=== PATIENT | female | born 1945 | race Caucasian/White ===

== ENCOUNTER → 2020-01-03 11:49 | Outpatient (NON) | payer MEDICARE, SELFPAY ==
[2020-01-03 12:48] LABS: Add Urine Microscopic? YES; Appearance Urine Clear (Clear); Bacteria Urine 2+ /hpf; Bilirubin Urine Negative (Negative); Blood Urine 1+ (Negative); Color Urine Yellow (Yellow); Glucose Urine UA Negative (Negative); Ketones Urine Negative (Negative); Leukocyte Esterase Ur 3+ LEU/UL (Negative); Nitrate Urine Negative (Negative); Protein Urine Negative (Negative); Specific Grav Ur 1.008 (1.001-1.035); Squamous Epithelial Cell Urine Occasional /hpf (Few); Urobilinogen Urine Negative mg/dL (<2.0); WBC Clumps Urine Present /HPF; WBC Urine 31-50 /hpf
== END ==
PROVIDERS: PCP Internal Medicine
DX: N17.9 Acute kidney failure, unspecified (principal); I48.91 Unspecified atrial fibrillation; R82.90 Unspecified abnormal findings in urine
CPT/HCPCS: 81001; 87086; 87186

== ENCOUNTER 2020-01-04 08:39 | Outpatient (CLI) | payer MEDICARE, SELFPAY ==
--- NOTE | 2020-01-04 09:01 | ECHO_ITS ---
Patient Info Name: Rachele Murray Age: 74 years : 1945 Gender: Female Ht: 61 in Wt: 136 lbs BSA: 1.64 m2 HR: 71 bpm BP: 158 / 70 mmHg Heart Rhythm: Sinus Rhythm Exam Date: 01/04/2020 9:15 AM Exam Location: [facility] Patient Status: Outpatient Admit Date: 01/04/2020 Staff Ordering Physician: Prosper Martinez DO Director Of Assessing: Gwen Phillips RDCS Attending Provider: Prosper Martinez DO Referring Physician: Juan SWIFT; Exam Type: CA echo doppler color flow Study Info Indications R60.9 - Edema, unspecified Complete two-dimensional, color flow and Doppler transthoracic echocardiogram is performed. Summary 1. Left ventricular chamber dimension is normal. 2. Ventricular septum is sigmoid shaped. 3. Left ventricular systolic function is normal, estimated at 55-60%. 4. There is mildly increased left ventricular wall thickness. 5. The left ventricular diastolic function is indeterminate. 6. Tissue doppler is not performed. 7. Left atrial chamber dimension is mildly enlarged. 8. The aortic valve is not well visualized. 9. There is severe aortic valve sclerosis. 10. There is moderate to severe aortic valve stenosis based on a peak velocity of 220 cm/s, mean gradient of 9 mmHg, and aortic valve area of 1.0 cm2. 11. There is mild aortic valve regurgitation. 12. The mitral valve has mildly calcified annulus. 13. There is mild mitral valve regurgitation. 14. There is trace tricuspid valve regurgitation. 15. Severe pulmonary hypertension, estimated pulmonary arterial systolic pressure is 82 mmHg. 16. Dilated inferior vena cava with <50% collapse upon inspiration consistent with significantly elevated right atrial pressure, 15 mmHg. Left Ventricle Tissue doppler is not performed. Ventricular septum is sigmoid shaped. Left ventricular chamber dimension is normal. Left ventricular systolic function is normal, estimated at 55-60%. There is mildly increased left ventricular wall thickness. The left ventricular diastolic function is indeterminate. Right Ventricle Right ventricular chamber dimension is normal. Right ventricular systolic function is normal. Left Atria Left atrial chamber dimension is mildly enlarged. Right Atria Right atrial chamber dimension is normal. Aortic Valve There is moderate to severe aortic valve stenosis based on a peak velocity of 220 cm/s, mean gradient of 9 mmHg, and aortic valve area of 1.0 cm2. The aortic valve is not well visualized. There is severe aortic valve sclerosis. There is mild aortic valve regurgitation. Pulmonic Valve There is no pulmonic regurgitation. Mitral Valve The mitral valve has mildly calcified annulus. There is no mitral valve stenosis. There is mild mitral valve regurgitation. Tricuspid Valve There is trace tricuspid valve regurgitation. Severe pulmonary hypertension, estimated pulmonary arterial systolic pressure is 82 mmHg. Pericardium/Pleural There is no pericardial effusion. Inferior Vena Cava Dilated inferior vena cava with <50% collapse upon inspiration consistent with significantly elevated right atrial pressure, 15 mmHg. Aorta The aortic root size at the sinus of Valsalva is normal. Left Ventricular Outflow Tract Name Value Normal LVOT 2D
== END 2020-01-04 08:40 | disposition home or self-care (01) ==
LOC: ANHCARD 08:41
PROVIDERS: PCP Internal Medicine; Visit Provider Internal Medicine Cardiovascular Disease
DX: R60.9 Edema, unspecified (principal); I08.3 Combined rheumatic disorders of mitral, aortic and tricuspid valves
CPT/HCPCS: 93306

== ENCOUNTER 2020-02-05 13:34 | Outpatient (CLI) | payer MEDICARE, SELFPAY ==
--- NOTE | ~2020-02-05 | MR_ITS ---
EXAMINATION: MR cervical spine wo con DATE: 02/05/2020 14:51 INDICATION: Neck pain. TECHNIQUE: Magnetic resonance imaging (MRI) of the cervical spine was performed without intravenous c ontrast. Sequences included sagittal T2-weighted FSE, sagittal STIR FSE, sagittal T1-weighted FSE, ax ial MERGE, and axial T2-weighted FSE. COMPARISON: Chest CT 10/18/2019 FINDINGS: There is a large multinodular goiter. There is 2 mm retrolisthesis of C5 on C6. There is se verely decreased disc height at C5-C6 and C6-C7 with endplate remodeling. The spinal cord signal inte nsity is normal, but sensitivity is decreased by motion artifact. There is a left pleural effusion. T he following disc levels are specifically discussed: C2-C3: The disc does not extend beyond the endplate margin. There is no uncovertebral joint osteoarth ritis. There is severe bilateral facet joint osteoarthritis. There is mild left neural foraminal sten osis. There is no central canal stenosis. C3-C4: The disc is bulging. There is moderate right and mild left uncovertebral joint osteoarthritis. There is severe right and moderate left facet joint osteoarthritis. There is mild bilateral neural f oraminal stenosis. There is severe central canal stenosis with ventral and dorsal indentation of spin al cord. C4-C5: The disc is bulging. There is severe bilateral uncovertebral joint osteoarthritis. There is mo derate bilateral facet joint osteoarthritis. There is moderate bilateral neural foraminal stenosis. T here is severe central canal stenosis with ventral and dorsal indentation of the spinal cord. C5-C6: The disc is bulging. There is severe bilateral uncovertebral joint osteoarthritis. There is mo derate right and severe left facet joint osteoarthritis. There is moderate to severe bilateral neural foraminal stenosis. There is mild central canal stenosis. C6-C7: The disc is bulging. There is severe bilateral uncovertebral joint osteoarthritis. There is mi ld bilateral facet joint osteoarthritis. There is mild bilateral neural foraminal stenosis. There is mild central canal stenosis. C7-T1: The disc does not extend beyond the endplate margin. There is no uncovertebral joint osteoarth ritis. There is severe bilateral facet joint osteoarthritis. There is mild bilateral neural foraminal stenosis. There is no central canal stenosis. IMPRESSION: 1. Severe cervical spondylosis. Sensitivity and specificity are decreased by motion artifact. 2. Left pleural effusion. Reviewed, dictated and finalized at location A. IMPRESSION: 1. Severe cervical spondylosis. Sensitivity and specificity are decreased by mo tion artifact. 2. Left pleural effusion.
== END 2020-02-05 13:35 | disposition home or self-care (01) ==
PROVIDERS: PCP Internal Medicine; Visit Provider Clinical Nurse Specialist
DX: M47.812 Spondylosis without myelopathy or radiculopathy, cervical region (principal); J90 Pleural effusion, not elsewhere classified
CPT/HCPCS: 72141

== ENCOUNTER 2020-02-09 14:40 | Outpatient (CLI) | payer MEDICARE, SELFPAY ==
--- NOTE | 2020-02-23 15:50 | WPDPFTINT ---
PFT Interpretation PFT Interpretation: DOS: 02/09/2020 REQUESTING: Dr Torres REASON FOR TESTING: COPD PULMONARY FUNCTION TESTS Results are not reproducible as the patient could not exhale 3 times for at least 6 seconds. His effort was excellent and he preformed to the best of his ability with coaching. Spirometry: Severe decrease in FEV1, 36% predicted, 0.71 L. FVC is severely reduced 49%, and decrease in FEV1%, 54%. There is a 14% increase in FEV1 which is less than 200 ml after bronchodilator. Lung volumes: TLC reduced at 66% predicted consistent with moderate restriction. RV is 94%, and RV/TLC ratio is increased at 58 consistent with air trapping. Airway resistance is increased 590%. Diffusion: DLCO extremely reduced, 22%. Flow volume loop: Scooping of the expiratory limb and overall reduction in size consistent with obstructive and restrictive processes. IMPRESSION: Moderate restriction and severe obstruction with air trapping and severe diffusion impairment. The suboptimal response to bronchodilator should not preclude use if clinically indicated. COPD is an obstructive process. The restriction is due to a secondary condition. Venecia Bland MD
== END 2020-02-09 14:41 | disposition home or self-care (01) ==
PROVIDERS: PCP Internal Medicine; Visit Provider Internal Medicine
DX: J44.9 Chronic obstructive pulmonary disease, unspecified (principal); R94.2 Abnormal results of pulmonary function studies
CPT/HCPCS: 94060; 94726; 94729

== ENCOUNTER 2020-02-29 16:31 | Inpatient (IN) | payer MEDICARE, SELFPAY ==
[2020-02-29] VITALS (25 sets, daily range): BP systolic 110–167; BP diastolic 48–71; PULSE 69–82; RESP 16–29; TEMP 36.2–36.7; O2SAT 85–100; BMI 25.2
--- NOTE | ~2020-02-29 | US_ITS ---
EXAMINATION: US thoracentesis DATE: 03/01/2020 11:52 INDICATION: pleural effusion TECHNIQUE: The procedure and its risks, benefits, and alternatives were discussed with the patient. P otential risks discussed included bleeding, infection, and pneumothorax. The patient understood the r isks and agreed to proceed. The skin was prepped and draped in sterile fashion. 1% lidocaine was used for local anesthesia. Under ultrasound guidance, a 5 Fr catheter with trochar was advanced into the left pleural effusion. Fluid was aspirated. The catheter was removed, and a dressing was applied. The re were no immediate complications. FINDINGS: Ultrasound images demonstrate a left pleural effusion and the catheter within the fluid. IMPRESSION: 1. Successful ultrasound-guided thoracentesis yielding 1000 mL of clear, yellow fluid. Reviewed, dictated and finalized at location A. IMPRESSION: 1. Successful ultrasound-guided thoracentesis yielding 1000 mL of clear, yello w fluid.
--- NOTE | ~2020-02-29 | XR_ITS ---
EXAMINATION: XR chest 1V portable DATE: 02/29/2020 17:15 INDICATION: Shortness of breath TECHNIQUE: frontal view of the chest was obtained. COMPARISON: Chest CT dated 10/18/2019 FINDINGS: Emphysema with increased lucency and architectural distortion at the bilateral upper lung zones. Mild biapical pleural-parenchymal scarring. Skin folds project over the lateral right mid to lower lung z one. Opacification of the mid to lower left hemithorax consistent with moderate size pleural effusion and associated atelectasis and/or pneumonia. Pulmonary vascular congestion and mild increased inters titial pattern consistent with mild pulmonary edema. No pneumothorax or right-sided pleural effusion. The left heart border is obscured by the pleural effusion and associated airspace disease. Mediastin al silhouette is normal conifer slight rightward rotation of the patient. IMPRESSION: 1. Mild pulmonary edema. 2. Moderate-sized left pleural effusion with atelectasis and/or pneumonia in the left mid to lower aaron ngs. 3. Emphysema. Reviewed, dictated and finalized at location A. IMPRESSION: 1. Mild pulmonary edema. 2. Moderate-sized left pleural effusion with atelectasis and/or pneumonia in th e left mid to lower lungs. 3. Emphysema.
--- NOTE | ~2020-02-29 | XR_ITS ---
XR chest 2V DATE: 03/03/2020 09:22 INDICATION: Left pleural effusion TECHNIQUE: Upright AP and lateral views COMPARISON: 03/02/2020 AP and lateral chest FINDINGS: There is moderately large left pleural effusion which appears relatively stable since 020. There is associated compressive atelectasis in the left lower lung. The right lung appears essen tially clear. Cardiomegaly. Aortic calcification. Diffuse osteopenia. Numerous calcified splenic granulomas. IMPRESSION: Persistent moderately large left pleural effusion with compressive atelectasis in the lef t lower lung Reviewed, dictated and finalized at location A. IMPRESSION: Persistent moderately large left pleural effusion with compressive atelectasis in the left lower lung
--- NOTE | ~2020-02-29 | XR_ITS ---
XR chest 2V DATE: 03/02/2020 10:08 INDICATION: Thoracentesis on 03/01/2024 pleural effusion TECHNIQUE: AP and lateral chest on 03/02/2020 at 1007 hours COMPARISON: 03/01/2020 AP chest at 1141 hours FINDINGS: Moderately large left pleural effusion is noted with associated compressive atelectasis in the left lower lung. There is mild infiltrate or atelectasis in the right lower lung and slight right pleural effusion. Aortic calcification. Diffuse osteopenia. IMPRESSION: Persistent moderately large left pleural effusion with compressive atelectasis in the lef t lower lung; no evidence of pneumothorax Minimal infiltrate or atelectasis at the right lung base and slight right pleural effusion Reviewed, dictated and finalized at location A. IMPRESSION: Persistent moderately large left pleural effusion with compressive atelectasis in the left lower lung; no evidence of pneumothorax Minimal infiltrate or atelectasis at the right lung base and slight right pleur al effusion
--- NOTE | ~2020-02-29 | XR_ITS ---
EXAMINATION: XR chest 1V DATE: 03/01/2020 11:43 INDICATION: Left pleural effusion status post thoracentesis. TECHNIQUE: A single frontal view of the chest was obtained. COMPARISON: Chest single view 02/29/2020, chest CT 10/18/2019 FINDINGS: There is a moderate-sized left pleural effusion. There are airspace opacities at left lung base, likely atelectasis. No pneumothorax. Again seen is a right paratracheal mass, consistent with i ntrathoracic goiter as shown by prior CT. The heart size is normal. IMPRESSION: 1. Moderate-sized left pleural effusion with interval improvement. 2. Airspace opacities at left lung base, likely atelectasis. 3. Goiter. Reviewed, dictated and finalized at location A.
--- NOTE | 2020-02-29 16:58 | ED.WEAKNESS ---
HPI - Weakness General Chief complaint: Weakness Stated complaint: possible dehydration Time Seen by Provider: 02/29/20 16:43 History of Present Illness HPI Narrative: Brought in from home for confusion and weakness. She has reportedly been more confused for the past few days. Barely eating or drinking. She has a mckeon catheter in place and daughter has noticed that her urine has been significantly darker. The pateit also says that she is more short of breath. No fever. Related Data Home Medications Medication Instructions Recorded Confirmed aspirin 81 mg tablet,delayed 81 mg PO DAILY 08/08/19 03/01/20 release gabapentin 100 mg capsule 100 mg PO TID 08/08/19 03/01/20 melatonin 5 mg tablet 10 mg PO HS tablet 08/08/19 03/01/20 tamsulosin 0.4 mg capsule 0.4 mg PO DAILY 08/08/19 03/01/20 multivitamin with minerals 1 cap PO DAILY 12/01/19 03/01/20 furosemide 40 mg tablet 40 mg PO .prn tablet 01/05/20 03/01/20 meclizine 12.5 mg tablet 12.5 mg PO BID PRN tablet 01/05/20 03/01/20 potassium chloride 10 mEq 10 meq PO DAILY PRN 01/05/20 03/01/20 tablet,extended release L. gasseri-B. bifidum-B longum 1.5 1 cap PO DAILY 01/25/20 03/01/20 billion cell capsule Allergies Allergy/AdvReac Type Severity Reaction Status Date / Time Penicillins Allergy Severe Anaphylactic Verified 02/29/20 16:38 Shock Review of Systems Review of Systems: All systems reviewed & are unremarkable except as noted in HPI and below Constitutional: Constitutional: Denies chills, Denies fever(s) and Reports weakness Cardiovascular: Cardiovascular: Denies chest pain Respiratory: Respiratory: Reports dyspnea Gastrointestinal: Gastrointestinal: Denies abdominal pain, Denies nausea and Denies vomiting Genitourinary: Genitourinary: Denies hematuria Neurologic: Reports weakness Endocrine: Endocrine: Denies polyuria PMFSH Past Medical History Medical History Anemia Anxiety Aortic valve stenosis Atrial fibrillation Breast tumor Chronic indwelling Mckeon catheter CKD (chronic kidney disease) Depression Dermatitis Dizziness Edema Goiter Hyperkalemia Hypertension Hyperthyroidism Kidney stones Murmur Osteoporosis Skin cancer Surgical History Surgical History History of nasal surgery Social History Social History Smoking packs per day: 2 Smoking cigarettes per day: 40.0 Years smoked: 60 Smoking pack-years: 120.00 Smoking status: Current every day smoker Tobacco type: pipe Alcohol intake: never Substance use: never Gender identity (if verbalized by the patient): Female Spiritual care concerns: No Exam Const: General: no acute distress and alert Other: elderly, chronically ill appearing HENMT: Mouth: Yes dry mucous membranes Eyes: Pupils: Equal, round and reactive pupils present Resp: Effort & Inspection: normal respiratory effort Auscultation: wheezes Cardio: Rate: regular rate Rhythm: regular rhythm GI: GI Palp: Yes Soft to palpation and No Tenderness to palpation present (GI) Urinary Catheter: Urinary Catheter: patent and draining and urine dark Skin: General skin exam: normal color Neuro: General: patient oriented x3, moves all extremities and CN's II-XI intact bilaterally Extrem: General: edema bilateral (1-2+) Course Vital Signs Vital signs: Vital Signs Temperature 36.2 C L 02/29/20 16:38 Pulse Rate 73 02/29/20 16:38 Respiratory Rate 29 H 02/29/20 16:38 Blood Pressure 164/71 H 02/29/20 16:38 Pulse Oximetry 100 02/29/20 16:38 Temperature 36.8 C 03/01/20 05:11 Pulse Rate 76 03/01/20 05:11 Respiratory Rate 18 03/01/20 05:11 Blood Pressure 121/44 L 03/01/20 05:11 Pulse Oximetry 94 03/01/20 05:11 MDM - Weakness MDM Narrative Medical decision making narrative: She has pulmonary edema an
[2020-02-29 17:08] LABS: Basophils Percent Auto 0.4 % (0.2-1.2); Eosinophils Absolute Auto 0.3 K/mm3 (0-0.3); Eosinophils Percent Auto 2.7 % (0-4.4); Hematocrit 31.4 % (37.0-47.0); Immature Granulocyte Absolute 0.04 K/mm3 (0.00-0.031); Immature Granulocyte Percent A 0.4 % (0-0.5); Lymphocytes Percent Auto 10.4 % (18.3-44.2); Mean Corpuscular HGB Conc 28.7 g/dl (32-36); Mean Corpuscular Hemoglobin 26.6 pg (26-34); Mean Corpuscular Volume 92.9 fl (80-100); Mean Platelet Volume 8.8 fl (7.4-10.4); Monocytes Absolute Auto 0.7 K/mm3 (0.1-0.6); Monocytes Percent Auto 6.8 % (2.6-8.5); Neutrophils Absolute Auto 8.4 K/mm3 (1.3-6.7); Neutrophils Percent Auto 79.3 % (45.5-73.1); Platelet Count Result 355 k/mm3 (150-375); Red Blood Count 3.38 M/mm3 (4.2-5.4); Red Cell Distribution Width 13.2 % (11.5-14.5); White Blood Count 10.5 K/mm3 (4.5-10.0)
[2020-02-29 17:17] LABS: Hypochromasia 1+ (NORMAL); Platelet Estimate Adequate (Adequate)
[2020-02-29 17:21] LABS: Lactic Acid Reflex 0.7 mmol/L (0.7-2.1)
[2020-02-29 17:26] LABS: Alanine Aminotransferase 17 U/L (4-35); Albumin Level 3.7 g/dL (3.5-5.1); Alkaline Phosphatase 91 U/L (38-126); Aspartate Amino Transferase 32 U/L (14-36); Bilirubin,Total 0.2 mg/dL (0.2-1.3); Blood Urea Nitrogen 28 mg/dL (7-17); Calcium 9.3 mg/dL (8.4-10.2); Carbon Dioxide 32 mmol/L (22-30); Chloride 99 mmol/L (98-107); Estimated CRCL calculation 23 ml/min; Estimated Glomerular Filt Rate 30; Glucose 98 mg/dL (65-105); Potassium 4.8 mmol/L (3.4-5.0); Sodium 135 mmol/L (137-145)
[2020-02-29 17:43] LABS: Add Urine Microscopic? YES; Amorphous Sediment Urine Few; Appearance Urine Cloudy (Clear); Bacteria Urine 1+ /hpf; Bilirubin Urine Negative (Negative); Blood Urine 2+ (Negative); Color Urine Yellow (Yellow); Glucose Urine UA Negative (Negative); Ketones Urine Negative (Negative); Leukocyte Esterase Ur 3+ LEU/UL (Negative); Nitrate Urine Negative (Negative); Protein Urine 2+ mg/dL (Negative); Specific Grav Ur 1.005 (1.001-1.035); Squamous Epithelial Cell Urine Occasional /hpf (Few); Urobilinogen Urine Negative mg/dL (<2.0); WBC Clumps Urine Present /HPF; WBC Urine >75 /hpf
[2020-02-29] MEDS: FUROSEMIDE INJ 40 MG/4 ML VIAL IV PUSH (18:56)
--- NOTE | 2020-02-29 21:38 | ADMGEN ---
This patient, Rachele Murray, was admitted to Medical Room 348-01. Patient/family oriented to hospital policies and general routines including ID bracelet, bed and alarms, visiting hours, pain management, procedures, bathroom and other care routines, personal items, smoking policy, room service/diet, and visiting hours. Valuables list has been completed. Information on how to activate the Rapid Response Team has been discussed. Patient/Family are encouraged to report perceived risks to care and to ask questions if they do not understand what they are told or what they should do.
[2020-02-29] MEDS: ALBUTEROL SULFATE NEB 2.5 MG/0.5 ML INH 5 MG INHALATION (22:23)
[2020-02-29] MEDS: IPRATROPIUM BR 0.02% INH SOLN 0.5 MG/2.5 ML VIAL INHALATION (22:24)
--- NOTE | 2020-02-29 22:35 | PM.IMHP ---
H&P: HPI History of Present Illness Chief complaint: Worsening shortness of breath Narrative: This is a 74 year old female with known history of previous colon cancer s/p colectomy in 2012 and recently diagnosed bladder tumor approximately 6 months ago who has had ongoing shortness of breath. She remarks that she has been experiencing worsening exertional shortness of breath over the past few weeks and her daughter urged her to come to the hospital for evaluation as she didn't look good to her. The patient is known to self catheterize herself over the past year and reports that her urine has been dark in color. She denies any chest pain, fevers, worsening cough, sore throat, headache, abdominal pain, dysuria, hematuria, nausea, vomiting or diarrhea. CXR was obtained in the ER tonight which demonstrated mild pulmonary edema and a moderate-sized left pleural effusion. The patient recently had a PET scan performed a few weeks ago which demonstrated a possible new occurrence of colon cancer. The patient is known to see Dr. March. The patient is currently on her home oxygen of 2.5 L/min via [place]. Urinalysis was grossly abnormal. She has been admitted to the hospital for a thoracentesis. Review of Systems Review of Systems: All systems reviewed & are unremarkable except as noted in HPI and below PMFSH Past Medical History Medical History Anemia Anxiety Aortic valve stenosis Atrial fibrillation Breast tumor Chronic indwelling Monahan catheter CKD (chronic kidney disease) Depression Dermatitis Dizziness Edema Goiter Hyperkalemia Hypertension Hyperthyroidism Kidney stones Murmur Osteoporosis Skin cancer Surgical History Surgical History History of nasal surgery Social History Social History Smoking packs per day: 2 Smoking cigarettes per day: 40.0 Years smoked: 60 Smoking pack-years: 120.00 Smoking status: Current every day smoker Tobacco type: pipe Alcohol intake: never Substance use: never Gender identity (if verbalized by the patient): Female Spiritual care concerns: No Comments Family medical history is reviewed and noncontributory. Meds Home Medications and Allergies Home Medications Medication Instructions Recorded Confirmed Type aspirin 81 mg tablet,delayed 81 mg PO DAILY 08/08/19 03/01/20 History release atorvastatin 10 mg tablet 10 mg PO DAILY #90 tablet 08/08/19 03/01/20 Rx gabapentin 100 mg capsule 100 mg PO TID 08/08/19 03/01/20 History melatonin 5 mg tablet 10 mg PO HS tablet 08/08/19 03/01/20 History methimazole 5 mg tablet 5 mg PO DAILY #90 tablet 08/08/19 03/01/20 Rx tamsulosin 0.4 mg capsule 0.4 mg PO DAILY 08/08/19 03/01/20 History multivitamin with minerals 1 cap PO DAILY 12/01/19 03/01/20 History amiodarone 200 mg tablet 200 mg PO DAILY #30 tablet 12/18/19 03/01/20 Rx furosemide 40 mg tablet 40 mg PO .prn tablet 01/05/20 03/01/20 History meclizine 12.5 mg tablet 12.5 mg PO BID PRN tablet 01/05/20 03/01/20 History potassium chloride 10 mEq 10 meq PO DAILY PRN 01/05/20 03/01/20 History tablet,extended release L. gasseri-B. bifidum-B longum 1.5 1 cap PO DAILY 01/25/20 03/01/20 History billion cell capsule albuterol sulfate 90 mcg/actuation 1 inhalation INHALATION Q4H PRN 02/13/20 03/01/20 Rx aerosol inhaler #18 gm sertraline 50 mg tablet 50 mg PO DAILY #30 tablet 02/20/20 03/01/20 Rx ipratropium bromide 17 2 puff INHALATION QID #12.9 gm 02/27/20 03/01/20 Rx mcg/actuation HFA aerosol inhaler Allergies Allergy/AdvReac Type Severity Reaction Status Date / Time Penicillins Allergy Severe Anaphylactic Verified 02/29/20 16:38 Shock Vital Signs Vital Signs - 24 hr 02/29/20 16:38 02/29/20 16:41 02/29/20 16:42 Temperature 36.2 C L Pulse Rate 73 73 73 Respiratory Rate 29 H 21 H 16
[2020-03-01] VITALS (19 sets, daily range): BP systolic 121–155; BP diastolic 44–64; PULSE 68–96; RESP 18–22; TEMP 36.8–37.4; O2SAT 90–96
[2020-03-01] MEDS: ALBUTEROL SULFATE NEB 2.5 MG/0.5 ML INH 5 MG INHALATION ×4 (02:34→19:10)
[2020-03-01] MEDS: IPRATROPIUM BR 0.02% INH SOLN 0.5 MG/2.5 ML VIAL INHALATION ×4 (02:34→19:11)
[2020-03-01 05:36] LABS: Basophils Percent Auto 0.4 % (0.2-1.2); Eosinophils Absolute Auto 0.3 K/mm3 (0-0.3); Eosinophils Percent Auto 2.7 % (0-4.4); Hemoglobin 8.2 g/dL (12.0-15.0); Immature Granulocyte Absolute 0.03 K/mm3 (0.00-0.031); Immature Granulocyte Percent A 0.3 % (0-0.5); Lymphocytes Absolute Auto 0.76 K/mm3 (0.9-3.2); Lymphocytes Percent Auto 7.9 % (18.3-44.2); Mean Corpuscular HGB Conc 29.3 g/dl (32-36); Mean Corpuscular Volume 92.1 fl (80-100); Mean Platelet Volume 8.7 fl (7.4-10.4); Monocytes Absolute Auto 0.6 K/mm3 (0.1-0.6); Monocytes Percent Auto 6.4 % (2.6-8.5); Neutrophils Absolute Auto 7.9 K/mm3 (1.3-6.7); Neutrophils Percent Auto 82.3 % (45.5-73.1); Platelet Count Result 290 k/mm3 (150-375); Red Blood Count 3.04 M/mm3 (4.2-5.4); Red Cell Distribution Width 13.2 % (11.5-14.5); White Blood Count 9.6 K/mm3 (4.5-10.0)
[2020-03-01 05:55] LABS: Triglycerides 83 mg/dL (<150)
[2020-03-01 05:57] LABS: Albumin Level 3.1 g/dL (3.5-5.1); Cholesterol 141 mg/dL (0-200); Glucose 125 mg/dL (65-105); Lactate Dehydrogenase 292 U/L (313-618)
[2020-03-01 05:58] LABS: Blood Urea Nitrogen 27 mg/dL (7-17); Carbon Dioxide 35 mmol/L (22-30); Chloride 101 mmol/L (98-107); Estimated CRCL calculation 17 ml/min; Estimated Glomerular Filt Rate 24; Glucose 127 mg/dL (65-105); Sodium 138 mmol/L (137-145)
[2020-03-01 08:03] LABS: Mean Platelet Volume 8.9 fl (7.4-10.4); Platelet Count Result 299 k/mm3 (150-375)
[2020-03-01 08:11] LABS: INR 1.1; Prothrombin Time 14.1 Seconds (11.1-14.7)
[2020-03-01 08:13] LABS: Partial Thromboplastin Time 28.5 SECONDS (22.3-36.8)
[2020-03-01 12:00] LABS: pH Pleural Fluid 7.463 (7.210-7.500)
[2020-03-01] MEDS: FUROSEMIDE INJ 40 MG/4 ML VIAL IV PUSH ×2 (12:13→21:49)
--- NOTE | 2020-03-01 12:22 | PM.IMPN ---
Progress Note: A&P Assessment and Plan (1) TRACY (dyspnea on exertion): Code(s): R06.09 - Other forms of dyspnea Status: Acute Assessment and Plan: [place] to be secondary to pleural effusion and COPD. She remains on IV lasix today. Continue her home oxygen supplementation and bronchodilator therapy. Improved after thoracentesis. (2) Pleural effusion: Code(s): J90 - Pleural effusion, not elsewhere classified Status: Acute Assessment and Plan: Thoracentesis today yielded 1000mL of clear yellow fluid. pH is within normal limits, cell count 32; RBC 146. Gram stain shows many WBC with no organisms seen. Continue diuresis with IV lasix and monitor fluid status. Recheck CXR in AM. No further respiratory distress. (3) Abnormal urinalysis: Code(s): R82.90 - Unspecified abnormal findings in urine Status: Acute Assessment and Plan: Rule out UTI with urine culture pending; Continue IV rocephin in the interim. (4) COPD (chronic obstructive pulmonary disease): Qualifiers: COPD type: unspecified COPD Qualified Code(s): J44.9 - Chronic obstructive pulmonary disease, unspecified Code(s): J44.9 - Chronic obstructive pulmonary disease, unspecified Status: Chronic Assessment and Plan: No respiratory distress today; continue bronchodilators. (5) Atrial fibrillation: Qualifiers: Atrial fibrillation type: unspecified Qualified Code(s): I48.91 - Unspecified atrial fibrillation Code(s): I48.91 - Unspecified atrial fibrillation Status: Chronic Assessment and Plan: Currently rate controlled. Continue Amiodarone PO. (6) Aortic valve stenosis: Qualifiers: Cardiac valve disease etiology: etiology unspecified Qualified Code(s): I35.0 - Nonrheumatic aortic (valve) stenosis Code(s): I35.0 - Nonrheumatic aortic (valve) stenosis Status: Chronic Assessment and Plan: Stable. Echocardiogram 01/04/20 showed moderate to severe aortic stenosis. She follows with Dr Martinez. (7) Hyperthyroidism: Code(s): E05.90 - Thyrotoxicosis, unspecified without thyrotoxic crisis or storm Status: Chronic Assessment and Plan: Continue methimazole PO. (8) CKD (chronic kidney disease): Qualifiers: Chronic kidney disease stage: stage 3 (moderate) Qualified Code(s): N18.3 - Chronic kidney disease, stage 3 (moderate) Code(s): N18.9 - Chronic kidney disease, unspecified Status: Chronic Assessment and Plan: Cr is near baseline. Continue to monitor renal function. (9) Depression: Qualifiers: Depression Type: unspecified Qualified Code(s): F32.9 - Major depressive disorder, single episode, unspecified Code(s): F32.9 - Major depressive disorder, single episode, unspecified Status: Chronic Assessment and Plan: Continue home sertraline. Subjective Date/time seen: 03/01/20 1200 Interval history: Ms. Murray is a 74yo F admitted for dyspnea and pleural effusion. She is a bit anxious today seen just following her thoracentesis. She reports she is breathing easier following her procedure. She notes some anterior chest wall pain with deep breath. She is hungry but denies nausea, vomiting, or abdominal pain. Review of Systems Review of Systems: Narrative: Twelve systems were reviewed with pertinent positives and negatives as per HPI. Exam Narrative: Exam Narrative: General: Thin female resting sitting up in bed in no acute distress. HEENT: Normocephalic, EOMI, oral mucosa moist. Cardiovascular: Rate and rhythm are regular. Systolic murmur. Respiratory: Decreased breath sounds VASU. Respir
[2020-03-01 13:10] LABS: Appearance Pleural Fluid Hazy (Clear); Color Pleural Fluid Yellow (Colorless); Nucleated Cell Pleural Fluid 258 /uL (0-1000); Pleural fluid source Pleural fluid; RBC Pleural Fluid 146 /uL (0-0)
[2020-03-01 13:12] LABS: Lymphocytes Pleural Fluid 24 %; Macrophages Pleural Fluid 7 %; Mesothelial Cells Pleural Flui 33 %; Monocytes Pleural Fluid 4 %; Neutrophils Pleural Fluid 32 % (0-25)
[2020-03-01] MEDS: GABAPENTIN 100 MG CAPSULE PO ×2 (16:19→21:48)
[2020-03-01] MEDS: MELATONIN 5 MG TABLET 10 MG PO (21:48)
[2020-03-01] MEDS: SERTRALINE HCL 50 MG TABLET PO (21:49)
[2020-03-02] VITALS (21 sets, daily range): BP systolic 105–144; BP diastolic 48–64; PULSE 69–91; RESP 16–22; TEMP 36.6–37.4; O2SAT 92–97
--- NOTE | 2020-03-02 00:41 | ECG_ITS ---
Measurements Intervals [place] Rate: 82 P: 51 MD: 153 QRS: 55 QRSD: 95 T: 68 QT: 387 QTc: 455 Interpretive Statements SINUS RHYTHM BASELINE ARTIFACT- II, III, AVL NORMAL ECG Electronically Signed On 03-02-2020 7:12:45 CDT by Prosper Martinez D.O.
[2020-03-02] MEDS: LORAZEPAM INJ 2 MG/ML VIAL 0.5 MG IV PUSH ×2 (01:26→18:04)
[2020-03-02 01:31] LABS: Troponin I 0.058 ng/mL (0.000-0.034)
[2020-03-02] MEDS: IPRATROPIUM BR 0.02% INH SOLN 0.5 MG/2.5 ML VIAL INHALATION ×4 (01:40→20:17)
[2020-03-02] MEDS: ALBUTEROL SULFATE NEB 2.5 MG/0.5 ML INH 5 MG INHALATION ×4 (01:40→20:17)
[2020-03-02 06:04] LABS: Basophils Absolute Auto 0.1 K/mm3 (0.0-0.1); Basophils Percent Auto 0.4 % (0.2-1.2); Eosinophils Absolute Auto 0.2 K/mm3 (0-0.3); Eosinophils Percent Auto 1.5 % (0-4.4); Hematocrit 27.7 % (37.0-47.0); Hemoglobin 8.1 g/dL (12.0-15.0); Immature Granulocyte Absolute 0.07 K/mm3 (0.00-0.031); Immature Granulocyte Percent A 0.6 % (0-0.5); Lymphocytes Absolute Auto 0.84 K/mm3 (0.9-3.2); Lymphocytes Percent Auto 7.1 % (18.3-44.2); Mean Corpuscular HGB Conc 29.2 g/dl (32-36); Mean Corpuscular Hemoglobin 26.6 pg (26-34); Mean Corpuscular Volume 90.8 fl (80-100); Mean Platelet Volume 8.7 fl (7.4-10.4); Monocytes Percent Auto 8.3 % (2.6-8.5); Neutrophils Absolute Auto 9.7 K/mm3 (1.3-6.7); Neutrophils Percent Auto 82.1 % (45.5-73.1); Platelet Count Result 301 k/mm3 (150-375); Red Blood Count 3.05 M/mm3 (4.2-5.4); Red Cell Distribution Width 13.5 % (11.5-14.5); White Blood Count 11.8 K/mm3 (4.5-10.0)
[2020-03-02 06:20] LABS: Blood Urea Nitrogen 29 mg/dL (7-17); Calcium 8.8 mg/dL (8.4-10.2); Carbon Dioxide 35 mmol/L (22-30); Chloride 97 mmol/L (98-107); Estimated CRCL calculation 22 ml/min; Estimated Glomerular Filt Rate 32; Glucose 136 mg/dL (65-105); Magnesium 1.8 mg/dL (1.6-2.3); Phosphorus 4.3 mg/dL (2.5-4.5); Potassium 3.5 mmol/L (3.4-5.0); Sodium 135 mmol/L (137-145)
[2020-03-02] MEDS: GABAPENTIN 100 MG CAPSULE PO ×3 (06:29→21:00)
[2020-03-02 07:35] LABS: Troponin I 0.061 ng/mL (0.000-0.034)
[2020-03-02] MEDS: AMIODARONE HCL 200 MG TABLET PO (09:21)
[2020-03-02] MEDS: methiMAzole 5 MG TAB PO (09:22)
[2020-03-02] MEDS: ATORVASTATIN 10 MG TABLET PO (09:22)
[2020-03-02] MEDS: TAMSULOSIN HCL 0.4 MG CAPSULE PO (09:22)
[2020-03-02] MEDS: FUROSEMIDE INJ 40 MG/4 ML VIAL IV PUSH ×2 (09:22→20:55)
--- NOTE | 2020-03-02 13:10 | PM.IMPN ---
Progress Note: A&P Assessment and Plan (1) TRACY (dyspnea on exertion): Code(s): R06.09 - Other forms of dyspnea Status: Acute Assessment and Plan: [place] to be secondary to pleural effusion and COPD, aortic stenosis. She remains on IV lasix today. Continue her home oxygen supplementation and bronchodilator therapy. Improved after thoracentesis. (2) Pleural effusion: Code(s): J90 - Pleural effusion, not elsewhere classified Status: Acute Assessment and Plan: Thoracentesis 03/01 yielded 1000mL of clear yellow fluid. pH is within normal limits, cell count 32; RBC 146. Gram stain shows many WBC with no organisms seen. Continue diuresis with IV lasix and monitor fluid status. Repeat XR this AM shows persistent moderate effusion, plan to monitor overnight and recheck CXR in AM - if worse or persistent may consider another thoracentesis. No further respiratory distress today. (3) Abnormal urinalysis: Code(s): R82.90 - Unspecified abnormal findings in urine Status: Acute Assessment and Plan: Urine culture growing multiple organisms likely colonizers related to chronic indwelling catheter. Stop IV rocephin. Nursing has changed her Monahan catheter. (4) COPD (chronic obstructive pulmonary disease): Qualifiers: COPD type: unspecified COPD Qualified Code(s): J44.9 - Chronic obstructive pulmonary disease, unspecified Code(s): J44.9 - Chronic obstructive pulmonary disease, unspecified Status: Chronic Assessment and Plan: No respiratory distress today; continue bronchodilators. (5) Atrial fibrillation: Qualifiers: Atrial fibrillation type: unspecified Qualified Code(s): I48.91 - Unspecified atrial fibrillation Code(s): I48.91 - Unspecified atrial fibrillation Status: Chronic Assessment and Plan: Currently rate controlled. Continue Amiodarone PO. (6) Aortic valve stenosis: Qualifiers: Cardiac valve disease etiology: etiology unspecified Qualified Code(s): I35.0 - Nonrheumatic aortic (valve) stenosis Code(s): I35.0 - Nonrheumatic aortic (valve) stenosis Status: Chronic Assessment and Plan: Stable. Echocardiogram 01/04/20 showed moderate to severe aortic stenosis. She follows with Dr Martinez. (7) Hyperthyroidism: Code(s): E05.90 - Thyrotoxicosis, unspecified without thyrotoxic crisis or storm Status: Chronic Assessment and Plan: Continue methimazole PO. (8) CKD (chronic kidney disease): Qualifiers: Chronic kidney disease stage: stage 3 (moderate) Qualified Code(s): N18.3 - Chronic kidney disease, stage 3 (moderate) Code(s): N18.9 - Chronic kidney disease, unspecified Status: Chronic Assessment and Plan: Cr is near baseline. Continue to monitor renal function. (9) Depression: Qualifiers: Depression Type: unspecified Qualified Code(s): F32.9 - Major depressive disorder, single episode, unspecified Code(s): F32.9 - Major depressive disorder, single episode, unspecified Status: Chronic Assessment and Plan: Continue home sertraline. Subjective Date/time seen: 03/02/20 1145 Interval history: Ms. Murray is a 74yo F admitted for dyspnea and pleural effusion. She reports feeling better today and thinks her shortness of breath has improved. She describes some anterior chest wall discomfort that is sharp with deep breaths. She thinks this pain is improved from yesterday. She is eating lunch during my encounter and denies abdominal pain, nausea, or vomiting. Spoke on the phone with the patient's daughter, Jailene, on speakerphone in the room with Rachele flores
[2020-03-02] MEDS: MECLIZINE HCL 12.5 MG TABLET PO (16:00)
[2020-03-02] MEDS: MELATONIN 5 MG TABLET 10 MG PO (20:56)
[2020-03-02] MEDS: SERTRALINE HCL 50 MG TABLET PO (20:56)
[2020-03-03] VITALS (13 sets, daily range): BP systolic 111–114; BP diastolic 50–58; PULSE 77–87; RESP 18–20; TEMP 36.2–36.6; O2SAT 92–96
[2020-03-03 01:21] LABS: Amylase, Pleural Fluid 11 U/L
[2020-03-03] MEDS: ALBUTEROL SULFATE NEB 2.5 MG/0.5 ML INH 5 MG INHALATION ×3 (01:35→13:10)
[2020-03-03] MEDS: IPRATROPIUM BR 0.02% INH SOLN 0.5 MG/2.5 ML VIAL INHALATION ×3 (01:36→13:10)
[2020-03-03] MEDS: GABAPENTIN 100 MG CAPSULE PO ×2 (05:02→14:09)
[2020-03-03 05:22] LABS: Hemoglobin 7.3 g/dL (12.0-15.0); Mean Corpuscular HGB Conc 29.2 g/dl (32-36); Mean Corpuscular Hemoglobin 26.4 pg (26-34); Mean Corpuscular Volume 90.6 fl (80-100); Mean Platelet Volume 8.7 fl (7.4-10.4); Platelet Count Result 279 k/mm3 (150-375); Red Blood Count 2.76 M/mm3 (4.2-5.4); Red Cell Distribution Width 13.5 % (11.5-14.5); White Blood Count 11.6 K/mm3 (4.5-10.0)
[2020-03-03 05:37] LABS: Blood Urea Nitrogen 29 mg/dL (7-17); Carbon Dioxide 39 mmol/L (22-30); Chloride 93 mmol/L (98-107); Estimated CRCL calculation 18 ml/min; Estimated Glomerular Filt Rate 26; Glucose 163 mg/dL (65-105); Magnesium 1.8 mg/dL (1.6-2.3); Potassium 3.1 mmol/L (3.4-5.0); Sodium 135 mmol/L (137-145)
[2020-03-03] MEDS: TAMSULOSIN HCL 0.4 MG CAPSULE PO (09:30)
[2020-03-03] MEDS: MAGNESIUM OXIDE 200 MG TABLET PO (09:30)
[2020-03-03] MEDS: POTASSIUM CHLORIDE 20 MEQ TABLET 40 MEQ PO (09:30)
[2020-03-03] MEDS: AMIODARONE HCL 200 MG TABLET PO (09:30)
[2020-03-03] MEDS: methiMAzole 5 MG TAB PO (09:30)
[2020-03-03] MEDS: FUROSEMIDE INJ 40 MG/4 ML VIAL IV PUSH (09:31)
[2020-03-03] MEDS: ATORVASTATIN 10 MG TABLET PO (09:31)
[2020-03-03] MEDS: MECLIZINE HCL 12.5 MG TABLET PO (09:38)
--- NOTE | 2020-03-03 11:52 | PM.DS ---
DS: Admitting Diagnosis Admitting Diagnosis Admitting Diagnosis: Other forms of dyspnea DS: Discharge Diagnosis Discharge Diagnosis (1) TRACY (dyspnea on exertion): Code(s): R06.09 - Other forms of dyspnea Status: Acute Assessment and Plan: Date of Service 03/03/20: Ms. Murray is a 74yo F with history of colon cancer followed by Dr March, COPD, atrial fibrillation, aortic stenosis, hyperthyroidism, and anxiety who presented to the ED for evaluation of shortness of breath. Chest XR on arrival demonstrated a moderate left pleural effusion. She underwent a therapeutic and diagnostic thoracentesis 03/01/20 and was diuresed with IV Lasix. She was feeling much better after thoracentesis. The procedure yielded 1000mL of clear yellow fluid and evaluation of the pleural fluid demonstrated a normal pH a normal pH. She reported she recently had a PET scan which showed a new spot on her bladder and that she needed to follow up with her urologist for a possible biopsy. She does have a chronic urinary Monahan catheter since earlier this year and is followed by Dr Salamanca, urology. This PET scan did demonstrate this pleural effusion at that time as well. She was feeling improved with the therapy outlined above and she was maintained on her home requirement of supplemental oxygen. She was hemodynamically stable for discharge 03/03/20 with instructions to follow up with Dr March, PCP Dr Hall, her urologist Dr Salamanca, and her body corporate manager Dr Martinez. Abnormal urinalysis was noted on arrival and she was started on empiric rocephin in the ED. Urine culture grew multiple organisms that likely represent colonization due to chronic indwelling Monahan, therefore antibiotics were discontinued. [place] to be secondary to pleural effusion and COPD, aortic stenosis. Treated with IV lasix and thoracentesis 03/01. Continue her home oxygen supplementation and bronchodilator therapy. Improved after thoracentesis. (2) Pleural effusion: Code(s): J90 - Pleural effusion, not elsewhere classified Status: Acute Assessment and Plan: Thoracentesis 03/01 yielded 1000mL of clear yellow fluid. pH is within normal limits, cell count 32; RBC 146. Gram stain shows many WBC with no organisms seen. No further respiratory distress today. (3) Abnormal urinalysis: Code(s): R82.90 - Unspecified abnormal findings in urine Status: Acute Assessment and Plan: Urine culture growing multiple organisms likely colonizers related to chronic indwelling catheter. Stop IV rocephin. Nursing has changed her Monahan catheter. (4) COPD (chronic obstructive pulmonary disease): Qualifiers: COPD type: unspecified COPD Qualified Code(s): J44.9 - Chronic obstructive pulmonary disease, unspecified Code(s): J44.9 - Chronic obstructive pulmonary disease, unspecified Status: Chronic Assessment and Plan: No respiratory distress today; continue bronchodilators. (5) Atrial fibrillation: Qualifiers: Atrial fibrillation type: unspecified Qualified Code(s): I48.91 - Unspecified atrial fibrillation Code(s): I48.91 - Unspecified atrial fibrillation Status: Chronic Assessment and Plan: Currently rate controlled. Continue Amiodarone PO. (6) Aortic valve stenosis: Qualifiers: Cardiac valve disease etiology: etiology unspecified Qualified Code(s): I35.0 - Nonrheumatic aortic (valve) stenosis Code(s): I35.0 - Nonrheumatic aortic (valve) stenosis Status: Chronic Assessment and Plan: Stable. Echocardiogram 01/04/20 showed moderate to severe aortic stenosis. She follows with Dr Martinez. (7) Hyperthyroidism: Code(s): E05.90 - Thyrotoxicosis, unspecified without thyrotoxic crisis
[2020-03-05 17:00] LABS: Glucose Pleural Fluid 123 mg/dL; LDH Pleural Fluid 98 U/L; Total Protein Pleural Fluid 4.5 g/dL
[2020-03-07 14:33] LABS: Albumin Pleural Fluid 1.9 g/dL
--- NOTE | 2020-03-18 07:06 | PC.NURSE ---
Pleural fluid cx is negative.
== END 2020-03-03 14:45 | disposition home health service (06) | DRG 188 ==
LOC: ANHED 19:21 → ANH3MED 20:50
PROVIDERS: Family Medicine; Physician Assistant; Admitting Provider Family Medicine; Emergency Provider Emergency Medicine; PCP Internal Medicine; Visit Provider Hospitalist
DX: J90 Pleural effusion, not elsewhere classified (principal); I48.91 Unspecified atrial fibrillation; J44.9 Chronic obstructive pulmonary disease, unspecified; N18.3 Chronic kidney disease, stage 3 (moderate); E05.90 Thyrotoxicosis, unspecified without thyrotoxic crisis or storm; I35.0 Nonrheumatic aortic (valve) stenosis; F32.9 Major depressive disorder, single episode, unspecified
CPT/HCPCS: 32555; 36415; 71045; 71046; 80048; 80053; 81001; 82040; 82042; 82150; 82465; 82945; 82947; 83605; 83615; 83735; 83986; 84100; 84157; 84311; 84478; 84484; 85025; 85027; 85049; 85610; 85730; 87015; 87070; 87075; 87086; 87088; 87102; 87116; 87205; 87206; 88104; 88108; 88184; 88305; 89051; 93005; 94640; 96365; 96375; 97161; 97165; 99285; A9270; J0696; J1940; J2060

== ENCOUNTER 2020-03-06 09:38 | Outpatient (CLI) | payer MEDICARE, SELFPAY ==
--- NOTE | ~2020-03-06 | NM_ITS ---
EXAMINATION: NM jason stress w perfusion DATE: 03/06/2020 12:25 INDICATION: Aortic valve stenosis. Pulmonary hypertension. TECHNIQUE: Rest images were obtained following intravenous administration of 9 mCi Tc99m tetrofosmin (Myoview). The patient was infused intravenously with Lexiscan (Regadenoson). Then, 36 mCi Tc99m tetr ofosmin (Myoview) was administered intravenously, and stress images were obtained. Data was reconstru cted into short axis and horizontal and vertical long axis SPECT images. Gated SPECT images were also obtained. COMPARISON: None. FINDINGS: Small reversible mild perfusion defect at the mid anterolateral segment consistent with isc hemia in the circumflex coronary artery vascular distribution. There is a second region of apparent r eversible mild decreased perfusion on the source images at the anterior basilar segment which is not identified by computer scoring. No nonreversible infarcts. There is normal left ventricular chamber s ize, wall motion and ejection fraction. Left ventricular ejection fraction measures 61%. IMPRESSION: 1. Small region of mild ischemia at the mid anterolateral segment. Possible second small region of is chemia at the anterior basilar segment. 2. Left ventricular ejection fraction measuring 61%. Reviewed, dictated and finalized at location A. IMPRESSION: 1. Small region of mild ischemia at the mid anterolateral segment. Possible sec ond small region of ischemia at the anterior basilar segment. 2. Left ventricular ejection fraction measuring 61%.
--- NOTE | 2020-03-06 11:00 | EST_ITS ---
Patient Info Name: Rachele Murray Age: 74 years : 1945 Gender: Female Ht: 61 in Wt: 125 lbs BSA: 1.57 m2 Exam Date: 03/06/2020 11:26 AM Exam Location: [facility] Stress Patient Status: Outpatient Admit Date: 03/06/2020 Staff Ordering Physician: Prosper Martinez DO Attending Provider: Prosper Martinez DO Exercise Technologist: Tyler Perez RDCS, RT Exercise Physician: Prosper Martinez DO Exam Type: CA stress jason w NM Study Info A regadenoson stress test was performed. Summary 1. 1. Negative lexiscan stress test for ischemic ST changes by ECG criteria. 2. 2. Baseline hypertension. 3. 3. Nuclear scan to follow and will be reported separately. Please correlate with it. 4. 4. Patient informed of the above results. Protocol: Lexiscan Stress ECG Details Stage: REST Duration (min): 9 min : 10 sec HR (bpm): 72 SBP (mmHg): 147 DBP (mmHg): 64 Stage: REST Duration (min): 9 min : 55 sec HR (bpm): 72 SBP (mmHg): 147 DBP (mmHg): 64 Stage: STAGE 1 Duration (min): 1 min : 0 sec HR (bpm): 77 SBP (mmHg): 146 DBP (mmHg): 60 Stage: RECOVERY Duration (min): 1 min : 0 sec HR (bpm): 82 SBP (mmHg): 146 DBP (mmHg): 60 Stage: RECOVERY Duration (min): 2 min : 0 sec HR (bpm): 79 SBP (mmHg): 146 DBP (mmHg): 60 Stage: RECOVERY Duration (min): 3 min : 0 sec HR (bpm): 78 SBP (mmHg): 129 DBP (mmHg): 56 Stage: RECOVERY Duration (min): 4 min : 0 sec HR (bpm): 78 SBP (mmHg): 129 DBP (mmHg): 56 Stage: RECOVERY Duration (min): 5 min : 0 sec HR (bpm): 77 SBP (mmHg): 130 DBP (mmHg): 54 Stage: RECOVERY Duration (min): 6 min : 0 sec HR (bpm): 77 SBP (mmHg): 130 DBP (mmHg): 54 Stage: RECOVERY Duration (min): 6 min : 48 sec HR (bpm): 76 SBP (mmHg): 123 DBP (mmHg): 53 Rest HR: 72 bpm Peak HR: 82 bpm Rest Sys BP: 147 mmHg Peak Sys BP: 146 mmHg Max Pred HR: 148 bpm % Max Pred HR: 55 % Target HR: 126 bpm Max RPP: 11,972 bpm*mmHg Termination Reason: Completed protocol Cardiac Symptoms: Shortness of breath Total Time: 1 min : 0 sec Rest [place] BP: 64 mmHg Peak [place] BP: 60 mmHg Total Dose: 0.4 mg Resting ECG Sinus rhythm. Stress ECG No ST changes. Arrhythmias None. Report Signatures
== END 2020-03-06 09:39 | disposition home or self-care (01) ==
PROVIDERS: PCP Internal Medicine; Visit Provider Internal Medicine Cardiovascular Disease
DX: I27.20 Pulmonary hypertension, unspecified (principal); I35.0 Nonrheumatic aortic (valve) stenosis; R07.9 Chest pain, unspecified
CPT/HCPCS: 78452; 93017; A9502; J2785

== ENCOUNTER → 2020-03-11 13:15 | Outpatient (NON) | payer MEDICARE, SELFPAY ==
[2020-03-11 13:22] LABS: Hematocrit 28.5 % (37.0-47.0); Hemoglobin 8.2 g/dL (12.0-15.0); Mean Corpuscular HGB Conc 28.8 g/dl (32-36); Mean Corpuscular Hemoglobin 26.8 pg (26-34); Mean Corpuscular Volume 93.1 fl (80-100); Mean Platelet Volume 8.8 fl (7.4-10.4); Platelet Count Result 392 k/mm3 (150-375); Red Blood Count 3.06 M/mm3 (4.2-5.4); Red Cell Distribution Width 14.1 % (11.5-14.5); White Blood Count 12.9 K/mm3 (4.5-10.0)
[2020-03-11 13:39] LABS: Blood Urea Nitrogen 31 mg/dL (7-17); Calcium 9.2 mg/dL (8.4-10.2); Carbon Dioxide 32 mmol/L (22-30); Chloride 100 mmol/L (98-107); Estimated Glomerular Filt Rate 28; Glucose 154 mg/dL (65-105); Potassium 4.6 mmol/L (3.4-5.0); Sodium 138 mmol/L (137-145)
== END ==
PROVIDERS: PCP Internal Medicine; Visit Provider Physician Assistant
DX: D64.9 Anemia, unspecified (principal); N18.9 Chronic kidney disease, unspecified
CPT/HCPCS: 80048; 85027

== ENCOUNTER 2020-03-12 16:10 | Outpatient (CLI) | payer MEDICARE, SELFPAY ==
--- NOTE | ~2020-03-12 | XR_ITS ---
EXAMINATION: XR chest 2V DATE: 03/12/2020 16:51 INDICATION: Pleural effusion TECHNIQUE: frontal and lateral views of the chest were obtained. COMPARISON: Chest radiograph dated 03/03/2020 FINDINGS: Increase in size of a now large left pleural effusion which opacifies the left mid to lower lung zone . [place] projects over the right lower lung zone. No pulmonary edema, pneumothorax or right-sided p leural effusion. The cardiac silhouette is partially obscured but appears within normal limits for AP technique. Numerous splenic calcifications is consistent with old granulomatous disease. Moderate th oracic spondylosis. IMPRESSION: 1. Increasing large left pleural effusion with associated compressive atelectasis. Underlying pneumon ia or malignancy not excludable in the opacified right mid to lower lung. Reviewed, dictated and finalized at location A. IMPRESSION: 1. Increasing large left pleural effusion with associated compressive atelectas is. Underlying pneumonia or malignancy not excludable in the opacified right mi d to lower lung.
[2020-03-12 17:16] LABS: Basophils Absolute Auto 0.1 K/mm3 (0.0-0.1); Basophils Percent Auto 0.6 % (0.2-1.2); Eosinophils Absolute Auto 0.5 K/mm3 (0-0.3); Eosinophils Percent Auto 3.5 % (0-4.4); Hematocrit 28.2 % (37.0-47.0); Hemoglobin 8.2 g/dL (12.0-15.0); Immature Granulocyte Absolute 0.06 K/mm3 (0.00-0.031); Immature Granulocyte Percent A 0.5 % (0-0.5); Lymphocytes Absolute Auto 1.07 K/mm3 (0.9-3.2); Lymphocytes Percent Auto 8.2 % (18.3-44.2); Mean Corpuscular HGB Conc 29.1 g/dl (32-36); Mean Corpuscular Hemoglobin 26.6 pg (26-34); Mean Corpuscular Volume 91.6 fl (80-100); Mean Platelet Volume 8.5 fl (7.4-10.4); Monocytes Absolute Auto 0.7 K/mm3 (0.1-0.6); Monocytes Percent Auto 5.2 % (2.6-8.5); Neutrophils Absolute Auto 10.7 K/mm3 (1.3-6.7); Platelet Count Result 389 k/mm3 (150-375); Red Blood Count 3.08 M/mm3 (4.2-5.4); Red Cell Distribution Width 14.1 % (11.5-14.5)
[2020-03-12 17:28] LABS: Alanine Aminotransferase 23 U/L (4-35); Albumin Level 3.4 g/dL (3.5-5.1); Alkaline Phosphatase 109 U/L (38-126); Aspartate Amino Transferase 31 U/L (14-36); Bilirubin,Total 0.3 mg/dL (0.2-1.3); Blood Urea Nitrogen 26 mg/dL (7-17); Calcium 9.4 mg/dL (8.4-10.2); Carbon Dioxide 35 mmol/L (22-30); Chloride 100 mmol/L (98-107); Estimated Glomerular Filt Rate 30; Glucose 107 mg/dL (65-105); Potassium 4.2 mmol/L (3.4-5.0); Sodium 138 mmol/L (137-145)
[2020-03-12 17:37] LABS: NT Pro B Type Natriuretic Pept 4480 PG/ML (5-100)
[2020-03-12 17:52] LABS: Platelet Estimate Increased (Adequate)
[2020-03-12 17:53] LABS: Anisocytosis 1+ (NORMAL); Hypochromasia 1+ (NORMAL)
== END 2020-03-12 16:11 | disposition home or self-care (01) ==
PROVIDERS: PCP Internal Medicine; Visit Provider Nurse Practitioner
DX: J90 Pleural effusion, not elsewhere classified (principal); D64.9 Anemia, unspecified
CPT/HCPCS: 36415; 71046; 80053; 83880; 85025

== ENCOUNTER 2020-03-13 09:22 | Inpatient (IN) | payer MEDICARE, SELFPAY ==
[2020-03-13] VITALS (9 sets, daily range): BP systolic 137–157; BP diastolic 42–82; PULSE 69–74; RESP 18–26; TEMP 36.6–36.9; O2SAT 90–99; BMI 24.5
--- NOTE | ~2020-03-13 | XR_ITS ---
EXAMINATION: XR chest 1V portable DATE: 03/26/2020 05:59 INDICATION: COPD exacerbation TECHNIQUE: frontal view of the chest was obtained. COMPARISON: Chest radiograph dated 03/25/2020 FINDINGS: Right internal jugular central venous catheter with distal tip at the caudal superior vena cava. Card iomegaly and mild pulmonary edema with bilateral mild increased interstitial pattern and a few periph eral Vaishali B-lines. Small to moderate left and small right pleural effusions. Solid lesion in the le ft lower lung zone which could represent associated atelectasis and/or pneumonia. No pneumothorax. Ca lcified nodule at the right apex and numerous calcifications in the spleen consistent with old granul omatous disease. IMPRESSION: 1. Congestive heart failure with cardiomegaly and mild pulmonary edema. 2. Small right and ifuuv-[id number] left pleural effusions. 3. Atelectasis and/or pneumonia in the left lower lung zone. Reviewed, dictated and finalized at location A. IMPRESSION: 1. Congestive heart failure with cardiomegaly and mild pulmonary edema. 2. Small right and [id number] left pleural effusions. 3. Atelectasis and/or pneumonia in the left lower lung zone.
--- NOTE | ~2020-03-13 | XR_ITS ---
EXAMINATION: XR chest 1V portable EXAM DATE: 03/23/2020 06:00 INDICATION: COPD exacerbation, shortness of breath. Pleural effusion. TECHNIQUE: Portable AP frontal chest x-ray was obtained. Comparison is made to prior examination from 03/21/2020. FINDINGS: Moderate left pleural effusion with adjacent airspace disease, unchanged. There is a right IJ venous line. No pneumothorax. Moderate hyperinflation. Cardiac silhouette is stable in size compar ed to prior exam. Some ill-defined bilateral reticulation probably edema and/or pneumonia. There are mild bony degenerative changes. There is no significant interval change. IMPRESSION: 1. Moderate left pleural effusion, adjacent atelectasis. 2. Bilateral ill-defined reticulation, likely edema and/or pneumonia. Reviewed, dictated and finalized at location A.
--- NOTE | ~2020-03-13 | XR_ITS ---
EXAMINATION: XR chest 2V DATE: 03/15/2020 12:59 INDICATION: Recurrent pleural effusion. TECHNIQUE: Frontal and lateral views of the chest were obtained. COMPARISON: Chest single view 03/13/2020 FINDINGS: There are small right and moderate-sized left pleural effusions. There are airspace opaciti es at left lung base. There is mild scarring at the lung apices. No pneumothorax. The heart size is o bscured. Again seen is an intrathoracic goiter. IMPRESSION: 1. Stable small right and moderate-sized left pleural effusions. 2. Stable airspace opacities at left lung base, consistent with atelectasis versus pneumonia. Reviewed, dictated and finalized at location A. IMPRESSION: 1. Stable small right and moderate-sized left pleural effusions. 2. Stable airspace opacities at left lung base, consistent with atelectasis steven phoebe pneumonia.
--- NOTE | ~2020-03-13 | XR_ITS ---
EXAMINATION: XR chest 1V EXAM DATE: 03/24/2020 11:27 INDICATION: Postthoracentesis. TECHNIQUE: Portable AP frontal chest x-ray was obtained. Comparison is made to prior examination from earlier same day. FINDINGS: There is a right-sided IJ venous line in position. Cardiomegaly, some pulmonary vascular co ngestion. There is moderate appearing left pleural effusion with adjacent atelectasis, but with inter stefania decrease in size following removal of 1 L of fluid. There is no radiographic evidence of postproc edure pneumothorax. The bones are osteopenic. There are bony degenerative changes. IMPRESSION: 1. Interval decrease in size of moderate left pleural effusion. 2. Adjacent compressive atelectasis. Reviewed, dictated and finalized at location A.
--- NOTE | ~2020-03-13 | XR_ITS ---
EXAMINATION: XR chest 1V DATE: 03/13/2020 12:25 INDICATION: Left pleural effusion status post thoracentesis. TECHNIQUE: A single frontal view of the chest was obtained. COMPARISON: Chest single view at 10:41 AM FINDINGS: There is a moderate-sized left pleural effusion. There are airspace opacities at left lung base. There is an interstitial pattern in the lungs. A calcified right lung nodule is consistent with old granulomatous disease. There is intrathoracic goiter. No pneumothorax. The heart size is normal. IMPRESSION: 1. Moderate-sized left pleural effusion with interval improvement. 2. Airspace opacities at left lung base, consistent with atelectasis versus pneumonia. 3. Mild pulmonary edema. 4. Goiter. Reviewed, dictated and finalized at location A. IMPRESSION: 1. Moderate-sized left pleural effusion with interval improvement. 2. Airspace opacities at left lung base, consistent with atelectasis versus pne umonia. 3. Mild pulmonary edema. 4. Goiter.
--- NOTE | ~2020-03-13 | XR_ITS ---
XR chest 1V portable 04/03/2020 16:24 Indication: Left pleural effusion Procedure: AP portable chest Comparison: Comparison to multiple prior studies sequentially, with oldest reviewed study dated 03/24. Findings: NG tube in the stomach. Right IJ central line tip in the SVC. Cardiomegaly with interstitia l edema. Large left pleural effusion. No pneumothorax. Impression: 1: Cardiomegaly with interstitial edema. 2: Large left pleural effusion. Reviewed, dictated and finalized at location A. Impression: 1: Cardiomegaly with interstitial edema. 2: Large left pleural effusion.
--- NOTE | ~2020-03-13 | XR_ITS ---
EXAMINATION: XR chest 1V DATE: 04/04/2020 09:01 INDICATION: Left pleural effusion post left thoracentesis TECHNIQUE: frontal view of the chest was obtained. COMPARISON: Chest radiograph dated 04/03/2020 FINDINGS: Decrease in size of a small left pleural effusion portion which tracks along the major fissure. Mild opacities at the bilateral lower lung zones which could represent mild pulmonary edema, atelectasis o r pneumonia. No pneumothorax. Cardiomegaly. Right internal jugular central venous catheter with dista l tip at the midsuperior vena cava. Nasogastric tube extends below the left hemidiaphragm with dista l tip collimated off the study. Numerous splenic calcific a cyst consistent with old granulomatous di sease. IMPRESSION: 1. Decrease in size of a small left pleural effusion postthoracentesis. No pneumothorax. 2. Mild bibasilar opacities which could represent mild pulmonary edema, atelectasis or pneumonia. Reviewed, dictated and finalized at location A. IMPRESSION: 1. Decrease in size of a small left pleural effusion postthoracentesis. No pneu mothorax. 2. Mild bibasilar opacities which could represent mild pulmonary edema, atelect asis or pneumonia.
--- NOTE | ~2020-03-13 | US_ITS ---
EXAMINATION: US thoracentesis EXAM DATE: 03/24/2020 14:38 INDICATION: Shortness of breath. Rib fractures. TECHNIQUE: Timeout procedure was performed. I discussed the procedure, its risks and benefits with th e patient. Potential risks discussed included bleeding, infection, and pneumothorax which could poten tially require chest tube. Alternatives were also discussed. The patient understood the risks, was gi maldonado chance to ask questions, and agreed to proceed. The skin was prepped and draped in sterile fashion. 4 mL of 1% lidocaine was used for local anesthesi a. Under ultrasound guidance, a 5 Fr catheter with trochar was advanced into the left pleural effusio n. Fluid was aspirated. The catheter was removed, and a dressing was applied. There were no immediate complications. FINDINGS: Ultrasound images demonstrate a left pleural effusion. IMPRESSION: 1. Successful ultrasound-guided thoracentesis yielding 1000 mL of clear thalia-colored fluid. Reviewed, dictated and finalized at location B. IMPRESSION: 1. Successful ultrasound-guided thoracentesis yielding 1000 mL of clear thalia- colored fluid.
--- NOTE | ~2020-03-13 | XR_ITS ---
EXAMINATION: XR chest 1V portable DATE: 03/13/2020 10:49 INDICATION: Dyspnea. TECHNIQUE: A single frontal view of the chest was obtained. COMPARISON: Chest 2 views 03/12/2020, chest CT 10/18/2019 FINDINGS: There is a large left pleural effusion. The lungs are hyperexpanded with interstitial opaci ties, consistent with pulmonary edema superimposed on emphysema. There are airspace opacities at left lung base. No pneumothorax. There is an intrathoracic goiter. The heart size is obscured. IMPRESSION: 1. Large left pleural effusion. 2. Mild pulmonary edema. 3. Stable airspace opacities at left lung base, consistent with atelectasis versus pneumonia. 4. Emphysema. 5. Goiter. Reviewed, dictated and finalized at location A. IMPRESSION: 1. Large left pleural effusion. 2. Mild pulmonary edema. 3. Stable airspace opacities at left lung base, consistent with atelectasis steven phoebe pneumonia. 4. Emphysema. 5. Goiter.
--- NOTE | ~2020-03-13 | CT_ITS ---
EXAMINATION: CT chest high resolution [facility] EXAM DATE: 03/24/2020 11:35 INDICATION: Amiodarone toxicity. TECHNIQUE: Spiral CT of the chest without contrast. Axial, coronal and sagittal images were reviewe d. Coronal maximum intensity pixel images of chest reviewed. The dose-length product (DLP) for this examination was 119.33 mGy-cm. The exposure was tailored according to patient size (auto mA exposur e control), and iterative reconstruction (ASIR) was used as additional dose reduction technique. Comp arison is made to prior examination from 10/18/2019. FINDINGS: There is moderate left pleural effusion. There is moderate hyperinflation and emphysema. T here is left lower lobe multisegmental atelectasis. Trace right pleural effusion. Development of mild interlobular septal thickening which is nonspecific but could be pulmonary edema given that this was not present on prior study. Early interstitial lung disease not excludable. There is moderate pericardial effusion. The interventricular septum is perceptible, suggesting patien t is anemic. There are no pleural or pericardial effusions. Tracheobronchial tree is patent. T here is no mediastinal, hilar or axillary lymphadenopathy. There is no pneumothorax. Heart normal in size. There is moderate coronary arterial calcification, arterial sclerosis. The liver measure s 72 Hounsfield units, measured 57 HU in September. Could be amiodarone related. Splenic granulomas. Mu ltiple acute rib fractures of the ribs anteriorly, mild displacement on the right. There is thoracic spondylosis without osteoblastic or osteolytic lesions identified. IMPRESSION: 1. Regions of mild interlobular septal thickening, pulmonary edema versus developing mild interstiti al lung disease. 2. Increase in liver density, could be amiodarone related. 3. Moderate pericardial effusion. 4. Moderate left pleural effusion with adjacent subsegmental atelectasis. 5. Moderate emphysema. Reviewed, dictated and finalized at location A. IMPRESSION: 1. Regions of mild interlobular septal thickening, pulmonary edema versus deve loping mild interstitial lung disease. 2. Increase in liver density, could be amiodarone related. 3. Moderate pericardial effusion. 4. Moderate left pleural effusion with adjacent subsegmental atelectasis. 5. Moderate emphysema.
--- NOTE | ~2020-03-13 | XR_ITS ---
EXAMINATION: XR chest 1V portable DATE: 03/25/2020 06:20 INDICATION: COPD exacerbation TECHNIQUE: frontal view of the chest was obtained. COMPARISON: Chest radiograph dated 03/24/2020 FINDINGS: Skinfold projects over the lateral right lung. Opacities in the left lower lung zone consistent with small left pleural effusion with associated atelectasis and/or pneumonia. Tiny right pleural effusion with blunting at the right costophrenic angle. Diffuse increased interstitial pattern consistent wit h mild pulmonary edema superimposed over emphysema. No pneumothorax. Cardiomegaly. Right internal jug ular central venous catheter with distal tip near the superior cavoatrial junction. IMPRESSION: 1. Likely congestive heart failure with cardiomegaly and mild pulmonary edema. 2. Small left and tiny right pleural effusions. 3. Consolidation in left lower lung zone which could represent atelectasis and/or pneumonia. 4. Emphysema. Reviewed, dictated and finalized at location A. IMPRESSION: 1. Likely congestive heart failure with cardiomegaly and mild pulmonary edema. 2. Small left and tiny right pleural effusions. 3. Consolidation in left lower lung zone which could represent atelectasis and/ or pneumonia. 4. Emphysema.
--- NOTE | ~2020-03-13 | XR_ITS ---
EXAMINATION: XR fl guid NG/feed tube insert DATE: 03/26/2020 11:20 INDICATION: NG tube placement with unsuccessful prior attempted Dobbhoff placement TECHNIQUE: Fluoroscopy was utilized during nasogastric tube placement performed by the radiologist. A single fluoroscopic spot image was recorded. The amount of fluoroscopy time used during this procedu re was 2.1 minutes. COMPARISON: 03/20/2020 FINDINGS/IMPRESSION: Successful nasogastric tube placement with the tip in proximal side port of the nasogastric tube posi tioned in the body of the stomach. Reviewed, dictated and finalized at location A.
--- NOTE | ~2020-03-13 | XR_ITS ---
EXAMINATION: XR chest ET placement INDICATION: Endotracheal tube placement TECHNIQUE: Portable AP chest at 0148 hours COMPARISON: 0107 hours FINDINGS: The tip of the endotracheal tube has further advanced into the right mainstem bronchus sinc e the comparison examination. Moderate-sized left and small right pleural effusions are unchanged. Di ffuse lung disease is stable. The cardiac silhouette is obscured. No pneumothorax is identified. The nasogastric tube is followed as far as the stomach. Its tip is beyond the inferior margin of the radi ograph. IMPRESSION: 1. Tip of the endotracheal tube advanced further into the right mainstem bronchus. The tube has been repositioned at the time of interpretation. Otherwise, no change. Reviewed, dictated and finalized at location A. IMPRESSION: 1. Tip of the endotracheal tube advanced further into the right mainstem bronch us. The tube has been repositioned at the time of interpretation. Otherwise, no change.
--- NOTE | ~2020-03-13 | XR_ITS ---
EXAMINATION: XR abdomen obstructive series DATE: 04/07/2020 10:06 INDICATION: Abdominal pain. TECHNIQUE: Upright and supine views of the abdomen were obtained. COMPARISON: Chest CT 03/24/2020 FINDINGS: There are no dilated loops of bowel. No free intraperitoneal gas. There is a gastrostomy tu be in expected position. There is a moderate-sized loculated left pleural effusion. There are airspac e opacities at left lung base. There is a central line tip in right atrium. There is enlargement of t he cardiac silhouette. IMPRESSION: 1. Nonobstructive bowel gas pattern. 2. Moderate-sized loculated left pleural effusion. 3. Airspace opacities at left lung base, consistent with atelectasis versus pneumonia. 4. Enlargement of the cardiac silhouette, likely a combination of cardiomegaly and pericardial effusi on as seen on the prior CT. Reviewed, dictated and finalized at location A. IMPRESSION: 1. Nonobstructive bowel gas pattern. 2. Moderate-sized loculated left pleural effusion. 3. Airspace opacities at left lung base, consistent with atelectasis versus pne umonia. 4. Enlargement of the cardiac silhouette, likely a combination of cardiomegaly and pericardial effusion as seen on the prior CT.
--- NOTE | ~2020-03-13 | US_ITS ---
EXAMINATION: US venous doppler [facility] DATE: 03/14/2020 09:54 INDICATION: Lower limb edema. TECHNIQUE: Grayscale ultrasound images without and with compression and Doppler ultrasound images of the bilateral lower extremity veins were obtained. COMPARISON: None. FINDINGS: The visualized portions of right common femoral vein, profunda (deep) femoral vein, femoral vein, pop liteal vein, peroneal veins, posterior tibial veins, and greater saphenous vein outflow are patent. R ight superficial femoral artery is totally occluded. The visualized portions of left common femoral vein, profunda femoral vein, femoral vein, popliteal v ein, peroneal veins, posterior tibial veins, and greater saphenous vein outflow are patent. Left supe rficial femoral artery is totally occluded. IMPRESSION: 1. No deep venous thrombosis. 2. Totally occluded bilateral superficial femoral arteries. Reviewed, dictated and finalized at location A.
--- NOTE | ~2020-03-13 | XR_ITS ---
EXAMINATION: XR chest port-a-cath/central INDICATION: Central line insertion TECHNIQUE: Portable AP chest at 0442 hours COMPARISON: 0251 hours FINDINGS: The endotracheal tube ends approximately 1.8 cm above the doug. The nasogastric tube is f ollowed as far as the stomach. Its tip is beyond the inferior margin of the radiograph. A right inter nal jugular central venous catheter has been inserted which ends with its tip in the midsuperior vena cava. There is no pneumothorax. Moderate-sized left and small right pleural effusions are unchanged. The cardiac silhouette is obscured. Diffuse lung disease persists with slight improvement. IMPRESSION: 1. Right internal jugular central venous catheter inserted. No pneumothorax. 2. Stable pleural effusions. 3. Diffuse lung disease with slight improvement, consistent with atelectasis and/or pneumonia and/or pulmonary edema. Reviewed, dictated and finalized at location A. IMPRESSION: 1. Right internal jugular central venous catheter inserted. No pneumothorax. 2. Stable pleural effusions. 3. Diffuse lung disease with slight improvement, consistent with atelectasis an d/or pneumonia and/or pulmonary edema.
--- NOTE | ~2020-03-13 | XR_ITS ---
EXAMINATION: XR chest ET placement INDICATION: Endotracheal tube repositioning TECHNIQUE: Portable AP chest at 0251 hours COMPARISON: 0148 hours FINDINGS: The repositioned endotracheal tube ends 1.6 cm above the doug. The nasogastric tube is fo llowed as far as the stomach. Its tip is beyond the inferior margin of the radiograph. There are mode rate-sized left and small right pleural effusions which are unchanged. The cardiac silhouette is obsc ured. Diffuse lung disease is stable. No pneumothorax is identified. IMPRESSION: 1. Repositioned endotracheal tube ending 1.6 cm above the doug. 2. Stable pleural effusions. 3. Stable, diffuse lung disease, consistent with atelectasis and/or pneumonia and/or pulmonary edema. Reviewed, dictated and finalized at location A. IMPRESSION: 1. Repositioned endotracheal tube ending 1.6 cm above the doug. 2. Stable pleural effusions. 3. Stable, diffuse lung disease, consistent with atelectasis and/or pneumonia a nd/or pulmonary edema.
--- NOTE | ~2020-03-13 | XR_ITS ---
EXAMINATION: XR chest 1V portable INDICATION: Shortness of breath TECHNIQUE: Portable AP chest at 1714 hours COMPARISON: 03/20/2020 FINDINGS: The endotracheal and nasogastric tubes have been removed. A right internal jugular central venous catheter ends with its tip in the distal superior vena cava. Moderate-sized left and small rig ht pleural effusions persist with minimal change. The cardiac silhouette remains obscured. Diffuse aaron ng disease persists without significant change. There is no pneumothorax. There appears to be a left fourth rib fracture. IMPRESSION: 1. Endotracheal and nasogastric tube removal. 2. Moderate-sized left and small right pleural effusions without significant change. 3. Diffuse lung disease without significant change, consistent with atelectasis and/or pneumonia and/ or pulmonary edema. 4. Left fourth rib fracture, possibly related to recent cardiopulmonary resuscitation. Reviewed, dictated and finalized at location A. IMPRESSION: 1. Endotracheal and nasogastric tube removal. 2. Moderate-sized left and small right pleural effusions without significant ch mandy. 3. Diffuse lung disease without significant change, consistent with atelectasis and/or pneumonia and/or pulmonary edema. 4. Left fourth rib fracture, possibly related to recent cardiopulmonary resusci tation.
--- NOTE | ~2020-03-13 | XR_ITS ---
MODIFIED ESOPHAGRAM HISTORY: Dysphagia. TECHNIQUE: Modified barium esophagram was performed on 03/31/2020. I administered fluoroscopy and perfo rmed the exam with speech pathologist. Patient was seated for lateral fluoroscopic imaging for inges tion of thin liquids, pudding, solids and quantified amounts, followed by thin liquids in uncontrolle d amounts. This was recorded on tape. A single fluoroscopic spot image was also recorded. The DAP for this procedure was 2.63 Gycm2. The amount of fluoroscopy time used during this procedure was 3.4 min utes. FINDINGS: Nasogastric tube extends from the nasal cavity into the esophagus. Central venous catheter also proje cts over the lower neck. Mild cervical spondylosis with grade 1 anterolisthesis C3 on C4 and C4 on C5 . Oral stage: Reduced movement. Pharyngeal stage: Laryngeal penetration and aspiration. Reduced laryngeal elevation and abduction.. Cervical/esophageal stage: Adequate function. IMPRESSION: Laryngeal penetration and aspiration. Please correlate with speech pathologist findings and specific feeding recommendations. Reviewed, dictated and finalized at location A.
--- NOTE | ~2020-03-13 | XR_ITS ---
EXAMINATION: XR chest ET placement INDICATION: Endotracheal tube placement TECHNIQUE: Portable AP chest at 0107 hours COMPARISON: 03/19/2020 FINDINGS: An endotracheal tube has been inserted which ends at the origin of the right mainstem bronc hus. A moderate-sized left and small right pleural effusions are unchanged. The cardiac silhouette is obscured. There are diffuse interstitial and airspace opacities with interval worsening. More focal airspace opacities are present in the lung bases. There is no pneumothorax. IMPRESSION: 1. Endotracheal tube ending at the origin of the right mainstem bronchus. Tube has been repositioned at the time of interpretation. 2. Stable pleural effusions. 3. Diffuse lung disease with interval worsening, consistent with atelectasis and/or pneumonia and/or pulmonary edema. Reviewed, dictated and finalized at location A. IMPRESSION: 1. Endotracheal tube ending at the origin of the right mainstem bronchus. Tube has been repositioned at the time of interpretation. 2. Stable pleural effusions. 3. Diffuse lung disease with interval worsening, consistent with atelectasis an d/or pneumonia and/or pulmonary edema.
--- NOTE | ~2020-03-13 | XR_ITS ---
EXAMINATION: XR fluoroscopy no charge EXAM DATE: 03/23/2020 14:05 INDICATION: Attempted Dobhoff tube placement. TECHNIQUE: Fluoroscopy used during attempted Dobhoff tube placement performed by myself, with ICU nu rse and technologist present. The DAP for this procedure was 0.07 mGym2. FINDINGS: Nasal cannula was switched to only the left naris. Attempt was made at placing a Dobhoff fe eding tube through the right naris. Patient began coughing and oxygen saturation decreased to 70s. We then allowed patient to rest for about 5 minutes for saturation to return close to baseline. A 2nd a ttempt was made with similar results. Plan is for a thoracentesis tomorrow. Perhaps patient's respiratory status will improved following th at procedure, making this procedure possible. IMPRESSION: Unsuccessful feeding tube placement attempt. Reviewed, dictated and finalized at location A.
--- NOTE | ~2020-03-13 | XR_ITS ---
EXAMINATION: XR chest 1V portable DATE: 03/27/2020 06:32 INDICATION: COPD exacerbation. TECHNIQUE: frontal view of the chest was obtained. COMPARISON: Chest radiograph dated 03/26/2020 FINDINGS: Right internal jugular central venous catheter with distal tip at the caudal superior vena cava. Naso gastric tube extends below the left hemidiaphragm with distal tip collimated off the study. Diffuse increased interstitial pattern in the mid to lower lung zones consistent with mild pulmonary edema. Unchanged small to moderate left and small right pleural effusions. No pneumothorax. Cardiomeg kelvin. Numerous splenic calcifications consistent with old granulomatous disease. IMPRESSION: 1. Congestive heart failure with cardiomegaly and mild pulmonary edema. 2. Unchanged small right and yfsfe-[id number] left pleural effusions with associated basilar atelect asis and/or pneumonia. Reviewed, dictated and finalized at location A. IMPRESSION: 1. Congestive heart failure with cardiomegaly and mild pulmonary edema. 2. Unchanged small right and uagpq-[id number] left pleural effusions with asso ciated basilar atelectasis and/or pneumonia.
--- NOTE | ~2020-03-13 | XR_ITS ---
EXAMINATION: XR barium swallow modified EXAM DATE: 03/23/2020 10:36 INDICATION: Dysphagia. TECHNIQUE: Modified barium esophagram was performed by myself to administered fluoroscopy, in conjun ction with speech pathologist who administered barium in varying consistencies as per speech patholog ist documentation. This was recorded on tape. The DAP for this procedure was 0.8 Gycm2. FINDINGS: Oral stage: Adequate function. Pharyngeal phase: Sinus residual, reduced elevation. Laryngeal penetration: Large. Aspiration: Large, thin liquids. Laryngeal sensitivity: Inconsistent. Zenker's diverticulum noted. IMPRESSION: Aspiration, Zenker's diverticulum. Nonoral feedings recommended. Reviewed, dictated and finalized at location A.
--- NOTE | ~2020-03-13 | XR_ITS ---
EXAMINATION: XR chest 1V portable EXAM DATE: 03/24/2020 06:15 INDICATION: COPD exacerbation. TECHNIQUE: Portable AP frontal chest x-ray was obtained. Comparison is made to prior examination from 03/23/2020. FINDINGS: There is a moderate-sized left pleural effusion. Adjacent compressive atelectasis. The lung s are otherwise clear. Right IJ venous line. Patient is on oxygen nasal cannula. Cardiac silhouette i s stable in size compared to prior exam. The bones are osteopenic. There are bony degenerative andre es. IMPRESSION: 1. Moderate left pleural effusion, adjacent atelectasis. 2. Patient is scheduled for thoracentesis later this morning. Reviewed, dictated and finalized at location A.
--- NOTE | ~2020-03-13 | US_ITS ---
EXAMINATION: US thoracentesis DATE: 04/04/2020 11:11 INDICATION: Large left pleural effusion. TECHNIQUE: The procedure and its risks and benefits were discussed with the patient. Potential risks discussed included bleeding, infection, and pneumothorax. The patient understood the risks and agreed to proceed. The skin was prepped and draped in sterile fashion. 1% lidocaine was used for local anes thesia. Under ultrasound guidance, a 5 Fr catheter with trochar was advanced into the left pleural ef fusion. Fluid was aspirated. The catheter was removed, and a dressing was applied. There were no imme diate complications. FINDINGS: Ultrasound images demonstrate a large left pleural effusion and the catheter within the fluid. IMPRESSION: 1. Successful ultrasound-guided thoracentesis yielding 1000 mL of clear yellow fluid. Reviewed, dictated and finalized at location A.
--- NOTE | ~2020-03-13 | XR_ITS ---
EXAMINATION: XR abdomen NG/feed tube insert INDICATION: Nasogastric tube insertion TECHNIQUE: Portable AP KUB-NG at 0149 hours COMPARISON: 06/15/2017 FINDINGS: The nasogastric tube is in the stomach. The abdomen is relatively gasless. Moderate-sized l eft and small right pleural effusions are present. Punctate calcifications of the left upper quadrant are consistent with healed granulomatous disease of the spleen. IMPRESSION: 1. Nasogastric tube in the stomach. Reviewed, dictated and finalized at location A.
--- NOTE | ~2020-03-13 | US_ITS ---
EXAMINATION: US thoracentesis DATE: 03/13/2020 12:29 INDICATION: pleural effusion TECHNIQUE: The procedure and its risks, benefits, and alternatives were discussed with the patient. P otential risks discussed included bleeding, infection, and pneumothorax. The patient understood the r isks and agreed to proceed. The skin was prepped and draped in sterile fashion. 1% lidocaine was used for local anesthesia. Under ultrasound guidance, a 5 Fr catheter with trochar was advanced into the left pleural effusion. Fluid was aspirated. The catheter was removed, and a dressing was applied. The re were no immediate complications. FINDINGS: Ultrasound images demonstrate a left pleural effusion and the catheter within the fluid. IMPRESSION: 1. Successful ultrasound-guided thoracentesis yielding 1000 mL of clear, yellow fluid. Reviewed, dictated and finalized at location A. IMPRESSION: 1. Successful ultrasound-guided thoracentesis yielding 1000 mL of clear, yello w fluid.
--- NOTE | ~2020-03-13 | XR_ITS ---
EXAMINATION: XR chest 2V DATE: 03/19/2020 09:42 INDICATION: Pleural effusion TECHNIQUE: frontal and lateral views of the chest were obtained. COMPARISON: Chest radiograph dated 03/15/2020 FINDINGS: Slight increase in moderate-sized left and small right pleural effusions. Diffuse increased interstit ial pattern consistent with mild pulmonary edema. Skinfold projects over the right lower lung zone. C onsolidation in the left mid to lower lung zone which could represent compressive atelectasis or pneu monia. No pneumothorax. Cardiomediastinal silhouette is unchanged with obscured left heart border. IMPRESSION: 1. Slight interval increase in still small right and moderate-sized left pleural effusions. 2. Mild pulmonary edema. 3. Consolidation in the left mid to lower lung with differential including atelectasis and/or pneumon ia. Reviewed, dictated and finalized at location A. IMPRESSION: 1. Slight interval increase in still small right and moderate-sized left pleura l effusions. 2. Mild pulmonary edema. 3. Consolidation in the left mid to lower lung with differential including atel ectasis and/or pneumonia.
--- NOTE | 2020-03-13 09:49 | ECG_ITS ---
Measurements Intervals [place] Rate: 71 P: 31 VA: 133 QRS: 58 QRSD: 94 T: 73 QT: 395 QTc: 432 Interpretive Statements SINUS RHYTHM NORMAL ECG Electronically Signed On 03-13-2020 10:23:44 CDT by Prosper Martinez D.O.
--- NOTE | 2020-03-13 09:50 | ED.GENADULT ---
HPI - General Adult General Chief complaint: Recheck/Abnormal Lab/Rx Stated complaint: ABNORMAL LABS/XRAY Time Seen by Provider: 03/13/20 09:32 Source: RN notes reviewed History of Present Illness HPI narrative: Patient presents to emergency department from home for pleural effusion. Patient states she has a history of recurrent pleural effusions secondary to aortic stenosis. States she is chronically on 3 L nasal cannula. States that last thoracentesis was a week and a half ago. The patient went to her PCP Dr. Torres yesterday and had a repeat chest x-ray blood work showing increased fluid accumulation was recommended come to the ER for further evaluation. Patient does note she has had increasing shortness of breath. She denies any fevers or chills chest pain abdominal pain nausea vomiting or any other symptoms Related Data Home Medications Medication Instructions Recorded Confirmed aspirin 81 mg tablet,delayed 81 mg PO DAILY 08/08/19 03/12/20 release gabapentin 100 mg capsule 100 mg PO TID 08/08/19 03/12/20 melatonin 5 mg tablet 10 mg PO HS tablet 08/08/19 03/12/20 tamsulosin 0.4 mg capsule 0.4 mg PO DAILY 08/08/19 03/12/20 multivitamin with minerals 1 cap PO DAILY 12/01/19 03/12/20 furosemide 40 mg tablet 40 mg PO .prn tablet 01/05/20 03/12/20 meclizine 12.5 mg tablet 12.5 mg PO BID PRN tablet 01/05/20 03/12/20 potassium chloride 10 mEq 10 meq PO DAILY PRN 01/05/20 03/12/20 tablet,extended release L. gasseri-B. bifidum-B longum 1.5 1 cap PO DAILY 01/25/20 03/12/20 billion cell capsule acetaminophen 500 mg tablet 500 mg PO Q6H PRN 03/08/20 03/12/20 diphenhydramine HCl 50 mg/30 mL 50 mg PO Q8H PRN 03/08/20 03/12/20 oral liquid lidocaine HCl 4 % topical cream 1 applic TOPICAL TID 03/08/20 03/12/20 oxygen-air delivery systems #1 03/08/20 03/12/20 magnesium hydroxide 400 mg/5 mL 15 ml PO DAILY PRN ml 06/16/20 06/16/20 oral suspension lorazepam See Rx Instructions .ROUTE .COMPLEX 03/13/20 03/13/20 Allergies Allergy/AdvReac Type Severity Reaction Status Date / Time Penicillins Allergy Severe Anaphylactic Verified 03/13/20 10:08 Shock Review of Systems Review of Systems: Narrative: Gen.: Denies fevers or chills Eyes: Denies eye pain or visual change ENT: Denies congestion Respiratory: See HPI CV: Denies chest pain or palpitations GI: Denies abdominal pain nausea, emesis or diarrhea Musculoskeletal: Denies back pain or muscle pain Neuro: Denies numbness, tingling, weakness or focal weakness Skin: Denies rash Except as documented, all other systems reviewed and negative [facility] Past Medical History Medical History Anemia Anxiety Aortic valve stenosis Atrial fibrillation Breast tumor Chronic indwelling Monahan catheter CKD (chronic kidney disease) Depression Dermatitis Dizziness Edema Goiter Hyperkalemia Hypertension Hyperthyroidism Kidney stones Murmur Osteoporosis Skin cancer Social History Social History Smoking packs per day: 2 Smoking cigarettes per day: 40.0 Years smoked: 60 Smoking pack-years: 120.00 Smoking status: Current every day smoker Tobacco type: pipe Alcohol intake: never Substance use: never Gender identity (if verbalized by the patient): Female Spiritual care concerns: No Exam Narrative: Exam Narrative: APPEARANCE: No acute distress, nontoxic, resting in bed EYES: EOMI HEENT: Normocephalic, atraumatic, OMM RESPIRATORY: No respiratory distress decreased breath sounds bilateral lung bases CARDIOVASCULAR: Regular rate and rhythm with grade 3 out of 6 systolic ejection murmur ABDOMINAL: Soft, nontender, nondistended, no rebound or guarding MUSCULOSKELETAl: Moves all extremities. No clubbing, cyanosis or edema. NEURO: Awake and alert. Following commands, speech normal, no focal deficits SKIN:: Warm, dry. No rashes lesions or abrasions PS
[2020-03-13 10:08] LABS: Basophils Absolute Auto 0.1 K/mm3 (0.0-0.1); Basophils Percent Auto 0.4 % (0.2-1.2); Eosinophils Absolute Auto 0.3 K/mm3 (0-0.3); Eosinophils Percent Auto 2.6 % (0-4.4); Hematocrit 27.1 % (37.0-47.0); Hemoglobin 7.8 g/dL (12.0-15.0); Immature Granulocyte Absolute 0.06 K/mm3 (0.00-0.031); Immature Granulocyte Percent A 0.5 % (0-0.5); Lymphocytes Absolute Auto 0.85 K/mm3 (0.9-3.2); Lymphocytes Percent Auto 6.8 % (18.3-44.2); Mean Corpuscular HGB Conc 28.8 g/dl (32-36); Mean Corpuscular Hemoglobin 26.7 pg (26-34); Mean Corpuscular Volume 92.8 fl (80-100); Mean Platelet Volume 8.6 fl (7.4-10.4); Monocytes Absolute Auto 0.7 K/mm3 (0.1-0.6); Monocytes Percent Auto 5.5 % (2.6-8.5); Neutrophils Absolute Auto 10.5 K/mm3 (1.3-6.7); Neutrophils Percent Auto 84.2 % (45.5-73.1); Platelet Count Result 358 k/mm3 (150-375); Red Blood Count 2.92 M/mm3 (4.2-5.4); Red Cell Distribution Width 14.3 % (11.5-14.5); White Blood Count 12.5 K/mm3 (4.5-10.0)
[2020-03-13 10:13] LABS: INR 1.1; Partial Thromboplastin Time 31.3 SECONDS (22.3-36.8); Prothrombin Time 14.1 Seconds (11.1-14.7)
[2020-03-13 10:18] LABS: Blood Urea Nitrogen 30 mg/dL (7-17); Calcium 9.3 mg/dL (8.4-10.2); Carbon Dioxide 34 mmol/L (22-30); Chloride 101 mmol/L (98-107); Estimated CRCL calculation 19 ml/min; Estimated Glomerular Filt Rate 28; Glucose 122 mg/dL (65-105); Potassium 4.2 mmol/L (3.4-5.0); Sodium 137 mmol/L (137-145)
[2020-03-13 10:29] LABS: Hypochromasia 1+ (NORMAL); Platelet Estimate Adequate (Adequate)
[2020-03-13 10:30] LABS: NT Pro B Type Natriuretic Pept 4150 PG/ML (5-100); Troponin I 0.026 ng/mL (0.000-0.034)
--- NOTE | 2020-03-13 11:58 | PC.NURSE ---
taken to ultrasound for thoracentisis via stretcher. pt using o2 at 3 lpm n/c. sbar faxed to floor at 1155.
--- NOTE | 2020-03-13 12:13 | PC.NURSE ---
Received report from ED, pt transported via ED to ultrasound for procedure prior to coming to the floor.
--- NOTE | 2020-03-13 13:25 | ADMGEN ---
This patient, Rachele Murray, was admitted to Medical Room 252-. Patient/family oriented to hospital policies and general routines including ID bracelet, bed and alarms, visiting hours, pain management, procedures, bathroom and other care routines, personal items, smoking policy, room service/diet, and visiting hours. Valuables list has been completed. Information on how to activate the Rapid Response Team has been discussed. Patient/Family are encouraged to report perceived risks to care and to ask questions if they do not understand what they are told or what they should do.
[2020-03-13 13:56] LABS: Troponin I 0.022 ng/mL (0.000-0.034)
--- NOTE | 2020-03-13 15:32 | PM.CNCAR ---
Assessment and Plan Assessment and plan (1) Pleural effusion on left: Code(s): J90 - Pleural effusion, not elsewhere classified Status: Acute Assessment and Plan: Due to pulmonary hypertension and probably diastolic dysfunction. S/P left thoracentesis removing 1 liter on 03/13/20. Will need higher doses of diuretics to keep fluid from returning. Will increase Furosemide 40 mg PO BID and start Metolazone 2.5 mg M//. (2) Hypertension: Qualifiers: Hypertension type: unspecified Qualified Code(s): I10 - Essential (primary) hypertension Code(s): I10 - Essential (primary) hypertension Status: Chronic Assessment and Plan: Stable. (3) COPD (chronic obstructive pulmonary disease): Qualifiers: COPD type: unspecified COPD Qualified Code(s): J44.9 - Chronic obstructive pulmonary disease, unspecified Code(s): J44.9 - Chronic obstructive pulmonary disease, unspecified Status: Chronic (4) Pulmonary hypertension: Code(s): I27.20 - Pulmonary hypertension, unspecified Status: Acute Assessment and Plan: Due to COPD. Given severity of it, referred to [facility] pul hypertension clinic but she has not seen them yet. (5) Aortic valve stenosis: Qualifiers: Cardiac valve disease etiology: etiology unspecified Qualified Code(s): I35.0 - Nonrheumatic aortic (valve) stenosis Code(s): I35.0 - Nonrheumatic aortic (valve) stenosis Status: Chronic Assessment and Plan: Mod-severe . (6) CKD (chronic kidney disease): Qualifiers: Chronic kidney disease stage: stage 3 (moderate) Qualified Code(s): N18.3 - Chronic kidney disease, stage 3 (moderate) Code(s): N18.9 - Chronic kidney disease, unspecified Status: Chronic (7) PAF (paroxysmal atrial fibrillation): Code(s): I48.0 - Paroxysmal atrial fibrillation Status: Acute Assessment and Plan: On Amiodarone and in sinus rhythm. [id number] 3. On aspirin given bleeding on anticoagulation from tract. History of Present Illness History of Present Illness Consult date/time: 03/13/20 15:32 Reason for consult: Pleural effusion. 74 yr old woman who is my regular cardiology patient presents to ER for sob and found to have recurrent large left pleural effusion. She has a history of left thoracentesis for the same on 03/01/20, mod-severe Aortic stenosis, severe pulm hypertension, COPD, PAF, CKD. Her PCP is Dr. Torres. Previously, she went to [facility] and had urosepsis at end of Sep 2019 and had acute renal failure and elevated troponins. She had PAF and placed on Amiodarone and has been in sinus rhythm. She saw urology for hydroureteronephrosis and had mckeon placed. She has a bladder mass requiring resection. She was placed on oxygen 2 l/m for ambulation which helps her ambulate her baseline distance with a walker. . She has compression stockings but has not been wearing them. She denies chest pain, orthopnea, PND, palpitations. She just got left thoracentesis today removing 1 liter from left lung. Her breathing is back to her baseline. No chest pain or sob. She had lexiscan stress test on 03/06/20 that was mildly abnormal with small, mild anterolateral ischemia, but may proceed to bladder mass resection. Echo on 01/04/20 EF 55-60%, mild LVH, indeterminate diastolic function as tissue doppler not performed, mild LAE, mod-severe , mild MR, severe pulm hypertension (RVSP 82 mmHg). She was referred to [facility]'s pulm hypertension clinic for evaluation but has not done that yet. Reason For Visit: chf,pleural effusion Review of Systems Review of Systems: All systems reviewed & are unremarkable except as noted in HPI and below Constitutional: Constitutional: Reports as per HPI Cardiovascular: Cardiovascular: Reports as per HPI, Denies chest pain, Denies leg edema and Denies lightheadedness Respiratory: Respirato
--- NOTE | 2020-03-13 16:30 | PM.IMHP ---
H&P: HPI History of Present Illness Chief complaint: Recurrent pleural effusion. Narrative: Rachele Murray is 74-year-old female with multiple medical problems including moderate to severe aortic stenosis, paroxysmal atrial fibrillation, pulmonary hypertension, diastolic dysfunction, chronic kidney disease stage 4, chronic anemia, hypertension, hyperthyroidism, diet-controlled type 2 diabetes mellitus, history of colon cancer, and a more recently discovered bladder tumor who presented to the emergency department for further treatment of a recurrent pleural effusion. She was admitted to the hospital on February 29, 2020 after presenting to the emergency department with shortness of breath, found to have a moderate size left pleural effusion. The following day she had a diagnostic and therapeutic thoracentesis with negative cultures and no findings of malignancy on cytology. She has been on diuretics to help with the accumulation of fluid, however she once again presents with a several day history of increasing dyspnea on lesser and lesser exertion. Once again she was found to have a fairly large left-sided pleural effusion and she is now stauts post therapeutic thoracentesis. She reports feeling much better at this time, but does have some mild pleuritic pain on the left side since having that procedure performed. Other than feeling tired, she has no other complaints. She specifically denies fever, chills, sweats, cough, cold and flu symptoms, exertional chest pain, nausea, and vomiting. Review of Systems Review of Systems: Narrative: Twelve systems were reviewed with pertinent positives and negatives as per HPI. No fever, chills, or sweats. She denies cold and flu symptoms. She has a chronic, dry cough. At baseline she is short of breath even when walking about the home. She also has chronic lower extremity edema, but it has been worse recently. No diarrhea. No dysuria. No history of venous thromboembolism. Except as documented, all other systems were reviewed and are negative. [facility] Past Medical History Medical History (Updated 03/13/20 @ 19:16 by Maricarmen Cat PA-C) Anemia Anxiety Aortic valve stenosis Moderate to severe aortic stenosis on echocardiogram in December 2019. She was told that she is not a candidate for surgery. She is followed by Dr. Martinez. Atrial fibrillation Not on long-term anticoagulation due to history of hematuria. Bladder tumor Noted on PET scan in spring. She is followed Dr. Salamanca and has not yet had the opportunity for cystoscopy and resection of the tumor due to her respiratory status. Chronic kidney disease, stage 4, severely decreased GFR Baseline creatinine runs between 1.7 and 2.0. Chronic obstructive pulmonary disease Chronic respiratory failure with hypoxia, on home oxygen therapy On 3 liters nasal cannula. Colon cancer (~2011) Status post partial colectomy. Patient was also treated with chemotherapy and radiation. She is a patient of Dr. March. Depression Diastolic dysfunction Former heavy tobacco smoker Hypertension Hyperthyroidism Kidney stones Osteoporosis Pulmonary hypertension She has been referred to the [facility] pulmonary hypertension clinic. Skin cancer Thyroid nodule Benign follicular nodule on FNA in January 2015. Type 2 diabetes mellitus No longer on medication after significant weight loss. Surgical History Surgical History (Updated 03/13/20 @ 19:04 by Maricarmen Cat PA-C) History of lithotripsy History of nasal surgery History of partial colectomy (~2011) For colon cancer. Status post surgical removal of malignant neoplasm of skin (~10/2015) Basal cell carcinoma excised from the left cheek in nasal ala. Family History Family History (Updated 03/13/20 @ 19:07 by Maricarmen Cat PA-C) Other Adopted Unknown family medical history Social History Social History (Updated 03/13/20 @ 19:08 by Maricarmen Cat PA-C) Social History: [place]
[2020-03-13 16:39] LABS: Troponin I 0.027 ng/mL (0.000-0.034)
[2020-03-13] MEDS: FUROSEMIDE 40 MG TABLET PO (16:47)
[2020-03-13 19:44] LABS: Add Urine Microscopic? YES; Amorphous Sediment Urine Few; Appearance Urine Cloudy (Clear); Bacteria Urine Trace /hpf; Bilirubin Urine Negative (Negative); Blood Urine 2+ (Negative); Color Urine Yellow (Yellow); Glucose Urine UA Negative (Negative); Ketones Urine Negative (Negative); Leukocyte Esterase Ur 3+ LEU/UL (Negative); Nitrate Urine Positive (Negative); Protein Urine 2+ mg/dL (Negative); RBC Urine >75 /hpf (0-2); Specific Grav Ur 1.009 (1.001-1.035); Squamous Epithelial Cell Urine Few /hpf (Few); Urobilinogen Urine Negative mg/dL (<2.0); WBC Clumps Urine Present /HPF; WBC Urine >75 /hpf
[2020-03-13] MEDS: MELATONIN 5 MG TABLET 10 MG PO (21:31)
[2020-03-13] MEDS: GABAPENTIN 100 MG CAPSULE PO (21:31)
[2020-03-14] VITALS (13 sets, daily range): BP systolic 108–154; BP diastolic 39–74; PULSE 65–77; RESP 18–34; TEMP 36.8–36.9; O2SAT 92–100
[2020-03-14 05:57] LABS: Basophils Absolute Auto 0.1 K/mm3 (0.0-0.1); Basophils Percent Auto 0.5 % (0.2-1.2); Eosinophils Absolute Auto 0.4 K/mm3 (0-0.3); Eosinophils Percent Auto 3.7 % (0-4.4); Hematocrit 26.5 % (37.0-47.0); Hemoglobin 7.6 g/dL (12.0-15.0); Immature Granulocyte Absolute 0.05 K/mm3 (0.00-0.031); Immature Granulocyte Percent A 0.5 % (0-0.5); Lymphocytes Absolute Auto 0.89 K/mm3 (0.9-3.2); Lymphocytes Percent Auto 8.1 % (18.3-44.2); Mean Corpuscular HGB Conc 28.7 g/dl (32-36); Mean Corpuscular Hemoglobin 26.7 pg (26-34); Mean Platelet Volume 8.4 fl (7.4-10.4); Monocytes Absolute Auto 0.7 K/mm3 (0.1-0.6); Monocytes Percent Auto 6.7 % (2.6-8.5); Neutrophils Absolute Auto 8.9 K/mm3 (1.3-6.7); Neutrophils Percent Auto 80.5 % (45.5-73.1); Platelet Count Result 318 k/mm3 (150-375); Red Blood Count 2.85 M/mm3 (4.2-5.4); Red Cell Distribution Width 14.2 % (11.5-14.5)
[2020-03-14 06:10] LABS: Magnesium 1.9 mg/dL (1.6-2.3)
[2020-03-14 06:11] LABS: Blood Urea Nitrogen 27 mg/dL (7-17); Calcium 8.9 mg/dL (8.4-10.2); Carbon Dioxide 34 mmol/L (22-30); Chloride 100 mmol/L (98-107); Estimated CRCL calculation 19 ml/min; Estimated Glomerular Filt Rate 28; Glucose 104 mg/dL (65-105); Potassium 3.9 mmol/L (3.4-5.0); Sodium 137 mmol/L (137-145)
[2020-03-14] MEDS: GABAPENTIN 100 MG CAPSULE PO ×3 (06:27→21:40)
[2020-03-14 06:46] LABS: Thyroid Stimulating Hormone 0.212 uIU/mL (0.465-4.680)
[2020-03-14 07:01] LABS: Free T4 Free Thyroxine 1.47 ng/mL (0.78-2.19)
--- NOTE | 2020-03-14 07:56 | PM.PNCARD ---
Progress Note: A&P Assessment and Plan (1) Chronic obstructive pulmonary disease: Code(s): J44.9 - Chronic obstructive pulmonary disease, unspecified Status: Acute (2) Recurrent pleural effusion on left: Code(s): J90 - Pleural effusion, not elsewhere classified Status: Acute Assessment and Plan: Due to pulmonary hypertension and probably diastolic dysfunction. S/P left thoracentesis removing 1 liter on 03/13/20. Will need higher doses of diuretics to keep fluid from returning. Will increase Furosemide 40 mg PO BID and start Metolazone 2.5 mg //. Take KCl 10 meq BID and additional 10 meq on Metolazone days. May d/c home from cardiology standpoing. Obtain BMP and Mag in 3-5 days. (3) Hypertension: Qualifiers: Hypertension type: unspecified Qualified Code(s): I10 - Essential (primary) hypertension Code(s): I10 - Essential (primary) hypertension Status: Chronic (4) Pulmonary hypertension: Code(s): I27.20 - Pulmonary hypertension, unspecified Status: Acute Assessment and Plan: Due to COPD. Given severity of it, referred to [facility] pul hypertension clinic but she has not seen them yet. (5) Aortic valve stenosis: Qualifiers: Cardiac valve disease etiology: etiology unspecified Qualified Code(s): I35.0 - Nonrheumatic aortic (valve) stenosis Code(s): I35.0 - Nonrheumatic aortic (valve) stenosis Status: Chronic Assessment and Plan: Mod-severe . (6) CKD (chronic kidney disease): Qualifiers: Chronic kidney disease stage: stage 3 (moderate) Qualified Code(s): N18.3 - Chronic kidney disease, stage 3 (moderate) Code(s): N18.9 - Chronic kidney disease, unspecified Status: Chronic (7) PAF (paroxysmal atrial fibrillation): Code(s): I48.0 - Paroxysmal atrial fibrillation Status: Acute Assessment and Plan: On Amiodarone and in sinus rhythm. [id number] 3. On aspirin given bleeding on anticoagulation from tract. Subjective Date/time seen: 03/14/20 07:56 Denies chest pain or sob. Exam Const: General: comfortable and no acute distress Neck: Neck: no JVD Carotids: no bruits Resp: Auscultation: no crackles, no rales, no rhonchi, no wheezes and diminished lung sounds Cardio: Rate: regular rate Rhythm: regular rhythm Heart sounds: no murmurs GI: Inspection: non-distended Neuro: Speech: normal speech Extrem: Right lower extremity: edema Left lower extremity: edema Other: Mild ankle edema bilaterally Objective Data Vital Signs Vital Signs: Vital Signs - 24 hr 03/13/20 09:34 03/13/20 09:41 03/13/20 11:54 Temperature 98.1 F Pulse Rate 74 71 Respiratory Rate 26 H 26 H Blood Pressure 152/82 H 157/55 H Pulse Oximetry 92 98 99 03/13/20 12:27 03/13/20 12:28 03/13/20 14:00 Temperature 98.4 F Pulse Rate 73 71 71 Respiratory Rate 24 H 24 H 18 Blood Pressure 137/52 L 147/51 H 153/59 H Pulse Oximetry 90 92 96 03/13/20 16:00 03/13/20 20:00 03/13/20 22:00 Temperature 97.8 F Pulse Rate 69 74 72 Respiratory Rate 18 Blood Pressure 138/42 L Pulse Oximetry 96 03/14/20 00:00 03/14/20 02:37 03/14/20 04:00 Temperature 98.2 F Pulse Rate 69 72 66 Respiratory Rate 18 Blood Pressure 133/41 L Pulse Oximetry 96 03/14/20 06:00 Temperature 98.2 F Pulse Rate 68 Respiratory Rate 18 Blood Pressure 127/39 L Pulse Oximetry 98 Intake/Output Intake/Output: Intake & Output 03/11/20 03/12/20 03/13/20 03/14/20 23:59 23:59 23:59 23:59 Intake Total 260 300 Output Total 1450 1450 Balance -1190 -1150 Meds/Results Medications: Active Medications Generic Name Dose Route Start Last Admin Trade Name Freq PRN Reason Stop Dose Admin Acetaminophen 1 - 2 mg 03/13/20 19:19 Tylenol Tablet PO Q6H PRN Mild-Moderate Pain Albuterol 1 puff 03/13/20 19:19 Proventil Hfa INHALATION Q4H PRN s
[2020-03-14] MEDS: SERTRALINE HCL 50 MG TABLET PO (09:51)
[2020-03-14] MEDS: methiMAzole 5 MG TAB PO (09:51)
[2020-03-14] MEDS: AMIODARONE HCL 200 MG TABLET PO (09:51)
[2020-03-14] MEDS: ASPIRIN 81 MG ENTERIC TABLET PO (09:51)
[2020-03-14] MEDS: FUROSEMIDE 40 MG TABLET PO ×2 (09:51→16:34)
[2020-03-14] MEDS: ATORVASTATIN 10 MG TABLET PO (09:51)
[2020-03-14] MEDS: TAMSULOSIN HCL 0.4 MG CAPSULE PO (09:51)
[2020-03-14] MEDS: THERAPEUTIC MULTIVITAMINS/MINERALS TAB (*BKC) 1 TABLET PO (09:52)
--- NOTE | 2020-03-14 12:21 | PM.IMPN ---
Progress Note: A&P Assessment and Plan (1) Recurrent pleural effusion on left: Code(s): J90 - Pleural effusion, not elsewhere classified Status: Acute Assessment and Plan: Recently admitted 02/28 - 03/03 for same; thoracentesis 03/01 and another yesterday 03/13 each yielding 1000mL clear yellow fluid. Analysis of pleural fluid last admission with negative cultures and no findings of malignancy on cytology. Thus far has been attributed to her pulmonary hypertension. Dr. Martinez recommends increasing furosemide to 40mg BID and starting metolazone on Wednesday/Wednesday/Wednesday - appreciate his recommendations. (2) Chronic respiratory failure with hypoxia, on home oxygen therapy: Code(s): J96.11 - Chronic respiratory failure with hypoxia; Z99.81 - Dependence on supplemental oxygen Status: Acute Assessment and Plan: Oxygenating well on her home O2 requirement of 3L nasal cannula. (3) Chronic obstructive pulmonary disease: Qualifiers: COPD type: unspecified COPD Qualified Code(s): J44.9 - Chronic obstructive pulmonary disease, unspecified Code(s): J44.9 - Chronic obstructive pulmonary disease, unspecified Status: Acute Assessment and Plan: Continue home albuterol as needed; not able to order her home Atrovent so we will use Spiriva. (4) Aortic valve stenosis: Qualifiers: Cardiac valve disease etiology: etiology unspecified Qualified Code(s): I35.0 - Nonrheumatic aortic (valve) stenosis Code(s): I35.0 - Nonrheumatic aortic (valve) stenosis Status: Chronic Assessment and Plan: Moderate to severe aortic stenosis on echocardiogram in December 2019. She has been told that she is not a candidate for surgery. Dr Martinez is following. (5) Chronic kidney disease, stage 4, severely decreased GFR: Code(s): N18.4 - Chronic kidney disease, stage 4 (severe) Status: Acute Assessment and Plan: Creatinine is at baseline on review of previous labs. Will monitor her volume status closely with increasing diuretics. (6) Atrial fibrillation: Qualifiers: Atrial fibrillation type: unspecified Qualified Code(s): I48.91 - Unspecified atrial fibrillation Code(s): I48.91 - Unspecified atrial fibrillation Status: Chronic Assessment and Plan: She is not on long-term anticoagulation due to history of hematuria. She is rate controlled on her home amiodarone. (7) Hypertension: Qualifiers: Hypertension type: unspecified Qualified Code(s): I10 - Essential (primary) hypertension Code(s): I10 - Essential (primary) hypertension Status: Chronic Assessment and Plan: Blood pressures reviewed 03/14; maintained on amiodarone and will monitor due to increased Lasix. (8) Hyperthyroidism: Code(s): E05.90 - Thyrotoxicosis, unspecified without thyrotoxic crisis or storm Status: Chronic Assessment and Plan: Maintained on her home methimazole. (9) Colon cancer: Onset Date: ~2011 Qualifiers: Colon location: unspecified part of colon Qualified Code(s): C18.9 - Malignant neoplasm of colon, unspecified Code(s): C18.9 - Malignant neoplasm of colon, unspecified Status: Chronic Assessment and Plan: She is a patient of Dr March. History of colon cancer s/p colectomy. Recent PET scan demonstrated a new bladder lesion. Appreciate Dr March's input per daughter's request regarding further plans from his standpoint regarding recent PET scan, bladder evaluation, etc. after discharge. (10) Bladder tumor: Code(s): D49.4 - Neoplasm of unspecified behavior of bladder Status: Acute
--- NOTE | 2020-03-14 16:33 | PCDIET ---
Nutrition consult received for diet edu per pt. Pt was interested in keeping Na intake low. She does eat or cook with salt but eats a frozen meal nightly, oatmeal packs for breakfast, and does bologna sandwich for lunch. She understands where to find Na content on labels. I encouraged her to limit to the following: B 600mg, L: 700mg, and D: 800mg. I explained where salt is found and what foods are naturally low. I explained that if her B or L amounts are smaller, she can add those mg to dinner meal. Contact info provided.
[2020-03-14] MEDS: LORAZEPAM 0.5 MG TABLET PO (16:34)
[2020-03-14] MEDS: MELATONIN 5 MG TABLET 10 MG PO (21:40)
[2020-03-15] VITALS (10 sets, daily range): BP systolic 127–166; BP diastolic 48–52; PULSE 68–84; RESP 18–20; TEMP 36.7–37.2; O2SAT 92–97
[2020-03-15 05:44] LABS: Hemoglobin 7.1 g/dL (12.0-15.0); Mean Corpuscular HGB Conc 28.4 g/dl (32-36); Mean Corpuscular Hemoglobin 26.4 pg (26-34); Mean Corpuscular Volume 92.9 fl (80-100); Platelet Count Result 285 k/mm3 (150-375); Red Blood Count 2.69 M/mm3 (4.2-5.4); Red Cell Distribution Width 14.2 % (11.5-14.5); White Blood Count 11.3 K/mm3 (4.5-10.0)
[2020-03-15 05:59] LABS: Blood Urea Nitrogen 30 mg/dL (7-17); Calcium 8.6 mg/dL (8.4-10.2); Carbon Dioxide 38 mmol/L (22-30); Chloride 98 mmol/L (98-107); Estimated CRCL calculation 19 ml/min; Estimated Glomerular Filt Rate 28; Glucose 128 mg/dL (65-105); Magnesium 1.8 mg/dL (1.6-2.3); Phosphorus 4.7 mg/dL (2.5-4.5); Potassium 3.7 mmol/L (3.4-5.0); Sodium 137 mmol/L (137-145)
[2020-03-15] MEDS: GABAPENTIN 100 MG CAPSULE PO ×3 (06:10→22:25)
--- NOTE | 2020-03-15 07:48 | PM.PNCARD ---
Progress Note: A&P Assessment and Plan (1) Chronic obstructive pulmonary disease: Qualifiers: COPD type: unspecified COPD Qualified Code(s): J44.9 - Chronic obstructive pulmonary disease, unspecified Code(s): J44.9 - Chronic obstructive pulmonary disease, unspecified Status: Acute (2) Recurrent pleural effusion on left: Code(s): J90 - Pleural effusion, not elsewhere classified Status: Acute Assessment and Plan: Due to pulmonary hypertension and probably diastolic dysfunction. S/P left thoracentesis removing 1 liter on 03/13/20. Will need higher doses of diuretics to keep fluid from returning. Will increase Furosemide 40 mg PO BID and start Metolazone 2.5 mg //. Take KCl 10 meq BID and additional 10 meq on Metolazone days. May d/c home from cardiology standpoing. Obtain BMP and Mag in 3-5 days. (3) Hypertension: Qualifiers: Hypertension type: unspecified Qualified Code(s): I10 - Essential (primary) hypertension Code(s): I10 - Essential (primary) hypertension Status: Chronic (4) Pulmonary hypertension: Code(s): I27.20 - Pulmonary hypertension, unspecified Status: Acute Assessment and Plan: Due to COPD. Given severity of it, however, referred to [facility] pul hypertension clinic but she has not seen them yet. (5) Aortic valve stenosis: Qualifiers: Cardiac valve disease etiology: etiology unspecified Qualified Code(s): I35.0 - Nonrheumatic aortic (valve) stenosis Code(s): I35.0 - Nonrheumatic aortic (valve) stenosis Status: Chronic Assessment and Plan: Mod-severe . (6) CKD (chronic kidney disease): Qualifiers: Chronic kidney disease stage: stage 3 (moderate) Qualified Code(s): N18.3 - Chronic kidney disease, stage 3 (moderate) Code(s): N18.9 - Chronic kidney disease, unspecified Status: Chronic (7) PAF (paroxysmal atrial fibrillation): Code(s): I48.0 - Paroxysmal atrial fibrillation Status: Acute Assessment and Plan: On Amiodarone and in sinus rhythm. [id number] 3. On aspirin given bleeding on anticoagulation from tract. Subjective Date/time seen: 03/15/20 07:49 Reports no chest pain or sob. Mild ankle edema. Exam Const: General: comfortable and no acute distress Neck: Neck: no JVD Carotids: no bruits Resp: Auscultation: no crackles, no rales, no rhonchi, no wheezes and diminished lung sounds Cardio: Rate: regular rate Rhythm: regular rhythm Heart sounds: no murmurs GI: Inspection: non-distended Neuro: Speech: normal speech Extrem: Right lower extremity: edema Left lower extremity: edema Other: Mild ankle edema bilaterally Objective Data Vital Signs Vital Signs: Vital Signs - 24 hr 03/14/20 08:00 03/14/20 09:51 03/14/20 09:52 Temperature Pulse Rate 65 68 Respiratory Rate Blood Pressure Pulse Oximetry 96 03/14/20 12:00 03/14/20 14:00 03/14/20 16:00 Temperature 98.2 F Pulse Rate 71 77 76 Respiratory Rate 20 Blood Pressure 108/67 Pulse Oximetry 100 03/14/20 16:20 03/14/20 20:00 03/14/20 22:00 Temperature 98.4 F Pulse Rate 74 68 69 Respiratory Rate 34 H 18 Blood Pressure 154/74 H 121/45 L Pulse Oximetry 96 92 03/15/20 00:00 03/15/20 04:00 03/15/20 06:00 Temperature 98.1 F Pulse Rate 79 69 72 Respiratory Rate 18 Blood Pressure 144/49 H Pulse Oximetry 92 Intake/Output Intake/Output: Intake & Output 03/12/20 03/13/20 03/14/20 03/15/20 23:59 23:59 23:59 23:59 Intake Total 260 3300 150 Output Total 1450 3350 800 Balance -1190 -50 -650 Meds/Results Medications: Active Medications Generic Name Dose Route Start Last Admin Trade Name Freq PRN Reason Stop Dose Admin Acetaminophen 1 - 2 mg 03/13/20 19:19 Tylenol Tablet PO Q6H PRN Mild-Moderate Pain Albuterol 1 puff 03/13/20 19:19 Proventil Hfa INHALATION Q4H PRN
--- NOTE | 2020-03-15 09:36 | PM.IMPN ---
Progress Note: A&P Assessment and Plan (1) Recurrent pleural effusion on left: Code(s): J90 - Pleural effusion, not elsewhere classified Status: Acute Assessment and Plan: Recently admitted 02/28 - 03/03 for same; thoracentesis 03/01 and another 03/13 each yielding 1000mL clear yellow fluid. Analysis of pleural fluid last admission with negative cultures and no findings of malignancy on cytology. Thus far has been attributed to her pulmonary hypertension. Dr. Martinez recommends increasing furosemide to 40mg BID and starting metolazone on Wednesday/Wednesday/Wednesday - in addition to potassium supplementation - appreciate his recommendations. Repeat CXR this morning is stable. If she remains stable, anticipate possible discharge tomorrow with new diuretic regimen. (2) Chronic respiratory failure with hypoxia, on home oxygen therapy: Code(s): J96.11 - Chronic respiratory failure with hypoxia; Z99.81 - Dependence on supplemental oxygen Status: Acute Assessment and Plan: Oxygenating well on her home O2 requirement of 3L nasal cannula. (3) Chronic obstructive pulmonary disease: Qualifiers: COPD type: unspecified COPD Qualified Code(s): J44.9 - Chronic obstructive pulmonary disease, unspecified Code(s): J44.9 - Chronic obstructive pulmonary disease, unspecified Status: Acute Assessment and Plan: Continue home albuterol as needed; not able to order her home Atrovent so we will use Spiriva. (4) Aortic valve stenosis: Qualifiers: Cardiac valve disease etiology: etiology unspecified Qualified Code(s): I35.0 - Nonrheumatic aortic (valve) stenosis Code(s): I35.0 - Nonrheumatic aortic (valve) stenosis Status: Chronic Assessment and Plan: Moderate to severe aortic stenosis on echocardiogram in December 2019. She has been told that she is not a candidate for surgery. Dr Martinez is following. (5) Chronic kidney disease, stage 4, severely decreased GFR: Code(s): N18.4 - Chronic kidney disease, stage 4 (severe) Status: Acute Assessment and Plan: Creatinine is at baseline on review of previous labs. Will monitor her volume status closely with increasing diuretics. (6) Atrial fibrillation: Qualifiers: Atrial fibrillation type: unspecified Qualified Code(s): I48.91 - Unspecified atrial fibrillation Code(s): I48.91 - Unspecified atrial fibrillation Status: Chronic Assessment and Plan: She is not on long-term anticoagulation due to history of hematuria. She is rate controlled on her home amiodarone. (7) Hypertension: Qualifiers: Hypertension type: unspecified Qualified Code(s): I10 - Essential (primary) hypertension Code(s): I10 - Essential (primary) hypertension Status: Chronic Assessment and Plan: Last BP 144/49; maintained on amiodarone and will monitor due to increased Lasix and new metolazone. (8) Hyperthyroidism: Code(s): E05.90 - Thyrotoxicosis, unspecified without thyrotoxic crisis or storm Status: Chronic Assessment and Plan: Maintained on her home methimazole. (9) Colon cancer: Onset Date: ~2011 Qualifiers: Colon location: unspecified part of colon Qualified Code(s): C18.9 - Malignant neoplasm of colon, unspecified Code(s): C18.9 - Malignant neoplasm of colon, unspecified Status: Chronic Assessment and Plan: She is a patient of Dr March. History of colon cancer s/p colectomy. Recent PET scan demonstrated a new bladder lesion. Appreciate Dr March's input per daughter's request regarding further plans from his standpoint regarding recent PET scan, bladder evaluation, etc.
[2020-03-15] MEDS: ATORVASTATIN 10 MG TABLET PO (09:47)
[2020-03-15] MEDS: metOLazone 2.5 MG TABLET PO (09:47)
[2020-03-15] MEDS: THERAPEUTIC MULTIVITAMINS/MINERALS TAB (*BKC) 1 TABLET PO (09:47)
[2020-03-15] MEDS: ASPIRIN 81 MG ENTERIC TABLET PO (09:47)
[2020-03-15] MEDS: methiMAzole 5 MG TAB PO (09:47)
[2020-03-15] MEDS: AMIODARONE HCL 200 MG TABLET PO (09:47)
[2020-03-15] MEDS: FUROSEMIDE 40 MG TABLET PO ×2 (09:47→16:41)
[2020-03-15] MEDS: SERTRALINE HCL 50 MG TABLET PO (09:47)
[2020-03-15] MEDS: TAMSULOSIN HCL 0.4 MG CAPSULE PO (09:48)
[2020-03-15] MEDS: ACETAMINOPHEN 500 MG TABLET PO (14:42)
--- NOTE | 2020-03-15 16:02 | WPDONCCN ---
Assessment and Plan Assessment and plan (1) Bladder tumor: Code(s): D49.4 - Neoplasm of unspecified behavior of bladder Status: Acute Assessment and Plan: 1. send urine for cytology 2. will discuss her cardiac status with Dr. Martinez 3 Lexiscan + (2) Recurrent pleural effusion on left: Code(s): J90 - Pleural effusion, not elsewhere classified Status: Acute Assessment and Plan: I don't believe this is malignant continue with current therapy per Dr. Martinez (3) Colon cancer: Onset Date: ~2011 Qualifiers: Colon location: unspecified part of colon Qualified Code(s): C18.9 - Malignant neoplasm of colon, unspecified Code(s): C18.9 - Malignant neoplasm of colon, unspecified Status: Chronic Assessment and Plan: no evidence of recurrent cancer HPI Data of Consult Date/Time: 03/15/20 16:02 Requesting Physician: ERNESTINE Gaona Primary Care Provider: Eddie Torres DO Consult Narrative Narrative: Rachele Murray is a 74 year old female with recent dx of bladder mass, presenting with worsening dyspnea In ED, patient was found to have large left sided pleural effusion along with hypoxia. She has known h/o pulmonary HTN and COPD. She was admitted and placed on respiratory Rx and O2. She did undergo a thoracentesis removing about [address] Martinez placed her on 2 diuretics with increase in UO. She fisher have intermittent CP across both sides. Outpatient, she did undergo a lexiscan stress test revealing reversible ischemia. Her cysto with biopsy has been delayed due to her cardiopulmonary w/u and disease. PET / CT scan does not reveal any regional or distant mets but she is not a candidate for radical cystectomy. She is a candidate for immunotherapy or targeted drug therapy. I am not sure she could handle chemoradiation. Review of Systems Review of Systems: All systems reviewed & are unremarkable except as noted in HPI and below Constitutional: Constitutional: Denies anorexia, Reports fatigue, Denies fever(s), Reports malaise, Denies night sweats, Reports snoring, Reports weakness and Denies weight loss Eyes: Eyes: Denies blurry vision ENT: Denies dysphagia, Denies epistaxis, Denies mouth lesions, Denies mouth pain, Denies odynophagia, Denies disequilibrium and Denies sore throat Cardiovascular: Cardiovascular: Reports chest pain, Reports leg edema and Reports dyspnea Respiratory: Respiratory: Denies cough, Reports dyspnea and Reports snoring Gastrointestinal: Gastrointestinal: Denies abdominal pain, Denies constipation, Denies dysphagia, Denies diarrhea, Denies nausea, Denies odynophagia and Denies vomiting Genitourinary: Genitourinary: Denies hematuria and Denies dysuria Musculoskeletal: Musculoskeletal: Denies myalgias, Reports arthralgias and Reports muscle weakness Integumentary/Breasts: Skin/Breast: Denies rash and Denies unusual bruising Neurologic: Denies confusion, Denies disequilibrium and Denies weakness Psychiatric: Psychiatric: Denies anxiety, Denies confusion and Denies depression Endocrine: Endocrine: Reports fatigue Hematologic/Lymphatic: Hematologic/Lymphatic: Denies easy bleeding, Denies easy bruising and Denies lymphadenopathy [facility] Past Medical History Medical History (Updated 03/14/20 @ 15:45 by Leta Razo PA-C) Anemia Anxiety Aortic valve stenosis Moderate to severe aortic stenosis on echocardiogram in December 2019. She was told that she is not a candidate for surgery. She is followed by Dr. Martinez. Atrial fibrillation Not on long-term anticoagulation due to history of hematuria. Bladder tumor Noted on PET scan in spring. She is followed Dr. Salamanca and has not yet had the opportunity for cystoscopy and resection of the tumor due to her respiratory status. Chronic kidney disease, stage 4, severely decreased GFR Baseline creatinine runs between 1.7 and 2.0. Chronic obstructive pulmo
[2020-03-15 20:36] LABS: IFOB Positive Control Positive; Immunochemical Fecal Occult Bl Negative (N)
[2020-03-15] MEDS: MELATONIN 5 MG TABLET 10 MG PO (22:25)
[2020-03-16] VITALS (11 sets, daily range): BP systolic 101–126; BP diastolic 42–56; PULSE 61–69; RESP 18–24; TEMP 36.5–37.1; O2SAT 94–96
[2020-03-16] MEDS: GABAPENTIN 100 MG CAPSULE PO ×3 (04:58→20:54)
[2020-03-16 06:02] LABS: Hematocrit 26.7 % (37.0-47.0); Hemoglobin 7.6 g/dL (12.0-15.0); Mean Corpuscular HGB Conc 28.5 g/dl (32-36); Mean Corpuscular Hemoglobin 26.5 pg (26-34); Mean Platelet Volume 8.7 fl (7.4-10.4); Platelet Count Result 302 k/mm3 (150-375); Red Blood Count 2.87 M/mm3 (4.2-5.4); Reticulocyte Hemoglobin Conten 22.6 pg (28.2-35.7); Reticulocyte Percent 1.87 % (0.7-4.3); Reticulocytes Absolute 0.05 B/L (32.2-175.7); White Blood Count 19.5 K/mm3 (4.5-10.0)
[2020-03-16 06:20] LABS: Blood Urea Nitrogen 39 mg/dL (7-17); Carbon Dioxide 35 mmol/L (22-30); Chloride 94 mmol/L (98-107); Estimated CRCL calculation 19 ml/min; Estimated Glomerular Filt Rate 28; Glucose 148 mg/dL (65-105); Magnesium 1.9 mg/dL (1.6-2.3); Potassium 3.4 mmol/L (3.4-5.0); Sodium 132 mmol/L (137-145)
[2020-03-16 06:25] LABS: Iron 18 ug/dL (37-170)
[2020-03-16 06:35] LABS: Percent Iron Saturation 6 % (20-50)
[2020-03-16] MEDS: MECLIZINE HCL 12.5 MG TABLET PO (07:43)
[2020-03-16] MEDS: FUROSEMIDE 40 MG TABLET PO ×2 (07:43→16:37)
[2020-03-16] MEDS: THERAPEUTIC MULTIVITAMINS/MINERALS TAB (*BKC) 1 TABLET PO (07:44)
[2020-03-16] MEDS: ASPIRIN 81 MG ENTERIC TABLET PO (07:44)
[2020-03-16] MEDS: POTASSIUM CHLORIDE 10 MEQ TABLET.ER PO ×3 (07:44→16:37)
[2020-03-16] MEDS: methiMAzole 5 MG TAB PO (07:44)
[2020-03-16] MEDS: AMIODARONE HCL 200 MG TABLET PO (07:44)
[2020-03-16] MEDS: SERTRALINE HCL 50 MG TABLET PO (07:45)
[2020-03-16] MEDS: ATORVASTATIN 10 MG TABLET PO (07:45)
[2020-03-16] MEDS: TAMSULOSIN HCL 0.4 MG CAPSULE PO (07:46)
--- NOTE | 2020-03-16 08:38 | PM.PNCARD ---
Progress Note: A&P Assessment and Plan (1) Chronic obstructive pulmonary disease: Qualifiers: COPD type: unspecified COPD Qualified Code(s): J44.9 - Chronic obstructive pulmonary disease, unspecified Code(s): J44.9 - Chronic obstructive pulmonary disease, unspecified Status: Acute (2) Recurrent pleural effusion on left: Code(s): J90 - Pleural effusion, not elsewhere classified Status: Acute Assessment and Plan: Due to pulmonary hypertension and probably diastolic dysfunction. S/P left thoracentesis removing 1 liter on 03/13/20. Will need higher doses of diuretics to keep fluid from returning. Will increase Furosemide 40 mg PO BID and start Metolazone 2.5 mg //. Take KCl 10 meq BID and additional 10 meq on Metolazone days. May d/c home from cardiology standpoing. Obtain BMP and Mag in 3-5 days. (3) Hypertension: Qualifiers: Hypertension type: unspecified Qualified Code(s): I10 - Essential (primary) hypertension Code(s): I10 - Essential (primary) hypertension Status: Chronic (4) Pulmonary hypertension: Code(s): I27.20 - Pulmonary hypertension, unspecified Status: Acute Assessment and Plan: Due to COPD. Given severity of it, however, referred to [facility] pul hypertension clinic but she has not seen them yet. (5) Aortic valve stenosis: Qualifiers: Cardiac valve disease etiology: etiology unspecified Qualified Code(s): I35.0 - Nonrheumatic aortic (valve) stenosis Code(s): I35.0 - Nonrheumatic aortic (valve) stenosis Status: Chronic Assessment and Plan: Mod-severe . No need for intervention until it becomes frankly severe, then would consider TAVR procedure. (6) CKD (chronic kidney disease): Qualifiers: Chronic kidney disease stage: stage 3 (moderate) Qualified Code(s): N18.3 - Chronic kidney disease, stage 3 (moderate) Code(s): N18.9 - Chronic kidney disease, unspecified Status: Chronic (7) PAF (paroxysmal atrial fibrillation): Code(s): I48.0 - Paroxysmal atrial fibrillation Status: Acute Assessment and Plan: On Amiodarone and in sinus rhythm. [id number] 3. On aspirin given bleeding on anticoagulation from tract. (8) Preop cardiovascular exam: Code(s): Z01.810 - Encounter for preprocedural cardiovascular examination Status: Acute Assessment and Plan: She is at a high cardiac risk of 7.9% for MT and cardiac arrest perioperatively for bladder surgery/resection based on Garza risk calculator. Her risks include frailty, CKD, pulm hypertension, anemia, abnormal nuclear stress test, PAD, aortic stenosis, PAF, COPD. (9) Abnormal nuclear stress test: Code(s): R94.39 - Abnormal result of other cardiovascular function study Status: Acute Assessment and Plan: 03/06/20 Lexiscan myoview shows small ischemia of anterolateral wall. No plan for cardiac cath as she has significant anemia, recent bleed that is a high potential for recurrence, and would not be able to receive stent which requires uninterrupted dual antiplatelet agents. Start Toprol 12.5 mg daily for possible CAD. Subjective Date/time seen: 03/16/20 08:38 Reports chest discomfort after using her incentive spirometer. No chest pain now. Chronic sob. Exam Const: General: comfortable and no acute distress Neck: Neck: no JVD Carotids: no bruits Resp: Auscultation: no crackles, no rales, no rhonchi, no wheezes and diminished lung sounds Cardio: Rate: regular rate Rhythm: regular rhythm Heart sounds: no murmurs GI: Inspection: non-distended Neuro: Speech: normal speech Extrem: Right lower extremity: edema Left lower extremity: edema Other: Mild ankle edema bilaterally Objective Data Vital Signs Vital Signs: Vital Signs - 24 hr 03/15/20 09:47 03/15/20 12:00 03/15/20 14:00 Temperature 98.7 F Pulse Rate 68 79 80 Respiratory Rate 1
--- NOTE | 2020-03-16 09:03 | PM.IMPN ---
Progress Note: A&P Assessment and Plan (1) Recurrent pleural effusion on left: Code(s): J90 - Pleural effusion, not elsewhere classified Status: Acute Assessment and Plan: Recently admitted 02/28 - 03/03 for same; thoracentesis 03/01 and another 03/13 each yielding 1000mL clear yellow fluid. Analysis of pleural fluid last admission with negative cultures and no findings of malignancy on cytology. Thus far has been attributed to her pulmonary hypertension. Dr. Martinez recommends increasing furosemide to 40mg BID and starting metolazone on Wednesday/Wednesday/Wednesday - in addition to potassium supplementation - appreciate his recommendations. Repeat CXR yesterday is stable and looks improved compared to 03/13. (2) Leukocytosis: Qualifiers: Leukocytosis type: unspecified Qualified Code(s): D72.829 - Elevated white blood cell count, unspecified Code(s): D72.829 - Elevated white blood cell count, unspecified Status: Acute Assessment and Plan: May be in part related to stress reaction, however cannot exclude a pneumonia based on the imaging and may be worth a trial of a short course of antibiotics for respiratory coverage. She is afebrile. Urine culture is polymicrobial and felt to represent colonization related to her chronic indwelling Monahan catheter. Monitor CBC. (3) Chronic respiratory failure with hypoxia, on home oxygen therapy: Code(s): J96.11 - Chronic respiratory failure with hypoxia; Z99.81 - Dependence on supplemental oxygen Status: Acute Assessment and Plan: Oxygenating well on her home O2 requirement of 3L nasal cannula. (4) Chronic obstructive pulmonary disease: Qualifiers: COPD type: unspecified COPD Qualified Code(s): J44.9 - Chronic obstructive pulmonary disease, unspecified Code(s): J44.9 - Chronic obstructive pulmonary disease, unspecified Status: Acute Assessment and Plan: Continue home albuterol as needed; not able to order her home Atrovent so we will use Spiriva. (5) Aortic valve stenosis: Qualifiers: Cardiac valve disease etiology: etiology unspecified Qualified Code(s): I35.0 - Nonrheumatic aortic (valve) stenosis Code(s): I35.0 - Nonrheumatic aortic (valve) stenosis Status: Chronic Assessment and Plan: Moderate to severe aortic stenosis on echocardiogram in December 2019. Dr Martinez is following and appreciate his input. (6) Chronic kidney disease, stage 4, severely decreased GFR: Code(s): N18.4 - Chronic kidney disease, stage 4 (severe) Status: Acute Assessment and Plan: Creatinine is at baseline on review of previous labs. Will monitor her volume status closely with increasing diuretics. (7) Atrial fibrillation: Qualifiers: Atrial fibrillation type: unspecified Qualified Code(s): I48.91 - Unspecified atrial fibrillation Code(s): I48.91 - Unspecified atrial fibrillation Status: Chronic Assessment and Plan: She is not on long-term anticoagulation due to history of hematuria. She is rate controlled on her home amiodarone. Dr Martinez added beta blockade for possible CAD, will monitor with cardiac telemetry. (8) Hypertension: Qualifiers: Hypertension type: unspecified Qualified Code(s): I10 - Essential (primary) hypertension Code(s): I10 - Essential (primary) hypertension Status: Chronic Assessment and Plan: Last BP 101/46; maintained on amiodarone and will monitor due to increased Lasix and new metolazone, new metoprolol. (9) Hyperthyroidism: Code(s): E05.90 - Thyrotoxicosis, unspecified without thyrotoxic crisis or storm Status: Chronic Assessment and
--- NOTE | 2020-03-16 10:01 | WPDONCPN ---
Progress Note: A&P Assessment and Plan (1) Bladder tumor: Code(s): D49.4 - Neoplasm of unspecified behavior of bladder Status: Acute Assessment and Plan: 1. send urine for cytology 2. Unfortunately for now, she is at high risk for TURBT or cysto with bx 3 Lexiscan + 4. I am hopeful i can get an answer with urine for cytology (2) Recurrent pleural effusion on left: Code(s): J90 - Pleural effusion, not elsewhere classified Status: Acute Assessment and Plan: I don't believe this is malignant continue with current therapy per Dr. Martinez (3) Colon cancer: Onset Date: ~2011 Qualifiers: Colon location: unspecified part of colon Qualified Code(s): C18.9 - Malignant neoplasm of colon, unspecified Code(s): C18.9 - Malignant neoplasm of colon, unspecified Status: Chronic Assessment and Plan: no evidence of recurrent cancer (4) Anemia: Qualifiers: Anemia type: unspecified type Qualified Code(s): D64.9 - Anemia, unspecified Code(s): D64.9 - Anemia, unspecified Status: Chronic Assessment and Plan: serum Fe panel is low will give IV Fe today Hb has increased FOBT is negative suspect hematuria Review of Systems Review of Systems All systems reviewed & are unremarkable except as noted in HPI and below Constitutional Constitutional: Denies anorexia, Reports fatigue, Denies fever(s), Reports malaise, Denies night sweats, Reports snoring, Denies weakness and Denies weight loss Eyes Eyes: Denies blurry vision ENT Denies dysphagia, Denies epistaxis, Denies mouth lesions, Denies mouth pain, Denies odynophagia, Denies disequilibrium and Denies sore throat Cardiovascular Cardiovascular: Reports chest pain, Reports leg edema and Reports dyspnea Respiratory Respiratory: Denies cough, Reports dyspnea and Reports snoring Gastrointestinal Gastrointestinal: Denies abdominal pain, Denies constipation, Denies dysphagia, Denies diarrhea, Denies nausea, Denies odynophagia and Denies vomiting Genitourinary Genitourinary: Denies hematuria and Denies dysuria Musculoskeletal Musculoskeletal: Denies myalgias, Reports arthralgias and Reports muscle weakness Integumentary/Breasts Skin/Breast: Denies rash and Denies unusual bruising Neurologic Denies confusion, Denies disequilibrium and Denies weakness Psychiatric Psychiatric: Denies anxiety, Denies confusion and Denies depression Endocrine Endocrine: Reports fatigue Hematologic/Lymphatic Hematologic/Lymphatic: Denies easy bleeding, Denies easy bruising and Denies lymphadenopathy Exam Const: General: cooperative, well developed, Physically active, in distress and ill appearing; No confusion Orientation/consciousness: patient oriented x3 and No confusion HENMT: Head: normal to inspection and atraumatic Ears: hearing grossly normal bilaterally General nose exam: Normal external nose present and Normal nares present Face and sinus: normal facial exam and sinuses nontender Mouth: Yes Normal oral and palatal mucosa present and Yes moist mucous membranes Teeth and gingiva: dentition normal Eyes: General: appearance normal, both eyes and all related structures Conjunctivae: conjunctivae normal Sclera: sclerae normal Pupils: Equal, round and reactive pupils present EOM: EOMs intact bilaterally Neck: Neck: full ROM, no lymphadenopathy and supple Chest: Chest palpation & inspection: normal inspection of the chest and no masses Resp: Effort & Inspection: normal respiratory effort Auscultation: clear to auscultation bilaterally, crackles on the left, breath sounds absent on th left and bronchial breath sounds bilateral Percussion: percussion normal Cardio: Rate: regular rate and tachycardic Rhythm: regular rhythm Heart sounds: S1 normal heart sound present and S2 normal heart sound present Peripheral pulses: Peripheral pulses 2+ throughout GI: Inspection: normal to inspection Auscultation: normal bowel
[2020-03-16] MEDS: METOPROLOL SUCCINATE EXT REL 12.5 MG TABCR PO (11:10)
[2020-03-16] MEDS: DOXYCYCLINE HYCLATE 100 MG TABLET PO ×2 (11:11→20:54)
[2020-03-16] MEDS: FERROUS SULFATE 324 MG TABLET PO (11:11)
[2020-03-16] MEDS: IRON SUCROSE COMPLEX 100 MG in SODIUM CHLORIDE 0.9% IV 50 ML 220 MG IVPB (12:34)
[2020-03-16 16:41] LABS: Glucose Point of Care 134 (65-105)
[2020-03-16] MEDS: MELATONIN 5 MG TABLET 10 MG PO (20:54)
[2020-03-17] VITALS (11 sets, daily range): BP systolic 101–107; BP diastolic 40–55; PULSE 62–103; RESP 16–20; TEMP 36.5–36.7; O2SAT 90–97
[2020-03-17] MEDS: GABAPENTIN 100 MG CAPSULE PO ×3 (05:41→21:08)
[2020-03-17 06:01] LABS: Basophils Percent Auto 0.1 % (0.2-1.2); Eosinophils Absolute Auto 0.1 K/mm3 (0-0.3); Eosinophils Percent Auto 0.4 % (0-4.4); Hematocrit 26.9 % (37.0-47.0); Hemoglobin 7.7 g/dL (12.0-15.0); Immature Granulocyte Absolute 0.08 K/mm3 (0.00-0.031); Immature Granulocyte Percent A 0.5 % (0-0.5); Lymphocytes Absolute Auto 0.75 K/mm3 (0.9-3.2); Lymphocytes Percent Auto 5.1 % (18.3-44.2); Mean Corpuscular HGB Conc 28.6 g/dl (32-36); Mean Corpuscular Hemoglobin 26.5 pg (26-34); Mean Corpuscular Volume 92.4 fl (80-100); Mean Platelet Volume 9.1 fl (7.4-10.4); Monocytes Absolute Auto 1.2 K/mm3 (0.1-0.6); Monocytes Percent Auto 8.2 % (2.6-8.5); Neutrophils Absolute Auto 12.7 K/mm3 (1.3-6.7); Neutrophils Percent Auto 85.7 % (45.5-73.1); Platelet Count Result 343 k/mm3 (150-375); Red Blood Count 2.91 M/mm3 (4.2-5.4); Red Cell Distribution Width 14.1 % (11.5-14.5); White Blood Count 14.8 K/mm3 (4.5-10.0)
[2020-03-17 07:09] LABS: Blood Urea Nitrogen 44 mg/dL (7-17); Calcium 9.2 mg/dL (8.4-10.2); Carbon Dioxide 37 mmol/L (22-30); Chloride 93 mmol/L (98-107); Estimated CRCL calculation 17 ml/min; Estimated Glomerular Filt Rate 23; Glucose 128 mg/dL (65-105); Magnesium 1.9 mg/dL (1.6-2.3); Phosphorus 4.7 mg/dL (2.5-4.5); Potassium 2.9 mmol/L (3.4-5.0); Sodium 134 mmol/L (137-145)
--- NOTE | 2020-03-17 08:16 | ECG_ITS ---
Measurements Intervals [place] Rate: 93 P: NM: 0 QRS: 46 QRSD: 111 T: 77 QT: 396 QTc: 495 Interpretive Statements ATRIAL FLUTTER/TACHYCARDIA INTRAVENTRICULAR CONDUCTION DELAY BASELINE ARTIFACT- II, III, AVF, V3-V6 ABNORMAL ECG Electronically Signed On 03-17-2020 9:24:48 CDT by Prosper Martinez D.O.
--- NOTE | 2020-03-17 09:23 | PM.IMPN ---
Progress Note: A&P Assessment and Plan (1) Recurrent pleural effusion on left: Code(s): J90 - Pleural effusion, not elsewhere classified Status: Acute Assessment and Plan: Recently admitted 02/28 - 03/03 for same; thoracentesis 03/01 and another 03/13 each yielding 1000mL clear yellow fluid. Analysis of pleural fluid last admission with negative cultures and no findings of malignancy on cytology. Thus far has been attributed to her pulmonary hypertension. Dr. Martinez recommends increasing furosemide to 40mg BID and starting metolazone on Wednesday/Wednesday/Wednesday - in addition to potassium supplementation - appreciate his recommendations. Repeat CXR 03/15 was stable. Her SOB is multifactorial in the setting of her effusions, COPD, pulm HTN, etc. (2) Atrial fibrillation: Qualifiers: Atrial fibrillation type: unspecified Qualified Code(s): I48.91 - Unspecified atrial fibrillation Code(s): I48.91 - Unspecified atrial fibrillation Status: Chronic Assessment and Plan: She is not on long-term anticoagulation due to history of hematuria. Flipped to atrial fibrillation early this morning, may have been precipitated by hypokalemia. Some pauses overnight, metoprolol held this morning. Discussed with Dr Martinez and appreciate his input. (3) Hypokalemia: Code(s): E87.6 - Hypokalemia Status: Acute Assessment and Plan: [place] to be secondary to increased diuresis. Mag is 1.9. She will get 70meq this morning and Dr Martinez recommends increasing maintenance dose to 20meq BID. Monitor BMP and mag. (4) Leukocytosis: Qualifiers: Leukocytosis type: unspecified Qualified Code(s): D72.829 - Elevated white blood cell count, unspecified Code(s): D72.829 - Elevated white blood cell count, unspecified Status: Acute Assessment and Plan: Improved today; May be in part related to stress reaction, however cannot exclude a pneumonia based on the imaging and may be worth a trial of a short course of antibiotics for respiratory coverage. She is afebrile. Urine culture is polymicrobial and felt to represent colonization related to her chronic indwelling Monahan catheter. Monitor CBC. (5) Chronic respiratory failure with hypoxia, on home oxygen therapy: Code(s): J96.11 - Chronic respiratory failure with hypoxia; Z99.81 - Dependence on supplemental oxygen Status: Acute Assessment and Plan: Oxygenating well on her home O2 requirement of 3L nasal cannula. (6) Chronic obstructive pulmonary disease: Qualifiers: COPD type: unspecified COPD Qualified Code(s): J44.9 - Chronic obstructive pulmonary disease, unspecified Code(s): J44.9 - Chronic obstructive pulmonary disease, unspecified Status: Acute Assessment and Plan: Continue home albuterol as needed; not able to order her home Atrovent so we will use Spiriva. (7) Aortic valve stenosis: Qualifiers: Cardiac valve disease etiology: etiology unspecified Qualified Code(s): I35.0 - Nonrheumatic aortic (valve) stenosis Code(s): I35.0 - Nonrheumatic aortic (valve) stenosis Status: Chronic Assessment and Plan: Moderate to severe aortic stenosis on echocardiogram in December 2019. (8) Chronic kidney disease, stage 4, severely decreased GFR: Code(s): N18.4 - Chronic kidney disease, stage 4 (severe) Status: Acute Assessment and Plan: Creatinine is near baseline on review of previous labs, varying due to diuresis. Will monitor. (9) Hypertension: Qualifiers: Hypertension type: unspecified Qualified Code(s): I10 - Essential (primary) hypertension Code(s): I10 - Essential (primary) hypertension
[2020-03-17] MEDS: DOXYCYCLINE HYCLATE 100 MG TABLET PO ×2 (09:26→21:08)
[2020-03-17] MEDS: POTASSIUM CHLORIDE 10 MEQ TABLET.ER PO (09:26)
[2020-03-17] MEDS: SERTRALINE HCL 50 MG TABLET PO (09:27)
[2020-03-17] MEDS: THERAPEUTIC MULTIVITAMINS/MINERALS TAB (*BKC) 1 TABLET PO (09:27)
[2020-03-17] MEDS: IRON SUCROSE COMPLEX 100 MG in SODIUM CHLORIDE 0.9% IV 50 ML 220 MG IVPB (09:27)
[2020-03-17] MEDS: TAMSULOSIN HCL 0.4 MG CAPSULE PO (09:27)
[2020-03-17] MEDS: ATORVASTATIN 10 MG TABLET PO (09:27)
[2020-03-17] MEDS: methiMAzole 5 MG TAB PO (09:27)
[2020-03-17] MEDS: ASPIRIN 81 MG ENTERIC TABLET PO (09:27)
[2020-03-17] MEDS: FUROSEMIDE 40 MG TABLET PO ×2 (09:27→17:04)
--- NOTE | 2020-03-17 09:27 | PM.PNCARD ---
Progress Note: A&P Assessment and Plan (1) Chronic obstructive pulmonary disease: Qualifiers: COPD type: unspecified COPD Qualified Code(s): J44.9 - Chronic obstructive pulmonary disease, unspecified Code(s): J44.9 - Chronic obstructive pulmonary disease, unspecified Status: Acute (2) Recurrent pleural effusion on left: Code(s): J90 - Pleural effusion, not elsewhere classified Status: Acute Assessment and Plan: Due to pulmonary hypertension and probably diastolic dysfunction. S/P left thoracentesis removing 1 liter on 03/13/20. Will need higher doses of diuretics to keep fluid from returning. Will increase Furosemide 40 mg PO BID and start Metolazone 2.5 mg //. Increase KCl 20 meq BID and additional 10 meq on Metolazone days. (3) Hypertension: Qualifiers: Hypertension type: unspecified Qualified Code(s): I10 - Essential (primary) hypertension Code(s): I10 - Essential (primary) hypertension Status: Chronic (4) Pulmonary hypertension: Code(s): I27.20 - Pulmonary hypertension, unspecified Status: Acute Assessment and Plan: Due to COPD. Given severity of it, however, referred to [facility] pul hypertension clinic but she has not seen them yet. (5) Aortic valve stenosis: Qualifiers: Cardiac valve disease etiology: etiology unspecified Qualified Code(s): I35.0 - Nonrheumatic aortic (valve) stenosis Code(s): I35.0 - Nonrheumatic aortic (valve) stenosis Status: Chronic Assessment and Plan: Mod-severe . No need for intervention until it becomes frankly severe, then would consider TAVR procedure. (6) CKD (chronic kidney disease): Qualifiers: Chronic kidney disease stage: stage 3 (moderate) Qualified Code(s): N18.3 - Chronic kidney disease, stage 3 (moderate) Code(s): N18.9 - Chronic kidney disease, unspecified Status: Chronic Assessment and Plan: Continue to monitor as it kidney function worsens with diuretics. (7) PAF (paroxysmal atrial fibrillation): Code(s): I48.0 - Paroxysmal atrial fibrillation Status: Acute Assessment and Plan: On Amiodarone and in sinus rhythm. [id number] 3. On aspirin given bleeding on anticoagulation from tract. Has intermittent atrial flutter/tachycardia and post-conversion pauses up to 3 seconds related to hypokalemia of 2.9 today. Replete potassium 4-4.5 level. Mag is 1.9. Keep Mag >2.0. Start Mag Ox 400 mg daily. (8) Preop cardiovascular exam: Code(s): Z01.810 - Encounter for preprocedural cardiovascular examination Status: Acute Assessment and Plan: She is at a high cardiac risk of 7.9% for MA and cardiac arrest perioperatively for bladder surgery/resection based on Garza risk calculator. Her risks include frailty, CKD, pulm hypertension, anemia, abnormal nuclear stress test, PAD, aortic stenosis, PAF, COPD. (9) Abnormal nuclear stress test: Code(s): R94.39 - Abnormal result of other cardiovascular function study Status: Acute Assessment and Plan: 03/06/20 Lexiscan myoview shows small ischemia of anterolateral wall. No plan for cardiac cath as she has significant anemia, recent bleed that is a high potential for recurrence, and would not be able to receive stent which requires uninterrupted dual antiplatelet agents. Started Toprol 12.5 mg daily 03/16/20 for possible CAD. Due to pauses, will hold Toprol today. Subjective Date/time seen: 03/17/20 09:27 Denies chest pain. Chronic sob. Reports feeling weak. Exam Const: General: comfortable and no acute distress Neck: Neck: no JVD Carotids: no bruits Resp: Auscultation: no crackles, no rales, no rhonchi, wheezes (Mild scattered wheezes bilaterally) and diminished lung sounds Cardio: Rate: regular rate Rhythm: abnormal rhythm GI: Inspection: non-distended Neuro: Speech: normal speech Extrem: Right lower extremity:
[2020-03-17] MEDS: AMIODARONE HCL 200 MG TABLET PO (09:28)
[2020-03-17] MEDS: POTASSIUM CHLORIDE 20 MEQ TABLET 60 MEQ PO (09:28)
--- NOTE | 2020-03-17 10:01 | WPDONCPN ---
Progress Note: A&P Assessment and Plan (1) Bladder tumor: Code(s): D49.4 - Neoplasm of unspecified behavior of bladder Status: Acute Assessment and Plan: 1. send urine for cytology 2. Unfortunately for now, she is at high risk for TURBT or cysto with bx 3 Lexiscan + 4. I am hopeful i can get an answer with urine for cytology (2) Recurrent pleural effusion on left: Code(s): J90 - Pleural effusion, not elsewhere classified Status: Acute Assessment and Plan: I don't believe this is malignant continue with current therapy per Dr. Martinez (3) Colon cancer: Onset Date: ~2011 Qualifiers: Colon location: unspecified part of colon Qualified Code(s): C18.9 - Malignant neoplasm of colon, unspecified Code(s): C18.9 - Malignant neoplasm of colon, unspecified Status: Chronic Assessment and Plan: no evidence of recurrent cancer (4) Anemia: Qualifiers: Anemia type: unspecified type Qualified Code(s): D64.9 - Anemia, unspecified Code(s): D64.9 - Anemia, unspecified Status: Chronic Assessment and Plan: serum Fe panel is low will give IV Fe today Hb has increased FOBT is negative suspect hematuria Time Spent With Patient Time with patient: less than 15 minutes Review of Systems Review of Systems All systems reviewed & are unremarkable except as noted in HPI and below Constitutional Constitutional: Denies anorexia, Reports fatigue, Denies fever(s), Reports malaise, Denies night sweats, Reports snoring, Denies weakness and Denies weight loss Eyes Eyes: Denies blurry vision ENT Denies dysphagia, Denies epistaxis, Denies mouth lesions, Denies mouth pain, Denies odynophagia, Denies disequilibrium and Denies sore throat Cardiovascular Cardiovascular: Reports leg edema and Reports dyspnea Respiratory Respiratory: Denies cough, Reports dyspnea and Reports snoring Gastrointestinal Gastrointestinal: Denies abdominal pain, Denies constipation, Denies dysphagia, Denies diarrhea, Denies nausea, Denies odynophagia and Denies vomiting Genitourinary Genitourinary: Denies hematuria and Denies dysuria Musculoskeletal Musculoskeletal: Denies myalgias, Reports arthralgias and Reports muscle weakness Integumentary/Breasts Skin/Breast: Denies rash and Denies unusual bruising Neurologic Denies confusion, Denies disequilibrium and Denies weakness Psychiatric Psychiatric: Denies anxiety, Denies confusion and Denies depression Endocrine Endocrine: Reports fatigue Hematologic/Lymphatic Hematologic/Lymphatic: Denies easy bleeding, Denies easy bruising and Denies lymphadenopathy Exam Const: General: cooperative, comfortable, no acute distress, well developed, Physically active and ill appearing; No confusion Orientation/consciousness: patient oriented x3 and No confusion HENMT: Head: normal to inspection and atraumatic Ears: hearing grossly normal bilaterally General nose exam: Normal external nose present and Normal nares present Face and sinus: normal facial exam and sinuses nontender Mouth: Yes Normal oral and palatal mucosa present and Yes moist mucous membranes Teeth and gingiva: dentition normal Eyes: General: appearance normal, both eyes and all related structures Conjunctivae: conjunctivae normal Sclera: sclerae normal Pupils: Equal, round and reactive pupils present EOM: EOMs intact bilaterally Neck: Neck: full ROM, no lymphadenopathy and supple Chest: Chest palpation & inspection: normal inspection of the chest and no masses Resp: Effort & Inspection: normal respiratory effort Auscultation: clear to auscultation bilaterally, crackles on the left, breath sounds absent on th left and bronchial breath sounds bilateral Percussion: percussion normal Cardio: Rate: regular rate and tachycardic Rhythm: regular rhythm Heart sounds: S1 normal heart sound present and S2 normal heart sound present Peripheral pulses: Peripheral pulses 2+ throughout GI
[2020-03-17] MEDS: FERROUS SULFATE 324 MG TABLET PO (12:07)
--- NOTE | 2020-03-17 12:07 | PC.NURSE ---
Call to pharmacy requesting magnesium be sent to floor for administration.
--- NOTE | 2020-03-17 14:38 | PC.NURSE ---
Second call to pharmacy and requested patient's PO magnesium be sent to floor for administration.
[2020-03-17] MEDS: MAGNESIUM OXIDE 400 MG TABLET PO (14:42)
[2020-03-17] MEDS: POTASSIUM CHLORIDE 10 MEQ TABLET.ER 20 MEQ PO (17:05)
[2020-03-17] MEDS: MELATONIN 5 MG TABLET 10 MG PO (21:08)
[2020-03-18] VITALS (15 sets, daily range): BP systolic 91–102; BP diastolic 38–52; PULSE 74–103; RESP 16–20; TEMP 36.4–36.8; O2SAT 91–95
[2020-03-18 05:19] LABS: Basophils Percent Auto 0.3 % (0.2-1.2); Eosinophils Absolute Auto 0.1 K/mm3 (0-0.3); Eosinophils Percent Auto 0.8 % (0-4.4); Hematocrit 25.6 % (37.0-47.0); Hemoglobin 7.3 g/dL (12.0-15.0); Immature Granulocyte Absolute 0.08 K/mm3 (0.00-0.031); Immature Granulocyte Percent A 0.6 % (0-0.5); Lymphocytes Absolute Auto 0.73 K/mm3 (0.9-3.2); Lymphocytes Percent Auto 5.7 % (18.3-44.2); Mean Corpuscular HGB Conc 28.5 g/dl (32-36); Mean Corpuscular Hemoglobin 26.4 pg (26-34); Mean Corpuscular Volume 92.4 fl (80-100); Mean Platelet Volume 9.1 fl (7.4-10.4); Monocytes Absolute Auto 0.8 K/mm3 (0.1-0.6); Monocytes Percent Auto 6.5 % (2.6-8.5); Neutrophils Percent Auto 86.1 % (45.5-73.1); Platelet Count Result 355 k/mm3 (150-375); Red Blood Count 2.77 M/mm3 (4.2-5.4); Red Cell Distribution Width 14.2 % (11.5-14.5); White Blood Count 12.7 K/mm3 (4.5-10.0)
[2020-03-18 05:31] LABS: Blood Urea Nitrogen 49 mg/dL (7-17); Calcium 9.2 mg/dL (8.4-10.2); Carbon Dioxide 37 mmol/L (22-30); Chloride 94 mmol/L (98-107); Estimated CRCL calculation 16 ml/min; Estimated Glomerular Filt Rate 22; Glucose 146 mg/dL (65-105); Potassium 3.3 mmol/L (3.4-5.0); Sodium 135 mmol/L (137-145)
[2020-03-18] MEDS: GABAPENTIN 100 MG CAPSULE PO ×3 (05:37→22:01)
--- NOTE | 2020-03-18 07:16 | PM.PNCARD ---
Progress Note: A&P Assessment and Plan (1) Chronic obstructive pulmonary disease: Qualifiers: COPD type: unspecified COPD Qualified Code(s): J44.9 - Chronic obstructive pulmonary disease, unspecified Code(s): J44.9 - Chronic obstructive pulmonary disease, unspecified Status: Acute (2) Recurrent pleural effusion on left: Code(s): J90 - Pleural effusion, not elsewhere classified Status: Acute Assessment and Plan: Due to pulmonary hypertension and probably diastolic dysfunction. S/P left thoracentesis removing 1 liter on 03/13/20. Will need higher doses of diuretics to keep fluid from returning. On Furosemide 40 mg PO BID and will hold today Metolazone 2.5 mg M/W/ due to worsening renal function, hypokalemia and increase BUN/Cr ratio suggesting volume depletion. On KCl 20 meq BID and given additional KCl to achieve potassium 4.0. (3) Hypertension: Qualifiers: Hypertension type: unspecified Qualified Code(s): I10 - Essential (primary) hypertension Code(s): I10 - Essential (primary) hypertension Status: Chronic (4) Pulmonary hypertension: Code(s): I27.20 - Pulmonary hypertension, unspecified Status: Acute Assessment and Plan: Due to COPD. Given severity of it, however, referred to [facility] pul hypertension clinic but she has not seen them yet. (5) Aortic valve stenosis: Qualifiers: Cardiac valve disease etiology: etiology unspecified Qualified Code(s): I35.0 - Nonrheumatic aortic (valve) stenosis Code(s): I35.0 - Nonrheumatic aortic (valve) stenosis Status: Chronic Assessment and Plan: Mod-severe . No need for intervention until it becomes frankly severe, then would consider TAVR procedure. (6) CKD (chronic kidney disease): Qualifiers: Chronic kidney disease stage: stage 3 (moderate) Qualified Code(s): N18.3 - Chronic kidney disease, stage 3 (moderate) Code(s): N18.9 - Chronic kidney disease, unspecified Status: Chronic Assessment and Plan: Continue to monitor as it kidney function worsens with diuretics. (7) PAF (paroxysmal atrial fibrillation): Code(s): I48.0 - Paroxysmal atrial fibrillation Status: Acute Assessment and Plan: On Amiodarone and she went intro atrial flutter/tachycardia on 03/17/20. [id number] 3. On aspirin given bleeding on anticoagulation from tract. Has intermittent atrial flutter/tachycardia and post-conversion pauses up to 3 seconds related to hypokalemia. Replete potassium 4-4.5 level. Mag is 1.9. Keep Mag >2.0. Start Mag Ox 400 mg daily. Resume Toprol XL 12.5 mg daily (8) Preop cardiovascular exam: Code(s): Z01.810 - Encounter for preprocedural cardiovascular examination Status: Acute Assessment and Plan: She is at a high cardiac risk of 7.9% for MD and cardiac arrest perioperatively for bladder surgery/resection based on Garza risk calculator. Her risks include frailty, CKD, pulm hypertension, anemia, abnormal nuclear stress test, PAD, aortic stenosis, PAF, COPD. (9) Abnormal nuclear stress test: Code(s): R94.39 - Abnormal result of other cardiovascular function study Status: Acute Assessment and Plan: 03/06/20 Lexiscan myoview shows small ischemia of anterolateral wall. No plan for cardiac cath as she has significant anemia, recent bleed that is a high potential for recurrence, and would not be able to receive stent which requires uninterrupted dual antiplatelet agents. Started Toprol 12.5 mg daily 03/16/20 for possible CAD. Subjective Date/time seen: 03/18/20 07:17 Reports feeling nauseated this morning. No chest pain. Chronic sob. Exam Const: General: comfortable and no acute distress Neck: Neck: no JVD Carotids: no bruits Cardio: Rate: tachycardic Rhythm: regular rhythm Heart sounds: no murmurs GI: Inspection: non-distended Neuro: Speech: normal speech Extre
[2020-03-18] MEDS: POTASSIUM CHLORIDE 10 MEQ TABLET.ER 20 MEQ PO ×2 (08:55→17:59)
[2020-03-18] MEDS: AMIODARONE HCL 200 MG TABLET PO (09:00)
[2020-03-18] MEDS: LORAZEPAM 0.5 MG TABLET PO (09:06)
--- NOTE | 2020-03-18 09:09 | PC.NURSE ---
Patient having dry heaves and retching. C/O nausea and intermittent chest pain that she states she has been having for a long time . Notified Leta PARKER of patient's complaints. Orders received for IV Zofran. Also gave po Ativan.
--- NOTE | 2020-03-18 09:21 | PCPTNOTE ---
PT attempted to see patient, however patient nauseated at this time and not able to participate in therapy.
[2020-03-18] MEDS: ONDANSETRON INJ 4 MG/2 ML VIAL IV PUSH (09:24)
[2020-03-18] MEDS: IRON SUCROSE COMPLEX 100 MG in SODIUM CHLORIDE 0.9% IV 50 ML 200 MG IVPB (09:24)
--- NOTE | 2020-03-18 09:52 | PM.IMPN ---
Progress Note: A&P Assessment and Plan (1) Recurrent pleural effusion on left: Code(s): J90 - Pleural effusion, not elsewhere classified Status: Acute Assessment and Plan: Recently admitted 02/28 - 03/03 for same; thoracentesis 03/01 and another 03/13 each yielding 1000mL clear yellow fluid. Analysis of pleural fluid last admission with negative cultures and no findings of malignancy on cytology. Thus far has been attributed to her pulmonary hypertension. Dr. Martinez recommends increasing furosemide to 40mg BID and starting metolazone on Wednesday/Wednesday/Wednesday - in addition to potassium supplementation - appreciate his recommendations. Metolazone is held today due to worsening renal function. Repeat CXR 03/15 was stable. Her SOB is multifactorial in the setting of her effusions, COPD, pulm HTN, etc. (2) Atrial fibrillation: Qualifiers: Atrial fibrillation type: unspecified Qualified Code(s): I48.91 - Unspecified atrial fibrillation Code(s): I48.91 - Unspecified atrial fibrillation Status: Chronic Assessment and Plan: History of paroxysmal a fib; was in sinus rhythm then went into atrial fibrillation yesterday, may have been precipitated by hypokalemia. She is maintained on her home amiodarone, Dr Martinez added low-dose beta blockade, appreicate his input. Toprol was held 03/17 due to pauses on tele (2-3 sec). Monitor BP, on lower end. She is not on long-term anticoagulation due to history of hematuria. (3) Hypokalemia: Code(s): E87.6 - Hypokalemia Status: Acute Assessment and Plan: [place] to be secondary to increased diuresis. Mag is 2.0. Dr Martinez increased KCl to 20meq BID. Started mag ox. Monitor BMP and mag, replace as needed. (4) Leukocytosis: Qualifiers: Leukocytosis type: unspecified Qualified Code(s): D72.829 - Elevated white blood cell count, unspecified Code(s): D72.829 - Elevated white blood cell count, unspecified Status: Acute Assessment and Plan: Improving; May be in part related to stress reaction, however cannot exclude a pneumonia based on the imaging and may be worth a trial of a short course of antibiotics for respiratory coverage. Oral doxy day 3 of 5. She is afebrile. Urine culture is polymicrobial and may represent colonization related to her chronic indwelling Monahan catheter. Monitor CBC. (5) Chronic respiratory failure with hypoxia, on home oxygen therapy: Code(s): J96.11 - Chronic respiratory failure with hypoxia; Z99.81 - Dependence on supplemental oxygen Status: Acute Assessment and Plan: Oxygenating well on her home O2 requirement of 3L nasal cannula. (6) Chronic obstructive pulmonary disease: Qualifiers: COPD type: unspecified COPD Qualified Code(s): J44.9 - Chronic obstructive pulmonary disease, unspecified Code(s): J44.9 - Chronic obstructive pulmonary disease, unspecified Status: Acute Assessment and Plan: Continue home albuterol as needed; not able to order her home Atrovent so we will use Spiriva. (7) Aortic valve stenosis: Qualifiers: Cardiac valve disease etiology: etiology unspecified Qualified Code(s): I35.0 - Nonrheumatic aortic (valve) stenosis Code(s): I35.0 - Nonrheumatic aortic (valve) stenosis Status: Chronic Assessment and Plan: Moderate to severe aortic stenosis on echocardiogram in December 2019. Dr Martinez following. (8) Chronic kidney disease, stage 4, severely decreased GFR: Code(s): N18.4 - Chronic kidney disease, stage 4 (severe) Status: Acute Assessment and Plan: Creatinine is increasing likely secondary to diuresis, metolazone is held for today. Will monitor. (9)
[2020-03-18] MEDS: ATORVASTATIN 10 MG TABLET PO (10:29)
[2020-03-18] MEDS: ASPIRIN 81 MG ENTERIC TABLET PO (10:29)
[2020-03-18] MEDS: MAGNESIUM OXIDE 400 MG TABLET PO (10:30)
[2020-03-18] MEDS: methiMAzole 5 MG TAB PO (10:30)
[2020-03-18] MEDS: SERTRALINE HCL 50 MG TABLET PO (10:30)
[2020-03-18] MEDS: FUROSEMIDE 40 MG TABLET PO (10:30)
[2020-03-18] MEDS: DOXYCYCLINE HYCLATE 100 MG TABLET PO ×2 (10:30→22:00)
[2020-03-18] MEDS: TAMSULOSIN HCL 0.4 MG CAPSULE PO (10:31)
[2020-03-18] MEDS: METOPROLOL SUCCINATE EXT REL 12.5 MG TABCR PO (10:31)
[2020-03-18] MEDS: FERROUS SULFATE 324 MG TABLET PO (13:01)
--- NOTE | 2020-03-18 13:46 | PC.NURSE ---
Manual B/P 92/50. Patient remains weak and fatigued. Dry heaving has resolved. Called Leta PARKER and notified her of low B/P. No new orders received.
--- NOTE | 2020-03-18 13:52 | PC.NURSE ---
Notified Dr. Martinez of patient's decreased blood pressure reading. Orders received.
--- NOTE | 2020-03-18 14:11 | PCPTNOTE ---
Patient refused treatment this session due to not feeling well. Pt states Honey I am having a bad day. I don't know what is wrong with me Honey.
[2020-03-18] MEDS: MELATONIN 5 MG TABLET 10 MG PO (22:00)
[2020-03-19] VITALS (14 sets, daily range): BP systolic 97–118; BP diastolic 33–58; PULSE 66–108; RESP 18–26; TEMP 36.7–37; O2SAT 85–99
[2020-03-19 05:49] LABS: Basophils Percent Auto 0.3 % (0.2-1.2); Eosinophils Absolute Auto 0.1 K/mm3 (0-0.3); Eosinophils Percent Auto 0.6 % (0-4.4); Hematocrit 25.3 % (37.0-47.0); Hemoglobin 7.2 g/dL (12.0-15.0); Immature Granulocyte Absolute 0.07 K/mm3 (0.00-0.031); Immature Granulocyte Percent A 0.7 % (0-0.5); Lymphocytes Percent Auto 5.7 % (18.3-44.2); Mean Corpuscular HGB Conc 28.5 g/dl (32-36); Mean Corpuscular Hemoglobin 26.5 pg (26-34); Mean Platelet Volume 8.8 fl (7.4-10.4); Monocytes Absolute Auto 0.8 K/mm3 (0.1-0.6); Monocytes Percent Auto 7.3 % (2.6-8.5); Neutrophils Percent Auto 85.4 % (45.5-73.1); Platelet Count Result 299 k/mm3 (150-375); Red Blood Count 2.72 M/mm3 (4.2-5.4); Red Cell Distribution Width 14.3 % (11.5-14.5); White Blood Count 10.6 K/mm3 (4.5-10.0)
[2020-03-19] MEDS: GABAPENTIN 100 MG CAPSULE PO ×3 (05:49→20:58)
[2020-03-19 06:05] LABS: Alanine Aminotransferase 64 U/L (4-35); Albumin Level 3.1 g/dL (3.5-5.1); Alkaline Phosphatase 101 U/L (38-126); Aspartate Amino Transferase 64 U/L (14-36); Bilirubin,Total 0.4 mg/dL (0.2-1.3); Blood Urea Nitrogen 50 mg/dL (7-17); Calcium 9.5 mg/dL (8.4-10.2); Carbon Dioxide 37 mmol/L (22-30); Chloride 93 mmol/L (98-107); Estimated CRCL calculation 16 ml/min; Estimated Glomerular Filt Rate 22; Glucose 152 mg/dL (65-105); Phosphorus 4.8 mg/dL (2.5-4.5); Potassium 3.9 mmol/L (3.4-5.0); Sodium 135 mmol/L (137-145)
[2020-03-19 06:18] LABS: Platelet Estimate Adequate (Adequate)
[2020-03-19 06:19] LABS: Hypochromasia 3+ (NORMAL); Stomatocytes 2+ (NORMAL)
--- NOTE | 2020-03-19 08:00 | PM.PNCARD ---
Progress Note: A&P Assessment and Plan (1) Chronic obstructive pulmonary disease: Qualifiers: COPD type: unspecified COPD Qualified Code(s): J44.9 - Chronic obstructive pulmonary disease, unspecified Code(s): J44.9 - Chronic obstructive pulmonary disease, unspecified Status: Acute (2) Recurrent pleural effusion on left: Code(s): J90 - Pleural effusion, not elsewhere classified Status: Acute Assessment and Plan: Due to pulmonary hypertension and probably diastolic dysfunction. S/P left thoracentesis removing 1 liter on 03/13/20. Will need higher doses of diuretics to keep fluid from returning. She appears to be intravascularly dry, will decrease Furosemide 40 mg PO daily and decrease KCl 20 meq daily. (3) Hypertension: Qualifiers: Hypertension type: unspecified Qualified Code(s): I10 - Essential (primary) hypertension Code(s): I10 - Essential (primary) hypertension Status: Chronic (4) Pulmonary hypertension: Code(s): I27.20 - Pulmonary hypertension, unspecified Status: Acute Assessment and Plan: Due to COPD. Given severity of it, however, referred to [facility] pul hypertension clinic but she has not seen them yet. (5) Aortic valve stenosis: Qualifiers: Cardiac valve disease etiology: etiology unspecified Qualified Code(s): I35.0 - Nonrheumatic aortic (valve) stenosis Code(s): I35.0 - Nonrheumatic aortic (valve) stenosis Status: Chronic Assessment and Plan: Mod-severe . No need for intervention until it becomes frankly severe, then would consider TAVR procedure. (6) CKD (chronic kidney disease): Qualifiers: Chronic kidney disease stage: stage 3 (moderate) Qualified Code(s): N18.3 - Chronic kidney disease, stage 3 (moderate) Code(s): N18.9 - Chronic kidney disease, unspecified Status: Chronic Assessment and Plan: Continue to monitor as it kidney function worsens with diuretics. (7) PAF (paroxysmal atrial fibrillation): Code(s): I48.0 - Paroxysmal atrial fibrillation Status: Acute Assessment and Plan: On Amiodarone and she went intro atrial flutter/tachycardia on 03/17/20. [id number] 3. On aspirin given bleeding on anticoagulation from tract. She is in atrial flutter/tachycardia with rate control. (8) Preop cardiovascular exam: Code(s): Z01.810 - Encounter for preprocedural cardiovascular examination Status: Acute Assessment and Plan: She is at a high cardiac risk of 7.9% for IA and cardiac arrest perioperatively for bladder surgery/resection based on Garza risk calculator. Her risks include frailty, CKD, pulm hypertension, anemia, abnormal nuclear stress test, PAD, aortic stenosis, PAF, COPD. (9) Abnormal nuclear stress test: Code(s): R94.39 - Abnormal result of other cardiovascular function study Status: Acute Assessment and Plan: 03/06/20 Lexiscan myoview shows small ischemia of anterolateral wall. No plan for cardiac cath as she has significant anemia, recent bleed that is a high potential for recurrence, and would not be able to receive stent which requires uninterrupted dual antiplatelet agents. Started Toprol 12.5 mg daily 03/16/20 for possible CAD. Subjective Date/time seen: 03/19/20 08:00 Denies chest pain. Has chronic sob. Exam Const: General: comfortable and no acute distress Neck: Neck: no JVD Carotids: no bruits Cardio: Rate: regular rate Rhythm: regular rhythm Heart sounds: no murmurs GI: Inspection: non-distended Neuro: Speech: normal speech Extrem: Right lower extremity: no edema Left lower extremity: no edema Objective Data Vital Signs Vital Signs: Vital Signs - 24 hr 03/18/20 08:45 03/18/20 09:00 03/18/20 09:09 Temperature Pulse Rate 98 98 Respiratory Rate Blood Pressure Pulse Oximetry 95 03/18/20 09:15 03/18/20 10:31 03/18/20 12
[2020-03-19] MEDS: SERTRALINE HCL 50 MG TABLET PO (08:01)
[2020-03-19] MEDS: ASPIRIN 81 MG ENTERIC TABLET PO (08:01)
[2020-03-19] MEDS: FUROSEMIDE 40 MG TABLET PO (08:01)
[2020-03-19] MEDS: MAGNESIUM OXIDE 400 MG TABLET PO (08:01)
[2020-03-19] MEDS: methiMAzole 5 MG TAB PO (08:01)
[2020-03-19] MEDS: METOPROLOL SUCCINATE EXT REL 12.5 MG TABCR PO (08:02)
[2020-03-19] MEDS: THERAPEUTIC MULTIVITAMINS/MINERALS TAB (*BKC) 1 TABLET PO (08:02)
[2020-03-19] MEDS: AMIODARONE HCL 200 MG TABLET PO (08:02)
[2020-03-19] MEDS: DOXYCYCLINE HYCLATE 100 MG TABLET PO ×2 (08:03→20:58)
[2020-03-19] MEDS: ATORVASTATIN 10 MG TABLET PO (08:03)
[2020-03-19] MEDS: TAMSULOSIN HCL 0.4 MG CAPSULE PO (08:03)
[2020-03-19] MEDS: IRON SUCROSE COMPLEX 100 MG in SODIUM CHLORIDE 0.9% IV 50 ML 220 MG IVPB (08:07)
[2020-03-19] MEDS: POTASSIUM CHLORIDE 20 MEQ TABLET PO (08:09)
[2020-03-19] MEDS: FERROUS SULFATE 324 MG TABLET PO (11:39)
--- NOTE | 2020-03-19 15:23 | PM.IMPN ---
Progress Note: A&P Assessment and Plan (1) Recurrent pleural effusion on left: Code(s): J90 - Pleural effusion, not elsewhere classified Status: Acute Assessment and Plan: Recently admitted 02/28 - 03/03 for same; thoracentesis 03/01 and another 03/13 each yielding 1000mL clear yellow fluid. Analysis of pleural fluid last admission with negative cultures and no findings of malignancy on cytology. Thus far has been attributed to her pulmonary hypertension. Dr. Martinez increased furosemide to 40mg BID and starting metolazone on Wednesday/Wednesday/Wednesday - in addition to potassium supplementation - appreciate his recommendations. Metolazone is held now due to worsening renal function. Repeat CXR 03/19 shownig slight interval increase in still small right and moderate-sized left pleural effusions with mild pulmonary edema. Consolidation in the left mid to lower lung with differential including atelectasis and/or pneumonia. Currently on abx with decreasing WBC and no fevers. Will monitor. Continue to diurese as toelrated. (2) Atrial fibrillation: Qualifiers: Atrial fibrillation type: unspecified Qualified Code(s): I48.91 - Unspecified atrial fibrillation Code(s): I48.91 - Unspecified atrial fibrillation Status: Chronic Assessment and Plan: History of paroxysmal a fib; was in sinus rhythm then went into atrial fibrillation, may have been precipitated by hypokalemia. She is maintained on her home amiodarone, Dr Martinez added low-dose beta blockade, appreciate his input. Toprol was held 03/17 due to pauses on tele (2-3 sec). Monitor BP closely. She is not on long-term anticoagulation due to history of hematuria. (3) Hypokalemia: Code(s): E87.6 - Hypokalemia Status: Acute Assessment and Plan: [place] to be secondary to increased diuresis. Mag is stable at 2.0. Currently on potassium and mag ox replacement. Monitor BMP and mag, replace as needed. (4) Leukocytosis: Qualifiers: Leukocytosis type: unspecified Qualified Code(s): D72.829 - Elevated white blood cell count, unspecified Code(s): D72.829 - Elevated white blood cell count, unspecified Status: Acute Assessment and Plan: Improving; may be in part related to stress reaction, however cannot exclude a pneumonia based on the imaging and may be worth a trial of a short course of antibiotics for respiratory coverage. Oral doxy day 3 of 5. She is afebrile. Urine culture is polymicrobial and may represent colonization related to her chronic indwelling Monahan catheter. WBC trending down. Monitor CBC. (5) Chronic respiratory failure with hypoxia, on home oxygen therapy: Code(s): J96.11 - Chronic respiratory failure with hypoxia; Z99.81 - Dependence on supplemental oxygen Status: Acute Assessment and Plan: Oxygenating well on her home O2 requirement of 3L nasal cannula. (6) Chronic obstructive pulmonary disease: Qualifiers: COPD type: unspecified COPD Qualified Code(s): J44.9 - Chronic obstructive pulmonary disease, unspecified Code(s): J44.9 - Chronic obstructive pulmonary disease, unspecified Status: Acute Assessment and Plan: Continue home albuterol as needed; not able to order her home Atrovent so we will use Spiriva. (7) Aortic valve stenosis: Qualifiers: Cardiac valve disease etiology: etiology unspecified Qualified Code(s): I35.0 - Nonrheumatic aortic (valve) stenosis Code(s): I35.0 - Nonrheumatic aortic (valve) stenosis Status: Chronic Assessment and Plan: Moderate to severe aortic stenosis on echocardiogram in December 2019. Dr Martinez following. (8) Chronic kidney disease, stage 4, severely decreased GFR: Code(s
--- NOTE | 2020-03-19 17:55 | ECG_ITS ---
Measurements Intervals [place] Rate: 69 P: 59 MS: 150 QRS: 71 QRSD: 109 T: 62 QT: 313 QTc: 336 Interpretive Statements SINUS RHYTHM INCOMPLETE RIGHT BUNDLE BRANCH BLOCK ST ELEVATION IN ANT/INF LEADS- CONSIDER INJURY, PERICARDITIS OR EARLY REPOLARIZATION BASELINE WANDER- V1, V3-V6 ABNORMAL ECG Electronically Signed On 03-19-2020 20:00:05 CDT by Prosper Martinez D.O.
[2020-03-19] MEDS: LORAZEPAM 0.5 MG TABLET PO (18:00)
[2020-03-19 20:40] LABS: Troponin I 0.029 ng/mL (0.000-0.034)
[2020-03-19] MEDS: MELATONIN 5 MG TABLET 10 MG PO (20:58)
[2020-03-20] VITALS (27 sets, daily range): BP systolic 106–142; BP diastolic 42–101; PULSE 51–113; RESP 17–24; TEMP 36.4–37; O2SAT 93–100; BMI 25.4
--- NOTE | 2020-03-20 01:09 | ECG_ITS ---
Measurements Intervals [place] Rate: 56 P: CO: 0 QRS: -13 QRSD: 118 T: 102 QT: 465 QTc: 450 Interpretive Statements JUNCTIONAL RHYTHM INTRAVENTRICULAR CONDUCTION DELAY T WAVE ABNORMALITY IN HIGH LATERAL LEADS- CONSIDER ISCHEMIA ABNORMAL ECG Electronically Signed On 03-20-2020 7:38:52 CDT by Prosper Martinez D.O.
--- NOTE | 2020-03-20 01:11 | PDCODEBLUE ---
Code Blue Note Code Blue Note Time Arrived at Code Blue: 0047 hrs. Initial Rhythm on Arrival: Pulseless Airway Management: Pt being bagged on arrival Chest Compressions: In process on arrival to bedside Result of Code Blue: Pt transferred to ICU Cardiac Rhythm Post Code: Sinus Rhythm. Code Blue Summary: Arrived to bedside at 00:47 hrs and the patient was being coded by Nursing staff and Respiratory therapist. CPR was being administered. The patient was placed on the monitor and at 00:50 hrs, 1 amp of Epinephrine IVP was administered to the patient. CPR was continued and at 00:56 the patient was found to be in PEA on a pulse check. CPR was restarted and at 00:57 hrs the patient was given 1 amp of Sodium Bicarbonate IVP. At 00:58 hrs the patient was administered another 1 amp of Epinephrine IVP. AT 00:59 hrs another pulse check was done and the patient was found to be in a sinus rhythm. Blood pressure was obtained at 171/49 mm Hg. The patient was not breathing on her own and I intubated the patient at 01:02 hrs. The patient was transferred to the ICU for post code care.
--- NOTE | 2020-03-20 01:20 | PC.NURSE ---
PLANT OPERATOR HELPER SHOWS HR 36, WENT INTO ROOM PT WITHOUT RESPIRATIONS, NO PULSE PALPABLE, CODE BLUE CALLED. SEE CODE BLUE SHEET
[2020-03-20 01:29] LABS: Alveolar/Arterial O2 Gradient 303.6 mmHg; Base Excess ABG 1.4 mEq/l (+/-2.0); Carboxyhemoglobin 0.5 % THb (0-2.0); Fractional Inspired Oxygen 60 %; HCO3 ABG 28.3 mEq/l (22.0-26.0); Methemoglobin ABG 0.2 %THb (0-1.5); Oxygen Saturation ABG 87.2 % (95.0-100.0); Oxyhemoglobin 85.7 % THb (90.0-100.0); PCO2 ABG 59.2 mmHg (35.0-45.0); PO2 ABG 59.1 mmHg (80.0-100.0); PO2 FiO2 Ratio Arterial Blood 0.98 %; Reduced Hemoglobin 13.6 %THb (0-5.0); Total Hemoglobin 8.2 g/dL (12.0-18.0); pH ABG 7.298 (7.350-7.450)
[2020-03-20 01:31] LABS: Arterial Blood Gas Vent Mode CMV; Arterial Blood Gas Ventilator rate 15 /MIN; Device VENTILATOR; Modified Allen's Test Unable to perform; Site Drawn LEFT RADIAL
[2020-03-20 01:32] LABS: Arterial Blood Gas PEEP 5 cmH2O; Arterial Blood Gas Tidal Volume 400 ml
[2020-03-20 01:36] LABS: Basophils Absolute Auto 0.1 K/mm3 (0.0-0.1); Basophils Percent Auto 0.5 % (0.2-1.2); Eosinophils Absolute Auto 0.1 K/mm3 (0-0.3); Eosinophils Percent Auto 0.5 % (0-4.4); Hematocrit 27.8 % (37.0-47.0); Hemoglobin 7.6 g/dL (12.0-15.0); Immature Granulocyte Absolute 1.32 K/mm3 (0.00-0.031); Immature Granulocyte Percent A 6.9 % (0-0.5); Lymphocytes Absolute Auto 3.25 K/mm3 (0.9-3.2); Lymphocytes Percent Auto 16.9 % (18.3-44.2); Mean Corpuscular HGB Conc 27.3 g/dl (32-36); Mean Corpuscular Volume 98.9 fl (80-100); Mean Platelet Volume 9.4 fl (7.4-10.4); Monocytes Percent Auto 5.3 % (2.6-8.5); Neutrophils Absolute Auto 13.5 K/mm3 (1.3-6.7); Neutrophils Percent Auto 69.9 % (45.5-73.1); Nucleated Red Blood Cells Absolute Auto 0.1 K/mm3 (0.0-0.012); Nucleated Red Blood Cells Perc 0.5 % (0.0-0.2); Platelet Count Result 358 k/mm3 (150-375); Red Blood Count 2.81 M/mm3 (4.2-5.4); Red Cell Distribution Width 14.2 % (11.5-14.5); White Blood Count 19.2 K/mm3 (4.5-10.0)
[2020-03-20 01:46] LABS: Hypochromasia 2+ (NORMAL); Platelet Estimate Adequate (Adequate)
[2020-03-20 01:47] LABS: Alanine Aminotransferase 99 U/L (4-35); Albumin Level 3.2 g/dL (3.5-5.1); Alkaline Phosphatase 111 U/L (38-126); Aspartate Amino Transferase 235 U/L (14-36); Bilirubin,Total 0.5 mg/dL (0.2-1.3); Blood Urea Nitrogen 54 mg/dL (7-17); Calcium 9.6 mg/dL (8.4-10.2); Carbon Dioxide 29 mmol/L (22-30); Chloride 92 mmol/L (98-107); Estimated CRCL calculation 15 ml/min; Estimated Glomerular Filt Rate 21; Glucose 195 mg/dL (65-105); Magnesium 2.5 mg/dL (1.6-2.3); Phosphorus 6.8 mg/dL (2.5-4.5); Potassium 4.2 mmol/L (3.4-5.0); Sodium 134 mmol/L (137-145)
[2020-03-20] MEDS: SODIUM CHLORIDE 0.9% IV 500 ML IV CONT ×2 (01:53→04:42)
[2020-03-20 02:02] LABS: Lactic Acid Reflex 7.3 mmol/L (0.7-2.1)
[2020-03-20 02:04] LABS: Troponin I 0.087 ng/mL (0.000-0.034)
[2020-03-20] MEDS: CLINDAMYCIN 600 MG/NS 50 ML 600 MG/50 ML PIGGYBACK 100 MG IVPB ×4 (03:35→23:34)
[2020-03-20 04:32] LABS: Reflex Lactic Acid Yes or No Add Lactic
[2020-03-20 04:40] LABS: Alveolar/Arterial O2 Gradient 299.4 mmHg; Base Excess ABG 0.7 mEq/l (+/-2.0); Fractional Inspired Oxygen 60 %; HCO3 ABG 25.2 mEq/l (22.0-26.0); Oxygen Content ABG 9.5 %vol (16.0-22.0); Oxygen Saturation ABG 96.6 % (95.0-100.0); Oxyhemoglobin 94.8 % THb (90.0-100.0); PCO2 ABG 39.7 mmHg (35.0-45.0); PO2 ABG 84.7 mmHg (80.0-100.0); PO2 FiO2 Ratio Arterial Blood 1.41 %; pH ABG 7.421 (7.350-7.450)
[2020-03-20] MEDS: NOREPINEPHRINE 8 MG/D5W 250 ML 8 MG/250 ML BAG 9.4 MG IV CONT (04:44)
[2020-03-20 04:46] LABS: Arterial Blood Gas PEEP 5 cmH2O; Arterial Blood Gas Tidal Volume 400 ml; Arterial Blood Gas Vent Mode CMV; Arterial Blood Gas Ventilator rate 19 /MIN; Device VENTILATOR; Modified Allen's Test Unable to perform; Site Drawn RIGHT RADIAL
[2020-03-20] MEDS: GABAPENTIN 100 MG CAPSULE PO (04:47)
--- NOTE | 2020-03-20 04:54 | WPDPROCEDUR ---
Procedures Intubation Intubation Date: 03/20/20 Intubation Time: 01:15 A pre-procedural Time-Out was completed immediately before starting the procedure and confirmed: Patient Identification, Site, Procedure, Patient Position and the Availability of Requisite Equipment: Yes Laryngoscope: Darron ET tube size: cuffed Tube secured depth (cm): 25 Tube secured location: teeth Tube placement confirmation: visualized tube passing through cords, equal breath sounds bilaterally, no breath sounds over epigastrium and confirmation by capnometry Patient tolerated procedure: well Intubation complications: none Additional comments: Date of service was 03/20/2020 at 01:15 hrs.
--- NOTE | 2020-03-20 04:56 | WPDPROCEDUR ---
Procedures Central Line Placement Right IJ: Central Line Date: 03/20/20 Central Line Time: 04:56 Discussed w/ the patient/family/POA,the placement of a central venous catheter, including its clinical necessity/indication & associated potential risks, benifits and alternatives.: Yes Time Out Performed: Yes Patient Position: supine Patient placed on monitor/pulse ox: Yes Provider Prep: mask, sterile gown, sterile gloves, Max. sterile barrier precautions, cap and hand hygiene Central line prep: Povidone-Iodine 1% Local anesthesia used: lidocaine 1% Amount of anesthesia used (ml): 3 Sterile Ultrasound Technique used for placement: Yes Central line lumen inserted: triple Maldivian: 7 Length (cm): 17 Depth of Insertion (cm): 16 Post procedure: sutured in place, good blood return, all ports aspirated, flushed, capped, tegaderm, hemostatic disc and aseptic technique maintained throughout procedure Post procedure x-ray: tip of catheter in good position and no pneumothorax seen Patient tolerated procedure: well Additional comments: Date of service was 03/20/2020 at 04:50
[2020-03-20 05:25] LABS: Hematocrit 24.3 % (37.0-47.0); Mean Corpuscular HGB Conc 28.4 g/dl (32-36); Mean Corpuscular Hemoglobin 26.8 pg (26-34); Mean Corpuscular Volume 94.6 fl (80-100); Mean Platelet Volume 8.9 fl (7.4-10.4); Platelet Count Result 347 k/mm3 (150-375); Red Blood Count 2.57 M/mm3 (4.2-5.4); Red Cell Distribution Width 14.1 % (11.5-14.5); White Blood Count 28.2 K/mm3 (4.5-10.0)
[2020-03-20 05:43] LABS: Blood Urea Nitrogen 55 mg/dL (7-17); Carbon Dioxide 34 mmol/L (22-30); Chloride 92 mmol/L (98-107); Estimated CRCL calculation 14 ml/min; Estimated Glomerular Filt Rate 18; Glucose 225 mg/dL (65-105); Lactic Acid 2.8 mmol/L (0.7-2.1); Sodium 134 mmol/L (137-145)
[2020-03-20 05:58] LABS: Troponin I 0.197 ng/mL (0.000-0.034)
[2020-03-20 06:07] LABS: Hemoglobin 6.9 g/dL (12.0-15.0)
--- NOTE | 2020-03-20 08:46 | PM.PNCARD ---
Progress Note: A&P Assessment and Plan (1) Chronic obstructive pulmonary disease: Qualifiers: COPD type: unspecified COPD Qualified Code(s): J44.9 - Chronic obstructive pulmonary disease, unspecified Code(s): J44.9 - Chronic obstructive pulmonary disease, unspecified Status: Acute (2) Recurrent pleural effusion on left: Code(s): J90 - Pleural effusion, not elsewhere classified Status: Acute Assessment and Plan: Due to pulmonary hypertension and probably diastolic dysfunction. S/P left thoracentesis removing 1 liter on 03/13/20. Will need higher doses of diuretics to keep fluid from returning. On Furosemide 40 mg PO daily and KCl 20 meq daily. (3) Hypertension: Qualifiers: Hypertension type: unspecified Qualified Code(s): I10 - Essential (primary) hypertension Code(s): I10 - Essential (primary) hypertension Status: Chronic (4) Pulmonary hypertension: Code(s): I27.20 - Pulmonary hypertension, unspecified Status: Acute Assessment and Plan: Due to COPD. Given severity of it, however, referred to [facility] hypertension clinic but she has not seen them yet. (5) Aortic valve stenosis: Qualifiers: Cardiac valve disease etiology: etiology unspecified Qualified Code(s): I35.0 - Nonrheumatic aortic (valve) stenosis Code(s): I35.0 - Nonrheumatic aortic (valve) stenosis Status: Chronic Assessment and Plan: Mod-severe . No need for intervention until it becomes frankly severe, then would consider TAVR procedure. (6) CKD (chronic kidney disease): Qualifiers: Chronic kidney disease stage: stage 3 (moderate) Qualified Code(s): N18.3 - Chronic kidney disease, stage 3 (moderate) Code(s): N18.9 - Chronic kidney disease, unspecified Status: Chronic Assessment and Plan: Continue to monitor as it kidney function worsens with diuretics. (7) PAF (paroxysmal atrial fibrillation): Code(s): I48.0 - Paroxysmal atrial fibrillation Status: Acute Assessment and Plan: On Amiodarone and she went intro atrial flutter/tachycardia on 03/17/20. [id number] 3. On aspirin given bleeding on anticoagulation from tract. Carioverted on 03/19/20 to sinus rhythm. Then had bradycardia and cardiopulm arrest, now on mechanical ventilation. Discontinue Toprol given bradycardia in sinus rhythm. (8) Preop cardiovascular exam: Code(s): Z01.810 - Encounter for preprocedural cardiovascular examination Status: Acute Assessment and Plan: She is at a high cardiac risk of 7.9% for MT and cardiac arrest perioperatively for bladder surgery/resection based on Garza risk calculator. Her risks include frailty, CKD, pulm hypertension, anemia, abnormal nuclear stress test, PAD, aortic stenosis, PAF, COPD. (9) Abnormal nuclear stress test: Code(s): R94.39 - Abnormal result of other cardiovascular function study Status: Acute Assessment and Plan: 03/06/20 Lexiscan myoview shows small ischemia of anterolateral wall. No plan for cardiac cath as she has significant anemia, recent bleed that is a high potential for recurrence, and would not be able to receive stent which requires uninterrupted dual antiplatelet agents. Was started Toprol 12.5 mg daily 03/16/20 for possible CAD but given bradycardia and on Levophed drip, will stop Toprol. (10) Cardiopulmonary arrest: Code(s): I46.9 - Cardiac arrest, cause unspecified Status: Acute Assessment and Plan: Sedated on mechanical ventilation. On Levophed drip and receiving blood transfusion. Managed per livestock haulier. Subjective Date/time seen: 03/20/20 08:46 On Telemetry, she cardioverted to sinus rhythm from atrial flutter/tachycardia at around 5 pm last night. In sinus rhythm her HR slowed to 37-40 bpm range late last night. I was contacted by Dr. Carter that she had a cardiopulm arrest after that episode.
[2020-03-20] MEDS: SODIUM CHLORIDE 0.9% IV 250 ML 30 ML IV CONT (09:21)
[2020-03-20] MEDS: THERAPEUTIC MULTIVITAMINS/MINERALS TAB (*BKC) 1 TABLET PO (09:21)
[2020-03-20] MEDS: MAGNESIUM OXIDE 400 MG TABLET PO (09:22)
[2020-03-20] MEDS: DOXYCYCLINE HYCLATE 100 MG TABLET PO (09:23)
[2020-03-20] MEDS: POTASSIUM CHLORIDE 20 MEQ TABLET PO (09:32)
--- NOTE | 2020-03-20 11:11 | WPDCNINT ---
Assessment and Plan Assessment and plan (1) Acute respiratory failure: Code(s): J96.00 - Acute respiratory failure, unspecified whether with hypoxia or hypercapnia Status: Acute Assessment and Plan: Secondary to cardiopulmonary arrest, severe COPD and pulmonary hypertension, left effusion, possible aspiration Continue full mechanical ventilation support to prevent hypoxemia/hypercarbia and end organ damage. ABG and PCXR reviewed and will repeat in am. Low tidal volume ventilation strategy to prevent volutrauma Patient on clindamycin and doxycycline. Will switch doxycycline to Levaquin for broader coverage Bronchodilators (2) Chronic obstructive pulmonary disease: Qualifiers: COPD type: unspecified COPD Qualified Code(s): J44.9 - Chronic obstructive pulmonary disease, unspecified Code(s): J44.9 - Chronic obstructive pulmonary disease, unspecified Status: Acute Assessment and Plan: See above (3) Pulmonary hypertension: Code(s): I27.20 - Pulmonary hypertension, unspecified Status: Acute Assessment and Plan: Due to COPD. Given severity of it, however, in the past patient was referred to [facility] pul hypertension clinic but she has not seen them yet. (4) Recurrent pleural effusion on left: Code(s): J90 - Pleural effusion, not elsewhere classified Status: Acute Assessment and Plan: Due to pulmonary hypertension and probably diastolic dysfunction. S/P left thoracentesis removing 1 liter on 03/13/20. Diuretics held at this time (5) Cardiopulmonary arrest: Code(s): I46.9 - Cardiac arrest, cause unspecified Status: Acute Assessment and Plan: Unclear etiology as patient had multiple issues including anemia, known coronary artery disease, aortic stenosis, respiratory acidosis from COPD ABG done at that time showed hypercarbia Therapeutic hypothermia not done because patient was purposeful post intubation and also this was non shockable rhythm Echocardiogram done recently reviewed Summary 1. Left ventricular chamber dimension is normal. 2. Ventricular septum is sigmoid shaped. 3. Left ventricular systolic function is normal, estimated at 55-60%. 4. There is mildly increased left ventricular wall thickness. 5. The left ventricular diastolic function is indeterminate. 6. Tissue doppler is not performed. 7. Left atrial chamber dimension is mildly enlarged. 8. The aortic valve is not well visualized. 9. There is severe aortic valve sclerosis. 10. There is moderate to severe aortic stefania ve stenosis based on a peakvelocity of 220 cm/s, mean gradient of 9 mmHg, and aortic valve area of 1.0 cm2. 11. There is mild aortic valve regurgitation. 12. The mitral valve has mildly calcified annulus. 13. There is mild mitral valve regurgitation. 14. There is trace tricuspid valve regurgitation. 15. Severe pulmonary hypertension, estimated pulmonary arterial systolic pressure is 82 mmHg. 16. Dilated inferior vena cava with <50% collapse upon inspiration consistent with significantly elevated right atrial pressure, 15 mmHg. (6) Aortic valve stenosis: Qualifiers: Cardiac valve disease etiology: etiology unspecified Qualified Code(s): I35.0 - Nonrheumatic aortic (valve) stenosis Code(s): I35.0 - Nonrheumatic aortic (valve) stenosis Status: Chronic Assessment and Plan: Mod-severe which is likely contributing to hypotension (7) PAF (paroxysmal atrial fibrillation): Code(s): I48.0 - Paroxysmal atrial fibrillation Status: Acute Assessment and Plan: Currently in normal sinus rhythm Patient is On Amiodarone [id number] 3. On aspirin given bleeding on anticoagulation from tract. Cardioverted on 03/19/20 to sinus rhythm. Beta-lisa. Due to shock (8) Abnormal nuclear stress test: Code(s): R94.39 - Abnormal result of other cardiovascular function study
[2020-03-20] MEDS: methiMAzole 5 MG TAB PO (11:26)
[2020-03-20] MEDS: ATORVASTATIN 10 MG TABLET PO (11:26)
[2020-03-20] MEDS: AMIODARONE HCL 200 MG TABLET PO (11:26)
[2020-03-20] MEDS: IRON SUCROSE COMPLEX 100 MG in SODIUM CHLORIDE 0.9% IV 50 ML 220 MG IVPB (11:43)
[2020-03-20 11:59] LABS: Troponin I 0.793 ng/mL (0.000-0.034)
[2020-03-20] MEDS: levoFLOXacin 500 MG/D5W 100 ML 500 MG/100 ML BAG 100 MG IVPB (13:24)
[2020-03-20 14:02] LABS: Hematocrit 26.6 % (37.0-47.0); Hemoglobin 8.1 g/dL (12.0-15.0); Mean Corpuscular HGB Conc 30.5 g/dl (32-36); Mean Corpuscular Hemoglobin 26.9 pg (26-34); Mean Corpuscular Volume 88.4 fl (80-100); Mean Platelet Volume 8.8 fl (7.4-10.4); Platelet Count Result 311 k/mm3 (150-375); Red Blood Count 3.01 M/mm3 (4.2-5.4); Red Cell Distribution Width 14.6 % (11.5-14.5); White Blood Count 21.8 K/mm3 (4.5-10.0)
--- NOTE | 2020-03-20 15:46 | PM.IMPN ---
Progress Note: A&P Assessment and Plan (1) Cardiopulmonary arrest: Code(s): I46.9 - Cardiac arrest, cause unspecified Status: Acute Assessment and Plan: Patient became bradycardic and then developed cardiac arrest. Had a recent abnormal stress test. Beta-lisa started recently and has had 3 doses. EKG at the time showing junctional rhythm with T wave inversion in high lateral leads. Trop climbing to 0.8 now. Cardiology following. Continue aspirin, Lipitor. No beta-lisa due bradycardia. (2) Acute respiratory failure: Qualifiers: Respiratory failure complication: hypoxia and hypercapnia Qualified Code(s): J96.01 - Acute respiratory failure with hypoxia; J96.02 - Acute respiratory failure with hypercapnia Code(s): J96.00 - Acute respiratory failure, unspecified whether with hypoxia or hypercapnia Status: Acute Assessment and Plan: ABG showing hypoxia and respiratory acidosis with a pCO2 of 59. Patient intubated. Repeat blood gas normal this morning. She is anemic and was transfused. Appears to be responding to commands. She is on minimal sedation but appears be comfortable. Appreciate press supervisor input. (3) Anemia: Qualifiers: Anemia type: unspecified type Qualified Code(s): D64.9 - Anemia, unspecified Code(s): D64.9 - Anemia, unspecified Status: Chronic Assessment and Plan: Chronic anemia. Iron studies consistent with iron deficiency anemia. No evidence of acute bleeding. Stool occult blood is negative. Dr March giving IV venofer. Hemoglobin this morning was 6.9. May have been diluted related to the IV fluids. After transfusion, hemoglobin 8.1 today. No evidence of acute blood loss. Continue to monitor closely. (4) Recurrent pleural effusion on left: Code(s): J90 - Pleural effusion, not elsewhere classified Status: Acute Assessment and Plan: Recently admitted 02/28 - 03/03 for same; thoracentesis 03/01 and another 03/13 each yielding 1000mL clear yellow fluid. Analysis of pleural fluid last admission with negative cultures and no findings of malignancy on cytology. Thus far has been attributed to her pulmonary hypertension. Echo showing severe pulmonary hypertension with a PASP of 82 Dr. Martinez increased furosemide to 40mg BID and starting metolazone on Wednesday/Wednesday/Wednesday - in addition to potassium supplementation - appreciate his recommendations. Metolazone is held now due to worsening renal function and Lasix has been stopped. Repeat CXR 03/20 showing stable pleural effusions and diffuse lung disease with slight improvement. WBC jumped to 28K related to above. No fevers. Clinda added for possible aspiration. (5) Atrial fibrillation: Qualifiers: Atrial fibrillation type: unspecified Qualified Code(s): I48.91 - Unspecified atrial fibrillation Code(s): I48.91 - Unspecified atrial fibrillation Status: Chronic Assessment and Plan: History of paroxysmal a fib. She is maintained on her home amiodarone. Toprol was added but now held. She is not on long-term anticoagulation due to history of hematuria. (6) Hypokalemia: Code(s): E87.6 - Hypokalemia Status: Acute Assessment and Plan: [place] to be secondary to increased diuresis. Mag is stable at 2.0. Was on potassium and mag ox replacement. Monitor BMP and mag, replace as needed. (7) Leukocytosis: Qualifiers: Leukocytosis type: unspecified Qualified Code(s): D72.829 - Elevated white blood cell count, unspecified Code(s): D72.829 - Elevated white blood cell count, unspecified Status: Acute Assessment and Plan: Improving; may be in part related to stress reaction, however cannot exclude a pneumonia based on the imaging and may be worth a trial of a short cour
[2020-03-20] MEDS: PANTOPRAZOLE SODIUM IV 40 MG VIAL IV PUSH (21:04)
[2020-03-20 21:16] LABS: Hematocrit 26.6 % (37.0-47.0); Hemoglobin 8.3 g/dL (12.0-15.0); Mean Corpuscular HGB Conc 31.2 g/dl (32-36); Mean Corpuscular Hemoglobin 27.2 pg (26-34); Mean Corpuscular Volume 87.2 fl (80-100); Mean Platelet Volume 8.6 fl (7.4-10.4); Platelet Count Result 314 k/mm3 (150-375); Red Blood Count 3.05 M/mm3 (4.2-5.4); Red Cell Distribution Width 14.9 % (11.5-14.5); White Blood Count 19.5 K/mm3 (4.5-10.0)
[2020-03-21] VITALS (25 sets, daily range): BP systolic 102–143; BP diastolic 43–83; PULSE 60–120; RESP 15–21; TEMP 36.3–37.2; O2SAT 91–97
--- NOTE | 2020-03-21 | ECHO_ITS ---
Patient Info Name: Rachele Murray Age: 74 years : 1945 Gender: Female Ht: 61 in Wt: 134 lbs BSA: 1.63 m2 HR: 67 bpm BP: 117 / 64 mmHg Technical Quality: Good Exam Date: 03/21/2020 9:08 AM Exam Location: [facility] Patient Status: Inpatient Admit Date: 03/13/2020 Staff Ordering Physician: Prosper Martinez DO Associate Scientist: Tyler Perez RDCS, RT Attending Provider: Margarito Quintero MD Referring Physician: Juan SWIFT; Exam Type: CA echo doppler color flow Study Info Indications I50.9 - Heart failure, unspecified Complete two-dimensional, color flow and Doppler transthoracic echocardiogram is performed. Summary 1. Left ventricular chamber dimension is normal. 2. Left ventricular systolic function is normal, estimated at 60-65%. 3. There is mildly increased left ventricular wall thickness. 4. The left ventricular diastolic function is abnormal. 5. E/e' 15 is elevated. 6. Global longitudinal strain is abnormal at -13.0%. 7. There is severe aortic valve sclerosis. 8. There is mild aortic valve stenosis based on a peak velocity of 200 cm/s, mean gradient of 8 mmHg, and aortic valve area of 2.1 cm2. 9. There is mild to moderate aortic valve regurgitation. 10. RVSP is not calculated due to no TR jet. 11. Small atheroma in anterior and posterior aortic root. 12. Dilated inferior vena cava with <50% collapse upon inspiration consistent with significantly elevated right atrial pressure, 15 mmHg. 13. There is small pericardial effusion. 14. Large left pleural effusion with large echogenic mass which may suggests chronicity of fluid. Left Ventricle E/e' 15 is elevated. Global longitudinal strain is abnormal at -13.0%. Left ventricular chamber dimension is normal. Left ventricular systolic function is normal, estimated at 60-65%. There is mildly increased left ventricular wall thickness. The left ventricular diastolic function is abnormal. Right Ventricle Right ventricular chamber dimension is not well visualized. Left Atria Left atrial chamber dimension is normal. Right Atria Right atrial chamber dimension is normal. Aortic Valve There is mild aortic valve stenosis based on a peak velocity of 200 cm/s, mean gradient of 8 mmHg, and aortic valve area of 2.1 cm2. The aortic valve is trileaflet. There is severe aortic valve sclerosis. There is mild to moderate aortic valve regurgitation. Pulmonic Valve There is no pulmonic regurgitation. Mitral Valve There is no mitral valve stenosis. There is no mitral valve regurgitation. Tricuspid Valve RVSP is not calculated due to no TR jet. The tricuspid valve leaflets are not well visualized. There is no tricuspid valve regurgitation. Pericardium/Pleural Large left pleural effusion with large echogenic mass which may suggests chronicity of fluid. There is small pericardial effusion. Inferior Vena Cava Dilated inferior vena cava with <50% collapse upon inspiration consistent with significantly elevated right atrial pressure, 15 mmHg. Aorta Small atheroma in anterior and posterior aortic root. The aortic root size at the sinus of Valsalva is normal. Left Ventricular Outflow Tract Name Value Normal LVOT 2D LVOT Diameter
[2020-03-21 04:06] LABS: Alveolar/Arterial O2 Gradient 205.2 mmHg; Base Excess ABG 8.6 mEq/l (+/-2.0); Carboxyhemoglobin 0.1 % THb (0-2.0); Fractional Inspired Oxygen 45 %; HCO3 ABG 31.8 mEq/l (22.0-26.0); Methemoglobin ABG 0.1 %THb (0-1.5); Oxygen Content ABG 12.1 %vol (16.0-22.0); Oxygen Saturation ABG 96.1 % (95.0-100.0); Oxyhemoglobin 93.9 % THb (90.0-100.0); PCO2 ABG 38.3 mmHg (35.0-45.0); PO2 ABG 72.1 mmHg (80.0-100.0); Reduced Hemoglobin 5.9 %THb (0-5.0); Total Hemoglobin 9.1 g/dL (12.0-18.0)
[2020-03-21 04:07] LABS: Site Drawn LEFT RADIAL; pH ABG 7.537 (7.350-7.450)
[2020-03-21 04:08] LABS: Arterial Blood Gas PEEP 5 cmH2O; Arterial Blood Gas Tidal Volume 400 ml; Arterial Blood Gas Vent Mode CMV; Arterial Blood Gas Ventilator rate 19 /MIN; Device VENTILATOR; Modified Allen's Test Pass
[2020-03-21 04:09] LABS: Hematocrit 26.1 % (37.0-47.0); Hemoglobin 8.1 g/dL (12.0-15.0); Mean Corpuscular Hemoglobin 27.3 pg (26-34); Mean Corpuscular Volume 87.9 fl (80-100); Mean Platelet Volume 8.8 fl (7.4-10.4); Platelet Count Result 300 k/mm3 (150-375); Red Blood Count 2.97 M/mm3 (4.2-5.4); Red Cell Distribution Width 15.1 % (11.5-14.5); White Blood Count 18.2 K/mm3 (4.5-10.0)
[2020-03-21 04:46] LABS: IFOB Positive Control Positive; Immunochemical Fecal Occult Bl Positive (N)
[2020-03-21 04:47] LABS: Alanine Aminotransferase 492 U/L (4-35); Albumin Level 2.7 g/dL (3.5-5.1); Alkaline Phosphatase 99 U/L (38-126); Bilirubin,Total 1.9 mg/dL (0.2-1.3); Blood Urea Nitrogen 65 mg/dL (7-17); Calcium 8.9 mg/dL (8.4-10.2); Carbon Dioxide 37 mmol/L (22-30); Chloride 94 mmol/L (98-107); Estimated CRCL calculation 14 ml/min; Estimated Glomerular Filt Rate 19; Glucose 129 mg/dL (65-105); Phosphorus 3.1 mg/dL (2.5-4.5); Potassium 3.3 mmol/L (3.4-5.0); Sodium 135 mmol/L (137-145)
[2020-03-21 04:48] LABS: Aspartate Amino Transferase 805 U/L (14-36)
--- NOTE | 2020-03-21 07:08 | ECG_ITS ---
Measurements Intervals [place] Rate: 68 P: 57 OR: 144 QRS: 54 QRSD: 106 T: 79 QT: 414 QTc: 440 Interpretive Statements SINUS RHYTHM BORDERLINE T WAVE ABNORMALITY- ANTEROLAT/INF LEADS BASELINE ARTIFACT- I, II, AVR, AVL, V3 BORDERLINE ECG Electronically Signed On 03-21-2020 11:06:17 CDT by Prosper Martinez D.O.
--- NOTE | 2020-03-21 07:20 | WPDINTPN ---
Progress Note: A&P Assessment and Plan (1) Acute respiratory failure: Qualifiers: Respiratory failure complication: hypoxia and hypercapnia Qualified Code(s): J96.01 - Acute respiratory failure with hypoxia; J96.02 - Acute respiratory failure with hypercapnia Code(s): J96.00 - Acute respiratory failure, unspecified whether with hypoxia or hypercapnia Status: Acute Assessment and Plan: Secondary to cardiopulmonary arrest, severe COPD and pulmonary hypertension, left effusion, possible aspiration Continue full mechanical ventilation support to prevent hypoxemia/hypercarbia and end organ damage. ABG and PCXR reviewed and will repeat in am. Low tidal volume ventilation strategy to prevent volutrauma Patient was on clindamycin and doxycycline. I switched doxycycline to Levaquin for broader coverage 03/20 Bronchodilators Patient failed SBT due to very low tidal volumes which improve with high pressure support but later patient no respiratory rate and was going into apnea ventilation. Patient switched back to CMV. Fentanyl does decreased Since patient has wheezing on exam and has severe COPD I will start a short course of Solu-Medrol (2) Chronic obstructive pulmonary disease: Qualifiers: COPD type: unspecified COPD Qualified Code(s): J44.9 - Chronic obstructive pulmonary disease, unspecified Code(s): J44.9 - Chronic obstructive pulmonary disease, unspecified Status: Acute Assessment and Plan: See above (3) Pulmonary hypertension: Code(s): I27.20 - Pulmonary hypertension, unspecified Status: Acute Assessment and Plan: Due to COPD. Given severity of it, however, in the past patient was referred to [facility] pul hypertension clinic but she has not seen them yet. (4) Recurrent pleural effusion on left: Code(s): J90 - Pleural effusion, not elsewhere classified Status: Acute Assessment and Plan: Due to pulmonary hypertension and probably diastolic dysfunction. S/P left thoracentesis removing 1 liter on 03/13/20. Resume Lasix (5) Cardiopulmonary arrest: Code(s): I46.9 - Cardiac arrest, cause unspecified Status: Acute Assessment and Plan: Unclear etiology as patient had multiple issues including anemia, known coronary artery disease, aortic stenosis, respiratory acidosis from COPD ABG done at that time showed hypercarbia Therapeutic hypothermia not done because patient was purposeful post intubation and also this was non shockable rhythm Echocardiogram done recently reviewed Patient seen by Cardiology Repeat echo ordered Summary 1. Left ventricular chamber dimension is normal. 2. Ventricular septum is sigmoid shaped. 3. Left ventricular systolic function is normal, estimated at 55-60%. 4. There is mildly increased left ventricular wall thickness. 5. The left ventricular diastolic function is indeterminate. 6. Tissue doppler is not performed. 7. Left atrial chamber dimension is mildly enlarged. 8. The aortic valve is not well visualized. 9. There is severe aortic valve sclerosis. 10. There is moderate to severe aortic stefania ve stenosis based on a peakvelocity of 220 cm/s, mean gradient of 9 mmHg, and aortic valve area of 1.0 cm2. 11. There is mild aortic valve regurgitation. 12. The mitral valve has mildly calcified annulus. 13. There is mild mitral valve regurgitation. 14. There is trace tricuspid valve regurgitation. 15. Severe pulmonary hypertension, estimated pulmonary arterial systolic pressure is 82 mmHg. 16. Dilated inferior vena cava with <50% collapse upon inspiration consistent with significantly elevated right atrial pressure, 15 mmHg. (6) Aortic valve stenosis: Qualifiers: Cardiac valve disease etiology: etiology unspecified Qualified Code(s): I35.0 - Nonrheumatic aortic (valve) stenosis Code(s): I35.0 - Nonrheumatic aortic (valve) stenosis Status: Chr
[2020-03-21] MEDS: POTASSIUM CHLORIDE 20 MEQ PACKET (FOR LIQUID) 40 MEQ PO (08:00)
[2020-03-21] MEDS: CLINDAMYCIN 600 MG/NS 50 ML 600 MG/50 ML PIGGYBACK 100 MG IVPB ×2 (08:00→17:00)
[2020-03-21] MEDS: FUROSEMIDE INJ 40 MG/4 ML VIAL IV PUSH (08:00)
--- NOTE | 2020-03-21 08:01 | PCRCNOTE ---
Spiriva not given/pt on mechanical ventilation
[2020-03-21] MEDS: methiMAzole 5 MG TAB PO (08:02)
[2020-03-21] MEDS: PANTOPRAZOLE SODIUM IV 40 MG VIAL IV PUSH ×2 (08:02→19:52)
[2020-03-21] MEDS: THERAPEUTIC MULTIVITAMINS/MINERALS TAB (*BKC) 1 TABLET PO (08:02)
[2020-03-21] MEDS: ATORVASTATIN 10 MG TABLET PO (08:03)
[2020-03-21] MEDS: AMIODARONE HCL 200 MG TABLET PO (08:03)
--- NOTE | 2020-03-21 08:16 | PM.PNCARD ---
Progress Note: A&P Assessment and Plan (1) Chronic obstructive pulmonary disease: Qualifiers: COPD type: unspecified COPD Qualified Code(s): J44.9 - Chronic obstructive pulmonary disease, unspecified Code(s): J44.9 - Chronic obstructive pulmonary disease, unspecified Status: Acute (2) Recurrent pleural effusion on left: Code(s): J90 - Pleural effusion, not elsewhere classified Status: Acute Assessment and Plan: Due to pulmonary hypertension and probably diastolic dysfunction. S/P left thoracentesis removing 1 liter on 03/13/20. Will need higher doses of diuretics to keep fluid from returning. On Furosemide 40 mg PO daily and KCl 20 meq daily. (3) Hypertension: Qualifiers: Hypertension type: unspecified Qualified Code(s): I10 - Essential (primary) hypertension Code(s): I10 - Essential (primary) hypertension Status: Chronic (4) Pulmonary hypertension: Code(s): I27.20 - Pulmonary hypertension, unspecified Status: Acute Assessment and Plan: Due to COPD. Given severity of it, however, referred to [facility] hypertension clinic but she has not seen them yet. (5) Aortic valve stenosis: Qualifiers: Cardiac valve disease etiology: etiology unspecified Qualified Code(s): I35.0 - Nonrheumatic aortic (valve) stenosis Code(s): I35.0 - Nonrheumatic aortic (valve) stenosis Status: Chronic Assessment and Plan: Mod-severe . No need for intervention until it becomes frankly severe, then would consider TAVR procedure. (6) CKD (chronic kidney disease): Qualifiers: Chronic kidney disease stage: stage 3 (moderate) Qualified Code(s): N18.3 - Chronic kidney disease, stage 3 (moderate) Code(s): N18.9 - Chronic kidney disease, unspecified Status: Chronic Assessment and Plan: Continue to monitor as it kidney function worsens with diuretics. (7) PAF (paroxysmal atrial fibrillation): Code(s): I48.0 - Paroxysmal atrial fibrillation Status: Acute Assessment and Plan: On Amiodarone and she went intro atrial flutter/tachycardia on 03/17/20. [id number] 3. On aspirin given bleeding on anticoagulation from tract. Carioverted on 03/19/20 to sinus rhythm. Then had bradycardia and cardiopulm arrest, now on mechanical ventilation. Discontinue Toprol given bradycardia in sinus rhythm. (8) Preop cardiovascular exam: Code(s): Z01.810 - Encounter for preprocedural cardiovascular examination Status: Acute Assessment and Plan: She is at a high cardiac risk of 7.9% for LA and cardiac arrest perioperatively for bladder surgery/resection based on Garza risk calculator. Her risks include frailty, CKD, pulm hypertension, anemia, abnormal nuclear stress test, PAD, aortic stenosis, PAF, COPD. (9) Abnormal nuclear stress test: Code(s): R94.39 - Abnormal result of other cardiovascular function study Status: Acute Assessment and Plan: 03/06/20 Lexiscan myoview shows small ischemia of anterolateral wall. No plan for cardiac cath as she has significant anemia, recent bleed that is a high potential for recurrence, and would not be able to receive stent which requires uninterrupted dual antiplatelet agents. Was started Toprol 12.5 mg daily 03/16/20 for possible CAD but given bradycardia and on Levophed drip, will stop Toprol. (10) Cardiopulmonary arrest: Code(s): I46.9 - Cardiac arrest, cause unspecified Status: Acute Assessment and Plan: Likely due to bradycardia after cardioversion on low dose Toprol from atrial flutter/tachycardia with RVR to sinus rhythm with aortic stenosis. Sedated on mechanical ventilation. Off Levophed drip and received blood transfusion. Managed per filler wiper. Elevated troponin probably related to this setting with CPR, and probably underlying CAD and aortic stenosis. She is on aspirin and Atorvastatin. Anticoagul
[2020-03-21] MEDS: methylPREDNISolone SOD SUCC 125 MG VIAL 60 MG IV PUSH (09:17)
[2020-03-21] MEDS: IRON SUCROSE COMPLEX 100 MG in SODIUM CHLORIDE 0.9% IV 50 ML 220 MG IVPB (09:34)
--- NOTE | 2020-03-21 09:39 | PC.NURSE ---
0938-Fentanyl infusion decreased to 25 mcg/hr per Dr. Butler. See NOV.
--- NOTE | 2020-03-21 10:46 | PM.IMPN ---
Progress Note: A&P Assessment and Plan (1) Cardiopulmonary arrest: Code(s): I46.9 - Cardiac arrest, cause unspecified Status: Acute Assessment and Plan: Patient became bradycardic and then developed cardiac arrest. Had a recent abnormal stress test. Beta-lisa started recently and has had 3 doses. EKG at the time showing junctional rhythm with T wave inversion in high lateral leads. Trop climbing to 0.8 now. Cardiology following. Continue aspirin. LFTs are elevated felt related to shock liver. Will hold Lipitor. No beta-lisa due bradycardia. Follow LFTs. (2) Acute respiratory failure: Qualifiers: Respiratory failure complication: hypoxia and hypercapnia Qualified Code(s): J96.01 - Acute respiratory failure with hypoxia; J96.02 - Acute respiratory failure with hypercapnia Code(s): J96.00 - Acute respiratory failure, unspecified whether with hypoxia or hypercapnia Status: Acute Assessment and Plan: ABG showing hypoxia and respiratory acidosis with a pCO2 of 59. Patient intubated. She is responding to commands. She is on minimal sedation but having apneic spells. Solu-Medrol added. Vent management per oil spreader operator. Appreciate oil spreader operator input. (3) Anemia: Qualifiers: Anemia type: unspecified type Qualified Code(s): D64.9 - Anemia, unspecified Code(s): D64.9 - Anemia, unspecified Status: Chronic Assessment and Plan: Chronic anemia. Iron studies consistent with iron deficiency anemia. No evidence of acute bleeding. Stool occult blood is negative. Dr March giving IV venofer. Hemoglobin this morning is 8.1 today. No evidence of acute blood loss. Continue to monitor closely. (4) Recurrent pleural effusion on left: Code(s): J90 - Pleural effusion, not elsewhere classified Status: Acute Assessment and Plan: Recently admitted 02/28 - 03/03 for same; thoracentesis 03/01 and another 03/13 each yielding 1000mL clear yellow fluid. Analysis of pleural fluid last admission with negative cultures and no findings of malignancy on cytology. Thus far has been attributed to her pulmonary hypertension. Echo showing severe pulmonary hypertension with a PASP of 82 Dr. Martinez increased furosemide to 40mg BID and starting metolazone on Wednesday/Wednesday/Wednesday - in addition to potassium supplementation - appreciate his recommendations. Metolazone is held now due to worsening renal function and Lasix has been stopped. Repeat CXR 03/21 showing L>R pleural effusions and diffuse lung disease. (5) Atrial fibrillation: Qualifiers: Atrial fibrillation type: unspecified Qualified Code(s): I48.91 - Unspecified atrial fibrillation Code(s): I48.91 - Unspecified atrial fibrillation Status: Chronic Assessment and Plan: History of paroxysmal a fib. She is maintained on her home amiodarone. Toprol was added but now held. She is not on long-term anticoagulation due to history of hematuria. (6) Hypokalemia: Code(s): E87.6 - Hypokalemia Status: Acute Assessment and Plan: [place] to be secondary to increased diuresis. Mag is stable at 2.0. Was on potassium and mag ox replacement. Monitor BMP and mag, replace as needed. (7) Leukocytosis: Qualifiers: Leukocytosis type: unspecified Qualified Code(s): D72.829 - Elevated white blood cell count, unspecified Code(s): D72.829 - Elevated white blood cell count, unspecified Status: Acute Assessment and Plan: Improving; may be in part related to stress reaction, however cannot exclude a pneumonia based on the imaging and may be worth a trial of a short course of antibiotics for respiratory coverage. Oral doxy but changed to Clindamycin. She is afebrile. Urine culture is polymicrobial and may represent colonizatio
[2020-03-21] MEDS: LIDOCAINE 5% PATCH 1 PATCH TRANSDERM (10:57)
--- NOTE | 2020-03-21 11:45 | PCDIET ---
ICU Rounding Note: Patient NPO with plan for breathing trial. MD plans to start tube feedings later today if unable to extubate. Recommend Vital 1.5 at goal of 40mL/hr for 1320kcal and 59g protein daily. Last recorded weight is 61.1kg which is stable. Bowel Motility: +Stool - colostomy Labs Reviewed: Hgb (8.1), Hct (26.1), Glu (129), BUN (65), Cr (2.5), K (3.3), Na (135), Alb (2.7) Meds Noted: Albuterol, Fentanyl, Levaquin, Solu Medrol, Clindamycin, Iron Sucrose, Versed, MVI/minerals, Protonix, Lasix, KCl Additional Notes: Left upper back with puncture site from previous thoracentesis. No other skin issues documented. Following daily in ICU rounds. Assessing/reassessing every 3 days.
[2020-03-21 12:43] LABS: Alveolar/Arterial O2 Gradient 213.1 mmHg; Base Excess ABG 8.8 mEq/l (+/-2.0); Fractional Inspired Oxygen 50 %; HCO3 ABG 35.5 mEq/l (22.0-26.0); Oxygen Content ABG 12.8 %vol (16.0-22.0); Oxygen Saturation ABG 94.2 % (95.0-100.0); Oxyhemoglobin 92.3 % THb (90.0-100.0); PO2 FiO2 Ratio Arterial Blood 1.48 %; Total Hemoglobin 9.8 g/dL (12.0-18.0); pH ABG 7.378 (7.350-7.450)
[2020-03-21 12:44] LABS: Device VENTILATOR; Modified Allen's Test Pass; PCO2 ABG 61.7 mmHg (35.0-45.0); Site Drawn LEFT RADIAL
[2020-03-21 12:45] LABS: Arterial Blood Gas PEEP 5 cmH2O; Arterial Blood Gas Pressure Support 5 cmH2O; Arterial Blood Gas Vent Mode PRESSURE SUPPORT; Peak Inspiratory Pressure 5 cmH2O
--- NOTE | 2020-03-21 12:49 | PM.EVENT ---
Event Note Event Note Event Note: 5/5 PSV SBT done for more than 1 hour. RSBI, ABGI and Vitals acceptable. Elevated CO2 but appears to be at baseline as pH is normal. Pt awake and following commands. Will extubate and monitor. NPO for now. Bipap PRN
--- NOTE | 2020-03-21 13:46 | PC.NURSE ---
Pt extubated per MD order. Placed on 5L HFNC with O2 sats 88-90. Maintain oxygen levels between 88-92. No distress noted.
[2020-03-21] MEDS: racEPINEPHrine 2.25% NEBU SOLN 0.5 ML VIAL.NEB 1 ML (17:00)
--- NOTE | 2020-03-21 17:07 | PC.NURSE ---
Pt. noted to be more somnolent than earlier. She is able to answer questions appropriately but then closes her eyes and goes back to sleep. Her oxygen saturations decreased to mid 70's. Respiratory called to bedside. Dr. Quintero called and message left. Dr. Butler called and instructed to call Maricarmen and have her assess the patient. Respiratory NT suctioned large copious springer secretions and patient felt like it was easier to breathe and her oxygen saturations increased back to low 90's. Racemic epinephrine ordered and given to the patient. Maricarmen at bedside and assessed the patient. Stat cxr and abg ordered and obtained. Patient on 6L high flow nasal cannula. She is alert and oriented x 3 but still sleepy when not awoken by staf. Will continue to closely monitor.
--- NOTE | 2020-03-21 17:13 | P.PNCROSS_ITS ---
Event Note Event Note Event Note: Subjective: Patient was extubated earlier in the day, and has been maintaining adequate oxygenation on 5 liters high-flow nasal cannula. I received a call from the patient's nurse at 16:53 with reports of oxygen desaturation with SpO2 in the 70s. RN and respiratory therapist report possible stridor and diffuse rhonchi, an order was given for racemic epinephrine and NT suction. Reportedly, a pretty significant amount of thick and creamy-yellow sputum was suctioned with improvement in saturations. At the time my evaluation, the patient is on 6 liters high-flow nasal cannula with SpO2 in the mid 90s. The patient is alert and oriented to name, age, and date of . Overall, she just feels poorly but cannot elaborate. As she was just recently extubated, some medications are probably still on board and she is confused about what has transpired over the past couple of days. Objective: A frail, moderately ill-appearing elderly female in the high [place] position in bed. She is not in respiratory distress with a respiratory rate of 19 at the time of this dictation. Heart is regular rate and rhythm with S1-S2. + JVD. Respirations are somewhat shallow. She has diffuse, course breath sounds throughout with scattered rhonchi. Lung sounds are diminished at the left lung base. Abdomen is soft and nondistended with hypoactive bowel sounds. Moderate amount of stool in her colostomy bag. No lower extremity edema. Assessment: Acute on chronic respiratory failure. May very well be due to thick secretions which were able to be suctioned per RT. Given very recent extubation, will need to rule out worsening CO2 retention. Also noted to have diffuse lung disease on a.m. chest x-ray. Plan: ABG and chest x-ray pending at the time of this dictation. I have spoken with Dr. Butler, steak tenderizer machine, regarding her change in status. At this time, we will hold on re-intubation. Should her ABG demonstrate decompensation, he has given orders to start BiPAP. Critical Care Time Critical Care Time: Yes Total Critical Care Time: 35 Attestation: Due to a high probability of clinically significant, life threatening deterioration, the patient required my highest level of preparedness to intervene emergently and I personally spent this critical care time directly and personally managing the patient. This critical care time included obtaining a history; examining the patient; pulse oximetry; ordering and review of studies; arranging urgent treatment with development of a management plan, to include initiation of BiPAP; evaluation of patient's response to treatment; frequent reassessment; and discussions with other providers. It was exclusive of separately billable procedures and treating other patients and teaching time. Please see Assessment and Plan section and the rest of the note for further information on patient assessment and treatment
[2020-03-21 17:19] LABS: Alveolar/Arterial O2 Gradient 201.8 mmHg; Base Excess ABG 6.8 mEq/l (+/-2.0); Fractional Inspired Oxygen 50 %; HCO3 ABG 35.1 mEq/l (22.0-26.0); Oxygen Content ABG 13.3 %vol (16.0-22.0); Oxygen Saturation ABG 92.1 % (95.0-100.0); Oxyhemoglobin 91.3 % THb (90.0-100.0); PO2 ABG 71.9 mmHg (80.0-100.0); PO2 FiO2 Ratio Arterial Blood 1.44 %; Total Hemoglobin 10.3 g/dL (12.0-18.0); pH ABG 7.296 (7.350-7.450)
[2020-03-21 17:22] LABS: Modified Allen's Test Pass; PCO2 ABG 73.6 mmHg (35.0-45.0); Site Drawn LEFT RADIAL
[2020-03-21 17:23] LABS: Device HIGH FLOW NASAL CANN
[2020-03-21 18:52] LABS: Base Excess ABG 6.3 mEq/l (+/-2.0); Device BIPAP; Fractional Inspired Oxygen 50 %; HCO3 ABG 32.6 mEq/l (22.0-26.0); Modified Allen's Test Pass; Oxygen Content ABG 12.9 %vol (16.0-22.0); Oxygen Saturation ABG 96.5 % (95.0-100.0); Oxyhemoglobin 95.3 % THb (90.0-100.0); PCO2 ABG 57.3 mmHg (35.0-45.0); Site Drawn LEFT RADIAL; Total Hemoglobin 9.5 g/dL (12.0-18.0); pH ABG 7.373 (7.350-7.450)
[2020-03-21 18:53] LABS: Inspiratory Pressure 12 cmH2O
[2020-03-21 18:54] LABS: Expiratory Pressure 6 cmH2O
--- NOTE | 2020-03-21 18:58 | PC.NURSE ---
184-Dr. Quintero called back and I updated him on the patient's condition. I gave him the patient's updated abg results at that time. 1899-Dr. Butler called and updated on her condition. Continue the bipap overnight. Will continue to monitor.
[2020-03-21] MEDS: AMIODARONE 150 MG/D5W 100 ML 150 MG/100 ML BAG 600 MG IV CONT (19:49)
[2020-03-22] VITALS (25 sets, daily range): BP systolic 96–154; BP diastolic 43–60; PULSE 62–106; RESP 12–24; TEMP 36.3–36.8; O2SAT 88–99
[2020-03-22] MEDS: CLINDAMYCIN 600 MG/NS 50 ML 600 MG/50 ML PIGGYBACK 100 MG IVPB ×4 (01:22→23:11)
[2020-03-22 04:16] LABS: Alveolar/Arterial O2 Gradient 192.5 mmHg; Base Excess ABG 5.3 mEq/l (+/-2.0); Fractional Inspired Oxygen 45 %; HCO3 ABG 30.9 mEq/l (22.0-26.0); Methemoglobin ABG 0.2 %THb (0-1.5); Oxygen Content ABG 12.1 %vol (16.0-22.0); Oxygen Saturation ABG 93.8 % (95.0-100.0); Oxyhemoglobin 92.6 % THb (90.0-100.0); PCO2 ABG 51.3 mmHg (35.0-45.0); PO2 FiO2 Ratio Arterial Blood 1.56 %; Reduced Hemoglobin 7.2 %THb (0-5.0); Total Hemoglobin 9.2 g/dL (12.0-18.0); pH ABG 7.398 (7.350-7.450)
[2020-03-22 04:16] LABS: Basophils Percent Auto 0.1 % (0.2-1.2); Hematocrit 27.6 % (37.0-47.0); Hemoglobin 8.2 g/dL (12.0-15.0); Immature Granulocyte Absolute 0.26 K/mm3 (0.00-0.031); Immature Granulocyte Percent A 1.2 % (0-0.5); Lymphocytes Absolute Auto 0.53 K/mm3 (0.9-3.2); Lymphocytes Percent Auto 2.5 % (18.3-44.2); Mean Corpuscular HGB Conc 29.7 g/dl (32-36); Mean Corpuscular Hemoglobin 27.3 pg (26-34); Mean Platelet Volume 8.8 fl (7.4-10.4); Monocytes Absolute Auto 0.8 K/mm3 (0.1-0.6); Monocytes Percent Auto 3.8 % (2.6-8.5); Neutrophils Absolute Auto 19.4 K/mm3 (1.3-6.7); Neutrophils Percent Auto 92.4 % (45.5-73.1); Platelet Count Result 284 k/mm3 (150-375); Red Cell Distribution Width 15.7 % (11.5-14.5)
[2020-03-22 04:18] LABS: Device NON-INVASIVE VENT; Modified Allen's Test Pass; Site Drawn RIGHT RADIAL
[2020-03-22 04:19] LABS: Non-Invasive Expiratory Pressure 6 CMH2O; Non-Invasive Inspiratory Pressure 12 CMH2O; Non-Invasive Vent Rate 16 /MIN
[2020-03-22 04:30] LABS: Alanine Aminotransferase 383 U/L (4-35); Albumin Level 2.8 g/dL (3.5-5.1); Alkaline Phosphatase 103 U/L (38-126); Aspartate Amino Transferase 326 U/L (14-36); Bilirubin,Total 1.4 mg/dL (0.2-1.3); Blood Urea Nitrogen 74 mg/dL (7-17); Calcium 9.1 mg/dL (8.4-10.2); Carbon Dioxide 36 mmol/L (22-30); Chloride 97 mmol/L (98-107); Estimated CRCL calculation 13 ml/min; Estimated Glomerular Filt Rate 17; Glucose 171 mg/dL (65-105); Lactic Acid 0.9 mmol/L (0.7-2.1); Magnesium 2.2 mg/dL (1.6-2.3); Potassium 3.9 mmol/L (3.4-5.0); Sodium 139 mmol/L (137-145)
[2020-03-22 05:26] LABS: Hypochromasia 1+ (NORMAL); Platelet Estimate Adequate (Adequate)
--- NOTE | 2020-03-22 08:11 | PM.PNCARD ---
Progress Note: A&P Assessment and Plan (1) Chronic obstructive pulmonary disease: Qualifiers: COPD type: unspecified COPD Qualified Code(s): J44.9 - Chronic obstructive pulmonary disease, unspecified Code(s): J44.9 - Chronic obstructive pulmonary disease, unspecified Status: Acute (2) Recurrent pleural effusion on left: Code(s): J90 - Pleural effusion, not elsewhere classified Status: Acute Assessment and Plan: Due to pulmonary hypertension and probably diastolic dysfunction. S/P left thoracentesis removing 1 liter on 03/13/20. Will need higher doses of diuretics to keep fluid from returning. On Furosemide 40 mg PO daily and KCl 20 meq daily. (3) Hypertension: Qualifiers: Hypertension type: unspecified Qualified Code(s): I10 - Essential (primary) hypertension Code(s): I10 - Essential (primary) hypertension Status: Chronic (4) Pulmonary hypertension: Code(s): I27.20 - Pulmonary hypertension, unspecified Status: Acute Assessment and Plan: Due to COPD. Given severity of it, however, referred to [facility] hypertension clinic but she has not seen them yet. (5) Aortic valve stenosis: Qualifiers: Cardiac valve disease etiology: etiology unspecified Qualified Code(s): I35.0 - Nonrheumatic aortic (valve) stenosis Code(s): I35.0 - Nonrheumatic aortic (valve) stenosis Status: Chronic Assessment and Plan: Mod-severe . No need for intervention until it becomes frankly severe, then would consider TAVR procedure. (6) CKD (chronic kidney disease): Qualifiers: Chronic kidney disease stage: stage 3 (moderate) Qualified Code(s): N18.3 - Chronic kidney disease, stage 3 (moderate) Code(s): N18.9 - Chronic kidney disease, unspecified Status: Chronic Assessment and Plan: Continue to monitor as it kidney function worsens with diuretics. (7) PAF (paroxysmal atrial fibrillation): Code(s): I48.0 - Paroxysmal atrial fibrillation Status: Acute Assessment and Plan: On Amiodarone and she went intro atrial flutter/tachycardia on 03/17/20. [id number] 3. On aspirin given bleeding on anticoagulation from tract. Carioverted on 03/19/20 to sinus rhythm. Then had bradycardia and cardiopulm arrest, was on mechanical ventilation, now extubated. Discontinue Toprol given bradycardia in sinus rhythm. Agree with using Amiodarone IV when needed to keep her in sinus rhythm. (8) Preop cardiovascular exam: Code(s): Z01.810 - Encounter for preprocedural cardiovascular examination Status: Acute Assessment and Plan: She is at a high cardiac risk of 7.9% for CA and cardiac arrest perioperatively for bladder surgery/resection based on Garza risk calculator. Her risks include frailty, CKD, pulm hypertension, anemia, abnormal nuclear stress test, PAD, aortic stenosis, PAF, COPD. (9) Abnormal nuclear stress test: Code(s): R94.39 - Abnormal result of other cardiovascular function study Status: Acute Assessment and Plan: 03/06/20 Lexiscan myoview shows small ischemia of anterolateral wall. No plan for cardiac cath as she has significant anemia, recent bleed that is a high potential for recurrence, and would not be able to receive stent which requires uninterrupted dual antiplatelet agents. Was started Toprol 12.5 mg daily 03/16/20 for possible CAD but given bradycardia and on Levophed drip, will stop Toprol. (10) Cardiopulmonary arrest: Code(s): I46.9 - Cardiac arrest, cause unspecified Status: Acute Assessment and Plan: Likely due to bradycardia after cardioversion on low dose Toprol from atrial flutter/tachycardia with RVR to sinus rhythm with aortic stenosis. Sedated on mechanical ventilation. Off Levophed drip and received blood transfusion. Managed per dam tender assistant. Elevated troponin probably related to this setting with CPR (resulte
[2020-03-22] MEDS: LIDOCAINE 5% PATCH 1 PATCH TRANSDERM (08:28)
[2020-03-22] MEDS: IRON SUCROSE COMPLEX 100 MG in SODIUM CHLORIDE 0.9% IV 50 ML 220 MG IVPB (08:28)
[2020-03-22] MEDS: methylPREDNISolone SOD SUCC 125 MG VIAL 60 MG IV PUSH (08:28)
[2020-03-22] MEDS: PANTOPRAZOLE SODIUM IV 40 MG VIAL IV PUSH ×2 (08:28→20:11)
[2020-03-22] MEDS: FUROSEMIDE INJ 40 MG/4 ML VIAL 20 MG IV PUSH ×2 (08:30→11:54)
--- NOTE | 2020-03-22 10:19 | PM.CNPUL ---
History of Present Illness History of Present Illness Consult date: 03/22/20 Requesting physician: Damian Schmitz MD Reason for consult: COPD Chief complaint: Recurrent pleural effusion. Narrative: Thank you for the consult. Please see dictation #[id number]. A/P 1. Scute on chronic Respiratory failure, hypoxic and hypercapnic due to dCHF, left pleural effusion, COPD; intubated, atrial flutter 03/17, beta lisa caused pauses so Toprol held; cardioverted 03/19 extubated 03/21; deteriorated with increased pCO2, wore BiPAP with improvement. improvement in ventilation; 2. severe COPD; FEV1 41% after bronchodilator which included at 14% increase in flows; 02/09/2020; 3. pulmonary hypertension RVSP 82 on echo 01/04/2020 however normal RV size and function Cardiac diagnoses 4. CHF with recurrent left pleural effusion, tapped 02/28; 03/13; c/w with transudate and few rbc due to technique 5. Aortic stenosis-mod to severe on 01/04/2020; severe aortic sclerosis 6. Paroxysmal Atrial fibrillation, not on anticoagulation due to hematuria 7. CAD; small area of reversible ischemia on Lexiscan 7. CKD Stage IV- Dr Mendiola; hydroureteronephrosis with indwelling Monahan. 8. Bladder tumor with (+) PET, has not had it resected due to medical issues; sees Dr Salamanca 9. h/o colon cancer 2011 10. debilitation - short of breath at home making a cup of coffee 11. hx of tobacco 50 years, 1 ppd, quit Oct 27, 2019 PLAN: BiPAP PRN She is a candidate for NPPV such as Trilogy Astral for nighttime use with all sleep and daytime use as tolerated Increase bronchdilator therapy; she is on 2 inhalers at home, and may not have enough inspiratory capacity Nebulizer for home use She has home concentrator and a portable oxygen concentrator; will need adjustment in O2 prescription before discharge. Goal will be sats between 90% and 94%; this was discussed with her daughter Jailene Roman She is an excellent candidate for cardiopulmonary rehab Needs to have COPD better managed before any additional pulm hypertension investigations; likely explanation is COPD, hypoxemia; she has appt for full day evaluation April 16 at [facility] which may be difficult for her to complete. We will be happy to follow her after discharge. discussed with Dr Schmitz in ICU, Marium MORRELL, daughter Jailene Roman by phone [phone]. Prolonged visit with call to Jailene, review of records, orders. [facility] Past Medical History Medical History Anemia Anxiety Aortic valve stenosis Moderate to severe aortic stenosis on echocardiogram in December 2019. She was told that she is not a candidate for surgery. She is followed by Dr. Martinez. Atrial fibrillation Not on long-term anticoagulation due to history of hematuria. Bladder tumor Noted on PET scan in spring. She is followed Dr. Salamanca and has not yet had the opportunity for cystoscopy and resection of the tumor due to her respiratory status. Chronic kidney disease, stage 4, severely decreased GFR Baseline creatinine runs between 1.7 and 2.0. Chronic obstructive pulmonary disease Chronic respiratory failure with hypoxia, on home oxygen therapy On 3 liters nasal cannula. Colon cancer (~2011) Status post partial colectomy. Patient was also treated with chemotherapy and radiation. She is a patient of Dr. March. Depression Diastolic dysfunction Former heavy tobacco smoker Hypertension Hyperthyroidism Kidney stones Osteoporosis Pulmonary hypertension She has been referred to the [facility] pulmonary hypertension clinic. Skin cancer Thyroid nodule Benign follicular nodule on FNA in January 2015. Type 2 diabetes mellitus No longer on medication after significant weight loss. Surgical History Surgical History History of lithotripsy History of nasal surgery History of partial colectomy (~2011) For colon cancer. Status po
--- NOTE | 2020-03-22 11:34 | PCSTNOTE ---
Attempted to complete MBS; however, upon transferring pt for testing, her saturation level dropped. ICU opted to hold testing at this time.
--- NOTE | 2020-03-22 11:46 | PCDIET ---
Nutrition Follow-Up Complete: Nutrition Diagnosis: Inadequate oral intake related to oral intubation as evidenced by NPO status. Nutrition Goal: Patient to meet estimated nutritional needs. Goal not met. Patient was scheduled for MBS today, but unable to tolerate moving to stretcher. Keeping in room and NPO at this time. If unable to safely resume diet in the next 2-3 days, recommend feeding tube placement and initiating of enteral feedings. Will follow closely and provide further recommendations, if needed. Last recorded weight is 58.9 kg which is down from last review. -I/O. Bowel Motility: +BM - ostomy Labs Reviewed: Hgb (8.2), Hct (27.6), Glu (171), BUN (74), Cr (2.7), PO4 (6.0) Meds Noted: Albuterol, Levaquin, Protonix, Clindamycin, Solu Medrol, Lasix, Iron Sucrose, MVI Additional Notes: Left upper back with previous thoracentesis site. No other breakdown reported. Will continue to monitor with same goal. Nutrition Monitoring and Evaluation: Follow up every 3 days.
[2020-03-22] MEDS: AMIODARONE HCL 200 MG TABLET PO (11:53)
[2020-03-22] MEDS: THERAPEUTIC MULTIVITAMINS/MINERALS TAB (*BKC) 1 TABLET PO (11:53)
[2020-03-22] MEDS: methiMAzole 5 MG TAB PO (11:53)
[2020-03-22] MEDS: ENOXAPARIN 30 MG/0.3 ML SYRINGE SUB-Q (11:54)
[2020-03-22] MEDS: levoFLOXacin 250 MG/D5W 50 ML 250 MG/50 ML BAG 50 MG IVPB (12:00)
[2020-03-22] MEDS: SILVERGEL (ELTA) 45 ML 1 APPLIC TOPICAL (13:31)
--- NOTE | 2020-03-22 14:32 | WPDINTPN ---
Progress Note: A&P Assessment and Plan (1) Acute respiratory failure: Qualifiers: Respiratory failure complication: hypoxia and hypercapnia Qualified Code(s): J96.01 - Acute respiratory failure with hypoxia; J96.02 - Acute respiratory failure with hypercapnia Code(s): J96.00 - Acute respiratory failure, unspecified whether with hypoxia or hypercapnia Status: Acute Assessment and Plan: Secondary to cardiopulmonary arrest, severe COPD and pulmonary hypertension, left effusion, possible aspiration Patient was extubated 03/21/2020. Later that evening evening patient desaturated requiring racemic epinephrine,, BiPAP and Solu-Medrol. -ABGs improved this morning on BiPAP Patient was on clindamycin and Levaquin Continue Bronchodilators Appreciate pulmonology evaluation recommendation, BiPAP p.r.n. patient will be evaluated for home noninvasive ventilator (2) Chronic obstructive pulmonary disease: Qualifiers: COPD type: unspecified COPD Qualified Code(s): J44.9 - Chronic obstructive pulmonary disease, unspecified Code(s): J44.9 - Chronic obstructive pulmonary disease, unspecified Status: Acute Assessment and Plan: Continue BiPAP p.r.n. supplemental oxygen, steroids and bronchodilators (3) Pulmonary hypertension: Code(s): I27.20 - Pulmonary hypertension, unspecified Status: Acute Assessment and Plan: Due to COPD. Given severity of it, however, in the past patient was referred to [facility] pul hypertension clinic but she has not seen them yet. -workup needed for COPD prior to workup for pulmonary hypertension -appreciate pulmonology following the patient (4) Recurrent pleural effusion on left: Code(s): J90 - Pleural effusion, not elsewhere classified Status: Acute Assessment and Plan: Due to pulmonary hypertension and probably diastolic dysfunction. S/P left thoracentesis removing 1 liter on 03/13/20. Likely transient day Will give a dose of Lasix (5) Cardiopulmonary arrest: Code(s): I46.9 - Cardiac arrest, cause unspecified Status: Acute Assessment and Plan: Unclear etiology as patient had multiple issues including anemia, known coronary artery disease, aortic stenosis, respiratory acidosis from COPD Echocardiogram done recently reviewed Patient seen by Cardiology Repeat echo ordered Summary 1. Left ventricular chamber dimension is normal. 2. Ventricular septum is sigmoid shaped. 3. Left ventricular systolic function is normal, estimated at 55-60%. 4. There is mildly increased left ventricular wall thickness. 5. The left ventricular diastolic function is indeterminate. 6. Tissue doppler is not performed. 7. Left atrial chamber dimension is mildly enlarged. 8. The aortic valve is not well visualized. 9. There is severe aortic valve sclerosis. 10. There is moderate to severe aortic stefania ve stenosis based on a peakvelocity of 220 cm/s, mean gradient of 9 mmHg, and aortic valve area of 1.0 cm2. 11. There is mild aortic valve regurgitation. 12. The mitral valve has mildly calcified annulus. 13. There is mild mitral valve regurgitation. 14. There is trace tricuspid valve regurgitation. 15. Severe pulmonary hypertension, estimated pulmonary arterial systolic pressure is 82 mmHg. 16. Dilated inferior vena cava with <50% collapse upon inspiration consistent with significantly elevated right atrial pressure, 15 mmHg. (6) Aortic valve stenosis: Qualifiers: Cardiac valve disease etiology: etiology unspecified Qualified Code(s): I35.0 - Nonrheumatic aortic (valve) stenosis Code(s): I35.0 - Nonrheumatic aortic (valve) stenosis Status: Chronic Assessment and Plan: Mod-severe , will have to monitor fluid status care cautiously (7) PAF (paroxysmal atrial fibrillation): Code(s): I48.0 - Paroxysmal atrial fibrillation Status: Acute Assessment
--- NOTE | 2020-03-22 16:44 | PCDIET ---
Nutritional screen for pressure ulcer received. Pt has been assessed and actively followed by ICU RD. Currently NPO due to pending swallow study. Once diet resumes, RD will assess need for additional protein for wound healing.
--- NOTE | 2020-03-22 17:14 | PM.IMPN ---
Progress Note: A&P Assessment and Plan (1) Cardiopulmonary arrest: Code(s): I46.9 - Cardiac arrest, cause unspecified Status: Acute Assessment and Plan: Patient became bradycardic and then developed cardiac arrest. Had a recent abnormal stress test. Beta-lisa started recently and had 3 doses prior to code. EKG at the time showing junctional rhythm with T wave inversion in high lateral leads. Trop climbed to 1.597. Cardiology following. Continue aspirin, Lipitor. No beta-lisa due to bradycardia. CXR showing left 4th rib fracture but whole chest wal sore. Treat symptomatically. (2) Acute respiratory failure: Qualifiers: Respiratory failure complication: hypoxia and hypercapnia Qualified Code(s): J96.01 - Acute respiratory failure with hypoxia; J96.02 - Acute respiratory failure with hypercapnia Code(s): J96.00 - Acute respiratory failure, unspecified whether with hypoxia or hypercapnia Status: Acute Assessment and Plan: ABG showing hypoxia and hypercapnia but normal pH. Patient able to be extubated 03/21/20. Still requiring 6L O2 but more stable. Continue to wean O2 as toelrated. Appreciate curtain cutter hand input. Continue Solu-Medrol (which could explain elevated WBC)) (3) Anemia: Qualifiers: Anemia type: unspecified type Qualified Code(s): D64.9 - Anemia, unspecified Code(s): D64.9 - Anemia, unspecified Status: Chronic Assessment and Plan: Chronic anemia. Iron studies consistent with iron deficiency anemia. No evidence of acute bleeding. Stool occult blood is negative. Dr March giving IV venofer. Hemoglobin 6.9 on 03/20 and transfused. Hgb in the 8 range since. Continue to monitor closely. (4) Recurrent pleural effusion on left: Code(s): J90 - Pleural effusion, not elsewhere classified Status: Acute Assessment and Plan: Recently admitted 02/28 - 03/03 for same; thoracentesis 03/01 and another 03/13 each yielding 1000mL clear yellow fluid. Analysis of pleural fluid last admission with negative cultures and no findings of malignancy on cytology. [place] effusions related to pulmonary hypertension. Echo showing severe pulmonary hypertension with a PASP of 82. CXR showing moderate left pleural effusion. Consider repeat thoracentesis if having more respiratory difficulties. (5) Atrial fibrillation: Qualifiers: Atrial fibrillation type: unspecified Qualified Code(s): I48.91 - Unspecified atrial fibrillation Code(s): I48.91 - Unspecified atrial fibrillation Status: Chronic Assessment and Plan: History of paroxysmal a fib. She is maintained on her home amiodarone. Toprol was added but now held. She is not on long-term anticoagulation due to history of hematuria. Episode of AFib/RVR but responded to bolus of Amio. Continue tele (6) Hypokalemia: Code(s): E87.6 - Hypokalemia Status: Acute Assessment and Plan: [place] to be secondary to increased diuresis. Potassium normal today. Mag is stable at 2.2. (7) Leukocytosis: Qualifiers: Leukocytosis type: unspecified Qualified Code(s): D72.829 - Elevated white blood cell count, unspecified Code(s): D72.829 - Elevated white blood cell count, unspecified Status: Acute Assessment and Plan: WBC back up to 21K. May be in part related to stress reaction, however cannot exclude a pneumonia based on the imaging so doxy started but changed to Clindamycin. She remains afebrile. Urine culture 03/13 is polymicrobial each >10K. May represent colonization related to her chronic indwelling [place] catheter. BCx 03/20 NGTD. UCx 03/20 growing pseudomonas and Levaquin added. WBC elevated from steroids as well. Monitor CBC. (8) Chronic respiratory failure with hypoxia, on home oxygen therapy: Code(s): J96.11 - Chronic respiratory failure with hypoxia; Z99.81 - Dependence on supplemental oxygen
[2020-03-22] MEDS: CENTRAL LINE FLUSH 10 ML IV PUSH (20:12)
[2020-03-22] MEDS: MELATONIN 3 MG TABLET PO (22:06)
[2020-03-23] VITALS (23 sets, daily range): BP systolic 113–164; BP diastolic 39–67; PULSE 58–112; RESP 15–24; TEMP 36.3–36.9; O2SAT 90–100
[2020-03-23 05:06] LABS: Alveolar/Arterial O2 Gradient 168.2 mmHg; Carboxyhemoglobin 0.8 % THb (0-2.0); Fractional Inspired Oxygen 45 %; HCO3 ABG 37.2 mEq/l (22.0-26.0); Methemoglobin ABG 0.1 %THb (0-1.5); Oxygen Content ABG 12.5 %vol (16.0-22.0); Oxygen Saturation ABG 97.3 % (95.0-100.0); Oxyhemoglobin 95.5 % THb (90.0-100.0); PCO2 ABG 52.9 mmHg (35.0-45.0); PO2 ABG 92.5 mmHg (80.0-100.0); PO2 FiO2 Ratio Arterial Blood 2.06 %; Reduced Hemoglobin 3.6 %THb (0-5.0); Total Hemoglobin 9.2 g/dL (12.0-18.0); pH ABG 7.465 (7.350-7.450)
[2020-03-23 05:07] LABS: Device NON-INVASIVE VENT; Modified Allen's Test Pass; Non-Invasive Vent Rate 16 /MIN; Site Drawn RIGHT RADIAL
[2020-03-23 05:08] LABS: Non-Invasive Expiratory Pressure 6 CMH2O; Non-Invasive Inspiratory Pressure 12 CMH2O
[2020-03-23] MEDS: CENTRAL LINE FLUSH 10 ML IV PUSH ×3 (05:43→21:06)
[2020-03-23 06:06] LABS: Hematocrit 27.7 % (37.0-47.0); Hemoglobin 8.3 g/dL (12.0-15.0); Mean Corpuscular Hemoglobin 27.3 pg (26-34); Mean Corpuscular Volume 91.1 fl (80-100); Platelet Count Result 266 k/mm3 (150-375); Red Blood Count 3.04 M/mm3 (4.2-5.4); White Blood Count 16.1 K/mm3 (4.5-10.0)
[2020-03-23 06:17] LABS: Blood Urea Nitrogen 76 mg/dL (7-17); Calcium 8.9 mg/dL (8.4-10.2); Carbon Dioxide 36 mmol/L (22-30); Chloride 97 mmol/L (98-107); Estimated CRCL calculation 15 ml/min; Estimated Glomerular Filt Rate 20; Glucose 169 mg/dL (65-105); Sodium 141 mmol/L (137-145)
[2020-03-23] MEDS: CLINDAMYCIN 600 MG/NS 50 ML 600 MG/50 ML PIGGYBACK 100 MG IVPB ×3 (08:16→23:32)
[2020-03-23] MEDS: LIDOCAINE 5% PATCH 1 PATCH TRANSDERM (08:16)
--- NOTE | 2020-03-23 08:18 | PM.PNCARD ---
Progress Note: A&P Assessment and Plan (1) Chronic obstructive pulmonary disease: Qualifiers: COPD type: unspecified COPD Qualified Code(s): J44.9 - Chronic obstructive pulmonary disease, unspecified Code(s): J44.9 - Chronic obstructive pulmonary disease, unspecified Status: Acute (2) Recurrent pleural effusion on left: Code(s): J90 - Pleural effusion, not elsewhere classified Status: Acute Assessment and Plan: Due to pulmonary hypertension and probably diastolic dysfunction. S/P left thoracentesis removing 1 liter on 03/13/20. Will need higher doses of diuretics to keep fluid from returning. Was on Furosemide 40 mg PO daily and KCl 20 meq daily. (3) Hypertension: Qualifiers: Hypertension type: unspecified Qualified Code(s): I10 - Essential (primary) hypertension Code(s): I10 - Essential (primary) hypertension Status: Chronic (4) Pulmonary hypertension: Code(s): I27.20 - Pulmonary hypertension, unspecified Status: Acute Assessment and Plan: Due to COPD. Given severity of it, however, referred to [facility] hypertension clinic but she has not seen them yet. (5) Aortic valve stenosis: Qualifiers: Cardiac valve disease etiology: etiology unspecified Qualified Code(s): I35.0 - Nonrheumatic aortic (valve) stenosis Code(s): I35.0 - Nonrheumatic aortic (valve) stenosis Status: Chronic Assessment and Plan: Mod-severe ; subsequent echo shows only mild based on valve area and gradients. No need for intervention until it becomes frankly severe, then would consider TAVR procedure. (6) CKD (chronic kidney disease): Qualifiers: Chronic kidney disease stage: stage 3 (moderate) Qualified Code(s): N18.3 - Chronic kidney disease, stage 3 (moderate) Code(s): N18.9 - Chronic kidney disease, unspecified Status: Chronic Assessment and Plan: Continue to monitor as it kidney function worsens with diuretics. Replete potassium to keep around 4.0. (7) PAF (paroxysmal atrial fibrillation): Code(s): I48.0 - Paroxysmal atrial fibrillation Status: Acute Assessment and Plan: On Amiodarone and she went intro atrial flutter/tachycardia on 03/17/20. [id number] 3. On aspirin given bleeding on anticoagulation from tract. Carioverted on 03/19/20 to sinus rhythm. Then had bradycardia and cardiopulm arrest, was on mechanical ventilation, now extubated. Discontinue Toprol given bradycardia in sinus rhythm. Agree with using Amiodarone IV when needed to keep her in sinus rhythm. (8) Preop cardiovascular exam: Code(s): Z01.810 - Encounter for preprocedural cardiovascular examination Status: Acute Assessment and Plan: She is at a high cardiac risk of 7.9% for VT and cardiac arrest perioperatively for bladder surgery/resection based on Garza risk calculator. Her risks include frailty, CKD, pulm hypertension, anemia, abnormal nuclear stress test, PAD, aortic stenosis, PAF, COPD. (9) Abnormal nuclear stress test: Code(s): R94.39 - Abnormal result of other cardiovascular function study Status: Acute Assessment and Plan: 03/06/20 Lexiscan myoview shows small ischemia of anterolateral wall. No plan for cardiac cath as she has significant anemia, recent bleed that is a high potential for recurrence, and would not be able to receive stent which requires uninterrupted dual antiplatelet agents. Was started Toprol 12.5 mg daily 03/16/20 for possible CAD but given bradycardia and on Levophed drip, will stop Toprol. (10) Cardiopulmonary arrest: Code(s): I46.9 - Cardiac arrest, cause unspecified Status: Acute Assessment and Plan: Likely due to bradycardia after cardioversion on low dose Toprol from atrial flutter/tachycardia with RVR to sinus rhythm with aortic stenosis. Was on mechanical ventilation. Off Levophed drip and received blood tr
[2020-03-23] MEDS: methylPREDNISolone SOD SUCC 125 MG VIAL 60 MG IV PUSH (08:31)
[2020-03-23] MEDS: ENOXAPARIN 30 MG/0.3 ML SYRINGE SUB-Q (08:31)
[2020-03-23] MEDS: IRON SUCROSE COMPLEX 100 MG in SODIUM CHLORIDE 0.9% IV 50 ML 220 MG IVPB (08:31)
[2020-03-23] MEDS: PANTOPRAZOLE SODIUM IV 40 MG VIAL IV PUSH ×2 (08:32→21:05)
[2020-03-23] MEDS: SILVERGEL (ELTA) 45 ML 1 APPLIC TOPICAL (08:32)
[2020-03-23] MEDS: AMIODARONE HCL 200 MG TABLET PO (08:42)
--- NOTE | 2020-03-23 09:25 | PM.IMPN ---
Progress Note: A&P Assessment and Plan (1) Cardiopulmonary arrest: Code(s): I46.9 - Cardiac arrest, cause unspecified Status: Acute Assessment and Plan: Patient became bradycardic and then developed cardiac arrest. Had a recent abnormal stress test. Beta-lisa started recently and had 3 doses prior to code. EKG at the time showing junctional rhythm with T wave inversion in high lateral leads. Trop climbed to 1.597. Cardiology following. Continue aspirin; continue to hold Lipitor. No beta-lisa due to bradycardia. AST/ALT elevated related to shock liver. Levels trending down. Related to code blue. Lipitor on hold. CXR showing left 4th rib fracture but whole chest wal sore. Treat symptomatically. (2) Acute respiratory failure: Qualifiers: Respiratory failure complication: hypoxia and hypercapnia Qualified Code(s): J96.01 - Acute respiratory failure with hypoxia; J96.02 - Acute respiratory failure with hypercapnia Code(s): J96.00 - Acute respiratory failure, unspecified whether with hypoxia or hypercapnia Status: Acute Assessment and Plan: ABG showing hypoxia and hypercapnia but normal pH. Patient able to be extubated 03/21/20. Still requiring 6L O2 but more stable. Continue to wean O2 as toelrated. Appreciate drop hammer operator helper input. Continue Solu-Medrol (which could explain elevated WBC). Hold albuterol due to concern for recurrent AFib/RVR. (3) Anemia: Qualifiers: Anemia type: unspecified type Qualified Code(s): D64.9 - Anemia, unspecified Code(s): D64.9 - Anemia, unspecified Status: Chronic Assessment and Plan: Chronic anemia. Iron studies consistent with iron deficiency anemia. No evidence of acute bleeding. Stool occult blood is negative. Dr March giving IV venofer. Hemoglobin 6.9 on 03/20 and transfused. Hgb in the 8 range since and stable. Continue to monitor closely. (4) Recurrent pleural effusion on left: Code(s): J90 - Pleural effusion, not elsewhere classified Status: Acute Assessment and Plan: Recently admitted 02/28 - 03/03 for same; thoracentesis 03/01 and another 03/13 each yielding 1000mL clear yellow fluid. Analysis of pleural fluid last admission with negative cultures and no findings of malignancy on cytology. [place] effusions related to pulmonary hypertension. Echo showing severe pulmonary hypertension with a PASP of 82. CXR showing moderate left pleural effusion. Consider repeat thoracentesis if having more respiratory difficulties. (5) Atrial fibrillation: Qualifiers: Atrial fibrillation type: unspecified Qualified Code(s): I48.91 - Unspecified atrial fibrillation Code(s): I48.91 - Unspecified atrial fibrillation Status: Chronic Assessment and Plan: History of paroxysmal a fib. She is maintained on her home amiodarone. Toprol was added but now held due to bradycardia. She is not on long-term anticoagulation due to history of hematuria. Episode of AFib/RVR 03/22 but responded to bolus of Amio. Continue tele (6) Abnormal nuclear stress test: Code(s): R94.39 - Abnormal result of other cardiovascular function study Status: Acute Assessment and Plan: She had outpatient Lexiscan 03/06/20 showing small ischemia of anterolateral wall performed for perioperative risk assessment (for bladder lesion resection vs. bx). Appreciate cardiology input. (7) Hypokalemia: Code(s): E87.6 - Hypokalemia Status: Acute Assessment and Plan: [place] to be secondary to increased diuresis. Potassium low today and replacement ordered. Mag is stable at 2.2 yesterday. (8) Leukocytosis: Qualifiers: Leukocytosis type: unspecified Qualified Code(s): D72.829 - Elevated white blood cell count, unspecified Code(s): D72.829 - Elevated white blood cell count, unspecified Status: Acute Assessment and Plan: WBC
--- NOTE | 2020-03-23 09:35 | WPDINTPN ---
Progress Note: A&P Assessment and Plan (1) Acute respiratory failure: Qualifiers: Respiratory failure complication: hypoxia and hypercapnia Qualified Code(s): J96.01 - Acute respiratory failure with hypoxia; J96.02 - Acute respiratory failure with hypercapnia Code(s): J96.00 - Acute respiratory failure, unspecified whether with hypoxia or hypercapnia Status: Acute Assessment and Plan: Secondary to cardiopulmonary arrest, severe COPD and pulmonary hypertension, left effusion, possible aspiration Patient was extubated 03/21/2020. Later that evening evening patient desaturated requiring racemic epinephrine,, BiPAP and Solu-Medrol. -patient wearing her BiPAP overnight, ABGs much improved. Patient was on clindamycin and Levaquin Continue Bronchodilators Appreciate pulmonology evaluation recommendation, BiPAP p.r.n. patient will be evaluated for home noninvasive ventilator (2) Chronic obstructive pulmonary disease: Qualifiers: COPD type: unspecified COPD Qualified Code(s): J44.9 - Chronic obstructive pulmonary disease, unspecified Code(s): J44.9 - Chronic obstructive pulmonary disease, unspecified Status: Acute Assessment and Plan: Continue BiPAP p.r.n. supplemental oxygen, steroids and bronchodilators (3) Pulmonary hypertension: Code(s): I27.20 - Pulmonary hypertension, unspecified Status: Acute Assessment and Plan: Due to COPD. Given severity of it, however, in the past patient was referred to [facility] pulm hypertension clinic but she has not seen them yet. -workup needed for COPD prior to workup for pulmonary hypertension -appreciate pulmonology following the patient (4) Recurrent pleural effusion on left: Code(s): J90 - Pleural effusion, not elsewhere classified Status: Acute Assessment and Plan: Due to pulmonary hypertension and probably diastolic dysfunction. S/P left thoracentesis removing 1 liter on 03/13/20. Likely transient day -will give additional dose of Lasix today (5) Cardiopulmonary arrest: Code(s): I46.9 - Cardiac arrest, cause unspecified Status: Acute Assessment and Plan: Unclear etiology as patient had multiple issues including anemia, known coronary artery disease, aortic stenosis, respiratory acidosis from COPD -patient being followed by Cardiology -Echocardiogram 03/21/2020 showed EF of 60-65%, diastolic dysfunction, severe aortic valve sclerosis, mild aortic stenosis, [id number] aortic valve regurg, small atheroma anterior-posterior article. Dilated IVC consistent with significantly elevated right atrial pressures, large left pleural effusion (6) Aortic valve stenosis: Qualifiers: Cardiac valve disease etiology: etiology unspecified Qualified Code(s): I35.0 - Nonrheumatic aortic (valve) stenosis Code(s): I35.0 - Nonrheumatic aortic (valve) stenosis Status: Chronic Assessment and Plan: Mod-severe , will have to monitor fluid status care cautiously (7) PAF (paroxysmal atrial fibrillation): Code(s): I48.0 - Paroxysmal atrial fibrillation Status: Acute Assessment and Plan: Currently in normal sinus rhythm Patient is On Amiodarone [id number] 3. On aspirin given bleeding on anticoagulation from tract. Cardioverted on 03/19/20 to sinus rhythm. Beta-lisa were held due to low blood pressure (8) Abnormal nuclear stress test: Code(s): R94.39 - Abnormal result of other cardiovascular function study Status: Acute Assessment and Plan: Per cardiology, Lexiscan myoview shows small ischemia of anterolateral wall. No plan for cardiac cath as per Cardiology as she has significant anemia, recent bleed that is a high potential for recurrence, and would not be able to receive stent which requires uninterrupted dual antiplatelet agents. (9) CKD (chronic kidney disease): Qualifiers: Chronic kidne
[2020-03-23] MEDS: methiMAzole 5 MG TAB PO (10:45)
[2020-03-23] MEDS: THERAPEUTIC MULTIVITAMINS/MINERALS TAB (*BKC) 1 TABLET PO (10:45)
[2020-03-23] MEDS: FUROSEMIDE INJ 40 MG/4 ML VIAL IV PUSH (10:48)
--- NOTE | 2020-03-23 13:11 | PM.PNPUL ---
Progress Note: A&P Assessment and Plan (1) CHF (congestive heart failure): Code(s): I50.9 - Heart failure, unspecified Status: Acute (2) Pleural effusion on left: Code(s): J90 - Pleural effusion, not elsewhere classified Status: Acute Assessment and Plan: - repeat U/S guided thoracentesis tomorrow. Lovenox held for tomorrow - this may be due to worsening aortic stenosis but will send for culture and cytology studies (3) Chronic obstructive pulmonary disease: Qualifiers: COPD type: unspecified COPD Qualified Code(s): J44.9 - Chronic obstructive pulmonary disease, unspecified Code(s): J44.9 - Chronic obstructive pulmonary disease, unspecified Status: Acute Assessment and Plan: - Spiriva may not be ineffective at this point - will switch Atovent 0.5 mg Nebs Q6h (4) COPD (chronic obstructive pulmonary disease): Qualifiers: COPD type: unspecified COPD Qualified Code(s): J44.9 - Chronic obstructive pulmonary disease, unspecified Code(s): J44.9 - Chronic obstructive pulmonary disease, unspecified Status: Chronic Subjective Date/time seen: 03/23/20 13:11 Interval history: 74 y/o cachetic female with multiorgan failure including hypoxic and hypercapnic respiaratory failure from CHF, COPD, Pneumonia, acute on chronic renal failure, moderate aortic stenosis. She is down to 6 liters nasal cannula. Has recurrent large left pleural pleural effusion which has been drained twice with symptomatic relief. Sputum cultures are positive for Pseudomonas. CXR shows persistent bilateral diffuse interstitial infiltrates which could be edema, infection or toxicity such as from medications like amiodarone. Review of Systems Review of Systems: All systems reviewed & are unremarkable except as noted in HPI and below Exam Const: General: no acute distress Neck: Neck: supple Resp: Auscultation: crackles and diminished lung sounds Cardio: Rate: regular rate Rhythm: regular rhythm Heart sounds: Murmur heart sound present Skin: General skin exam: no rashes or lesions noted Neuro: Speech: normal speech Extrem: General: normal to inspection, no edema and no pedal edema Objective Data Vital Signs Vital Signs: Vital Signs - 24 hr 03/22/20 14:00 03/22/20 16:00 03/22/20 18:00 Temperature 36.8 C Pulse Rate 66 69 66 Respiratory Rate 15 19 19 Blood Pressure 150/55 H 154/60 H 144/52 H Pulse Oximetry 93 92 89 L 03/22/20 20:00 03/22/20 21:24 03/22/20 22:00 Temperature 36.5 C Pulse Rate 64 65 Respiratory Rate 18 16 24 H Blood Pressure 136/46 L 147/47 H Pulse Oximetry 92 98 97 03/22/20 23:15 03/23/20 00:00 03/23/20 02:00 Temperature 36.6 C Pulse Rate 62 59 L 59 L Respiratory Rate 16 24 H 15 Blood Pressure 134/45 L 144/52 H Pulse Oximetry 98 98 97 03/23/20 04:00 03/23/20 06:00 03/23/20 08:00 Temperature 36.4 C 36.4 C L Pulse Rate 60 58 L 61 Respiratory Rate 16 15 17 Blood Pressure 136/42 L 142/49 H 148/48 H Pulse Oximetry 98 100 98 03/23/20 08:42 03/23/20 08:58 03/23/20 10:00 Temperature Pulse Rate 62 62 Respiratory Rate 16 Blood Pressure 141/55 H Pulse Oximetry 98 90 Intake/Output Intake/Output: Intake & Output 03/20/20 03/21/20 03/22/20 03/23/20 23:59 23:59 23:59 23:59 Intake Total 1544 501 455 205 Output Total 850 1060 2170 725 Balance 694 -559 -1715 -520 Meds/Results Medications: Active Medications Generic Name Dose Route Start Last Admin Trade Name Freq PRN Reason Stop Dose Admin Acetaminophen 1 - 2 mg 03/13/20 19:19 03/15/20 14:42 Tylenol Tablet PO 2 mg Q6H PRN Administration Mild-Moderate Pain Albuterol 1 puff 03/13/20 19:19 Proventil Hfa INHALATION Q4H PRN shortness of breath or wheezing Amiodarone HCl 200 mg 03/14/20 09:00 03/23/20 08:42 Pacerone PO 200 mg DAILY PEGGY Administration Aspirin 81 mg 03/14/20 09:00 03/19/20 08:01
--- NOTE | 2020-03-23 14:07 | PCRCNOTE ---
Pt unavailable for treatment. Pt went for procedure and is not in the room.
--- NOTE | 2020-03-23 14:08 | PCSTNOTE ---
03/23/20: Please see MBS documentation in EMR.
--- NOTE | 2020-03-23 18:27 | PC.NURSE ---
This patient, Rachele Murray, was transferred to [[id number] ] on 03/23/20 at 1620. Personal belongings sent with patient. Belongings list checked and signed with receiving [ ]. Report given to [PETROS Tejeda ]. Appropriate documentation sent with patient.
[2020-03-23] MEDS: IPRATROPIUM BR 0.02% INH SOLN 0.5 MG/2.5 ML VIAL INHALATION (19:50)
[2020-03-23] MEDS: AMIODARONE 150 MG/D5W 100 ML 150 MG/100 ML BAG 200 MG IV CONT (21:26)
[2020-03-24] VITALS (27 sets, daily range): BP systolic 100–142; BP diastolic 54–83; PULSE 102–122; RESP 16–30; TEMP 35.7–36.3; O2SAT 91–100
[2020-03-24] MEDS: IPRATROPIUM BR 0.02% INH SOLN 0.5 MG/2.5 ML VIAL INHALATION ×3 (01:45→20:42)
[2020-03-24] MEDS: CENTRAL LINE FLUSH 10 ML IV PUSH ×3 (04:29→21:01)
[2020-03-24 04:37] LABS: Hematocrit 29.6 % (37.0-47.0); Hemoglobin 8.8 g/dL (12.0-15.0); Mean Corpuscular HGB Conc 29.7 g/dl (32-36); Mean Corpuscular Volume 90.8 fl (80-100); Mean Platelet Volume 9.2 fl (7.4-10.4); Platelet Count Result 279 k/mm3 (150-375); Red Blood Count 3.26 M/mm3 (4.2-5.4); Red Cell Distribution Width 16.7 % (11.5-14.5); White Blood Count 16.1 K/mm3 (4.5-10.0)
[2020-03-24 04:58] LABS: Alveolar/Arterial O2 Gradient 205.7 mmHg; Base Excess ABG 13.9 mEq/l (+/-2.0); Carboxyhemoglobin 0.3 % THb (0-2.0); Fractional Inspired Oxygen 45 %; Methemoglobin ABG 0.1 %THb (0-1.5); Oxygen Content ABG 12.5 %vol (16.0-22.0); Oxygen Saturation ABG 90.7 % (95.0-100.0); Oxyhemoglobin 87.6 % THb (90.0-100.0); PCO2 ABG 52.2 mmHg (35.0-45.0); PO2 ABG 55.8 mmHg (80.0-100.0); PO2 FiO2 Ratio Arterial Blood 1.24 %; Total Hemoglobin 10.1 g/dL (12.0-18.0); pH ABG 7.491 (7.350-7.450)
[2020-03-24 04:59] LABS: Device HIGH FLOW NASAL CANN; Modified Allen's Test Pass; Site Drawn RIGHT RADIAL
[2020-03-24 05:00] LABS: Blood Urea Nitrogen 72 mg/dL (7-17); Carbon Dioxide > 40 mmol/L (22-30); Chloride 98 mmol/L (98-107); Estimated CRCL calculation 16 ml/min; Estimated Glomerular Filt Rate 22; Glucose 194 mg/dL (65-105); Potassium 3.1 mmol/L (3.4-5.0); Sodium 144 mmol/L (137-145)
[2020-03-24] MEDS: AMIODARONE 360 MG/D5W 200 ML 360 MG/200 ML BAG 33.3 MG IV CONT (07:47)
[2020-03-24 07:49] LABS: INR 1.4; Partial Thromboplastin Time 29.4 SECONDS (22.3-36.8); Prothrombin Time 17.1 Seconds (11.1-14.7)
--- NOTE | 2020-03-24 09:06 | PM.PNCARD ---
Progress Note: A&P Assessment and Plan (1) Chronic obstructive pulmonary disease: Qualifiers: COPD type: unspecified COPD Qualified Code(s): J44.9 - Chronic obstructive pulmonary disease, unspecified Code(s): J44.9 - Chronic obstructive pulmonary disease, unspecified Status: Acute (2) Recurrent pleural effusion on left: Code(s): J90 - Pleural effusion, not elsewhere classified Status: Acute Assessment and Plan: Due to pulmonary hypertension and diastolic dysfunction. S/P left thoracentesis removing 1 liter on 03/13/20. Will need higher doses of diuretics to keep fluid from returning. Was on Furosemide 40 mg PO daily and KCl 20 meq daily. (3) Hypertension: Qualifiers: Hypertension type: unspecified Qualified Code(s): I10 - Essential (primary) hypertension Code(s): I10 - Essential (primary) hypertension Status: Chronic (4) Pulmonary hypertension: Code(s): I27.20 - Pulmonary hypertension, unspecified Status: Acute Assessment and Plan: Due to COPD. Given severity of it, however, referred to [facility] hypertension clinic but she has not seen them yet. (5) Aortic valve stenosis: Qualifiers: Cardiac valve disease etiology: etiology unspecified Qualified Code(s): I35.0 - Nonrheumatic aortic (valve) stenosis Code(s): I35.0 - Nonrheumatic aortic (valve) stenosis Status: Chronic Assessment and Plan: Mod-severe ; subsequent echo shows only mild based on valve area and gradients. No need for intervention until it becomes frankly severe, then would consider TAVR procedure. (6) CKD (chronic kidney disease): Qualifiers: Chronic kidney disease stage: stage 3 (moderate) Qualified Code(s): N18.3 - Chronic kidney disease, stage 3 (moderate) Code(s): N18.9 - Chronic kidney disease, unspecified Status: Chronic Assessment and Plan: Continue to monitor as it kidney function worsens with diuretics. Replete potassium to keep around 4.0. (7) PAF (paroxysmal atrial fibrillation): Code(s): I48.0 - Paroxysmal atrial fibrillation Status: Acute Assessment and Plan: On Amiodarone and she went intro atrial flutter/tachycardia on 03/17/20. [id number] 3. On aspirin given bleeding on anticoagulation from tract. Carioverted on 03/19/20 to sinus rhythm. Then had bradycardia and cardiopulm arrest, was on mechanical ventilation, now extubated. Discontinue Toprol given bradycardia in sinus rhythm. Agree with using Amiodarone IV when needed to keep her in sinus rhythm. Went back into atrial flutter/tachycardia on 03/23/20. Amiodarone 150 IV x 1 given but still in atrial flutter/tachycardia. Started Amiodarone IV drip. Patient is NPO due to aspiration on swallow study. Replete potassium as it is 3.1 today. (8) Preop cardiovascular exam: Code(s): Z01.810 - Encounter for preprocedural cardiovascular examination Status: Acute Assessment and Plan: She is at a high cardiac risk of 7.9% for NM and cardiac arrest perioperatively for bladder surgery/resection based on Garza risk calculator. Her risks include frailty, CKD, pulm hypertension, anemia, abnormal nuclear stress test, PAD, aortic stenosis, PAF, COPD. (9) Abnormal nuclear stress test: Code(s): R94.39 - Abnormal result of other cardiovascular function study Status: Acute Assessment and Plan: 03/06/20 Lexiscan myoview shows small ischemia of anterolateral wall. No plan for cardiac cath as she has significant anemia, recent bleed that is a high potential for recurrence, and would not be able to receive stent which requires uninterrupted dual antiplatelet agents. Was started Toprol 12.5 mg daily 03/16/20 for possible CAD but given bradycardia and on Levophed drip, will stop Toprol. (10) Cardiopulmonary arrest: Code(s): I46.9 - Cardiac arrest, cause unspecified Status: Acute As
--- NOTE | 2020-03-24 11:19 | PM.PNPUL ---
Progress Note: A&P Assessment and Plan (1) CHF (congestive heart failure): Code(s): I50.9 - Heart failure, unspecified Status: Acute (2) Pleural effusion on left: Code(s): J90 - Pleural effusion, not elsewhere classified Status: Acute Assessment and Plan: - repeat U/S guided thoracentesis tomorrow. Lovenox held for tomorrow - this may be due to worsening aortic stenosis but will send for culture and cytology studies (3) Chronic obstructive pulmonary disease: Qualifiers: COPD type: unspecified COPD Qualified Code(s): J44.9 - Chronic obstructive pulmonary disease, unspecified Code(s): J44.9 - Chronic obstructive pulmonary disease, unspecified Status: Acute Assessment and Plan: - Spiriva may not be ineffective at this point - will switch Atovent 0.5 mg Nebs Q6h (4) COPD (chronic obstructive pulmonary disease): Qualifiers: COPD type: unspecified COPD Qualified Code(s): J44.9 - Chronic obstructive pulmonary disease, unspecified Code(s): J44.9 - Chronic obstructive pulmonary disease, unspecified Status: Chronic Time Spent With Patient Time with patient: 15 - 25 minutes Subjective Date/time seen: 03/24/20 11:19 Interval history: Stable and moved to IMU yesterday. No acute distress. Still complains of right rib pain from fracture due to CPR. Going for U/S guided thoracentesis. Will have to be very careul in positioning the patient due to rib fracture. CT chest ordered from yesterday is pending. Pt appears to be slightly hypovolemic today. Review of Systems Review of Systems: All systems reviewed & are unremarkable except as noted in HPI and below Exam Const: General: no acute distress Neck: Neck: supple Resp: Auscultation: crackles and diminished lung sounds Cardio: Rate: regular rate Rhythm: regular rhythm Heart sounds: Murmur heart sound present Skin: General skin exam: no rashes or lesions noted Neuro: Speech: normal speech Extrem: General: normal to inspection, no edema and no pedal edema Objective Data Vital Signs Vital Signs: Vital Signs - 24 hr 03/23/20 12:00 03/23/20 12:06 03/23/20 13:24 Temperature 36.9 C Pulse Rate 68 69 Respiratory Rate 19 Blood Pressure 164/67 H Pulse Oximetry 95 95 03/23/20 14:00 03/23/20 16:00 03/23/20 16:35 Temperature 36.8 C Pulse Rate 68 74 69 Respiratory Rate 18 18 Blood Pressure 154/62 H 127/39 L Pulse Oximetry 96 90 03/23/20 18:00 03/23/20 19:46 03/23/20 19:51 Temperature 36.3 C L Pulse Rate 74 105 H 111 H Respiratory Rate 24 H 20 Blood Pressure 146/54 H Pulse Oximetry 96 03/23/20 20:00 03/23/20 20:01 03/23/20 21:26 Temperature Pulse Rate 112 H 109 H Respiratory Rate 20 Blood Pressure Pulse Oximetry 96 03/23/20 22:00 03/23/20 22:22 03/23/20 22:40 Temperature 36.7 C Pulse Rate 103 H 107 H 102 H Respiratory Rate 18 20 Blood Pressure 113/62 Pulse Oximetry 96 98 03/24/20 00:00 03/24/20 01:48 03/24/20 01:51 Temperature Pulse Rate 111 H 109 H 108 H Respiratory Rate 18 19 Blood Pressure Pulse Oximetry 96 03/24/20 01:59 03/24/20 02:00 03/24/20 03:39 Temperature 36.0 C L Pulse Rate 112 H 109 H 110 H Respiratory Rate 19 20 Blood Pressure 109/57 L Pulse Oximetry 97 03/24/20 04:00 03/24/20 06:00 03/24/20 06:28 Temperature Pulse Rate 115 H 112 H Respiratory Rate Blood Pressure 131/64 Pulse Oximetry 03/24/20 07:47 03/24/20 07:51 03/24/20 07:55 Temperature 35.8 C L Pulse Rate 109 H 102 H 115 H Respiratory Rate 18 20 Blood Pressure 119/72 Pulse Oximetry 97 97 03/24/20 08:07 Temperature Pulse Rate 112 H Respiratory Rate 20 Blood Pressure Pulse Oximetry Intake/Output Intake/Output: Intake & Output 03/21/20 03/22/20 03/23/20 03/24/20 23:59 23:59 23:59 23:59 Intake Total 501 455 505 100 Output Total 1060 [id number] [place] [address] [phone] -
[2020-03-24] MEDS: CLINDAMYCIN 600 MG/NS 50 ML 600 MG/50 ML PIGGYBACK 100 MG IVPB ×3 (11:48→23:37)
[2020-03-24] MEDS: IRON SUCROSE COMPLEX 100 MG in SODIUM CHLORIDE 0.9% IV 50 ML 220 MG IVPB (11:48)
[2020-03-24] MEDS: methylPREDNISolone SOD SUCC 125 MG VIAL 60 MG IV PUSH (11:49)
[2020-03-24] MEDS: LIDOCAINE 5% PATCH 1 PATCH TRANSDERM (11:49)
[2020-03-24] MEDS: PANTOPRAZOLE SODIUM IV 40 MG VIAL IV PUSH ×2 (11:50→21:01)
[2020-03-24] MEDS: SILVERGEL (ELTA) 45 ML 1 APPLIC TOPICAL (11:50)
[2020-03-24 12:03] LABS: pH Pleural Fluid 7.503 (7.210-7.500)
--- NOTE | 2020-03-24 12:56 | PM.IMPN ---
Progress Note: A&P Assessment and Plan (1) Cardiopulmonary arrest: Code(s): I46.9 - Cardiac arrest, cause unspecified Status: Acute Assessment and Plan: Patient became bradycardic and then developed cardiac arrest. Had a recent abnormal stress test. Beta-lisa started recently and had 3 doses prior to code. EKG at the time showing junctional rhythm with T wave inversion in high lateral leads. Trop climbed to 1.597. Cardiology following. Oral meds on hold. No beta-lisa due to bradycardia. AST/ALT elevated related to shock liver. Levels trending down. Related to code blue. Lipitor on hold. CXR showing left 4th rib fracture but whole chest wall sore. Treat symptomatically. (2) Acute respiratory failure: Qualifiers: Respiratory failure complication: hypoxia and hypercapnia Qualified Code(s): J96.01 - Acute respiratory failure with hypoxia; J96.02 - Acute respiratory failure with hypercapnia Code(s): J96.00 - Acute respiratory failure, unspecified whether with hypoxia or hypercapnia Status: Acute Assessment and Plan: ABG showing hypoxia and hypercapnia but normal pH. Patient able to be extubated 03/21/20. Patient improving and now down to 4L O2. Consider aspiration as cause of her respirtory failure. Continue to wean O2 as tolerated to baseline 3L. Continue Solu-Medrol (which could explain elevated WBC). 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 ILD could also be related to Amio (3) Dysphagia: Code(s): R13.10 - Dysphagia, unspecified Status: Acute Assessment and Plan: Patient failed bedside and MBS. NGT attempted yesterday by fluoro but unsuccessful. Plan to re-attempt today. If able to place then start TF. (4) Anemia: Qualifiers: Anemia type: unspecified type Qualified Code(s): D64.9 - Anemia, unspecified Code(s): D64.9 - Anemia, unspecified Status: Chronic Assessment and Plan: Chronic anemia. Iron studies consistent with iron deficiency anemia. No evidence of acute bleeding. Stool occult blood is negative. Dr March giving IV venofer. Hemoglobin 6.9 on 03/20 and transfused. Hgb in the 8 range since and stable. Continue to monitor closely. (5) Recurrent pleural effusion on left: Code(s): J90 - Pleural effusion, not elsewhere classified Status: Acute Assessment and Plan: Recently admitted 02/28 - 03/03 for same; thoracentesis 03/01 and another 03/13 each yielding 1000mL clear yellow fluid. Analysis of pleural fluid last admission with negative cultures and no findings of malignancy on cytology. [place] effusions related to pulmonary hypertension. Echo showing severe pulmonary hypertension with a PASP of 82. CXR showing moderate left pleural effusion. Repeat thoracentesis planned for today. (6) Atrial fibrillation: Qualifiers: Atrial fibrillation type: unspecified Qualified Code(s): I48.91 - Unspecified atrial fibrillation Code(s): I48.91 - Unspecified atrial fibrillation Status: Chronic Assessment and Plan: History of paroxysmal a fib. She is maintained on her home amiodarone. Toprol was added but now held due to bradycardia. She is not on long-term anticoagulation due to history of hematuria. Episode of AFib/RVR 03/22 but responded to bolus of Amio. Continue tele (7) Abnormal nuclear stress test: Code(s): R94.39 - Abnormal result of other cardiovascular function study Status: Acute Assessment and Plan: She had outpatient Lexiscan 03/06/20 showing small ischemia of anterolateral wall performed for perioperative risk assessment (for bladder lesion resection vs. bx). Plan for medical management. Appreciate cardiology input. (8) Hypokalemia: Code(s): E87.6 - Hypokalemia Status: Acute Assessment and Plan: [place] to be secondary to increased diuresis. Potassium low today and replacem
[2020-03-24] MEDS: AMIODARONE 360 MG/D5W 200 ML 360 MG/200 ML BAG 16.7 MG IV CONT (14:00)
[2020-03-24] MEDS: levoFLOXacin 250 MG/D5W 50 ML 250 MG/50 ML BAG 50 MG IVPB (14:05)
[2020-03-24 16:00] LABS: Appearance Pleural Fluid Hazy (Clear); Color Pleural Fluid Yellow (Colorless); Pleural fluid source Pleural fluid
[2020-03-24 16:01] LABS: Lymphocytes Pleural Fluid 0 %; Monocytes Pleural Fluid 8 %; Neutrophils Pleural Fluid 23 % (0-25)
[2020-03-24 16:02] LABS: Macrophages Pleural Fluid 69 %
--- NOTE | 2020-03-24 22:10 | PCRCNOTE ---
Patient states that she feels like she cannot breathe with the BiPAP on and does not want to wear it. The nurse is aware. The BiPAP is still at bedside should the patient need it during the night. -Verenice Griffin, RESAW MACHINE OPERATOR
[2020-03-25] VITALS (29 sets, daily range): BP systolic 134–168; BP diastolic 39–61; PULSE 64–110; RESP 16–24; TEMP 35.8–36.9; O2SAT 93–100
[2020-03-25] MEDS: AMIODARONE 360 MG/D5W 200 ML 360 MG/200 ML BAG 16.7 MG IV CONT ×2 (00:40→12:53)
[2020-03-25] MEDS: IPRATROPIUM BR 0.02% INH SOLN 0.5 MG/2.5 ML VIAL INHALATION ×4 (01:43→20:02)
[2020-03-25 05:05] LABS: Hematocrit 31.9 % (37.0-47.0); Hemoglobin 9.2 g/dL (12.0-15.0); Mean Corpuscular HGB Conc 28.8 g/dl (32-36); Mean Corpuscular Hemoglobin 26.8 pg (26-34); Mean Platelet Volume 9.7 fl (7.4-10.4); Platelet Count Result 273 k/mm3 (150-375); Red Blood Count 3.43 M/mm3 (4.2-5.4); Red Cell Distribution Width 17.2 % (11.5-14.5); White Blood Count 19.8 K/mm3 (4.5-10.0)
[2020-03-25 05:18] LABS: Alanine Aminotransferase 119 U/L (4-35); Albumin Level 2.9 g/dL (3.5-5.1); Alkaline Phosphatase 100 U/L (38-126); Aspartate Amino Transferase 37 U/L (14-36); Blood Urea Nitrogen 68 mg/dL (7-17); Calcium 8.7 mg/dL (8.4-10.2); Carbon Dioxide 39 mmol/L (22-30); Chloride 100 mmol/L (98-107); Estimated CRCL calculation 22 ml/min; Estimated Glomerular Filt Rate 32; Glucose 248 mg/dL (65-105); Magnesium 2.3 mg/dL (1.6-2.3); Phosphorus 3.7 mg/dL (2.5-4.5); Potassium 3.4 mmol/L (3.4-5.0); Sodium 142 mmol/L (137-145)
--- NOTE | 2020-03-25 06:27 | CONS_ITS ---
DATE OF CONSULTATION: 03/22/2020 REASON FOR THE CONSULTATION: Dr. Schmitz consulted me to see the patient for [id number] respiratory failure. HISTORY OF PRESENT ILLNESS: This is a 74-year-old female with a history of severe COPD. She has multiple medical issues including recurrent left pleural effusion, which she has had tapped on 02/28 and 03/13/2020 with a L of transudative fluid removed each time. This is probably due to diastolic congestive heart failure. She has others cardiac issues, aortic stenosis, moderate to severe, diagnosed on echo on 01/04/2020 with severe aortic sclerosis, she has paroxysmal atrial fibrillation, cannot have anticoagulation due to hematuria due to a bladder tumor. She has a small area of reversible ischemia on a recent Lexiscan. She has never had cardiac revascularization. The patient has stage 4 chronic kidney disease. She quit smoking cigarettes October 27, 2019. At that time, she had an episode of sepsis due to urinary tract infection and was treated at [facility] in [place]. She did not have any pulmonary consultation, but says that she was placed on oxygen at the end of that discharge and Dr. Torres has been adjusting the flow. She initially went home on 2 L, but recently just in the last week or so has had it increased to 3 L a minute. The patient was admitted on February 28 through March 03 with weakness, confusion, poor intake with a moderate left pleural effusion and atelectasis with pulmonary edema. She had a thoracentesis, was discharged 3 days later. She returns on March 13 on 3 L of oxygen with a repeat increase in the pleural effusion. She is now admitted to the hospital. After the repeat thoracentesis on March 13, her Lasix was increased to 40 mg b.i.d. and she was started on metolazone 2.5 mg Wednesday, Wednesday, Wednesday. She had mild leukocytosis, which was attributed to stress reaction, but concern for pneumonia as this could not be ruled out due to the atelectasis and possible infiltrate on the left side under the remaining pleural effusion. She had a blood gas several days into her admission and this showed [id number] hypercapnic hypoxemic respiratory failure, she was intubated on 03/20, had some Toprol given for paroxysmal atrial flutter and then started having pauses. There is a brief Code Blue, but I do not see many details from this. This was on 03/20. On 03/21, she was extubated, but then deteriorated requiring BiPAP. She did not like it, but she did use it. Today, 03/22, I saw the patient. She was alert, weak, but able to give me her daughter's phone number and was able to speak clearly, although her memory is off a little bit. She has an appointment at [facility] on April 16 for a full day evaluation for pulmonary hypertension because she had an RVSP of 82 on an echo in December. A more recent echo does not show an RVSP because a tricuspid jet was not visible. She also had a right internal jugular triple-lumen catheter placed on 03/20 in the senior ui designer hours for access. ALLERGIES: PENICILLIN CAUSES ANAPHYLACTIC SHOCK. HOME MEDICATIONS: 1. Tamsulosin 0.4 mg 1 capsule daily. 2. Sertraline 50 mg a day. 3. Potassium chloride 10 mEq daily p.r.n. 4. Multivitamin 1 daily. 5. Methimazole 5 mg daily. 6. Melatonin 5 mg 2 tablets at bedtime. 7. Meclizine 2.5 mg 1 b.i.d. p.r.n. dizziness. 8. Lidocaine 4% topical cream t.i.d. 9. Atorvastatin 10 mg a day. 10. Aspirin 81 mg a day. 11. Amiodarone 200 mg a day. 12. Albuterol inhaler 1 to 2 puffs q.6 hours p.r.n. shortness of breath. 13. Acetaminophen 500 mg q.6 hours p.r.n. 14. Lorazepam 0.5 mg p.r.n. 15. Oxygen 3 L at home recently, has been on 2 L since her discharge from [facility] in September 2019. The daughter also said she was on an inhaler at home in addition
--- NOTE | 2020-03-25 07:54 | PM.PNCARD ---
Progress Note: A&P Assessment and Plan (1) Chronic obstructive pulmonary disease: Qualifiers: COPD type: unspecified COPD Qualified Code(s): J44.9 - Chronic obstructive pulmonary disease, unspecified Code(s): J44.9 - Chronic obstructive pulmonary disease, unspecified Status: Acute (2) Recurrent pleural effusion on left: Code(s): J90 - Pleural effusion, not elsewhere classified Status: Acute Assessment and Plan: Due to pulmonary hypertension and diastolic dysfunction. S/P left thoracentesis removing 1 liter on 03/13/20 and again on 03/24/20. Will need higher doses of diuretics to keep fluid from returning. Was on Furosemide 40 mg PO daily and KCl 20 meq daily. (3) Hypertension: Qualifiers: Hypertension type: unspecified Qualified Code(s): I10 - Essential (primary) hypertension Code(s): I10 - Essential (primary) hypertension Status: Chronic (4) Pulmonary hypertension: Code(s): I27.20 - Pulmonary hypertension, unspecified Status: Acute Assessment and Plan: Due to COPD. Given severity of it, however, referred to [facility] pul hypertension clinic but she has not seen them yet. (5) Aortic valve stenosis: Qualifiers: Cardiac valve disease etiology: etiology unspecified Qualified Code(s): I35.0 - Nonrheumatic aortic (valve) stenosis Code(s): I35.0 - Nonrheumatic aortic (valve) stenosis Status: Chronic Assessment and Plan: Mod-severe ; subsequent echo shows only mild based on valve area and gradients. No need for intervention until it becomes frankly severe, then would consider TAVR procedure. (6) CKD (chronic kidney disease): Qualifiers: Chronic kidney disease stage: stage 3 (moderate) Qualified Code(s): N18.3 - Chronic kidney disease, stage 3 (moderate) Code(s): N18.9 - Chronic kidney disease, unspecified Status: Chronic Assessment and Plan: Continue to monitor as it kidney function worsens with diuretics. Replete potassium to keep around 4.0. (7) PAF (paroxysmal atrial fibrillation): Code(s): I48.0 - Paroxysmal atrial fibrillation Status: Acute Assessment and Plan: On Amiodarone and she went intro atrial flutter/tachycardia on 03/17/20. [id number] 3. On aspirin given bleeding on anticoagulation from tract. Carioverted on 03/19/20 to sinus rhythm. Then had bradycardia and cardiopulm arrest, was on mechanical ventilation, now extubated. Discontinue Toprol given bradycardia in sinus rhythm. Agree with using Amiodarone IV when needed to keep her in sinus rhythm. Went back into atrial flutter/tachycardia on 03/23/20. Amiodarone 150 IV x 1 given but still in atrial flutter/tachycardia. Started Amiodarone IV drip which she cardioverted but went back into atrial flutter/fib with rate that is 90-105 bpm range. Patient is NPO due to aspiration on swallow study. Replete potassium as it is 3.4 today. (8) Preop cardiovascular exam: Code(s): Z01.810 - Encounter for preprocedural cardiovascular examination Status: Acute Assessment and Plan: She is at a high cardiac risk of 7.9% for MS and cardiac arrest perioperatively for bladder surgery/resection based on Garza risk calculator. Her risks include frailty, CKD, pulm hypertension, anemia, abnormal nuclear stress test, PAD, aortic stenosis, PAF, COPD. (9) Abnormal nuclear stress test: Code(s): R94.39 - Abnormal result of other cardiovascular function study Status: Acute Assessment and Plan: 03/06/20 Lexiscan myoview shows small ischemia of anterolateral wall. No plan for cardiac cath as she has significant anemia, recent bleed that is a high potential for recurrence, and would not be able to receive stent which requires uninterrupted dual antiplatelet agents. Was started Toprol 12.5 mg daily 03/16/20 for possible CAD but given bradycardia and on Levophed drip, will stop Toprol.
[2020-03-25] MEDS: SILVERGEL (ELTA) 45 ML 1 APPLIC TOPICAL (09:11)
[2020-03-25] MEDS: PANTOPRAZOLE SODIUM IV 40 MG VIAL IV PUSH ×2 (09:11→21:13)
[2020-03-25] MEDS: methylPREDNISolone SOD SUCC 125 MG VIAL 60 MG IV PUSH (09:11)
[2020-03-25] MEDS: LIDOCAINE 5% PATCH 1 PATCH TRANSDERM (09:12)
[2020-03-25] MEDS: CENTRAL LINE FLUSH 10 ML IV PUSH ×3 (09:12→21:14)
[2020-03-25] MEDS: CLINDAMYCIN 600 MG/NS 50 ML 600 MG/50 ML PIGGYBACK 100 MG IVPB ×3 (09:18→23:20)
[2020-03-25] MEDS: IRON SUCROSE COMPLEX 100 MG in SODIUM CHLORIDE 0.9% IV 50 ML 220 MG IVPB (09:39)
--- NOTE | 2020-03-25 11:12 | PCDIET ---
Nutrition Follow-Up Complete: Nutrition Diagnosis: Inadequate oral intake related to oral intubation as evidenced by NPO status. Nutrition Goal: Patient to meet estimated nutritional needs. Goal not met. Patient had unsuccessful attempt at feeding tube placement over the weekend. Patient reports fear of reattempting placement. Discussed with RN who reports patient may have swallow evaluation today prior to attempted feeding tube placement. If able to feed orally, recommend adding Ensure Compact (220kcal, 9g protein) TID with meals. If unable to advance oral diet and feeding tube placed, recommend Glucerna 1.2 at goal of 50mL/hr x 22 hours/day for 1320kcal, 66g protein and 885mL free water. Recommend 30mL water flush every 4 hours. Recommend initiating feedings at 20mL/hr and advancing slowly by 10mL/hr every 8 hours, as tolerated, to goal rate, as patient may be at risk for refeeding syndrome. If unable to feed orally/enterally, recommend starting parenteral nutrition. Last recorded weight is 56.1 kg which is decreased from last review. Bowel Motility: +BM - colostomy Labs Reviewed: Hgb (9.2), Hct (31.9), Glu (248), BUN (68), Cr (1.6), Alb (2.9) Meds Noted: Albuterol, Clindamycin, Atrovent, Iron Sucrose, Levaquin, Solu Medrol, MVI/minerals, Protonix, KCl Additional Notes: Mepilex to pressure ulcer on coccyx. Will continue to monitor with same goal. Nutrition Monitoring and Evaluation: Follow up every 3 days.
--- NOTE | 2020-03-25 11:26 | PM.PNPUL ---
Progress Note: A&P Assessment and Plan (1) CHF (congestive heart failure): Code(s): I50.9 - Heart failure, unspecified Status: Acute Assessment and Plan: - her left effusion is a transudate, not consistent with pneumonia; this is more likely to be due to CHF than a lung process such as infection. The other possibilities include cirrhosis or nephrosis. Liver has increased density on chest CT with a history of amiodarone use. Renal function is improving, BUN 68, creat 1.6, not normal, but better. - swallow study today; is pass, feed orally; if fail, Dobhoff and start TF _ deliver Trilogy (2) Pleural effusion on left: Code(s): J90 - Pleural effusion, not elsewhere classified Status: Acute Assessment and Plan: - 03/24 repeat U/S guided thoracentesis removed 1000 L hazy yellow fluid, pH 7.5, mainly macrophages 69%. - this may be due to worsening aortic stenosis; culture and cytology studies are pending. WBC is higher today 19.8K. (3) Respiratory failure with hypoxia and hypercapnia: Code(s): J96.91 - Respiratory failure, unspecified with hypoxia; J96.92 - Respiratory failure, unspecified with hypercapnia Status: Acute Assessment and Plan: - acute and chronic respiratory failure; patient has been in O2 at 3 L/min @ home starting in Sep 2019, now with recurrent episodes of respiratory failure due to COPD and CHF; extubated 03/21/2020; candidate for Trilogy device, which is expected today. She did not tolerate BiPAP, and NPPV is a better option for her. (4) Chronic obstructive pulmonary disease: Qualifiers: COPD type: unspecified COPD Qualified Code(s): J44.9 - Chronic obstructive pulmonary disease, unspecified Code(s): J44.9 - Chronic obstructive pulmonary disease, unspecified Status: Acute Assessment and Plan: - Spiriva may not be ineffective at this point - will continue Atovent 0.5 mg Nebs Q6h (5) Aortic valve stenosis: Qualifiers: Cardiac valve disease etiology: etiology unspecified Qualified Code(s): I35.0 - Nonrheumatic aortic (valve) stenosis Code(s): I35.0 - Nonrheumatic aortic (valve) stenosis Status: Chronic Assessment and Plan: This may be contributing to the failure and effusion. Time Spent With Patient Time with patient: 15 - 25 minutes Subjective Date/time seen: 03/25/20 11:26 Interval history: Stable, remains in IMU Room 203. She is alert, is waiting to have a repeat swallow evaluation today. She continues to have right rib pain from fracture due to CPR. Yesterday March 24 she had 1 L hazy yellow fluid removed with left thoracentesis. The pH was 7.5, a normal and non-pathologic value. A cell count could not be performed, although a differential showed 23% neutrophils, 8% monocytes and 69% macrophages. no lyphocyes. This is non-pathologic. Cytology and cultures are pending. She is on 4 L/min with a saturation of 91- 100%, so this can be weaned is the sat remains high ( our vital signs do not show the amount of O2 the patient is on while the saturation is recorded, unfortunately ); She was approved for a Trilogy device, a NPPV, for assistance with night time ventilation during sleep and in the daytime as needed for shortness of breath. She is able to tolerate this and it will be delivered today. Review of Systems Review of Systems: All systems reviewed & are unremarkable except as noted in HPI and below (HPI and she is worried about being able to pass her swallow.) ROS unobtainable: Yes other (She should improve on swallow; has been longer since extubation. ) Musculoskeletal: Comments: right anterior rib pain from fractures during CPR. Exam Const: General: no acute distress Neck: Neck: supple Resp: Auscultation: diminished lung sounds on the left and localized (base) Cardio: Rate: regular rate Rhythm: regular rhythm Heart sounds: Murmur heart sound present GI: Inspection: other (c
--- NOTE | 2020-03-25 16:38 | PM.IMPN ---
Progress Note: A&P Assessment and Plan (1) Cardiopulmonary arrest: Code(s): I46.9 - Cardiac arrest, cause unspecified Status: Acute Assessment and Plan: Patient became bradycardic and then developed cardiac arrest. Had a recent abnormal stress test. Beta-lisa started recently and had 3 doses prior to code. EKG at the time showing junctional rhythm with T wave inversion in high lateral leads. Trop climbed to 1.597. Cardiology following. No beta-lisa due to bradycardia. Oral meds on hold. Change to rectal ASA AST/ALT elevated related to shock liver. Levels trending down. Related to code blue. Lipitor on hold. CXR showing left 4th rib fracture but whole chest wal sore. Treat symptomatically. (2) Acute respiratory failure: Qualifiers: Respiratory failure complication: hypoxia and hypercapnia Qualified Code(s): J96.01 - Acute respiratory failure with hypoxia; J96.02 - Acute respiratory failure with hypercapnia Code(s): J96.00 - Acute respiratory failure, unspecified whether with hypoxia or hypercapnia Status: Acute Assessment and Plan: ABG showing hypoxia and hypercapnia but normal pH. Patient able to be extubated 03/21/20. Patient improving and now down to 4L O2. Consider aspiration as complicating her respiratory failure. Continue to wean O2 as tolerated to baseline 2-3L. Continue Solu-Medrol (which could explain elevated WBC). 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 ILD could also be related to Amio or chronic aspiration. (3) Dysphagia: Code(s): R13.10 - Dysphagia, unspecified Status: Acute Assessment and Plan: Family state the patietn was having coughing with swallow intermittently at home. Now with dysphagia of all consistancies whcih could be related to the Code Blue. Patient failed bedside swallow and later the MBS. NGT attempted by fluoro but unsuccessful. Will start TPN. Not sure if they attempted NGT by fluoro today but will plan to attempt for tomorrow. Long discuss with patient and family about options. Patient is AOx4 but family not sure patient understands fully. Explained that we can use TPN for now until NGT placed. Explained that these are short term measures. Will continue ST. Explained that the next step would be GTube if she continues to have problems with dysphagia (provided GI feels comfortable placing this in the first place given that she cant even have a cysto due to her heart condition). Would need Cardiology clearance. Hopefully will be able to swallow safely soon. Consider CT brain (4) Anemia: Qualifiers: Anemia type: unspecified type Qualified Code(s): D64.9 - Anemia, unspecified Code(s): D64.9 - Anemia, unspecified Status: Chronic Assessment and Plan: Chronic anemia. Iron studies consistent with iron deficiency anemia. No evidence of acute bleeding. Stool occult blood is negative. Dr March giving IV venofer. Hemoglobin 6.9 on 03/20 and transfused. Hgb in the 8-9 range since and stable. Continue to monitor closely. (5) Recurrent pleural effusion on left: Code(s): J90 - Pleural effusion, not elsewhere classified Status: Acute Assessment and Plan: Recently admitted 02/28 - 03/03 for same; thoracentesis 03/01 and another 03/13 each yielding 1000mL clear yellow fluid. Analysis of pleural fluid last admission with negative cultures and no findings of malignancy on cytology. [place] effusions related to CHF. Echo showing EF 60% with diastolic dysfunction and severe pulmonary hypertension with a PASP of 82. Repeat thoracentesis today with 1000mL removed. (6) Atrial fibrillation: Qualifiers: Atrial fibrillation type: unspecified Qualified Code(s): I48.91 - Unspecified atrial fibrillation Code(s): I48.91 - Unspecified atrial fibrillation Status: Chronic Assessment and Plan: History of paroxysmal a fib. Sh
[2020-03-25] MEDS: FAT EMULSIONS IV 20% 250 ML 20.8 ML IVPB (18:50)
[2020-03-25 20:47] LABS: Glucose Point of Care 310 (65-105)
[2020-03-25 23:51] LABS: Glucose Point of Care 342 (65-105)
[2020-03-26] VITALS (20 sets, daily range): BP systolic 103–144; BP diastolic 41–82; PULSE 60–127; RESP 18–22; TEMP 35.9–36.6; O2SAT 93–100
[2020-03-26] MEDS: ENOXAPARIN 30 MG/0.3 ML SYRINGE SUB-Q ×2 (00:18→21:29)
[2020-03-26] MEDS: INSULIN HUMAN REGULAR (*BKC) 100 UNITS/ML SUB-Q ×5 (00:18→23:59)
[2020-03-26] MEDS: IPRATROPIUM BR 0.02% INH SOLN 0.5 MG/2.5 ML VIAL INHALATION ×4 (01:34→20:24)
[2020-03-26] MEDS: CENTRAL LINE FLUSH 10 ML IV PUSH ×3 (04:58→21:30)
[2020-03-26 05:05] LABS: Basophils Percent Auto 0.1 % (0.2-1.2); Hematocrit 32.1 % (37.0-47.0); Hemoglobin 9.4 g/dL (12.0-15.0); Immature Granulocyte Absolute 0.15 K/mm3 (0.00-0.031); Immature Granulocyte Percent A 0.7 % (0-0.5); Lymphocytes Absolute Auto 0.52 K/mm3 (0.9-3.2); Lymphocytes Percent Auto 2.5 % (18.3-44.2); Mean Corpuscular HGB Conc 29.3 g/dl (32-36); Mean Corpuscular Hemoglobin 27.6 pg (26-34); Mean Corpuscular Volume 94.4 fl (80-100); Mean Platelet Volume 10.1 fl (7.4-10.4); Monocytes Absolute Auto 0.9 K/mm3 (0.1-0.6); Monocytes Percent Auto 4.4 % (2.6-8.5); Neutrophils Absolute Auto 18.8 K/mm3 (1.3-6.7); Neutrophils Percent Auto 92.3 % (45.5-73.1); Platelet Count Result 268 k/mm3 (150-375); Red Cell Distribution Width 17.6 % (11.5-14.5); White Blood Count 20.4 K/mm3 (4.5-10.0)
[2020-03-26 05:19] LABS: Partial Thromboplastin Time 29.9 SECONDS (22.3-36.8)
[2020-03-26 05:28] LABS: Alanine Aminotransferase 83 U/L (4-35); Albumin Level 2.8 g/dL (3.5-5.1); Alkaline Phosphatase 90 U/L (38-126); Aspartate Amino Transferase 36 U/L (14-36); Bilirubin,Total 0.9 mg/dL (0.2-1.3); Blood Urea Nitrogen 70 mg/dL (7-17); Calcium 8.7 mg/dL (8.4-10.2); Carbon Dioxide 39 mmol/L (22-30); Chloride 100 mmol/L (98-107); Estimated CRCL calculation 26 ml/min; Estimated Glomerular Filt Rate 40; Glucose 366 mg/dL (65-105); Magnesium 2.2 mg/dL (1.6-2.3); Phosphorus 3.1 mg/dL (2.5-4.5); Potassium 3.6 mmol/L (3.4-5.0); Sodium 141 mmol/L (137-145)
[2020-03-26 05:35] LABS: Transferrin 153 mg/dL (206-381)
[2020-03-26 06:41] LABS: Glucose Point of Care 384 (65-105)
--- NOTE | 2020-03-26 07:47 | PM.PNCARD ---
Progress Note: A&P Assessment and Plan (1) Chronic obstructive pulmonary disease: Qualifiers: COPD type: unspecified COPD Qualified Code(s): J44.9 - Chronic obstructive pulmonary disease, unspecified Code(s): J44.9 - Chronic obstructive pulmonary disease, unspecified Status: Acute (2) Recurrent pleural effusion on left: Code(s): J90 - Pleural effusion, not elsewhere classified Status: Acute Assessment and Plan: Due to pulmonary hypertension and diastolic dysfunction. S/P left thoracentesis removing 1 liter on 03/13/20 and again on 03/24/20. Patient appears to be dry as she is not taking PO. Would hold off on diuretics for now. (3) Hypertension: Qualifiers: Hypertension type: unspecified Qualified Code(s): I10 - Essential (primary) hypertension Code(s): I10 - Essential (primary) hypertension Status: Chronic (4) Pulmonary hypertension: Code(s): I27.20 - Pulmonary hypertension, unspecified Status: Acute Assessment and Plan: Due to COPD. Given severity of it, however, referred to [facility] hypertension clinic but she has not seen them yet. (5) Aortic valve stenosis: Qualifiers: Cardiac valve disease etiology: etiology unspecified Qualified Code(s): I35.0 - Nonrheumatic aortic (valve) stenosis Code(s): I35.0 - Nonrheumatic aortic (valve) stenosis Status: Chronic Assessment and Plan: Mod-severe ; subsequent echo shows only mild based on valve area and gradients. No need for intervention until it becomes frankly severe, then would consider TAVR procedure. (6) CKD (chronic kidney disease): Qualifiers: Chronic kidney disease stage: stage 3 (moderate) Qualified Code(s): N18.3 - Chronic kidney disease, stage 3 (moderate) Code(s): N18.9 - Chronic kidney disease, unspecified Status: Chronic Assessment and Plan: Continue to monitor as it kidney function worsens with diuretics. Replete potassium to keep around 4.0. Kidney function improves off diuretics which tells me she is 3rd spacing to left lung and not intravascularly volume overloaded. (7) PAF (paroxysmal atrial fibrillation): Code(s): I48.0 - Paroxysmal atrial fibrillation Status: Acute Assessment and Plan: On Amiodarone and she went intro atrial flutter/tachycardia on 03/17/20. [id number] 3. On aspirin given bleeding on anticoagulation from tract. Carioverted on 03/19/20 to sinus rhythm. Then had bradycardia and cardiopulm arrest, was on mechanical ventilation, now extubated. Discontinue Toprol given bradycardia in sinus rhythm. Agree with using Amiodarone IV when needed to keep her in sinus rhythm. Went back into atrial flutter/tachycardia on 03/23/20. Amiodarone 150 IV x 1 given but still in atrial flutter/tachycardia. Started Amiodarone IV drip which she cardioverted but went back into atrial flutter/fib with rate that is 90-105 bpm range. 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 Therefore, Amiodarone discontinued. She is on Solumedrol. Rate control with Metoprolol tartate low dose 6.25 mg PO every 6 hrs with parameters if able to be given via NGT. If not, then will start Metoprolol tartate 1.25 mg IV every 4 hours with parameters.Patient is NPO due to aspiration on swallow study. Replete potassium as it is 3.6 today. (8) Preop cardiovascular exam: Code(s): Z01.810 - Encounter for preprocedural cardiovascular examination Status: Acute Assessment and Plan: She is at a high cardiac risk of 7.9% for ME and cardiac arrest perioperatively for bladder surgery/resection based on Garza risk calculator. Her risks include frailty, CKD, pulm hypertension, anemia, abnormal nuclear stress test, PAD, aortic stenosis, PAF, COPD. However, she may may proceed to surgery if needed as her cardiac risks would not improve. (9) Abnormal nuclear
[2020-03-26] MEDS: CLINDAMYCIN 600 MG/NS 50 ML 600 MG/50 ML PIGGYBACK 100 MG IVPB ×2 (08:23→15:59)
[2020-03-26] MEDS: IRON SUCROSE COMPLEX 100 MG in SODIUM CHLORIDE 0.9% IV 50 ML 220 MG IVPB (08:24)
[2020-03-26] MEDS: methylPREDNISolone SOD SUCC 125 MG VIAL 60 MG IV PUSH (08:28)
[2020-03-26] MEDS: LIDOCAINE 5% PATCH 1 PATCH TRANSDERM (08:28)
[2020-03-26] MEDS: PANTOPRAZOLE SODIUM IV 40 MG VIAL IV PUSH ×2 (08:28→21:29)
[2020-03-26] MEDS: SILVERGEL (ELTA) 45 ML 1 APPLIC TOPICAL (08:28)
[2020-03-26] MEDS: WATER FOR IRRIGATION, STERILE 1,000 ML BOTTLE 1000 ML (08:54)
--- NOTE | 2020-03-26 10:25 | PC.NURSE ---
called dr. lui and notified him that patient converted to SR with heart rate in 70s. Orders to hold metoprolol until further notice. will continue to monitor
--- NOTE | 2020-03-26 11:30 | PCDIET ---
Nutrition Follow-Up Complete: Nutrition Diagnosis: Inadequate oral intake related to oral intubation as evidenced by NPO status. Nutrition Goal: Patient to meet estimated nutritional needs. Goal in progress. Clinimix 5/15 initiated at 40mL/hr with 250mL 20% lipids daily which provides 1182kcal and 48g protein. Since PN initiated, NG was able to be successfully placed. Recommend Glucerna 1.2 beginning at 20mL/hr and advancing by 10mL/hr every 8 hours, as tolerated to goal of 50mL/hr. Would flush with 30mL water every 4 hours and taper Clinimix as tube feeding advances. Last recorded weight is 54.1 kg which is decreased from last review. -I/O. Bowel Motility: +Stools - colostomy Labs Reviewed: Hgb (9.4), Hct (32.1), Glu (384), BUN (70), Cr (1.3), Alb (2.8) Meds Noted: Levaquin, Insulin, Solu Medrol, Atrovent, Iron Sucrose, MVI Additional Notes: Coccyx with pressure ulcer. No changes documented. Will continue to monitor with same goal. Nutrition Monitoring and Evaluation: Follow up every Wednesday/Wednesday.
[2020-03-26] MEDS: levoFLOXacin 250 MG/D5W 50 ML 250 MG/50 ML BAG 50 MG IVPB (12:38)
[2020-03-26 12:53] LABS: Glucose Point of Care 357 (65-105)
--- NOTE | 2020-03-26 14:29 | PCSTNOTE ---
Patient refused treatment this date; patient had NG tube placed this AM and stated discomfort and declined tx.
--- NOTE | 2020-03-26 14:41 | PM.IMPN ---
Progress Note: A&P Assessment and Plan (1) Cardiopulmonary arrest: Code(s): I46.9 - Cardiac arrest, cause unspecified Status: Acute Assessment and Plan: Patient became bradycardic and then developed cardiac arrest. Had a recent abnormal stress test. Beta-lisa started recently and had 3 doses prior to code. EKG at the time showing junctional rhythm with T wave inversion in high lateral leads. Trop climbed to 1.597. Elevated trop prob from CPR. No beta-lisa due to bradycardia. Oral meds on hold. Change to rectal ASA AST/ALT elevated related to shock liver. Levels trending down. Related to code blue. Lipitor on hold. CXR showing left 4th rib fracture but whole chest wal sore. Treat symptomatically. (2) Acute respiratory failure: Qualifiers: Respiratory failure complication: hypoxia and hypercapnia Qualified Code(s): J96.01 - Acute respiratory failure with hypoxia; J96.02 - Acute respiratory failure with hypercapnia Code(s): J96.00 - Acute respiratory failure, unspecified whether with hypoxia or hypercapnia Status: Acute Assessment and Plan: ABG showing hypoxia and hypercapnia but normal pH. Patient able to be extubated 03/21/20. Patient improving and now down to 3L O2. Consider aspiration as complicating her respiratory failure. Continue to wean O2 as tolerated to baseline 2-3L. Continue Solu-Medrol (which could explain elevated WBC). 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 ILD could also be related to Amio or chronic aspiration. (3) Anemia: Qualifiers: Anemia type: unspecified type Qualified Code(s): D64.9 - Anemia, unspecified Code(s): D64.9 - Anemia, unspecified Status: Chronic Assessment and Plan: Chronic anemia. Iron studies consistent with iron deficiency anemia. No evidence of acute bleeding. Stool occult blood is negative. Dr March giving IV venofer. Hemoglobin 6.9 on 03/20 and transfused. Hgb in the 8-9 range since and stable. Continue to monitor closely.9.4 today. (4) Recurrent pleural effusion on left: Code(s): J90 - Pleural effusion, not elsewhere classified Status: Acute Assessment and Plan: Recently admitted 02/28 - 03/03 for same; thoracentesis 03/01 and another 03/13 and 03/25, each yielding 1000mL clear yellow fluid. Analysis of pleural fluid last admission with negative cultures and no findings of malignancy on cytology. [place] effusions related to CHF. Echo showing EF 60% with diastolic dysfunction and severe pulmonary hypertension with a PASP of 82. Repeat thoracentesis today with 1000mL removed. (5) Atrial fibrillation: Qualifiers: Atrial fibrillation type: unspecified Qualified Code(s): I48.91 - Unspecified atrial fibrillation Code(s): I48.91 - Unspecified atrial fibrillation Status: Chronic Assessment and Plan: History of paroxysmal a fib. She is maintained on her home amiodarone. Toprol was added but now held due to bradycardia. She is not on long-term anticoagulation due to history of hematuria. Intermittent episode of AFib/RVR treated with bolus of Amio. Continue tele and keep in IMU with need for amiodarone for now (6) Abnormal nuclear stress test: Code(s): R94.39 - Abnormal result of other cardiovascular function study Status: Acute Assessment and Plan: She had outpatient Lexiscan 03/06/20 showing small ischemia of anterolateral wall performed for perioperative risk assessment (for bladder lesion resection vs. bx). Plan for medical management as she tolerates. Appreciate cardiology input. (7) Hypokalemia: Code(s): E87.6 - Hypokalemia Status: Acute Assessment and Plan: [place] to be secondary to increased diuresis. Potassium low normal today and replacement ordered. Mag 2.3. Continue to follow. Continue to replace as needed. 3.6 today (8) Leukocytosis: Qualifiers:
--- NOTE | 2020-03-26 14:52 | PCDIET ---
Tube feeding order received: Jevity 1.5 at 30mL/hr will provide 990kcal, 42g protein and 501mL free water, given infusion over 22 hours/day. Recommend tapering Clinimix. If electrolytes remain stable over 48-73 hours, will recommend increase to goal kcal/protein. If blood sugars remain elevated, would continue to suggest Glucerna 1.2 at 50mL/hr.
--- NOTE | 2020-03-26 17:08 | PM.PNPUL ---
Progress Note: A&P Assessment and Plan (1) CHF (congestive heart failure): Code(s): I50.9 - Heart failure, unspecified Status: Acute Assessment and Plan: - her left effusion is a transudate, not consistent with pneumonia; this is more likely to be due to CHF than a lung process such as infection. The other possibilities include cirrhosis or nephrosis. Liver has increased density on chest CT with a history of amiodarone use. Renal function is still out of the normal range, BUN 70, creat 1.3, better. - swallow study today; is pass, feed orally; if fail, Dobhoff and start TF _ deliver Trilogy (2) Pleural effusion on left: Code(s): J90 - Pleural effusion, not elsewhere classified Status: Acute Assessment and Plan: - 03/24 repeat U/S guided thoracentesis removed 1000 L hazy yellow fluid, pH 7.5, mainly macrophages 69%. - this may be due to worsening aortic stenosis; culture and cytology studies are pending. WBC is higher today 20.4 (19.8K yesterday). (3) Respiratory failure with hypoxia and hypercapnia: Code(s): J96.91 - Respiratory failure, unspecified with hypoxia; J96.92 - Respiratory failure, unspecified with hypercapnia Status: Acute Assessment and Plan: - acute and chronic respiratory failure; patient has been in O2 at 3 L/min @ home starting in Sep 2019, now with recurrent episodes of respiratory failure due to COPD and CHF; extubated 03/21/2020; candidate for Trilogy device, which is not going to be allowed if she goes to [place]. She did not tolerate BiPAP, and NPPV is a better option for her. This was approved if she goes to [facility] or home, but not if she goes to [place]. (4) Chronic obstructive pulmonary disease: Qualifiers: COPD type: unspecified COPD Qualified Code(s): J44.9 - Chronic obstructive pulmonary disease, unspecified Code(s): J44.9 - Chronic obstructive pulmonary disease, unspecified Status: Acute Assessment and Plan: - Spiriva may not be ineffective at this point - will continue Atovent 0.5 mg Nebs Q6h (5) Aortic valve stenosis: Qualifiers: Cardiac valve disease etiology: etiology unspecified Qualified Code(s): I35.0 - Nonrheumatic aortic (valve) stenosis Code(s): I35.0 - Nonrheumatic aortic (valve) stenosis Status: Chronic Assessment and Plan: This may be contributing to the failure and effusion. Subjective Date/time seen: 03/26/20 17:08 Interval history: Stable, remains in IMU Room 203. She continues to have right rib pain from fracture due to CPR. March 24 - 1 L hazy yellow fluid removed with repeat left thoracentesis. pH was 7.5, a normal and non-pathologic value. no cell count. Diff : 23% neutrophils, 8% monocytes, 69% macrophages. no lymphocyes; non-pathologic. Cytology and cultures are pending. March 25 - 4 L/min with a saturation of 91- 100%, approved for Trilogy; NPPV, for assistance with night time ventilation during sleep and in the daytime as needed for shortness of breath. March 26 - Now has Dobhoff feeding tube in place, on TF. On 3 L/min; has not received her Trilogy. Review of Systems Review of Systems: All systems reviewed & are unremarkable except as noted in HPI and below (generalized weakness) Exam Const: General: no acute distress Neck: Neck: supple Resp: Auscultation: diminished lung sounds on the left and localized (base) Cardio: Rate: regular rate Rhythm: regular rhythm Heart sounds: Murmur heart sound present GI: Inspection: other (colostomy LLQ, brown output) Skin: General sk
[2020-03-26 17:46] LABS: Glucose Point of Care 369 (65-105)
[2020-03-26 18:45] LABS: Triglycerides 146 mg/dL (<150)
[2020-03-27] VITALS (21 sets, daily range): BP systolic 99–134; BP diastolic 39–74; PULSE 64–114; RESP 12–20; TEMP 35.9–36.6; O2SAT 95–100
[2020-03-27 00:03] LABS: Glucose Point of Care 357 (65-105)
[2020-03-27] MEDS: CLINDAMYCIN 600 MG/NS 50 ML 600 MG/50 ML PIGGYBACK 100 MG IVPB ×4 (00:20→23:35)
[2020-03-27] MEDS: IPRATROPIUM BR 0.02% INH SOLN 0.5 MG/2.5 ML VIAL INHALATION ×4 (02:09→19:36)
[2020-03-27 05:49] LABS: Glucose Point of Care 375 (65-105)
[2020-03-27 05:56] LABS: Hematocrit 33.3 % (37.0-47.0); Hemoglobin 9.6 g/dL (12.0-15.0); Mean Corpuscular HGB Conc 28.8 g/dl (32-36); Mean Corpuscular Hemoglobin 27.7 pg (26-34); Mean Platelet Volume 10.4 fl (7.4-10.4); Platelet Count Result 260 k/mm3 (150-375); Red Blood Count 3.47 M/mm3 (4.2-5.4); Red Cell Distribution Width 18.1 % (11.5-14.5); White Blood Count 20.6 K/mm3 (4.5-10.0)
[2020-03-27] MEDS: INSULIN HUMAN REGULAR (*BKC) 100 UNITS/ML SUB-Q (06:01)
[2020-03-27] MEDS: CENTRAL LINE FLUSH 10 ML IV PUSH ×3 (06:02→21:28)
[2020-03-27] MEDS: ACETAMINOPHEN 500 MG TABLET PO (06:09)
[2020-03-27 06:11] LABS: Blood Urea Nitrogen 73 mg/dL (7-17); Carbon Dioxide 37 mmol/L (22-30); Chloride 101 mmol/L (98-107); Estimated CRCL calculation 22 ml/min; Estimated Glomerular Filt Rate 32; Glucose 417 mg/dL (65-105); Phosphorus 3.5 mg/dL (2.5-4.5); Potassium 3.4 mmol/L (3.4-5.0); Sodium 142 mmol/L (137-145)
--- NOTE | 2020-03-27 07:47 | PM.PNCARD ---
Progress Note: A&P Assessment and Plan (1) Chronic obstructive pulmonary disease: Qualifiers: COPD type: unspecified COPD Qualified Code(s): J44.9 - Chronic obstructive pulmonary disease, unspecified Code(s): J44.9 - Chronic obstructive pulmonary disease, unspecified Status: Acute (2) Recurrent pleural effusion on left: Code(s): J90 - Pleural effusion, not elsewhere classified Status: Acute Assessment and Plan: Due to pulmonary hypertension and diastolic dysfunction. S/P left thoracentesis removing 1 liter on 03/13/20 and again on 03/24/20. Patient appears to be dry as she is not taking PO. Would hold off on diuretics for now. (3) Hypertension: Qualifiers: Hypertension type: unspecified Qualified Code(s): I10 - Essential (primary) hypertension Code(s): I10 - Essential (primary) hypertension Status: Chronic (4) Pulmonary hypertension: Code(s): I27.20 - Pulmonary hypertension, unspecified Status: Acute Assessment and Plan: Due to COPD. Given severity of it, however, referred to [facility] hypertension clinic but she has not seen them yet. (5) Aortic valve stenosis: Qualifiers: Cardiac valve disease etiology: etiology unspecified Qualified Code(s): I35.0 - Nonrheumatic aortic (valve) stenosis Code(s): I35.0 - Nonrheumatic aortic (valve) stenosis Status: Chronic Assessment and Plan: Mod-severe ; subsequent echo shows only mild based on valve area and gradients. No need for intervention until it becomes frankly severe, then would consider TAVR procedure. (6) CKD (chronic kidney disease): Qualifiers: Chronic kidney disease stage: stage 3 (moderate) Qualified Code(s): N18.3 - Chronic kidney disease, stage 3 (moderate) Code(s): N18.9 - Chronic kidney disease, unspecified Status: Chronic Assessment and Plan: Continue to monitor as it kidney function worsens with diuretics. Replete potassium to keep around 4.0. Kidney function improves off diuretics which tells me she is 3rd spacing to left lung and not intravascularly volume overloaded. (7) PAF (paroxysmal atrial fibrillation): Code(s): I48.0 - Paroxysmal atrial fibrillation Status: Acute Assessment and Plan: On Amiodarone and she went intro atrial flutter/tachycardia on 03/17/20. [id number] 3. On aspirin given bleeding on anticoagulation from tract. Carioverted on 03/19/20 to sinus rhythm. Then had bradycardia and cardiopulm arrest, was on mechanical ventilation, now extubated. Discontinue Toprol given bradycardia in sinus rhythm. Agree with using Amiodarone IV when needed to keep her in sinus rhythm. She has intermittent atrial flutter/tachycardia. Amiodarone 150 IV x 1 given but still in atrial flutter/tachycardia. Started Amiodarone IV drip which she cardioverted but went back into atrial flutter/fib with rate that is 90-105 bpm range. 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 Therefore, Amiodarone discontinued. She is on Solumedrol for her COPD which is also treats Amiodarone toxicity. Rate control with Metoprolol tartate low dose 6.25 mg PO every 12 hrs with parameters if able to be given via NGT. If not, then will start Metoprolol tartate 1.25 mg IV every 4 hours with parameters. Replete potassium as it is 3.4 today. (8) Preop cardiovascular exam: Code(s): Z01.810 - Encounter for preprocedural cardiovascular examination Status: Acute Assessment and Plan: She is at a high cardiac risk of 7.9% for SD and cardiac arrest perioperatively for bladder surgery/resection based on Garza risk calculator. Her risks include frailty, CKD, pulm hypertension, anemia, abnormal nuclear stress test, PAD, aortic stenosis, PAF, COPD. However, she may may proceed to surgery if needed as her cardiac risks would not improve. (9) Abnormal nuclear
[2020-03-27 07:58] LABS: Glucose Point of Care 373 (65-105)
[2020-03-27] MEDS: LIDOCAINE 5% PATCH 1 PATCH TRANSDERM (10:25)
[2020-03-27] MEDS: IRON SUCROSE COMPLEX 100 MG in SODIUM CHLORIDE 0.9% IV 50 ML 220 MG IVPB (10:25)
[2020-03-27] MEDS: SILVERGEL (ELTA) 45 ML 1 APPLIC TOPICAL (10:26)
[2020-03-27] MEDS: PANTOPRAZOLE SODIUM IV 40 MG VIAL IV PUSH ×2 (10:26→21:28)
[2020-03-27] MEDS: methiMAzole 5 MG TAB PO (10:27)
[2020-03-27] MEDS: THERAPEUTIC MULTIVITAMINS/MINERALS TAB (*BKC) 1 TABLET PO (10:27)
[2020-03-27] MEDS: KCL 20MEQ/0.9% SOD CHL 1,000 ML 75 ML IV CONT ×2 (10:35→23:33)
[2020-03-27 12:15] LABS: Glucose Point of Care 370 (65-105)
--- NOTE | 2020-03-27 12:50 | PM.IMPN ---
Progress Note: A&P Assessment and Plan (1) Cardiopulmonary arrest: Code(s): I46.9 - Cardiac arrest, cause unspecified Status: Acute Assessment and Plan: Patient became bradycardic and then developed cardiac arrest. Had a recent abnormal stress test. Beta-lisa started recently and had 3 doses prior to code. EKG at the time showing junctional rhythm with T wave inversion in high lateral leads. Trop climbed to 1.597. Elevated trop prob from CPR. No beta-lisa due to bradycardia. Oral meds were hold but can give with NG now AST/ALT elevated related to shock liver. Levels trending down. Related to code blue. Lipitor on hold. CXR showing left 4th rib fracture but whole chest wal sore. Treat symptomatically. (2) Acute respiratory failure: Qualifiers: Respiratory failure complication: hypoxia and hypercapnia Qualified Code(s): J96.01 - Acute respiratory failure with hypoxia; J96.02 - Acute respiratory failure with hypercapnia Code(s): J96.00 - Acute respiratory failure, unspecified whether with hypoxia or hypercapnia Status: Acute Assessment and Plan: ABG showing hypoxia and hypercapnia but normal pH. Patient able to be extubated 03/21/20. Patient improving and now down to 3L O2. Consider aspiration as complicating her respiratory failure. Continue to wean O2 as tolerated to baseline 2-3L. Stopped Solu-Medrol (which could explain elevated WBC). 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 ILD could also be related to Amio or chronic aspiration. (3) Anemia: Qualifiers: Anemia type: unspecified type Qualified Code(s): D64.9 - Anemia, unspecified Code(s): D64.9 - Anemia, unspecified Status: Chronic Assessment and Plan: Chronic anemia. Iron studies consistent with iron deficiency anemia. No evidence of acute bleeding. Stool occult blood is negative. Dr March giving IV venofer. Hemoglobin 6.9 on 03/20 and transfused. Hgb in the 8-9 range since and stable. Continue to monitor closely.9.6 today. (4) Recurrent pleural effusion on left: Code(s): J90 - Pleural effusion, not elsewhere classified Status: Acute Assessment and Plan: Recently admitted 02/28 - 03/03 for same; thoracentesis 03/01 and another 03/13 and 03/25, each yielding 1000mL clear yellow fluid. Analysis of pleural fluid last admission with negative cultures and no findings of malignancy on cytology. [place] effusions related to CHF. Echo showing EF 60% with diastolic dysfunction and severe pulmonary hypertension with a PASP of 82. Repeat thoracentesis 03/25 with 1000mL removed. (5) Atrial fibrillation: Qualifiers: Atrial fibrillation type: unspecified Qualified Code(s): I48.91 - Unspecified atrial fibrillation Code(s): I48.91 - Unspecified atrial fibrillation Status: Chronic Assessment and Plan: History of paroxysmal a fib. She is maintained on her home amiodarone. Toprol was added but now held due to bradycardia. She is not on long-term anticoagulation due to history of hematuria. Intermittent episode of AFib/RVR treated with bolus of Amio. could prob move to med now (6) Abnormal nuclear stress test: Code(s): R94.39 - Abnormal result of other cardiovascular function study Status: Acute Assessment and Plan: She had outpatient Lexiscan 03/06/20 showing small ischemia of anterolateral wall performed for perioperative risk assessment (for bladder lesion resection vs. bx). Plan for medical management as she tolerates. Appreciate cardiology input. (7) Hypokalemia: Code(s): E87.6 - Hypokalemia Status: Acute Assessment and Plan: [place] to be secondary to increased diuresis. Potassium low normal today and replacement ordered. Mag 2.3. Continue to follow. Continue to replace as needed. 3.4 today (8) Leukocytosis: Qualifiers: Leukocytosis type: unspec
[2020-03-27] MEDS: INSULIN ASPART (*BKC) 100 UNITS/ML 15 UNITS SUB-Q (13:16)
[2020-03-27] MEDS: INSULIN GLARGINE (*BKC) 100 UNITS/ML 15 UNITS SUB-Q (13:17)
[2020-03-27] MEDS: INSULIN ASPART (*BKC) 100 UNITS/ML SUB-Q ×2 (13:17→18:23)
--- NOTE | 2020-03-27 16:08 | PCRCNOTE ---
SPOKE TO MATY WITH [facility] IN REGARDS TO THE PATIENTS APPROVED HOME TRILOGY UNIT. AT THIS TIME, WE ARE UNSURE OF THE PATIENTS DISCHARGE DESTINATION, IF SHE GOES HOME, WE WILL NEED TO CONTACT MATY AT [facility] AT [phone] AT LEAST ONE DAY PRIOR TO D/C TO TRIAL THE TRILOGY UNIT IN THE HOSPITAL OVERNIGHT TO ENSURE ITS ADEQUATE AND TOLERABLE. IF SHE GOES TO [facility] OR PSYCHIATRIC, SHE WILL HAVE TO USE THE HOSPITAL/SNF PROVIDED BIPAP UNIT UNTIL SHE DISCHARGES HOME. THE PATIENT CANT BE BILL[place] FOR THE [place]ILOG[place] [facility] [place]
--- NOTE | 2020-03-27 16:18 | PM.PNPUL ---
Progress Note: A&P Assessment and Plan (1) CHF (congestive heart failure): Code(s): I50.9 - Heart failure, unspecified Status: Acute Assessment and Plan: - her left effusion is a transudate, not consistent with pneumonia; this is more likely to be due to CHF than a lung process such as infection. The other possibilities include cirrhosis or nephrosis. Liver has increased density on chest CT with a history of amiodarone use. Renal function is still out of the normal range, BUN 70, creat 1.3, better. - swallow study today; is pass, feed orally; if fail, Dobhoff and start TF _ deliver Trilogy (2) Pleural effusion on left: Code(s): J90 - Pleural effusion, not elsewhere classified Status: Acute Assessment and Plan: - 03/24 repeat U/S guided thoracentesis removed 1000 L hazy yellow fluid, - also has worsening aortic stenosis; (3) Respiratory failure with hypoxia and hypercapnia: Code(s): J96.91 - Respiratory failure, unspecified with hypoxia; J96.92 - Respiratory failure, unspecified with hypercapnia Status: Acute Assessment and Plan: - acute and chronic respiratory failure; patient has been in O2 at 3 L/min @ home starting in Sep 2019, now with recurrent episodes of respiratory failure due to COPD and CHF; extubated 03/21/2020; candidate for Trilogy device, which is not going to be allowed if she goes to [place]. She did not tolerate BiPAP, and NPPV is a better option for her. This was approved if she goes to [facility] or home, but not if she goes to [place]. (4) Chronic obstructive pulmonary disease: Qualifiers: COPD type: unspecified COPD Qualified Code(s): J44.9 - Chronic obstructive pulmonary disease, unspecified Code(s): J44.9 - Chronic obstructive pulmonary disease, unspecified Status: Acute Assessment and Plan: - Spiriva may not be ineffective at this point - will continue Atovent 0.5 mg Nebs Q6h (5) Aortic valve stenosis: Qualifiers: Cardiac valve disease etiology: etiology unspecified Qualified Code(s): I35.0 - Nonrheumatic aortic (valve) stenosis Code(s): I35.0 - Nonrheumatic aortic (valve) stenosis Status: Chronic Assessment and Plan: This may be contributing to the failure and effusion. Subjective Date/time seen: 03/27/20 16:18 Interval history: Stable, remains in IMU Room 203. She continues to have right rib pain from fracture due to CPR. March 24 - 1 L, repeat left thoracentesis. March 25 - 4 L/min with a saturation of 91- 100%, approved for Trilogy; NPPV, for assistance with night time ventilation during sleep and in the daytime as needed for shortness of breath. March 26 - Dobhoff feeding tube in place, on TF. On 3 L/min; has not received her Trilogy. She has no new complaints, feels weak. Review of Systems Review of Systems: All systems reviewed & are unremarkable except as noted in HPI and below (generalized weakness) ROS unobtainable: Yes other (She should improve on swallow; has been longer since extubation. ) Exam Const: General: no acute distress Neck: Neck: supple Resp: Auscultation: diminished lung sounds on the left and localized (base) Cardio: Rate: regular rate Rhythm: regular rhythm Heart sounds: Murmur heart sound present GI: Inspection: other (colostomy LLQ, brown output) Skin: General skin exam: no rashes or lesions noted Neuro: Speech: normal speech Extrem: General: normal to inspection, no edema and no pedal edema Objective Data Vital Signs Vital Signs: Vital Signs - 24 hr 03/26/20 18:00 03/26
[2020-03-27 16:47] LABS: Glucose Point of Care 278 (65-105)
[2020-03-27] MEDS: ENOXAPARIN 30 MG/0.3 ML SYRINGE SUB-Q (21:28)
[2020-03-27 23:42] LABS: Glucose Point of Care 167 (65-105)
[2020-03-28] VITALS (20 sets, daily range): BP systolic 103–143; BP diastolic 47–72; PULSE 66–116; RESP 16–24; TEMP 36.4–36.6; O2SAT 94–99
[2020-03-28] MEDS: IPRATROPIUM BR 0.02% INH SOLN 0.5 MG/2.5 ML VIAL INHALATION ×4 (02:20→20:37)
[2020-03-28 05:06] LABS: Glucose Pleural Fluid 213 mg/dL; LDH Pleural Fluid 111 U/L; Total Protein Pleural Fluid 3.8 g/dL
[2020-03-28 06:00] LABS: Basophils Percent Auto 0.1 % (0.2-1.2); Eosinophils Absolute Auto 0.1 K/mm3 (0-0.3); Eosinophils Percent Auto 0.6 % (0-4.4); Hematocrit 33.1 % (37.0-47.0); Hemoglobin 9.3 g/dL (12.0-15.0); Immature Granulocyte Absolute 0.23 K/mm3 (0.00-0.031); Immature Granulocyte Percent A 1.1 % (0-0.5); Lymphocytes Absolute Auto 0.68 K/mm3 (0.9-3.2); Lymphocytes Percent Auto 3.3 % (18.3-44.2); Mean Corpuscular HGB Conc 28.1 g/dl (32-36); Mean Corpuscular Hemoglobin 27.1 pg (26-34); Mean Corpuscular Volume 96.5 fl (80-100); Mean Platelet Volume 10.5 fl (7.4-10.4); Monocytes Absolute Auto 0.8 K/mm3 (0.1-0.6); Monocytes Percent Auto 3.9 % (2.6-8.5); Neutrophils Absolute Auto 18.6 K/mm3 (1.3-6.7); Platelet Count Result 264 k/mm3 (150-375); Red Blood Count 3.43 M/mm3 (4.2-5.4); Red Cell Distribution Width 18.3 % (11.5-14.5); White Blood Count 20.4 K/mm3 (4.5-10.0)
[2020-03-28] MEDS: ACETAMINOPHEN 500 MG TABLET PO (06:02)
[2020-03-28] MEDS: CENTRAL LINE FLUSH 10 ML IV PUSH ×3 (06:15→21:29)
[2020-03-28 06:23] LABS: Alanine Aminotransferase 70 U/L (4-35); Albumin Level 2.8 g/dL (3.5-5.1); Alkaline Phosphatase 137 U/L (38-126); Aspartate Amino Transferase 40 U/L (14-36); Bilirubin,Total 1.1 mg/dL (0.2-1.3); Blood Urea Nitrogen 67 mg/dL (7-17); Calcium 8.7 mg/dL (8.4-10.2); Carbon Dioxide 36 mmol/L (22-30); Chloride 106 mmol/L (98-107); Estimated CRCL calculation 25 ml/min; Estimated Glomerular Filt Rate 37; Glucose 259 mg/dL (65-105); Magnesium 2.1 mg/dL (1.6-2.3); Phosphorus 2.7 mg/dL (2.5-4.5); Potassium 3.5 mmol/L (3.4-5.0); Sodium 145 mmol/L (137-145)
[2020-03-28 06:30] LABS: Hypochromasia 2+ (NORMAL); Platelet Estimate Adequate (Adequate)
[2020-03-28] MEDS: INSULIN ASPART (*BKC) 100 UNITS/ML SUB-Q ×2 (06:36→17:43)
[2020-03-28 06:48] LABS: Amylase, Pleural Fluid <10 U/L
--- NOTE | 2020-03-28 07:32 | PM.PNCARD ---
Progress Note: A&P Assessment and Plan (1) Chronic obstructive pulmonary disease: Qualifiers: COPD type: unspecified COPD Qualified Code(s): J44.9 - Chronic obstructive pulmonary disease, unspecified Code(s): J44.9 - Chronic obstructive pulmonary disease, unspecified Status: Acute (2) Recurrent pleural effusion on left: Code(s): J90 - Pleural effusion, not elsewhere classified Status: Acute Assessment and Plan: Due to pulmonary hypertension and diastolic dysfunction. S/P left thoracentesis removing 1 liter on 03/13/20 and again on 03/24/20. Patient appears to be dry. Would hold off on diuretics for now. (3) Hypertension: Qualifiers: Hypertension type: unspecified Qualified Code(s): I10 - Essential (primary) hypertension Code(s): I10 - Essential (primary) hypertension Status: Chronic (4) Pulmonary hypertension: Code(s): I27.20 - Pulmonary hypertension, unspecified Status: Acute Assessment and Plan: Due to COPD. Given severity of it, however, referred to [facility] hypertension clinic but she has not seen them yet. (5) Aortic valve stenosis: Qualifiers: Cardiac valve disease etiology: etiology unspecified Qualified Code(s): I35.0 - Nonrheumatic aortic (valve) stenosis Code(s): I35.0 - Nonrheumatic aortic (valve) stenosis Status: Chronic Assessment and Plan: Mod-severe ; subsequent echo shows only mild based on valve area and gradients. No need for intervention until it becomes frankly severe, then would consider TAVR procedure. (6) CKD (chronic kidney disease): Qualifiers: Chronic kidney disease stage: stage 3 (moderate) Qualified Code(s): N18.3 - Chronic kidney disease, stage 3 (moderate) Code(s): N18.9 - Chronic kidney disease, unspecified Status: Chronic Assessment and Plan: Continue to monitor as it kidney function worsens with diuretics. Replete potassium to keep around 4.0. Kidney function improves off diuretics which tells me she is 3rd spacing to left lung and not intravascularly volume overloaded. (7) PAF (paroxysmal atrial fibrillation): Code(s): I48.0 - Paroxysmal atrial fibrillation Status: Acute Assessment and Plan: On Amiodarone and she went intro atrial flutter/tachycardia on 03/17/20. [id number] 3. On aspirin given bleeding on anticoagulation from tract. Carioverted on 03/19/20 to sinus rhythm. Then had bradycardia and cardiopulm arrest, was on mechanical ventilation, now extubated. Discontinue Toprol given bradycardia in sinus rhythm. Agree with using Amiodarone IV when needed to keep her in sinus rhythm. She has intermittent atrial flutter/tachycardia. Amiodarone 150 IV x 1 given but still in atrial flutter/tachycardia. Started Amiodarone IV drip which she cardioverted but went back into atrial flutter/fib with rate that is 90-105 bpm range. 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 Therefore, Amiodarone discontinued. She is on Solumedrol for her COPD which is also treats Amiodarone toxicity. If patient is in rapid atrial flutter/tachycardia, rate control with Metoprolol tartate low dose 6.25 mg PO every 12 hrs with parameters if able to be given via NGT. Replete potassium as it is 3.5 today. (8) Preop cardiovascular exam: Code(s): Z01.810 - Encounter for preprocedural cardiovascular examination Status: Acute Assessment and Plan: She is at a high cardiac risk of 7.9% for TN and cardiac arrest perioperatively for bladder surgery/resection based on Garza risk calculator. Her risks include frailty, CKD, pulm hypertension, anemia, abnormal nuclear stress test, PAD, aortic stenosis, PAF, COPD. However, she may may proceed to surgery if needed as her cardiac risks would not improve. (9) Abnormal nuclear stress test: Code(s): R94.39 - Abnormal result o
[2020-03-28] MEDS: methiMAzole 5 MG TAB PO (09:34)
[2020-03-28] MEDS: CLINDAMYCIN 600 MG/NS 50 ML 600 MG/50 ML PIGGYBACK 100 MG IVPB ×2 (09:34→15:33)
[2020-03-28] MEDS: IRON SUCROSE COMPLEX 100 MG in SODIUM CHLORIDE 0.9% IV 50 ML 220 MG IVPB (09:34)
[2020-03-28] MEDS: THERAPEUTIC MULTIVITAMINS/MINERALS TAB (*BKC) 1 TABLET PO (09:34)
[2020-03-28] MEDS: SILVERGEL (ELTA) 45 ML 1 APPLIC TOPICAL (09:35)
[2020-03-28] MEDS: PANTOPRAZOLE SODIUM IV 40 MG VIAL IV PUSH ×2 (09:35→21:27)
[2020-03-28] MEDS: LIDOCAINE 5% PATCH 1 PATCH TRANSDERM (09:35)
[2020-03-28] MEDS: POTASSIUM CHLORIDE 20 MEQ PACKET (FOR LIQUID) 40 MEQ FEED TUBE (09:38)
[2020-03-28 12:07] LABS: Glucose Point of Care 197 (65-105)
[2020-03-28] MEDS: ACETAMINOPHEN 500 MG TABLET 1000 MG PO ×2 (12:46→21:27)
[2020-03-28] MEDS: levoFLOXacin 250 MG/D5W 50 ML 250 MG/50 ML BAG 50 MG IVPB (12:47)
[2020-03-28] MEDS: KCL 20MEQ/0.9% SOD CHL 1,000 ML 75 ML IV CONT (12:49)
--- NOTE | 2020-03-28 16:14 | PM.IMPN ---
Progress Note: A&P Assessment and Plan (1) Cardiopulmonary arrest: Code(s): I46.9 - Cardiac arrest, cause unspecified Status: Acute Assessment and Plan: Patient became bradycardic and then developed cardiac arrest. Had a recent abnormal stress test. Beta-ilsa started recently and had 3 doses prior to code. EKG at the time showing junctional rhythm with T wave inversion in high lateral leads. Trop climbed to 1.597. Elevated trop prob from CPR. No beta-lisa due to bradycardia. Oral meds were hold but can give with NG now AST/ALT elevated related to shock liver. Levels trending down. Related to code blue. Lipitor on hold. CXR showing left 4th rib fracture but whole chest wal sore. Treat symptomatically. (2) Acute respiratory failure: Qualifiers: Respiratory failure complication: hypoxia and hypercapnia Qualified Code(s): J96.01 - Acute respiratory failure with hypoxia; J96.02 - Acute respiratory failure with hypercapnia Code(s): J96.00 - Acute respiratory failure, unspecified whether with hypoxia or hypercapnia Status: Acute Assessment and Plan: ABG showing hypoxia and hypercapnia but normal pH. Patient able to be extubated 03/21/20. Patient improving and now down to 3L O2. Consider aspiration as complicating her respiratory failure. Continue to wean O2 as tolerated to baseline 2-3L. Stopped Solu-Medrol (which could explain elevated WBC). 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 ILD could also be related to Amio or chronic aspiration. (3) Anemia: Qualifiers: Anemia type: unspecified type Qualified Code(s): D64.9 - Anemia, unspecified Code(s): D64.9 - Anemia, unspecified Status: Chronic Assessment and Plan: Chronic anemia. Iron studies consistent with iron deficiency anemia. No evidence of acute bleeding. Stool occult blood is negative. Dr March giving IV venofer. Hemoglobin 6.9 on 03/20 and transfused. Hgb in the 8-9 range since and stable. Continue to monitor closely.9.3 today. (4) Recurrent pleural effusion on left: Code(s): J90 - Pleural effusion, not elsewhere classified Status: Acute Assessment and Plan: Recently admitted 02/28 - 03/03 for same; thoracentesis 03/01 and another 03/13 and 03/25, each yielding 1000mL clear yellow fluid. Analysis of pleural fluid last admission with negative cultures and no findings of malignancy on cytology. [place] effusions related to CHF. Echo showing EF 60% with diastolic dysfunction and severe pulmonary hypertension with a PASP of 82. Repeat thoracentesis 03/25 with 1000mL removed. (5) Atrial fibrillation: Qualifiers: Atrial fibrillation type: unspecified Qualified Code(s): I48.91 - Unspecified atrial fibrillation Code(s): I48.91 - Unspecified atrial fibrillation Status: Chronic Assessment and Plan: History of paroxysmal a fib. She was maintained on her home amiodarone. Toprol was added but now held due to bradycardia. She is not on long-term anticoagulation due to history of hematuria. Intermittent episode of AFib/RVR treated with bolus of Amio. move to med now (6) Abnormal nuclear stress test: Code(s): R94.39 - Abnormal result of other cardiovascular function study Status: Acute Assessment and Plan: She had outpatient Lexiscan 03/06/20 showing small ischemia of anterolateral wall performed for perioperative risk assessment (for bladder lesion resection vs. bx). Plan for medical management as she tolerates. Appreciate cardiology input. (7) Hypokalemia: Code(s): E87.6 - Hypokalemia Status: Acute Assessment and Plan: [place] to be secondary to increased diuresis. Potassium 3.5 . . Continue to follow. (8) Leukocytosis: Qualifiers: Leukocytosis type: unspecified Qualified Code(s): D72.829 - Elevated white blood cell count, unspecified Code(s
[2020-03-28 17:03] LABS: Glucose Point of Care 227 (65-105)
[2020-03-28] MEDS: ENOXAPARIN 30 MG/0.3 ML SYRINGE SUB-Q (21:27)
[2020-03-28] MEDS: INSULIN GLARGINE (*BKC) 100 UNITS/ML 15 UNITS SUB-Q (21:36)
[2020-03-28 23:59] LABS: Glucose Point of Care 156 (65-105)
[2020-03-29] VITALS (11 sets, daily range): BP systolic 119–157; BP diastolic 53–86; PULSE 68–84; RESP 20; TEMP 36.1–36.2; O2SAT 92–100
[2020-03-29] MEDS: IPRATROPIUM BR 0.02% INH SOLN 0.5 MG/2.5 ML VIAL INHALATION ×3 (02:03→13:43)
[2020-03-29] MEDS: ACETAMINOPHEN 500 MG TABLET 1000 MG PO ×2 (04:29→10:21)
[2020-03-29] MEDS: CENTRAL LINE FLUSH 10 ML IV PUSH ×3 (04:30→22:12)
[2020-03-29 05:13] LABS: Blood Urea Nitrogen 56 mg/dL (7-17); Calcium 8.9 mg/dL (8.4-10.2); Carbon Dioxide 35 mmol/L (22-30); Chloride 108 mmol/L (98-107); Estimated CRCL calculation 26 ml/min; Estimated Glomerular Filt Rate 40; Glucose 168 mg/dL (65-105); Phosphorus 2.6 mg/dL (2.5-4.5); Potassium 4.1 mmol/L (3.4-5.0); Sodium 145 mmol/L (137-145)
[2020-03-29 05:46] LABS: Glucose Point of Care 140 (65-105)
--- NOTE | 2020-03-29 08:15 | PM.PNCARD ---
Progress Note: A&P Assessment and Plan (1) Chronic obstructive pulmonary disease: Qualifiers: COPD type: unspecified COPD Qualified Code(s): J44.9 - Chronic obstructive pulmonary disease, unspecified Code(s): J44.9 - Chronic obstructive pulmonary disease, unspecified Status: Acute (2) Recurrent pleural effusion on left: Code(s): J90 - Pleural effusion, not elsewhere classified Status: Acute Assessment and Plan: Due to pulmonary hypertension and diastolic dysfunction. S/P left thoracentesis removing 1 liter on 03/13/20 and again on 03/24/20. Patient appears to be dry. Would hold off on diuretics for now. (3) Hypertension: Qualifiers: Hypertension type: unspecified Qualified Code(s): I10 - Essential (primary) hypertension Code(s): I10 - Essential (primary) hypertension Status: Chronic (4) Pulmonary hypertension: Code(s): I27.20 - Pulmonary hypertension, unspecified Status: Acute Assessment and Plan: Due to COPD. Given severity of it, however, referred to [facility] hypertension clinic but she has not seen them yet. (5) Aortic valve stenosis: Qualifiers: Cardiac valve disease etiology: etiology unspecified Qualified Code(s): I35.0 - Nonrheumatic aortic (valve) stenosis Code(s): I35.0 - Nonrheumatic aortic (valve) stenosis Status: Chronic Assessment and Plan: Mod-severe ; subsequent echo shows only mild based on valve area and gradients. No need for intervention until it becomes frankly severe, then would consider TAVR procedure. (6) CKD (chronic kidney disease): Qualifiers: Chronic kidney disease stage: stage 3 (moderate) Qualified Code(s): N18.3 - Chronic kidney disease, stage 3 (moderate) Code(s): N18.9 - Chronic kidney disease, unspecified Status: Chronic Assessment and Plan: Continue to monitor as it kidney function worsens with diuretics. Replete potassium to keep around 4.0. Kidney function improves off diuretics which tells me she is 3rd spacing to left lung and not intravascularly volume overloaded. (7) PAF (paroxysmal atrial fibrillation): Code(s): I48.0 - Paroxysmal atrial fibrillation Status: Acute Assessment and Plan: On Amiodarone and she went intro atrial flutter/tachycardia on 03/17/20. [id number] 3. On aspirin given bleeding on anticoagulation from tract. Carioverted on 03/19/20 to sinus rhythm. Then had bradycardia and cardiopulm arrest, was on mechanical ventilation, now extubated. Discontinue Toprol given bradycardia in sinus rhythm. Agree with using Amiodarone IV when needed to keep her in sinus rhythm. She has intermittent atrial flutter/tachycardia. Amiodarone 150 IV x 1 given but still in atrial flutter/tachycardia. Started Amiodarone IV drip which she cardioverted but went back into atrial flutter/fib with rate that is 90-105 bpm range. 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 Therefore, Amiodarone discontinued. She is on Solumedrol for her COPD which is also treats Amiodarone toxicity. If patient is in rapid atrial flutter/tachycardia, rate control with Metoprolol tartate low dose 6.25 mg PO every 12 hrs with parameters if able to be given via NGT. (8) Preop cardiovascular exam: Code(s): Z01.810 - Encounter for preprocedural cardiovascular examination Status: Acute Assessment and Plan: She is at a high cardiac risk of 7.9% for SD and cardiac arrest perioperatively for bladder surgery/resection based on Garza risk calculator. Her risks include frailty, CKD, pulm hypertension, anemia, abnormal nuclear stress test, PAD, aortic stenosis, PAF, COPD. However, she may may proceed to surgery if needed as her cardiac risks would not improve. (9) Abnormal nuclear stress test: Code(s): R94.39 - Abnormal result of other cardiovascular function study
[2020-03-29] MEDS: IRON SUCROSE COMPLEX 100 MG in SODIUM CHLORIDE 0.9% IV 50 ML 220 MG IVPB (08:35)
[2020-03-29] MEDS: methiMAzole 5 MG TAB PO (08:36)
[2020-03-29] MEDS: SILVERGEL (ELTA) 45 ML 1 APPLIC TOPICAL (08:36)
[2020-03-29] MEDS: PANTOPRAZOLE SODIUM IV 40 MG VIAL IV PUSH ×2 (08:36→21:57)
[2020-03-29] MEDS: LIDOCAINE 5% PATCH 1 PATCH TRANSDERM (08:36)
[2020-03-29] MEDS: THERAPEUTIC MULTIVITAMINS/MINERALS TAB (*BKC) 1 TABLET PO (08:36)
[2020-03-29] MEDS: ATORVASTATIN 10 MG TABLET PO (10:21)
[2020-03-29] MEDS: ASPIRIN 81 MG ENTERIC TABLET PO (10:21)
--- NOTE | 2020-03-29 10:57 | PCDIET ---
Nutrition Follow-Up Complete: Nutrition Diagnosis: Inadequate oral intake related to oral intubation as evidenced by NPO status. Nutrition Goal: Patient to meet estimated nutritional needs. Goal in progress. Phoned MD re: tube feeding rate; MD plans to increase to recommended goal of 50mL/hr Glucerna 1.2 later today. Patient/RN report patient has been tolerating rate of 30mL/hr well without GI c/o. No significant residuals. Last recorded weight is 59.4 kg which is increased from last review. Bowel Motility: +BM documented - colostomy Labs Reviewed: Glu (140), BUN (56), Cr (1.3) - noted Mg, PO4, K+ and Na WNL Meds Noted: Albuterol, Novolog, Lantus, Atrovent, Iron Sucrose, MVI/minerals, Protonix Additional Notes: Coccyx with pressure ulcer; no documented change. Will continue to monitor with same goal. Nutrition Monitoring and Evaluation: Follow up every Wednesday/Wednesday.
[2020-03-29 12:11] LABS: Glucose Point of Care 179 (65-105)
--- NOTE | 2020-03-29 15:09 | PC.NURSE ---
This patient, Rachele Murray, was transferred to [facility] on 03/29/20 at 1500. Personal belongings sent with patient. Belongings list checked and signed with receiving. Report given to PETORS Martinez. Appropriate documentation sent with patient.
--- NOTE | 2020-03-29 15:59 | P.PNIM_ITS ---
Progress Note: A&P Assessment and Plan (1) Cardiopulmonary arrest: Code(s): I46.9 - Cardiac arrest, cause unspecified Status: Acute Assessment and Plan: Patient became bradycardic and then developed cardiac arrest. Had a recent abnormal stress test. Beta-lisa started recently and had 3 doses prior to code. EKG at the time showing junctional rhythm with T wave inversion in high lateral leads. Trop climbed to 1.597. Elevated trop prob from CPR. No beta- lisa due to bradycardia. Oral meds were held but now some NG AST/ALT elevated related to shock liver. Levels trending down. Related to code blue. Lipitor on hold. CXR showing left 4th rib fracture but whole chest wal sore. Treat symptomatically. (2) Acute respiratory failure: Qualifiers: Respiratory failure complication: hypoxia and hypercapnia Qualified Code(s): J96.01 - Acute respiratory failure with hypoxia; J96.02 - Acute respiratory failure with hypercapnia Code(s): J96.00 - Acute respiratory failure, unspecified whether with hypoxia or hypercapnia Status: Acute Assessment and Plan: ABG showed hypoxia and hypercapnia but normal pH. Patient able to be extubated 03/21/20. Patient improving and now down to 3L O2. Consider aspiration as complicating her respiratory failure. Continue to wean O2 as tolerated to baseline 2-3L. Stopped Solu-Medrol (which could explain elevated WBC). 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 ILD could also be related to Amio or chronic aspiration. (3) Anemia: Qualifiers: Anemia type: unspecified type Qualified Code(s): D64.9 - Anemia, unspecified Code(s): D64.9 - Anemia, unspecified Status: Chronic Assessment and Plan: Chronic anemia. Iron studies consistent with iron deficiency anemia. No evidence of acute bleeding. Stool occult blood is negative. Dr March giving IV venofer. Hemoglobin 6.9 on 03/20 and transfused. Hgb in the 8-9 range since and stable. re check am (4) Recurrent pleural effusion on left: Code(s): J90 - Pleural effusion, not elsewhere classified Status: Acute Assessment and Plan: Recently admitted 02/28 - 03/03 for same; thoracentesis 03/01 and another 03/13 and 03/25, each yielding 1000mL clear yellow fluid. Analysis of pleural fluid last admission with negative cultures and no findings of malignancy on cytology. [place] effusions related to CHF. Echo showing EF 60% with diastolic dysfunction and severe pulmonary hypertension with a PASP of 82. Repeat thoracentesis 03/25 with 1000mL removed. (5) Atrial fibrillation: Qualifiers: Atrial fibrillation type: unspecified Qualified Code(s): I48.91 - Uns pecified atrial fibrillation Code(s): I48.91 - Unspecified atrial fibrillation Status: Chronic Assessment and Plan: History of paroxysmal a fib. She was maintained on her home amiodarone. Toprol was added but now held due to bradycardia. She is not on long-term anticoagulation due to history of hematuria. Intermittent episode of AFib/RVR treated with bolus of Amio. move to med now and off all cardiac meds (6) Abnormal nuclear stress test: Code(s): R94.39 - Abnormal result of other cardiovascular function study Status: Acute Assessment and Plan: She had outpatient Lexiscan 03/06/20 showing small ischemia of anterolateral wall performed for perioperative risk assessment (for bladder lesion resection vs. bx). Plan for medical management as she tolerates. Appreciate cardiology input. (7) Hypokalemia: Code(s
[2020-03-29 16:27] LABS: Glucose Point of Care 172 (65-105)
--- NOTE | 2020-03-29 18:35 | PM.PNPUL ---
Progress Note: A&P Assessment and Plan (1) CHF (congestive heart failure): Code(s): I50.9 - Heart failure, unspecified Status: Acute Assessment and Plan: - her left effusion is a transudate, not consistent with pneumonia; this is more likely to be due to CHF than a lung process such as infection. The other possibilities include cirrhosis or nephrosis. Liver has increased density on chest CT with a history of amiodarone use. Renal function is still out of the normal range, BUN 70, creat 1.3, better. - swallow study today; is pass, feed orally; if fail, Dobhoff and start TF _ deliver Trilogy (2) Pleural effusion on left: Code(s): J90 - Pleural effusion, not elsewhere classified Status: Acute Assessment and Plan: - 03/24 repeat U/S guided thoracentesis removed 1000 L hazy yellow fluid, - also has worsening aortic stenosis; (3) Respiratory failure with hypoxia and hypercapnia: Code(s): J96.91 - Respiratory failure, unspecified with hypoxia; J96.92 - Respiratory failure, unspecified with hypercapnia Status: Acute Assessment and Plan: - acute and chronic respiratory failure; patient has been in O2 at 3 L/min @ home starting in Sep 2019, now with recurrent episodes of respiratory failure due to COPD and CHF; extubated 03/21/2020; candidate for Trilogy device, which is not going to be allowed if she goes to [place]. She did not tolerate BiPAP, and NPPV is a better option for her. This was approved if she goes to [facility] or home, but not if she goes to [place]. (4) Chronic obstructive pulmonary disease: Qualifiers: COPD type: unspecified COPD Qualified Code(s): J44.9 - Chronic obstructive pulmonary disease, unspecified Code(s): J44.9 - Chronic obstructive pulmonary disease, unspecified Status: Acute Assessment and Plan: - Spiriva may not be ineffective at this point - will continue Atovent 0.5 mg Nebs Q6h (5) Aortic valve stenosis: Qualifiers: Cardiac valve disease etiology: etiology unspecified Qualified Code(s): I35.0 - Nonrheumatic aortic (valve) stenosis Code(s): I35.0 - Nonrheumatic aortic (valve) stenosis Status: Chronic Assessment and Plan: This may be contributing to the failure and effusion. Subjective Date/time seen: 03/29/20 18:36 Interval history: Stable, remains in IMU Room 203. She continues to have right rib pain from fracture due to CPR. March 24 - 1 L, repeat left thoracentesis. March 25 - 4 L/min with a saturation of 91- 100%, approved for Trilogy; NPPV, for assistance with night time ventilation during sleep and in the daytime as needed for shortness of breath. March 26 - Dobhoff feeding tube in place, on TF. On 3 L/min; has not received her Trilogy. She has no new complaints, feels weak. Review of Systems Review of Systems: All systems reviewed & are unremarkable except as noted in HPI and below (generalized weakness) ROS unobtainable: Yes other (She should improve on swallow; has been longer since extubation. ) Exam Const: General: no acute distress Neck: Neck: supple Resp: Auscultation: diminished lung sounds on the left and localized (base) Cardio: Rate: regular rate Rhythm: regular rhythm Heart sounds: Murmur heart sound present GI: Inspection: other (colostomy LLQ, brown output) Skin: General skin exam: no rashes or lesions noted Neuro: Speech: normal speech Extrem: General: normal to inspection, no edema and no pedal edema Objective Data Vital Signs Vital Signs: Vital Signs - 24 hr 03/28/20 20:00 03/28
[2020-03-29 18:40] LABS: Albumin Pleural Fluid 1.4 g/dL
[2020-03-29] MEDS: ENOXAPARIN 30 MG/0.3 ML SYRINGE SUB-Q (21:56)
[2020-03-29] MEDS: ACETAMINOPHEN 500 MG TABLET PO (22:10)
[2020-03-29 22:14] LABS: Glucose Point of Care 169 (65-105)
[2020-03-30] VITALS (14 sets, daily range): BP systolic 124–143; BP diastolic 42–62; PULSE 51–81; RESP 18–24; TEMP 36.4–37; O2SAT 96–100
[2020-03-30 00:25] LABS: Glucose Point of Care 164 (65-105)
[2020-03-30] MEDS: IPRATROPIUM BR 0.02% INH SOLN 0.5 MG/2.5 ML VIAL INHALATION ×4 (02:27→19:06)
[2020-03-30 05:42] LABS: Basophils Percent Auto 0.1 % (0.2-1.2); Eosinophils Absolute Auto 0.3 K/mm3 (0-0.3); Eosinophils Percent Auto 1.7 % (0-4.4); Hematocrit 30.5 % (37.0-47.0); Hemoglobin 8.6 g/dL (12.0-15.0); Immature Granulocyte Absolute 0.16 K/mm3 (0.00-0.031); Immature Granulocyte Percent A 0.8 % (0-0.5); Lymphocytes Absolute Auto 0.85 K/mm3 (0.9-3.2); Lymphocytes Percent Auto 4.3 % (18.3-44.2); Mean Corpuscular HGB Conc 28.2 g/dl (32-36); Mean Corpuscular Hemoglobin 27.7 pg (26-34); Mean Corpuscular Volume 98.1 fl (80-100); Mean Platelet Volume 10.4 fl (7.4-10.4); Monocytes Absolute Auto 0.9 K/mm3 (0.1-0.6); Monocytes Percent Auto 4.7 % (2.6-8.5); Neutrophils Absolute Auto 17.5 K/mm3 (1.3-6.7); Neutrophils Percent Auto 88.4 % (45.5-73.1); Platelet Count Result 243 k/mm3 (150-375); Red Blood Count 3.11 M/mm3 (4.2-5.4); Red Cell Distribution Width 18.8 % (11.5-14.5); White Blood Count 19.8 K/mm3 (4.5-10.0)
[2020-03-30 05:46] LABS: Alanine Aminotransferase 45 U/L (4-35); Albumin Level 2.6 g/dL (3.5-5.1); Alkaline Phosphatase 145 U/L (38-126); Aspartate Amino Transferase 28 U/L (14-36); Bilirubin,Total 0.9 mg/dL (0.2-1.3); Blood Urea Nitrogen 48 mg/dL (7-17); Calcium 8.9 mg/dL (8.4-10.2); Carbon Dioxide 35 mmol/L (22-30); Chloride 109 mmol/L (98-107); Estimated CRCL calculation 26 ml/min; Estimated Glomerular Filt Rate 40; Glucose 170 mg/dL (65-105); Phosphorus 2.9 mg/dL (2.5-4.5); Potassium 4.1 mmol/L (3.4-5.0); Sodium 146 mmol/L (137-145)
[2020-03-30] MEDS: CENTRAL LINE FLUSH 10 ML IV PUSH ×3 (05:46→21:00)
[2020-03-30 05:59] LABS: Hypochromasia 1+ (NORMAL); Platelet Estimate Adequate (Adequate)
[2020-03-30 06:15] LABS: Glucose Point of Care 143 (65-105)
--- NOTE | 2020-03-30 07:54 | PM.PNCARD ---
Progress Note: A&P Assessment and Plan (1) Chronic obstructive pulmonary disease: Qualifiers: COPD type: unspecified COPD Qualified Code(s): J44.9 - Chronic obstructive pulmonary disease, unspecified Code(s): J44.9 - Chronic obstructive pulmonary disease, unspecified Status: Acute (2) Recurrent pleural effusion on left: Code(s): J90 - Pleural effusion, not elsewhere classified Status: Acute Assessment and Plan: Due to pulmonary hypertension and diastolic dysfunction. S/P left thoracentesis removing 1 liter on 03/13/20 and again on 03/24/20. Patient appears to be dry. Would hold off on diuretics for now. (3) Hypertension: Qualifiers: Hypertension type: unspecified Qualified Code(s): I10 - Essential (primary) hypertension Code(s): I10 - Essential (primary) hypertension Status: Chronic (4) Pulmonary hypertension: Code(s): I27.20 - Pulmonary hypertension, unspecified Status: Acute Assessment and Plan: Due to COPD. Given severity of it, however, referred to [facility] hypertension clinic but she has not seen them yet. (5) Aortic valve stenosis: Qualifiers: Cardiac valve disease etiology: etiology unspecified Qualified Code(s): I35.0 - Nonrheumatic aortic (valve) stenosis Code(s): I35.0 - Nonrheumatic aortic (valve) stenosis Status: Chronic Assessment and Plan: Mod-severe ; subsequent echo shows only mild based on valve area and gradients. No need for intervention until it becomes frankly severe, then would consider TAVR procedure. (6) CKD (chronic kidney disease): Qualifiers: Chronic kidney disease stage: stage 3 (moderate) Qualified Code(s): N18.3 - Chronic kidney disease, stage 3 (moderate) Code(s): N18.9 - Chronic kidney disease, unspecified Status: Chronic Assessment and Plan: Continue to monitor as it kidney function worsens with diuretics. Replete potassium to keep around 4.0. Kidney function improves off diuretics which tells me she is 3rd spacing to left lung and not intravascularly volume overloaded. (7) PAF (paroxysmal atrial fibrillation): Code(s): I48.0 - Paroxysmal atrial fibrillation Status: Acute Assessment and Plan: Was on Amiodarone and she went intro atrial flutter/tachycardia on 03/17/20. [id number] 3. On aspirin given bleeding on anticoagulation from tract. Carioverted on 03/19/20 to sinus rhythm. Then had bradycardia and cardiopulm arrest, was on mechanical ventilation, now extubated. Discontinue Toprol given bradycardia in sinus rhythm. Agree with using Amiodarone IV when needed to keep her in sinus rhythm. She has intermittent atrial flutter/tachycardia. Amiodarone 150 IV x 1 given but still in atrial flutter/tachycardia. Started Amiodarone IV drip which she cardioverted but went back into atrial flutter/fib with rate that is 90-105 bpm range. 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 Therefore, Amiodarone discontinued. She is was on Solumedrol for her COPD which is also treats Amiodarone toxicity. If patient is in rapid atrial flutter/tachycardia, rate control with Metoprolol tartate low dose 6.25 mg PO every 12 hrs with parameters. (8) Preop cardiovascular exam: Code(s): Z01.810 - Encounter for preprocedural cardiovascular examination Status: Acute Assessment and Plan: She is at a high cardiac risk of 7.9% for AK and cardiac arrest perioperatively for bladder surgery/resection based on Garza risk calculator. Her risks include frailty, CKD, pulm hypertension, anemia, abnormal nuclear stress test, PAD, aortic stenosis, PAF, COPD. However, she may may proceed to surgery if needed as her cardiac risks would not improve. (9) Abnormal nuclear stress test: Code(s): R94.39 - Abnormal result of other cardiovascular function study Status: Acut
[2020-03-30] MEDS: ATORVASTATIN 10 MG TABLET PO (09:17)
[2020-03-30] MEDS: LIDOCAINE 5% PATCH 1 PATCH TRANSDERM (09:17)
[2020-03-30] MEDS: methiMAzole 5 MG TAB PO (09:17)
[2020-03-30] MEDS: ASPIRIN 81 MG ENTERIC TABLET PO (09:17)
[2020-03-30] MEDS: THERAPEUTIC MULTIVITAMINS/MINERALS TAB (*BKC) 1 TABLET PO (09:17)
[2020-03-30] MEDS: SILVERGEL (ELTA) 45 ML 1 APPLIC TOPICAL (09:18)
[2020-03-30] MEDS: IRON SUCROSE COMPLEX 100 MG in SODIUM CHLORIDE 0.9% IV 50 ML 220 MG IVPB (09:22)
[2020-03-30] MEDS: ACETAMINOPHEN 500 MG TABLET 1000 MG PO ×2 (09:46→16:32)
[2020-03-30] MEDS: PANTOPRAZOLE SODIUM IV 40 MG VIAL IV PUSH ×2 (10:31→20:56)
[2020-03-30 12:36] LABS: Glucose Point of Care 138 (65-105)
--- NOTE | 2020-03-30 17:20 | PM.IMPN ---
Progress Note: A&P Assessment and Plan (1) Cardiopulmonary arrest: Code(s): I46.9 - Cardiac arrest, cause unspecified Status: Acute Assessment and Plan: Patient became bradycardic and then developed cardiac arrest. Had a recent abnormal stress test. Beta-lisa started recently and had 3 doses prior to code. EKG at the time showing junctional rhythm with T wave inversion in high lateral leads. Trop climbed to 1.597. Elevated trop prob from CPR. No beta-lisa due to bradycardia. Oral meds were held but now some NG AST/ALT elevated related to shock liver. Levels trending down AST normal today. Related to code blue. Lipitor on hold. CXR showing left 4th rib fracture but whole chest wal sore. Treat symptomatically. (2) Acute respiratory failure: Qualifiers: Respiratory failure complication: hypoxia and hypercapnia Qualified Code(s): J96.01 - Acute respiratory failure with hypoxia; J96.02 - Acute respiratory failure with hypercapnia Code(s): J96.00 - Acute respiratory failure, unspecified whether with hypoxia or hypercapnia Status: Acute Assessment and Plan: ABG showed hypoxia and hypercapnia but normal pH. Patient able to be extubated 03/21/20. Patient improving and now down to 3L O2. Consider aspiration as complicating her respiratory failure. Continue to wean O2 as tolerated to baseline 2-3L. Stopped Solu-Medrol (which could explain elevated WBC). 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 ILD could also be related to Amio or chronic aspiration. (3) Anemia: Qualifiers: Anemia type: unspecified type Qualified Code(s): D64.9 - Anemia, unspecified Code(s): D64.9 - Anemia, unspecified Status: Chronic Assessment and Plan: Chronic anemia. Iron studies consistent with iron deficiency anemia. No evidence of acute bleeding. Stool occult blood is negative. Dr March giving IV venofer. Hemoglobin 6.9 on 03/20 and transfused. Hgb in the 8-9 range since and stable. hgb 8.6 today (4) Recurrent pleural effusion on left: Code(s): J90 - Pleural effusion, not elsewhere classified Status: Acute Assessment and Plan: Recently admitted 02/28 - 03/03 for same; thoracentesis 03/01 and another 03/13 and 03/25, each yielding 1000mL clear yellow fluid. Analysis of pleural fluid last admission with negative cultures and no findings of malignancy on cytology. [place] effusions related to CHF. Echo showing EF 60% with diastolic dysfunction and severe pulmonary hypertension with a PASP of 82. Repeat thoracentesis 03/25 with 1000mL removed. (5) Atrial fibrillation: Qualifiers: Atrial fibrillation type: unspecified Qualified Code(s): I48.91 - Unspecified atrial fibrillation Code(s): I48.91 - Unspecified atrial fibrillation Status: Chronic Assessment and Plan: History of paroxysmal a fib. She was maintained on her home amiodarone. Toprol was added but now held due to bradycardia. She is not on long-term anticoagulation due to history of hematuria. Intermittent episode of AFib/RVR treated with bolus of Amio. move to med now and off all cardiac meds (6) Abnormal nuclear stress test: Code(s): R94.39 - Abnormal result of other cardiovascular function study Status: Acute Assessment and Plan: She had outpatient Lexiscan 03/06/20 showing small ischemia of anterolateral wall performed for perioperative risk assessment (for bladder lesion resection vs. bx). Plan for medical management as she tolerates. Appreciate cardiology input. (7) Hypokalemia: Code(s): E87.6 - Hypokalemia Status: Acute Assessment and Plan: [place] to be secondary to increased diuresis. Potassium 4.1 . . Continue to follow. (8) Leukocytosis: Qualifiers: Leukocytosis type: unspecified Qualified Code(s): D72.829 - Elevated white blood cell count, unspecified
[2020-03-30 17:28] LABS: SARS-CoV-2 RNA PCR Negative
[2020-03-30 17:49] LABS: Glucose Point of Care 178 (65-105)
--- NOTE | 2020-03-30 17:59 | PM.PNPUL ---
Progress Note: A&P Assessment and Plan (1) CHF (congestive heart failure): Code(s): I50.9 - Heart failure, unspecified Status: Acute Assessment and Plan: - her left effusion is a transudate, not consistent with pneumonia; this is more likely to be due to CHF than a lung process such as infection. The other possibilities include cirrhosis or nephrosis. Liver has increased density on chest CT with a history of amiodarone use. Renal function is still out of the normal range, BUN 70, creat 1.3, better. - failed swallow study; now on tube feeds -requested Trilogy NPPV, not delievered (2) Pleural effusion on left: Code(s): J90 - Pleural effusion, not elsewhere classified Status: Acute Assessment and Plan: - 03/24 repeat U/S guided thoracentesis removed 1000 L hazy yellow fluid, - also has worsening aortic stenosis; (3) Respiratory failure with hypoxia and hypercapnia: Code(s): J96.91 - Respiratory failure, unspecified with hypoxia; J96.92 - Respiratory failure, unspecified with hypercapnia Status: Acute Assessment and Plan: - acute and chronic respiratory failure; patient has been in O2 at 3 L/min @ home starting in Sep 2019, now with recurrent episodes of respiratory failure due to COPD and CHF; extubated 03/21/2020; candidate for Trilogy device, which is not going to be allowed if she goes to [place]. She did not tolerate BiPAP, and NPPV is a better option for her. This was approved if she goes to [facility] or home, but not if she goes to [place]. (4) Chronic obstructive pulmonary disease: Qualifiers: COPD type: unspecified COPD Qualified Code(s): J44.9 - Chronic obstructive pulmonary disease, unspecified Code(s): J44.9 - Chronic obstructive pulmonary disease, unspecified Status: Acute Assessment and Plan: - Spiriva may not be ineffective at this point - will continue Atovent 0.5 mg Nebs Q6h (5) Aortic valve stenosis: Qualifiers: Cardiac valve disease etiology: etiology unspecified Qualified Code(s): I35.0 - Nonrheumatic aortic (valve) stenosis Code(s): I35.0 - Nonrheumatic aortic (valve) stenosis Status: Chronic Assessment and Plan: This may be contributing to the failure and effusion. Subjective Date/time seen: 03/30/20 17:59 The patient is a 74 yo female admitted for recurrent pleural effusion; this has been tapped twice, and is consistent with a transudate. She has chest pain from CPR, she is not walking and has been in bed since admission. She is working with PT, and she is able to sit on the side of the bed. At the time of admission, she was bradycardic at heart rate 36 early am on March 20, and found pulseless, had CPR for 13 minutes with Epi, bicarb, IVF with return of spontaneous circulation, intubated at that time, then successfully extubated 03/21. She was unable to have NGT placement under fluoro initially but success 03/26. She states that she would be okay with GTube if needed. Patient denies SOB. Still with right sided chest wall pain from CPR. Review of Systems Review of Systems: All systems reviewed & are unremarkable except as noted in HPI and below Exam Narrative: Exam Narrative: Const: General: no acute distress Neck: Neck: supple Resp: Auscultation: diminished lung sounds on the left and localized (base) Cardio: Rate: regular rate Rhythm: regular rhythm Heart sounds: Murmur heart sound present GI: Inspection: other (colostomy LLQ, brown output) Skin: General skin exam: no rashes or lesions noted Neuro: Speech: normal speech Extrem:
[2020-03-30] MEDS: ENOXAPARIN 30 MG/0.3 ML SYRINGE SUB-Q (20:56)
[2020-03-30] MEDS: INSULIN GLARGINE (*BKC) 100 UNITS/ML 15 UNITS SUB-Q (20:57)
[2020-03-30 21:49] LABS: Glucose Point of Care 186 (65-105)
[2020-03-31] VITALS (10 sets, daily range): BP systolic 112–137; BP diastolic 50; PULSE 69–88; RESP 18–20; TEMP 36.6–37.2; O2SAT 97–99
[2020-03-31 00:22] LABS: Glucose Point of Care 169 (65-105)
[2020-03-31] MEDS: IPRATROPIUM BR 0.02% INH SOLN 0.5 MG/2.5 ML VIAL INHALATION ×3 (01:04→20:14)
[2020-03-31] MEDS: CENTRAL LINE FLUSH 20 ML IV PUSH (05:52)
[2020-03-31] MEDS: CENTRAL LINE FLUSH 10 ML IV PUSH ×3 (05:55→21:35)
[2020-03-31 05:59] LABS: Glucose Point of Care 144 (65-105)
[2020-03-31 06:27] LABS: Basophils Percent Auto 0.1 % (0.2-1.2); Eosinophils Absolute Auto 0.3 K/mm3 (0-0.3); Eosinophils Percent Auto 1.5 % (0-4.4); Hematocrit 29.4 % (37.0-47.0); Hemoglobin 8.2 g/dL (12.0-15.0); Lymphocytes Absolute Auto 0.87 K/mm3 (0.9-3.2); Lymphocytes Percent Auto 4.3 % (18.3-44.2); Mean Corpuscular HGB Conc 27.9 g/dl (32-36); Mean Corpuscular Volume 100.3 fl (80-100); Mean Platelet Volume 11.1 fl (7.4-10.4); Monocytes Absolute Auto 1.1 K/mm3 (0.1-0.6); Monocytes Percent Auto 5.2 % (2.6-8.5); Neutrophils Absolute Auto 17.8 K/mm3 (1.3-6.7); Neutrophils Percent Auto 87.9 % (45.5-73.1); Platelet Count Result 253 k/mm3 (150-375); Red Blood Count 2.93 M/mm3 (4.2-5.4); Red Cell Distribution Width 18.8 % (11.5-14.5); White Blood Count 20.2 K/mm3 (4.5-10.0)
[2020-03-31 06:45] LABS: Blood Urea Nitrogen 46 mg/dL (7-17); Calcium 8.7 mg/dL (8.4-10.2); Carbon Dioxide 36 mmol/L (22-30); Chloride 108 mmol/L (98-107); Estimated CRCL calculation 29 ml/min; Estimated Glomerular Filt Rate 44; Glucose 146 mg/dL (65-105); Phosphorus 3.1 mg/dL (2.5-4.5); Potassium 4.3 mmol/L (3.4-5.0); Sodium 144 mmol/L (137-145)
--- NOTE | 2020-03-31 08:06 | PM.PNCARD ---
Progress Note: A&P Assessment and Plan (1) Chronic obstructive pulmonary disease: Qualifiers: COPD type: unspecified COPD Qualified Code(s): J44.9 - Chronic obstructive pulmonary disease, unspecified Code(s): J44.9 - Chronic obstructive pulmonary disease, unspecified Status: Acute (2) Recurrent pleural effusion on left: Code(s): J90 - Pleural effusion, not elsewhere classified Status: Acute Assessment and Plan: Due to pulmonary hypertension and diastolic dysfunction. S/P left thoracentesis removing 1 liter on 03/13/20 and again on 03/24/20. Patient appears to be dry. Would hold off on diuretics for now. (3) Hypertension: Qualifiers: Hypertension type: unspecified Qualified Code(s): I10 - Essential (primary) hypertension Code(s): I10 - Essential (primary) hypertension Status: Chronic (4) Pulmonary hypertension: Code(s): I27.20 - Pulmonary hypertension, unspecified Status: Acute Assessment and Plan: Due to COPD. Given severity of it, however, referred to [facility] hypertension clinic but she has not seen them yet. (5) Aortic valve stenosis: Qualifiers: Cardiac valve disease etiology: etiology unspecified Qualified Code(s): I35.0 - Nonrheumatic aortic (valve) stenosis Code(s): I35.0 - Nonrheumatic aortic (valve) stenosis Status: Chronic Assessment and Plan: Mod-severe ; subsequent echo shows only mild based on valve area and gradients. No need for intervention until it becomes frankly severe, then would consider TAVR procedure. (6) CKD (chronic kidney disease): Qualifiers: Chronic kidney disease stage: stage 3 (moderate) Qualified Code(s): N18.3 - Chronic kidney disease, stage 3 (moderate) Code(s): N18.9 - Chronic kidney disease, unspecified Status: Chronic Assessment and Plan: Continue to monitor as it kidney function worsens with diuretics. Replete potassium as needed to keep around 4.0. Kidney function improves off diuretics which tells me she is 3rd spacing to left lung and not intravascularly volume overloaded. (7) PAF (paroxysmal atrial fibrillation): Code(s): I48.0 - Paroxysmal atrial fibrillation Status: Acute Assessment and Plan: Was on Amiodarone and she went intro atrial flutter/tachycardia on 03/17/20. [id number] 3. On aspirin given bleeding on anticoagulation from tract. Carioverted on 03/19/20 to sinus rhythm. Then had bradycardia and cardiopulm arrest, was on mechanical ventilation, now extubated. Discontinue Toprol given bradycardia in sinus rhythm. Agree with using Amiodarone IV when needed to keep her in sinus rhythm. She has intermittent atrial flutter/tachycardia. Amiodarone 150 IV x 1 given but still in atrial flutter/tachycardia. Started Amiodarone IV drip which she cardioverted but went back into atrial flutter/fib with rate that is 90-105 bpm range. 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 Therefore, Amiodarone discontinued. She is was on Solumedrol for her COPD which is also treats Amiodarone toxicity. If patient is in rapid atrial flutter/tachycardia, rate control with Metoprolol tartate low dose 6.25 mg PO every 12 hrs with parameters. Patient has been hemodynamically stable for last few days. No further cardiac workup at this time. Will sign off patient. Please call me with any questions. (8) Preop cardiovascular exam: Code(s): Z01.810 - Encounter for preprocedural cardiovascular examination Status: Acute Assessment and Plan: She is at a high cardiac risk of 7.9% for PA and cardiac arrest perioperatively for bladder surgery/resection based on Garza risk calculator. Her risks include frailty, CKD, pulm hypertension, anemia, abnormal nuclear stress test, PAD, aortic stenosis, PAF, COPD. However, she may may proceed to surgery if needed as he
[2020-03-31] MEDS: ACETAMINOPHEN 500 MG TABLET 1000 MG PO ×2 (09:20→16:43)
[2020-03-31] MEDS: THERAPEUTIC MULTIVITAMINS/MINERALS TAB (*BKC) 1 TABLET PO (09:21)
[2020-03-31] MEDS: LIDOCAINE 5% PATCH 1 PATCH TRANSDERM (09:21)
[2020-03-31] MEDS: ATORVASTATIN 10 MG TABLET PO (09:21)
[2020-03-31] MEDS: methiMAzole 5 MG TAB PO (09:21)
[2020-03-31] MEDS: ASPIRIN 81 MG ENTERIC TABLET PO (09:21)
[2020-03-31] MEDS: IRON SUCROSE COMPLEX 100 MG in SODIUM CHLORIDE 0.9% IV 50 ML 220 MG IVPB (09:24)
[2020-03-31] MEDS: PANTOPRAZOLE SODIUM IV 40 MG VIAL IV PUSH ×2 (09:24→21:34)
[2020-03-31] MEDS: SILVERGEL (ELTA) 45 ML 1 APPLIC TOPICAL (09:25)
--- NOTE | 2020-03-31 10:57 | PCPTNOTE ---
The patient treatment was not able to be completed on 03/31/20 due to going down for a swallowing test. Will plan to continue treatment per plan of care.
[2020-03-31 12:38] LABS: Glucose Point of Care 146 (65-105)
--- NOTE | 2020-03-31 13:07 | PCSTNOTE ---
Modified Barium Swallow This pt was seen for a repeat Modified Barium Swallow evaluation following extubation about 1 week prior. The pt is NPO with a nasogastric tube. Her previous MBS revealed aspiration of thin and moderately thick liquid and penetration of extremely thick liquid. Chin tuck and effortful swallow reduced but did not eliminate the penetration/aspiration. For this evaluation, the pt was seated upright and given trials of thin, moderately thick, and extremely thick liquid. During the oral stage, reduced lingual movement was evidenced by delayed oral transit. During the pharyngeal stage, reduced laryngeal elevation was evidenced by laryngeal penetration, reduced vocal fold adduction was evidenced by aspiration during the swallow, reduced tongue base retraction was evidenced by residue in the valleculae, and pyriform residue was also substantial. During the cricopharyngeal stage, Zenker's Diverticulum was noted, though it did not appear to contribute to penetration/aspiration. Overall, moderate penetration and aspiration occurred during the swallow. Material entered the airway past the level of the vocal folds and no effort was made to eject it. Chin tuck position was effective at reducing penetration/aspiration to trace amounts. It is recommended for the pt to receive a combination or oral and non-oral diets. Small amounts of pureed foods and extremely thick liquid should be used therapeutically. Due to the severity of the condition, if the pt does not improve at the next evaluation she may need to have a gastronomy tube placed. Speech therapy should focus on the following: -laryngeal elevation exercises -laryngeal adduction exercises -tongue base retraction exercises -swallowing precautions including chin tuck and limit volume to 3cc
--- NOTE | 2020-03-31 16:44 | PM.IMPN ---
Progress Note: A&P Assessment and Plan (1) Cardiopulmonary arrest: Code(s): I46.9 - Cardiac arrest, cause unspecified Status: Acute Assessment and Plan: Patient became bradycardic and then developed cardiac arrest. Had a recent abnormal stress test. Beta-lisa started recently and had 3 doses prior to code. EKG at the time showing junctional rhythm with T wave inversion in high lateral leads. Trop climbed to 1.597. Elevated trop prob from CPR. No beta-lisa due to bradycardia. Oral meds were held but now some NG AST/ALT elevated related to shock liver. Levels trending down AST normal 03/30. Related to code blue. Lipitor on hold. CXR showing left 4th rib fracture but whole chest wal sore. Treat symptomatically. (2) Acute respiratory failure: Qualifiers: Respiratory failure complication: hypoxia and hypercapnia Qualified Code(s): J96.01 - Acute respiratory failure with hypoxia; J96.02 - Acute respiratory failure with hypercapnia Code(s): J96.00 - Acute respiratory failure, unspecified whether with hypoxia or hypercapnia Status: Acute Assessment and Plan: ABG showed hypoxia and hypercapnia but normal pH. Patient able to be extubated 03/21/20. Patient improving and now down to 3L O2. Consider aspiration as complicating her respiratory failure(failed swallow test again today). Continue to wean O2 as tolerated to baseline 2-3L. Stopped Solu-Medrol (which could explain elevated WBC). 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 ILD could also be related to Amio or chronic aspiration. (3) Anemia: Qualifiers: Anemia type: unspecified type Qualified Code(s): D64.9 - Anemia, unspecified Code(s): D64.9 - Anemia, unspecified Status: Chronic Assessment and Plan: Chronic anemia. Iron studies consistent with iron deficiency anemia. No evidence of acute bleeding. Stool occult blood is negative. Dr March giving IV venofer. Hemoglobin 6.9 on 03/20 and transfused. Hgb in the 8-9 range since and stable. hgb 8.2 today (4) Recurrent pleural effusion on left: Code(s): J90 - Pleural effusion, not elsewhere classified Status: Acute Assessment and Plan: Recently admitted 02/28 - 03/03 for same; thoracentesis 03/01 and another 03/13 and 03/25, each yielding 1000mL clear yellow fluid. Analysis of pleural fluid last admission with negative cultures and no findings of malignancy on cytology. [place] effusions related to CHF. Echo showing EF 60% with diastolic dysfunction and severe pulmonary hypertension with a PASP of 82. Repeat thoracentesis 03/25 with 1000mL removed. (5) Atrial fibrillation: Qualifiers: Atrial fibrillation type: unspecified Qualified Code(s): I48.91 - Unspecified atrial fibrillation Code(s): I48.91 - Unspecified atrial fibrillation Status: Chronic Assessment and Plan: History of paroxysmal a fib. She was maintained on her home amiodarone. Toprol was added but now held due to bradycardia. She is not on long-term anticoagulation due to history of hematuria. Intermittent episode of AFib/RVR treated with bolus of Amio. move to med now and off all cardiac meds (6) Abnormal nuclear stress test: Code(s): R94.39 - Abnormal result of other cardiovascular function study Status: Acute Assessment and Plan: She had outpatient Lexiscan 03/06/20 showing small ischemia of anterolateral wall performed for perioperative risk assessment (for bladder lesion resection vs. bx). Plan for medical management as she tolerates. (7) Hypokalemia: Code(s): E87.6 - Hypokalemia Status: Acute Assessment and Plan: [place] to be secondary to increased diuresis. Potassium 4.3 . . Continue to follow. (8) Leukocytosis: Qualifiers: Leukocytosis type: unspecified Qualified Code(s): D72.829 - Elevated white blood cell count, unspecified
--- NOTE | 2020-03-31 18:38 | PM.PNPUL ---
Progress Note: A&P Assessment and Plan (1) CHF (congestive heart failure): Code(s): I50.9 - Heart failure, unspecified Status: Acute Assessment and Plan: - her left effusion is a transudate, not consistent with pneumonia; this is more likely to be due to CHF than a lung process such as infection. The other possibilities include cirrhosis or nephrosis. Liver has increased density on chest CT with a history of amiodarone use. Renal function is still out of the normal range, BUN 70, creat 1.3, better. - failed swallow study; now on tube feeds -requested Trilogy NPPV, not delievered (2) Pleural effusion on left: Code(s): J90 - Pleural effusion, not elsewhere classified Status: Acute Assessment and Plan: - 03/24 repeat U/S guided thoracentesis removed 1000 L hazy yellow fluid, - also has worsening aortic stenosis; (3) Respiratory failure with hypoxia and hypercapnia: Code(s): J96.91 - Respiratory failure, unspecified with hypoxia; J96.92 - Respiratory failure, unspecified with hypercapnia Status: Acute Assessment and Plan: - acute and chronic respiratory failure; patient has been in O2 at 3 L/min @ home starting in Sep 2019, now with recurrent episodes of respiratory failure due to COPD and CHF; extubated 03/21/2020; candidate for Trilogy device, which is not going to be allowed if she goes to [place]. She did not tolerate BiPAP, and NPPV is a better option for her. This was approved if she goes to [facility] or home, but not if she goes to [place]. (4) Chronic obstructive pulmonary disease: Qualifiers: COPD type: unspecified COPD Qualified Code(s): J44.9 - Chronic obstructive pulmonary disease, unspecified Code(s): J44.9 - Chronic obstructive pulmonary disease, unspecified Status: Acute Assessment and Plan: - Spiriva may not be ineffective at this point - will continue Atovent 0.5 mg Nebs Q6h (5) Aortic valve stenosis: Qualifiers: Cardiac valve disease etiology: etiology unspecified Qualified Code(s): I35.0 - Nonrheumatic aortic (valve) stenosis Code(s): I35.0 - Nonrheumatic aortic (valve) stenosis Status: Chronic Assessment and Plan: This may be contributing to the failure and effusion. Subjective Date/time seen: 03/31/20 18:38 She is in Room 244; continues to have right rib pain from fracture due to CPR. March 24 - 1 L hazy yellow fluid removed with repeat left thoracentesis. pH was 7.5, normal. Diff : 23% neutrophils, 8% monocytes, 69% macrophages. no lymphocyes; non-pathologic. (-) Cytology, cultures. March 25 - 4 L/min with a saturation of 91- 100%, approved for Trilogy; NPPV, for assistance with night time ventilation during sleep and in the daytime as needed for shortness of breath. March 26 - Dobhoff feeding tube in place, on TF. On 3 L/min; has not received her Trilogy. March 30 - No new issues March 31 - failed swallow evaluation again; tolerating tube feeds Review of Systems Review of Systems: All systems reviewed & are unremarkable except as noted in HPI and below Exam Narrative: Exam Narrative: Const: General: no acute distress Neck: Neck: supple Resp: Auscultation: diminished lung sounds on the left and localized (base) Cardio: Rate: regular rate Rhythm: regular rhythm Heart sounds: Murmur heart sound present GI: Inspection: other (colostomy LLQ, brown output) Skin: General skin exam: no rashes or lesions noted Neuro: Speech: normal speech Extrem: General: normal to inspection, no edema and no pedal edema
[2020-03-31 18:39] LABS: Glucose Point of Care 139 (65-105)
--- NOTE | 2020-03-31 20:17 | PCRCNOTE ---
Patient will conitinue on home oxgyen at 4L
[2020-03-31] MEDS: ENOXAPARIN 30 MG/0.3 ML SYRINGE SUB-Q (21:32)
[2020-03-31] MEDS: INSULIN GLARGINE (*BKC) 100 UNITS/ML 15 UNITS SUB-Q (21:34)
[2020-03-31 22:55] LABS: Glucose Point of Care 141 (65-105)
[2020-04-01] VITALS (11 sets, daily range): BP systolic 121–143; BP diastolic 57–63; PULSE 63–78; RESP 20–22; TEMP 36.3–36.6; O2SAT 95–100
[2020-04-01 00:30] LABS: Glucose Point of Care 127 (65-105)
[2020-04-01] MEDS: IPRATROPIUM BR 0.02% INH SOLN 0.5 MG/2.5 ML VIAL INHALATION ×4 (01:11→20:28)
[2020-04-01] MEDS: ACETAMINOPHEN 500 MG TABLET PO (06:24)
[2020-04-01] MEDS: CENTRAL LINE FLUSH 20 ML IV PUSH (06:25)
[2020-04-01] MEDS: CENTRAL LINE FLUSH 10 ML IV PUSH ×3 (06:25→20:53)
[2020-04-01 06:42] LABS: Glucose Point of Care 100 (65-105)
[2020-04-01 06:50] LABS: Basophils Percent Auto 0.1 % (0.2-1.2); Eosinophils Absolute Auto 0.4 K/mm3 (0-0.3); Eosinophils Percent Auto 1.8 % (0-4.4); Hematocrit 29.4 % (37.0-47.0); Hemoglobin 8.2 g/dL (12.0-15.0); Immature Granulocyte Absolute 0.16 K/mm3 (0.00-0.031); Immature Granulocyte Percent A 0.7 % (0-0.5); Lymphocytes Absolute Auto 1.02 K/mm3 (0.9-3.2); Lymphocytes Percent Auto 4.7 % (18.3-44.2); Mean Corpuscular HGB Conc 27.9 g/dl (32-36); Mean Corpuscular Hemoglobin 27.7 pg (26-34); Mean Corpuscular Volume 99.3 fl (80-100); Mean Platelet Volume 10.5 fl (7.4-10.4); Monocytes Absolute Auto 1.3 K/mm3 (0.1-0.6); Neutrophils Absolute Auto 18.8 K/mm3 (1.3-6.7); Neutrophils Percent Auto 86.7 % (45.5-73.1); Platelet Count Result 231 k/mm3 (150-375); Red Blood Count 2.96 M/mm3 (4.2-5.4); Red Cell Distribution Width 18.8 % (11.5-14.5); White Blood Count 21.7 K/mm3 (4.5-10.0)
[2020-04-01 07:04] LABS: Blood Urea Nitrogen 40 mg/dL (7-17); Calcium 8.7 mg/dL (8.4-10.2); Carbon Dioxide 35 mmol/L (22-30); Chloride 104 mmol/L (98-107); Estimated CRCL calculation 31 ml/min; Estimated Glomerular Filt Rate 49; Glucose 115 mg/dL (65-105); Magnesium 2.2 mg/dL (1.6-2.3); Potassium 4.5 mmol/L (3.4-5.0); Sodium 140 mmol/L (137-145)
[2020-04-01 07:11] LABS: Anisocytosis 1+ (NORMAL); Hypochromasia 1+ (NORMAL); Platelet Estimate Adequate (Adequate)
[2020-04-01 07:50] LABS: Glucose Point of Care 113 (65-105)
[2020-04-01] MEDS: IRON SUCROSE COMPLEX 100 MG in SODIUM CHLORIDE 0.9% IV 50 ML 220 MG IVPB (08:07)
[2020-04-01] MEDS: ASPIRIN 81 MG ENTERIC TABLET PO (08:10)
[2020-04-01] MEDS: LIDOCAINE 5% PATCH 1 PATCH TRANSDERM ×2 (08:10→13:29)
[2020-04-01] MEDS: methiMAzole 5 MG TAB PO (08:10)
[2020-04-01] MEDS: PANTOPRAZOLE SODIUM IV 40 MG VIAL IV PUSH ×2 (08:11→20:52)
[2020-04-01] MEDS: ATORVASTATIN 10 MG TABLET PO (08:11)
[2020-04-01] MEDS: THERAPEUTIC MULTIVITAMINS/MINERALS TAB (*BKC) 1 TABLET PO (08:11)
[2020-04-01] MEDS: SILVERGEL (ELTA) 45 ML 1 APPLIC TOPICAL (08:14)
--- NOTE | 2020-04-01 10:44 | WPDGICN ---
Assessment and Plan Assessment and plan (1) Dysphagia: Code(s): R13.10 - Dysphagia, unspecified Status: Acute Assessment and Plan: Patient has dysphagia. Recent modified barium swallow suggest she may be at aspiration risk agree with speech swallowing therapy. Dysphagia peers to be of oropharyngeal in nature. Likely related to her intubation. Plan is to proceed with PEG tube later this week unless she begins to swallow better. Likely PEG tube will only be required for an interval. If placed would like to keep it in place for several months to ensure she is swallowing safely before its removal. I will discuss this further with family and daughter. (2) Colon cancer: Onset Date: ~2011 Qualifiers: Colon location: unspecified part of colon Qualified Code(s): C18.9 - Malignant neoplasm of colon, unspecified Code(s): C18.9 - Malignant neoplasm of colon, unspecified Status: Chronic Assessment and Plan: Patient has a history of colon cancer resected 2011. She had a recent colonoscopy in November of this year which revealed a few recurrent adenomatous colon polyps. No evidence recurrent cancer at that time. Continued follow-up colonoscopy at several year intervals perhaps 3 year intervals is advised. Patient has a left lower quadrant colostomy. His possible scar tissue from resection of her cancer may interfere with placement of PEG tube. But her left upper quadrant appears to be free of scar tissue were attempting PEG tube later hopefully this will not be an issue. (3) Chronic obstructive pulmonary disease: Qualifiers: COPD type: unspecified COPD Qualified Code(s): J44.9 - Chronic obstructive pulmonary disease, unspecified Code(s): J44.9 - Chronic obstructive pulmonary disease, unspecified Status: Acute (4) Recurrent pleural effusion on left: Code(s): J90 - Pleural effusion, not elsewhere classified Status: Acute (5) Type 2 diabetes mellitus: Code(s): E11.9 - Type 2 diabetes mellitus without complications Status: Acute (6) CHF (congestive heart failure): Code(s): I50.9 - Heart failure, unspecified Status: Acute (7) Atrial fibrillation: Qualifiers: Atrial fibrillation type: unspecified Qualified Code(s): I48.91 - Unspecified atrial fibrillation Code(s): I48.91 - Unspecified atrial fibrillation Status: Chronic GI Consult Note Consult date/time: 04/01/20 10:44 HPI: Rachele Murray is a 74 year old female seen in evaluation at the request of the hospitalist service. I am asked to see the patient because of ongoing oral pharyngeal dysphagia. In possibility of a PEG tube placement. Patient was admitted to the hospital on 02/29/2020. Initially with a urinary tract infection. She subsequently was had a cardiopulmonary arrest and was ventilated. She apparently developed rather significant pleural effusion. This been attributed to congestive heart failure. She was extubated on 03/21/2020. During this hospital stay she has had several thoracenteses. Currently followed by the Pulmonary Service. She is felt to have some aspiration. And has had several modified barium swallows most recently yesterday which revealed ongoing laryngeal penetration and aspiration risk. Speech swallow therapy is in progress. I have been asked to see the unique [facility] patient for possible PEG tube later this week if she fails to improve. Patient currently is lying in bed states she is too weak to ambulate without assistance. She has not NG tube in place for nutritional intake at the present period is done so since the majority of this hospital stay. She is able to speak fairly clearly. Appears alert and oriented at the present time. Her past history as stated is significant for cardiac arrest of uncertain etiology during this hospital stay. She had respiratory failure on the ventilator now extubated. Breathing easi
[2020-04-01 12:04] LABS: Glucose Point of Care 109 (65-105)
--- NOTE | 2020-04-01 13:39 | PC.NURSE ---
Triple lumen IJ dressing has not been changed since initiated. Dressing was changed at 1320 04/01/2020 by this RN. New caps applied.
--- NOTE | 2020-04-01 15:19 | PM.IMPN ---
Progress Note: A&P Assessment and Plan (1) Cardiopulmonary arrest: Code(s): I46.9 - Cardiac arrest, cause unspecified Status: Acute Assessment and Plan: Patient became bradycardic and then developed cardiac arrest. Had a recent abnormal stress test. Beta-lisa started recently and had 3 doses prior to code. EKG at the time showing junctional rhythm with T wave inversion in high lateral leads. Trop climbed to 1.597. Elevated trop prob from CPR. No beta-lisa due to bradycardia. Oral meds were held but now some NG AST/ALT elevated related to shock liver. Levels trending down AST normal 03/30. Related to code blue. Lipitor on hold. CXR showing left 4th rib fracture but whole chest wal sore. Treat symptomatically. (2) Acute respiratory failure: Qualifiers: Respiratory failure complication: hypoxia and hypercapnia Qualified Code(s): J96.01 - Acute respiratory failure with hypoxia; J96.02 - Acute respiratory failure with hypercapnia Code(s): J96.00 - Acute respiratory failure, unspecified whether with hypoxia or hypercapnia Status: Acute Assessment and Plan: ABG showed hypoxia and hypercapnia but normal pH. Patient able to be extubated 03/21/20. Patient improving and now down to 3L O2. Consider aspiration as complicating her respiratory failure(failed swallow test again today). Home 02 2-3 L. Stopped Solu-Medrol (which thought contributed to elevated WBC). 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 ILD could also be related to Amio or chronic aspiration. (3) Anemia: Qualifiers: Anemia type: unspecified type Qualified Code(s): D64.9 - Anemia, unspecified Code(s): D64.9 - Anemia, unspecified Status: Chronic Assessment and Plan: Chronic anemia. Iron studies consistent with iron deficiency anemia. No evidence of acute bleeding. Stool occult blood is negative. Dr March giving IV venofer(received 3750-9164 mg total so stopped). Hemoglobin 6.9 on 03/20 and transfused. Hgb in the 8-9 range since and stable. hgb 8.2 again today (4) Recurrent pleural effusion on left: Code(s): J90 - Pleural effusion, not elsewhere classified Status: Acute Assessment and Plan: Recently admitted 02/28 - 6/7 for same; thoracentesis 03/01 and another 03/13 and 03/25, each yielding 1000mL clear yellow fluid. Analysis of pleural fluid last admission with negative cultures and no findings of malignancy on cytology. [place] effusions related to CHF. Echo showing EF 60% with diastolic dysfunction and severe pulmonary hypertension with a PASP of 82. Repeat thoracentesis 03/25 with 1000mL removed. (5) Atrial fibrillation: Qualifiers: Atrial fibrillation type: unspecified Qualified Code(s): I48.91 - Unspecified atrial fibrillation Code(s): I48.91 - Unspecified atrial fibrillation Status: Chronic Assessment and Plan: History of paroxysmal a fib. She was maintained on her home amiodarone. Toprol was added but now held due to bradycardia. She is not on long-term anticoagulation due to history of hematuria. Intermittent episode of AFib/RVR treated with bolus of Amio. move to med now and off all cardiac meds (6) Abnormal nuclear stress test: Code(s): R94.39 - Abnormal result of other cardiovascular function study Status: Acute Assessment and Plan: She had outpatient Lexiscan 03/06/20 showing small ischemia of anterolateral wall performed for perioperative risk assessment (for bladder lesion resection vs. bx). Plan for medical management as she tolerates. (7) Hypokalemia: Code(s): E87.6 - Hypokalemia Status: Acute Assessment and Plan: [place] to be secondary to increased diuresis. Potassium 4.3 . . Continue to follow. (8) Leukocytosis: Qualifiers: Leukocytosis type: unspecified Qualified Code(s): D72.829 - Elevated white blood cell cou
--- NOTE | 2020-04-01 15:32 | PCSTNOTE ---
Therapist will contact physician to discuss possible use of VitalStim to throat to increase the strength of the swallow.
[2020-04-01 16:19] LABS: NT Pro B Type Natriuretic Pept 8540 PG/ML (5-100)
--- NOTE | 2020-04-01 16:35 | PC.NURSE ---
Spoke with Dr. Mahoney in regards to patients possible PEG placement tomorrow. Dr. Mahoney stated he would be up to see patient around [phone] if the daughter was available he would be able to speak to her then. Per Dr. Mahoney, if the patient decides to go through with PEG placement, it will not be until Wednesday04/03/2020. Therefore, no need to hold tube feeding for tonight.
[2020-04-01 17:36] LABS: Glucose Point of Care 108 (65-105)
--- NOTE | 2020-04-01 17:43 | PM.PNPUL ---
Progress Note: A&P Assessment and Plan (1) CHF (congestive heart failure): Code(s): I50.9 - Heart failure, unspecified Status: Acute Assessment and Plan: - her left effusion is a transudate, not consistent with pneumonia; this is more likely to be due to CHF than a lung process such as infection. The other possibilities include cirrhosis or nephrosis. Liver has increased density on chest CT with a history of amiodarone use. Renal function is still out of the normal range, BUN 70, creat 1.3, better. - failed swallow study; now on tube feeds -requested Trilogy NPPV, not delievered (2) Pleural effusion on left: Code(s): J90 - Pleural effusion, not elsewhere classified Status: Acute Assessment and Plan: - 03/24 repeat U/S guided thoracentesis removed 1000 L hazy yellow fluid, - also has worsening aortic stenosis; (3) Respiratory failure with hypoxia and hypercapnia: Code(s): J96.91 - Respiratory failure, unspecified with hypoxia; J96.92 - Respiratory failure, unspecified with hypercapnia Status: Acute Assessment and Plan: - acute and chronic respiratory failure; patient has been in O2 at 3 L/min @ home starting in Sep 2019, now with recurrent episodes of respiratory failure due to COPD and CHF; extubated 03/21/2020; candidate for Trilogy device, which is not going to be allowed if she goes to [place]. She did not tolerate BiPAP, and NPPV is a better option for her. This was approved if she goes to [facility] or home, but not if she goes to [place]. (4) Chronic obstructive pulmonary disease: Qualifiers: COPD type: unspecified COPD Qualified Code(s): J44.9 - Chronic obstructive pulmonary disease, unspecified Code(s): J44.9 - Chronic obstructive pulmonary disease, unspecified Status: Acute Assessment and Plan: - Spiriva may not be ineffective at this point - will continue Atovent 0.5 mg Nebs Q6h (5) Aortic valve stenosis: Qualifiers: Cardiac valve disease etiology: etiology unspecified Qualified Code(s): I35.0 - Nonrheumatic aortic (valve) stenosis Code(s): I35.0 - Nonrheumatic aortic (valve) stenosis Status: Chronic Assessment and Plan: This may be contributing to the failure and effusion. Subjective Date/time seen: 04/01/20 17:43 Review of Systems Review of Systems: All systems reviewed & are unremarkable except as noted in HPI and below Exam Narrative: Exam Narrative: Const: General: no acute distress Neck: Neck: supple Resp: Auscultation: diminished lung sounds on the left and localized (base) Cardio: Rate: regular rate Rhythm: regular rhythm Heart sounds: Murmur heart sound present GI: Inspection: other (colostomy LLQ, brown output) Skin: General skin exam: no rashes or lesions noted Neuro: Speech: normal speech Extrem: General: normal to inspection, no edema and no pedal edema Objective Data Vital Signs Vital Signs: Vital Signs - 24 hr 03/31/20 20:14 03/31/20 20:16 03/31/20 20:22 Temperature Pulse Rate 88 71 Respiratory Rate 20 20 Blood Pressure Pulse Oximetry 98 03/31/20 22:00 04/01/20 01:12 04/01/20 01:14 Temperature 37.2 C Pulse Rate 69 78 Respiratory Rate 18 20 Blood Pressure 112/50 L Pulse Oximetry 97 98 04/01/20 01:19 04/01/20 07:58 04/01/20 08:07 Temperature Pulse Rate 78 74 78 Respiratory Rate 20 20 20 Blood Pressure Pulse Oximetry 95 04/01/20 10:41 04/01/20 13:27 04/01/20 14:10 Temperature 36.5 C 36.6 C Pulse Rate 73 71 75 Respiratory Rate 20 20 20 Blood Pressure 121/63 127/5
[2020-04-01 20:27] LABS: Glucose Point of Care 124 (65-105)
[2020-04-01] MEDS: ENOXAPARIN 30 MG/0.3 ML SYRINGE SUB-Q (20:52)
[2020-04-01] MEDS: INSULIN GLARGINE (*BKC) 100 UNITS/ML 15 UNITS SUB-Q (20:53)
[2020-04-01] MEDS: ACETAMINOPHEN 500 MG TABLET 1000 MG PO (21:03)
[2020-04-01 23:47] LABS: Glucose Point of Care 98 (65-105)
[2020-04-02] VITALS (12 sets, daily range): BP systolic 107–146; BP diastolic 43–50; PULSE 73–79; RESP 18–22; TEMP 36.1–36.5; O2SAT 98–100
[2020-04-02] MEDS: IPRATROPIUM BR 0.02% INH SOLN 0.5 MG/2.5 ML VIAL INHALATION ×4 (01:47→19:46)
[2020-04-02 05:18] LABS: Eosinophils Absolute Auto 0.4 K/mm3 (0-0.3); Eosinophils Percent Auto 1.8 % (0-4.4); Hematocrit 28.1 % (37.0-47.0); Hemoglobin 7.9 g/dL (12.0-15.0); Immature Granulocyte Absolute 0.15 K/mm3 (0.00-0.031); Immature Granulocyte Percent A 0.7 % (0-0.5); Lymphocytes Absolute Auto 0.94 K/mm3 (0.9-3.2); Lymphocytes Percent Auto 4.7 % (18.3-44.2); Mean Corpuscular HGB Conc 28.1 g/dl (32-36); Mean Corpuscular Hemoglobin 27.6 pg (26-34); Mean Corpuscular Volume 98.3 fl (80-100); Mean Platelet Volume 10.5 fl (7.4-10.4); Monocytes Absolute Auto 1.4 K/mm3 (0.1-0.6); Monocytes Percent Auto 6.9 % (2.6-8.5); Neutrophils Absolute Auto 17.3 K/mm3 (1.3-6.7); Neutrophils Percent Auto 85.9 % (45.5-73.1); Platelet Count Result 240 k/mm3 (150-375); Red Blood Count 2.86 M/mm3 (4.2-5.4); White Blood Count 20.1 K/mm3 (4.5-10.0)
[2020-04-02] MEDS: ACETAMINOPHEN 500 MG TABLET 1000 MG PO ×3 (05:21→23:20)
[2020-04-02 05:28] LABS: Potassium 4.4 mmol/L (3.4-5.0)
[2020-04-02 05:44] LABS: Hypochromasia 2+ (NORMAL); Macrocytosis 1+ (NORMAL); Platelet Estimate Adequate (Adequate)
[2020-04-02 05:45] LABS: Blood Urea Nitrogen 37 mg/dL (7-17); Calcium 8.7 mg/dL (8.4-10.2); Carbon Dioxide 35 mmol/L (22-30); Chloride 104 mmol/L (98-107); Estimated CRCL calculation 29 ml/min; Estimated Glomerular Filt Rate 44; Glucose 84 mg/dL (65-105); Sodium 139 mmol/L (137-145); Stomatocytes 1+ (NORMAL)
[2020-04-02] MEDS: CENTRAL LINE FLUSH 20 ML IV PUSH (06:04)
[2020-04-02 06:14] LABS: Glucose Point of Care 75 (65-105)
[2020-04-02 07:53] LABS: Glucose Point of Care 73 (65-105)
--- NOTE | 2020-04-02 07:57 | WPDGIPROGNO ---
Progress Note: A&P Additional Plan Patient continues to have difficulty swallowing. She has difficulty even with ice chips at the bedside. I had a long discussion with patient and her daughter today regarding the risks and benefits of PEG tube placement. Physical exam reveals patient to have a good gag reflex. Lungs reveal a few rhonchi. Heart without murmur. Abdomen is soft and nontender. Colostomy is in place in left lower quadrant. Impression 1. Dysphagia. Appears to be developed after her prolonged intubation. Speech therapy currently working with patient. Symptoms appear to be expected To Last for sometime.t patient is hesitant to proceed with PEG tube. She prefers to talk further with the speech therapist and primary care service. Regarding prognosis in the future. I have told the daughter and patient the we may place PEG later this week after she has all her questions answered. 2. Pleural effusion. 3. Congestive heart failure. 4. COPD. 5. History of colon cancer with colostomy. Subjective Date/time seen: 04/02/20 07:57 Objective Data Vital Signs Vital Signs: Vital Signs - 24 hr 04/01/20 07:58 04/01/20 08:07 04/01/20 10:41 Temperature 97.7 F Pulse Rate 74 78 73 Respiratory Rate 20 20 20 Blood Pressure 121/63 Pulse Oximetry 95 100 04/01/20 13:27 04/01/20 14:10 04/01/20 20:28 Temperature 97.9 F Pulse Rate 71 75 76 Respiratory Rate 20 20 20 Blood Pressure 127/59 L Pulse Oximetry 100 96 04/01/20 20:36 04/01/20 22:00 04/02/20 01:48 Temperature 97.4 F L Pulse Rate 77 63 79 Respiratory Rate 22 H 20 Blood Pressure 143/57 H Pulse Oximetry 100 04/02/20 01:55 04/02/20 06:00 Temperature 97.6 F Pulse Rate 77 74 Respiratory Rate 20 18 Blood Pressure 146/43 H Pulse Oximetry 100 Intake/Output Intake/Output: Intake & Output 03/30/20 03/31/20 04/01/20 04/02/20 23:59 23:59 23:59 23:59 Intake Total 586 779 1475 785 Output Total 461 5265 850 200 Balance -227 -660 1213 585 Meds/Results Medications: Active Medications Generic Name Dose Route Start Last Admin Trade Name Freq PRN Reason Stop Dose Admin Acetaminophen 500 mg 03/28/20 12:35 04/01/20 06:24 Tylenol Tablet PO 500 mg Q6H PRN Administration Mild Pain (1-3) Acetaminophen 1,000 mg 03/28/20 12:33 04/02/20 05:21 Tylenol Tablet PO 1,000 mg Q6H PRN Administration Moderate Pain (4-6) Albuterol 1 puff 03/13/20 19:19 Proventil Hfa INHALATION Q4H PRN shortness of breath or wheezing Aspirin 81 mg 03/29/20 09:00 04/01/20 08:10 Aspirin Ec PO 81 mg QAM PEGGY Administration Atorvastatin Calcium 10 mg 03/29/20 09:00 04/01/20 08:11 Lipitor PO 10 mg DAILY PEGGY Administration Dextrose 12.5 gm 03/25/20 17:51 Dextrose 50% Syringe IV PUSH PRN PRN Hypoglycemia Protocol Enoxaparin Sodium 30 mg 03/25/20 23:50 04/01/20 20:52 Lovenox SUB-Q 30 mg HS PEGGY Administration Glucagon 1 mg 03/25/20 17:51 Glucagon For Inj IM PRN PRN Hypoglycemia Protocol Glucose 15 gm 03/25/20 17:51 Glutose 15 PO PRN PRN Hypoglycemia Protocol Dextrose 1,000 mls @ 50 mls/hr 03/25/20 17:42 Dextrose 10% IV CONT .Q20H PRN if PN is interrupted Dextrose 1,000 mls @ 100 mls/hr 03/25/20 17:51 Dextrose 5% 1,000 Ml IVPB PRN PRN Hypoglycemia Protocol Insulin Aspart 4 - 8 units 03/29/20 12:00 04/02/20 06:04 Novolog SUB-Q Not Given Q6HR [facility] Protocol Insulin Glargine 15 units 03/28/20 21:00 04/01/20 20:53 Lantus SUB-Q 15 units HS PEGGY Administration Ipratropium [place] 0.5 mg 03/23/20 14:00 04/02/20 01:47 Atrovent Neb INHALATION 0.5 mg Q6HRT PEGGY Administration Lidocaine 2 patch 04/02/20 09:00 Lidoderm TRANSDERM DAILY PEGGY Methimazole 5 mg 03/14/20 09:00 04/01/20 08:10 Tapazole PO 5 mg DAILY PEGGY Administration Multiv
[2020-04-02] MEDS: ATORVASTATIN 10 MG TABLET PO (08:35)
[2020-04-02] MEDS: methiMAzole 5 MG TAB PO (08:35)
[2020-04-02] MEDS: THERAPEUTIC MULTIVITAMINS/MINERALS TAB (*BKC) 1 TABLET PO (08:36)
[2020-04-02] MEDS: LIDOCAINE 5% PATCH 2 PATCH TRANSDERM (08:36)
[2020-04-02] MEDS: SILVERGEL (ELTA) 45 ML 1 APPLIC TOPICAL (08:36)
[2020-04-02] MEDS: ASPIRIN 81 MG ENTERIC TABLET PO (08:36)
[2020-04-02] MEDS: PANTOPRAZOLE SODIUM IV 40 MG VIAL IV PUSH ×2 (08:36→21:27)
--- NOTE | 2020-04-02 09:28 | PCPTNOTE ---
The PT treatment was unable to be completed today due to patient refusal. Will continue per Plan of Care frequency and duration.
--- NOTE | 2020-04-02 11:18 | PCNFU ---
Nutrition Follow-Up Complete: Inadequate oral intake related to oral intubation as evidenced by NPO status. Goal: Patient to meet estimated nutritional needs. Progressing towards goal. We will continue current goal. Pt current nutrition is Glucerna 1.2 at 50 ml/hr. Nutrition recommendation:Agree Last recorded weight is 61.9 kg. Bowel Motility:colostomy Labs Reviewed:BUN 37,Cr 1.2,Hct 28.1,Hgb 7.9 Meds Noted:Lipitor,MVI, Protonix Additional Notes: GI notes patient is hesitant to proceed with PEG tube. Daughter plans to speak with the speech therapist and hospitalist. NGT feedings of Glucerna 1.2 increasing to 50 ml/hr providing 1320 kcals and 66 gms protein. Current tube feedings will be meeting patient caloric needs. Blood sugars WNL. Monitoring: Follow up every Wednesday and Wednesday.
[2020-04-02 11:51] LABS: Glucose Point of Care 69 (65-105)
[2020-04-02] MEDS: DEXTROSE 50% 25 GM/50 ML SYRINGE IV PUSH (12:04)
--- NOTE | 2020-04-02 12:47 | PCRTNOTE ---
SPOKE TO MATY IN REGARDS TO UPDATE IN D/C STATUS/DESTINATION. NO UPDATE AT THIS TIME.
--- NOTE | 2020-04-02 13:27 | PM.IMPN ---
Progress Note: A&P Assessment and Plan (1) Cardiopulmonary arrest: Code(s): I46.9 - Cardiac arrest, cause unspecified Status: Acute Assessment and Plan: Patient became bradycardic and then developed cardiac arrest. Had a recent abnormal stress test. Beta-lisa started recently and had 3 doses prior to code. EKG at the time showing junctional rhythm with T wave inversion in high lateral leads. Trop climbed to 1.597. Elevated trop prob from CPR. No beta-lisa due to bradycardia. Oral meds were held but now some NG AST/ALT elevated related to shock liver. Levels trending down AST normal 03/30. Related to code blue. Lipitor on hold. CXR showing left 4th rib fracture but whole chest wall remains sore. Treat symptomatically. (2) Acute respiratory failure: Qualifiers: Respiratory failure complication: hypoxia and hypercapnia Qualified Code(s): J96.01 - Acute respiratory failure with hypoxia; J96.02 - Acute respiratory failure with hypercapnia Code(s): J96.00 - Acute respiratory failure, unspecified whether with hypoxia or hypercapnia Status: Acute Assessment and Plan: ABG showed hypoxia and hypercapnia but normal pH. Patient able to be extubated 03/21/20. Patient improving and now down to 3L O2. Consider aspiration as complicating her respiratory failure(failed swallow test again). Home 02 2-3 L. Stopped Solu-Medrol (which thought contributed to elevated WBC). 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 ILD could also be related to Amio or chronic aspiration. (3) Anemia: Qualifiers: Anemia type: unspecified type Qualified Code(s): D64.9 - Anemia, unspecified Code(s): D64.9 - Anemia, unspecified Status: Chronic Assessment and Plan: Chronic anemia. Iron studies consistent with iron deficiency anemia. No evidence of acute bleeding. Stool occult blood is negative. Dr March giving IV venofer(received 3123-0287 mg total so stopped). Hemoglobin 6.9 on 03/20 and transfused. Hgb in the 8-9 range since but dropped to 7.9 today. (4) Recurrent pleural effusion on left: Code(s): J90 - Pleural effusion, not elsewhere classified Status: Acute Assessment and Plan: Recently admitted 02/28 - 03/03 for same; thoracentesis 03/01 and another 03/13 and 03/25, each yielding 1000mL clear yellow fluid. Analysis of pleural fluid last admission with negative cultures and no findings of malignancy on cytology. [place] effusions related to CHF. Echo showing EF 60% with diastolic dysfunction and severe pulmonary hypertension with a PASP of 82. Repeat thoracentesis 03/25 with 1000mL removed. (5) Atrial fibrillation: Qualifiers: Atrial fibrillation type: unspecified Qualified Code(s): I48.91 - Unspecified atrial fibrillation Code(s): I48.91 - Unspecified atrial fibrillation Status: Chronic Assessment and Plan: History of paroxysmal a fib. She was maintained on her home amiodarone. Toprol was added but now held due to bradycardia. She is not on long-term anticoagulation due to history of hematuria. Intermittent episode of AFib/RVR treated with bolus of Amio. move to med now and off all cardiac meds (6) Abnormal nuclear stress test: Code(s): R94.39 - Abnormal result of other cardiovascular function study Status: Acute Assessment and Plan: She had outpatient Lexiscan 03/06/20 showing small ischemia of anterolateral wall performed for perioperative risk assessment (for bladder lesion resection vs. bx). Plan for medical management as she tolerates. (7) Hypokalemia: Code(s): E87.6 - Hypokalemia Status: Acute Assessment and Plan: [place] to be secondary to increased diuresis. Potassium 4.4. Continue to follow. (8) Leukocytosis: Qualifiers: Leukocytosis type: unspecified Qualified Code(s): D72.829 - Elevated white blood cell count, u
[2020-04-02] MEDS: CENTRAL LINE FLUSH 10 ML IV PUSH ×2 (13:56→21:28)
[2020-04-02 14:06] LABS: Glucose Point of Care 96 (65-105)
[2020-04-02 17:45] LABS: Glucose Point of Care 112 (65-105)
[2020-04-02 20:50] LABS: Glucose Point of Care 118 (65-105)
[2020-04-02] MEDS: ENOXAPARIN 30 MG/0.3 ML SYRINGE SUB-Q (21:27)
[2020-04-02] MEDS: INSULIN GLARGINE (*BKC) 100 UNITS/ML 15 UNITS SUB-Q (21:28)
[2020-04-03] VITALS (11 sets, daily range): BP systolic 126–142; BP diastolic 39–46; PULSE 71–92; RESP 16–22; TEMP 36.1–36.6; O2SAT 98–100
[2020-04-03 00:07] LABS: Glucose Point of Care 115 (65-105)
[2020-04-03] MEDS: IPRATROPIUM BR 0.02% INH SOLN 0.5 MG/2.5 ML VIAL INHALATION ×4 (02:19→19:43)
[2020-04-03 05:19] LABS: Basophils Percent Auto 0.2 % (0.2-1.2); Eosinophils Absolute Auto 0.3 K/mm3 (0-0.3); Eosinophils Percent Auto 1.6 % (0-4.4); Hematocrit 26.6 % (37.0-47.0); Hemoglobin 7.4 g/dL (12.0-15.0); Immature Granulocyte Absolute 0.17 K/mm3 (0.00-0.031); Immature Granulocyte Percent A 0.9 % (0-0.5); Lymphocytes Absolute Auto 0.77 K/mm3 (0.9-3.2); Lymphocytes Percent Auto 3.9 % (18.3-44.2); Mean Corpuscular HGB Conc 27.8 g/dl (32-36); Mean Corpuscular Hemoglobin 27.9 pg (26-34); Mean Corpuscular Volume 100.4 fl (80-100); Mean Platelet Volume 10.7 fl (7.4-10.4); Monocytes Absolute Auto 1.1 K/mm3 (0.1-0.6); Monocytes Percent Auto 5.8 % (2.6-8.5); Neutrophils Absolute Auto 17.2 K/mm3 (1.3-6.7); Neutrophils Percent Auto 87.6 % (45.5-73.1); Platelet Count Result 202 k/mm3 (150-375); Red Blood Count 2.65 M/mm3 (4.2-5.4); White Blood Count 19.7 K/mm3 (4.5-10.0)
[2020-04-03 05:39] LABS: Alanine Aminotransferase 29 U/L (4-35); Albumin Level 2.6 g/dL (3.5-5.1); Alkaline Phosphatase 225 U/L (38-126); Aspartate Amino Transferase 30 U/L (14-36); Bilirubin,Total 0.5 mg/dL (0.2-1.3); Blood Urea Nitrogen 39 mg/dL (7-17); Calcium 8.7 mg/dL (8.4-10.2); Carbon Dioxide 34 mmol/L (22-30); Chloride 104 mmol/L (98-107); Estimated CRCL calculation 29 ml/min; Estimated Glomerular Filt Rate 44; Glucose 130 mg/dL (65-105); Potassium 4.5 mmol/L (3.4-5.0); Sodium 138 mmol/L (137-145)
[2020-04-03 06:04] LABS: Anisocytosis 1+ (NORMAL); Hypochromasia 1+ (NORMAL); Platelet Estimate Adequate (Adequate); Stomatocytes 1+ (NORMAL)
[2020-04-03] MEDS: CENTRAL LINE FLUSH 10 ML IV PUSH ×3 (06:19→21:20)
[2020-04-03 06:39] LABS: Glucose Point of Care 128 (65-105)
[2020-04-03] MEDS: ASPIRIN 81 MG ENTERIC TABLET PO (09:44)
[2020-04-03] MEDS: LIDOCAINE 5% PATCH 2 PATCH TRANSDERM (09:44)
[2020-04-03] MEDS: methiMAzole 5 MG TAB PO (09:44)
[2020-04-03] MEDS: ATORVASTATIN 10 MG TABLET PO (09:44)
[2020-04-03] MEDS: PANTOPRAZOLE SODIUM IV 40 MG VIAL IV PUSH ×2 (09:44→21:26)
[2020-04-03] MEDS: THERAPEUTIC MULTIVITAMINS/MINERALS TAB (*BKC) 1 TABLET PO (09:44)
[2020-04-03] MEDS: SILVERGEL (ELTA) 45 ML 1 APPLIC TOPICAL (09:45)
[2020-04-03] MEDS: ACETAMINOPHEN 500 MG TABLET 1000 MG PO ×2 (09:56→22:28)
--- NOTE | 2020-04-03 10:36 | WPDGIPROGNO ---
Progress Note: A&P Additional Plan Patient at the present time continues to have difficulty with oral intake. She coughs even with ice chips. At present she refuses to proceed with PEG tube at this time. Physical exam reveals her to be alert. HEENT exam unremarkable she does have a good gag reflex. Lungs reveal a few rhonchi. Heart without murmur. Abdomen is soft and nontender. Left lower quadrant colostomy intact and functioning. Impression 1. Dysphagia. Appears to be related to prolonged intubation. Currently speech therapy is working with her. She has failed several MBS studies. Long discussion was held with mother and daughter regarding PEG tube placement. At the present time patient is refusing this but states she may agree to it next Wednesday. I would suggest continuing speech therapy swallowing therapy. If swallowing continues to be a long-term problem than PEG tube would be indicated if patient agrees. Subjective Date/time seen: 04/03/20 10:36 Objective Data Vital Signs Vital Signs: Vital Signs - 24 hr 04/02/20 13:34 04/02/20 13:48 04/02/20 13:53 Temperature 97.7 F Pulse Rate 77 74 74 Respiratory Rate 22 H 20 20 Blood Pressure 125/50 L Pulse Oximetry 100 04/02/20 19:47 04/02/20 19:52 04/02/20 22:00 Temperature 97.0 F L Pulse Rate 74 74 74 Respiratory Rate 20 20 18 Blood Pressure 107/49 L Pulse Oximetry 99 100 04/03/20 02:15 04/03/20 02:20 04/03/20 06:00 Temperature 97 F L Pulse Rate 72 72 71 Respiratory Rate 18 18 18 Blood Pressure 142/46 H Pulse Oximetry 100 04/03/20 09:37 04/03/20 09:44 Temperature Pulse Rate 72 81 Respiratory Rate 16 18 Blood Pressure Pulse Oximetry 98 Intake/Output Intake/Output: Intake & Output 03/31/20 04/01/20 04/02/20 04/03/20 23:59 23:59 23:59 23:59 Intake Total 665 2119 1555 0 Output Total 1325 850 650 400 Balance -660 1269 905 -400 Meds/Results Medications: Active Medications Generic Name Dose Route Start Last Admin Trade Name Freq PRN Reason Stop Dose Admin Acetaminophen 500 mg 03/28/20 12:35 04/01/20 06:24 Tylenol Tablet PO 500 mg Q6H PRN Administration Mild Pain (1-3) Acetaminophen 1,000 mg 03/28/20 12:33 04/03/20 09:56 Tylenol Tablet PO 1,000 mg Q6H PRN Administration Moderate Pain (4-6) Albuterol 1 puff 03/13/20 19:19 Proventil Hfa INHALATION Q4H PRN shortness of breath or wheezing Aspirin 81 mg 03/29/20 09:00 04/03/20 09:44 Aspirin Ec PO 81 mg QAM PEGGY Administration Atorvastatin Calcium 10 mg 03/29/20 09:00 04/03/20 09:44 Lipitor PO 10 mg DAILY PEGGY Administration Dextrose 12.5 gm 03/25/20 17:51 04/02/20 12:04 Dextrose 50% Syringe IV PUSH 12.5 gm PRN PRN Administration Hypoglycemia Protocol Enoxaparin Sodium 30 mg 03/25/20 23:50 04/02/20 21:27 Lovenox SUB-Q 30 mg HS PEGGY Administration Glucagon 1 mg 03/25/20 17:51 Glucagon For Inj IM PRN PRN Hypoglycemia Protocol Glucose 15 gm 03/25/20 17:51 Glutose 15 PO PRN PRN Hypoglycemia Protocol Dextrose 1,000 mls @ 50 mls/hr 03/25/20 17:42 Dextrose 10% IV CONT .Q20H PRN if PN is interrupted Dextrose 1,000 mls @ 100 mls/hr 03/25/20 17:51 Dextrose 5% 1,000 Ml IVPB PRN PRN Hypoglycemia Protocol Insulin Aspart 4 - 8 units 03/29/20 12:00 04/03/20 06:18 Novolog SUB-Q Not Given Q6HR [facility] Protocol Insulin Glargine 15 units 03/28/20 21:00 04/02/20 21:28 Lantus SUB-Q 15 units HS PEGGY Administration Ipratropium [place] 0.5 mg 03/23/20 14:00 04/03/20 09:35 Atrovent Neb INHALATION 0.5 mg Q6HRT PEGGY Administration Lidocaine 2 patch 04/02/20 09:00 04/03/20 09:44 Lidoderm TRANSDERM 2 patch DAILY PEGGY Administration Methimazole 5 mg 03/14/20 09:00 04/03/20 09:44 Tapazole PO 5 mg DAILY PEGGY Administration Multivitamins/Calcium 1
[2020-04-03 12:36] LABS: Glucose Point of Care 116 (65-105)
--- NOTE | 2020-04-03 15:35 | PM.PNPUL ---
Progress Note: A&P Assessment and Plan (1) CHF (congestive heart failure): Code(s): I50.9 - Heart failure, unspecified Status: Acute Assessment and Plan: - her left effusion is a transudate, not consistent with pneumonia; this is more likely to be due to CHF than a lung process such as infection. Reepat CXR and repeat thoracentesis prior to peg placement if this can be scheduled. - failed swallow study; now tolerating tube feeds -requested Trilogy NPPV, however the pt will need prison first, and could transition to Trilogy at home, using BiPAP here and at prison. - discussed plans with Dr Quintero and pt with her daughter at the bedside. (2) Pleural effusion on left: Code(s): J90 - Pleural effusion, not elsewhere classified Status: Acute Assessment and Plan: - twice in February, March 13 and , U/S guided thoracentesis removed 1000 L hazy yellow fluid, - also has worsening aortic stenosis; (3) Respiratory failure with hypoxia and hypercapnia: Code(s): J96.91 - Respiratory failure, unspecified with hypoxia; J96.92 - Respiratory failure, unspecified with hypercapnia Status: Acute Assessment and Plan: - acute and chronic respiratory failure; patient has been in O2 at 3 L/min @ home starting in Sep 2019, now with recurrent episodes of respiratory failure due to COPD and CHF; extubated 03/21/2020; candidate for Trilogy device, which she can use at home, but not in prison facility. NPPV is a better option for her. This was approved if she goes to [facility] or home, but not if she goes to [place]. Could use BiPAP at prison. (4) Chronic obstructive pulmonary disease: Qualifiers: COPD type: unspecified COPD Qualified Code(s): J44.9 - Chronic obstructive pulmonary disease, unspecified Code(s): J44.9 - Chronic obstructive pulmonary disease, unspecified Status: Acute Assessment and Plan: - will continue Atovent 0.5 mg Nebs Q6h (5) Aortic valve stenosis: Qualifiers: Cardiac valve disease etiology: etiology unspecified Qualified Code(s): I35.0 - Nonrheumatic aortic (valve) stenosis Code(s): I35.0 - Nonrheumatic aortic (valve) stenosis Status: Chronic Assessment and Plan: This may be contributing to the failure and effusion. (6) Pulmonary hypertension: Code(s): I27.20 - Pulmonary hypertension, unspecified Status: Acute Assessment and Plan: This is secondary to COPD, hypoxemia; she is too weak to make it through a day of testing at [place], and as her pulm HTN is secondary, she might not benefot from extensive testing when her management depends on treating her CHF, COPD and hypoxemia. Subjective Date/time seen: 04/03/20 15:35 Her daughter Jailene is at the bedside. The patient is alert, oriented, has many questions about getting a PEG, has decided that she does want it however wants to know if having a repeat thoracentesis wound be better prior to the procedure. She had the last one 03/25, which was 9 days ago. She is still on 3 L/min. Tapping fluid does not keep it from returning. Will check a CXR today. Review of Systems Review of Systems: All systems reviewed & are unremarkable except as noted in HPI and below Exam Narrative: Exam Narrative: Const: General: no acute distress Neck: Neck: supple Resp: Auscultation: diminished lung sounds on the left and localized (base) Cardio: Rate: regular rate Rhythm: regular rhythm Heart sounds: Murmur heart sound present GI: Insp
--- NOTE | 2020-04-03 15:47 | PM.IMPN ---
Progress Note: A&P Assessment and Plan (1) Dysphagia: Code(s): R13.10 - Dysphagia, unspecified Status: Acute Assessment and Plan: MBS 03/23 and again on 03/31 showing aspiration. Long discussion with the patient and family. Explained that she is high risk for post-procedure complications given her hx and recent Code Blue. She and her dtr voice understanding. Patient has decided to proceed with PEG tube. Dr Mahoney is aware and has placed her on the schedule. Consider repeat thoracentesis prior to the PEG procedure but will defer to Dr Bland. (2) Cardiopulmonary arrest: Code(s): I46.9 - Cardiac arrest, cause unspecified Status: Acute Assessment and Plan: Patient became bradycardic and then developed cardiac arrest. Had a recent abnormal stress test. Beta-lisa started recently and had 3 doses prior to code. EKG at the time showing junctional rhythm with T wave inversion in high lateral leads. Trop climbed to 1.597. Elevated trop prob from CPR. No beta-lisa due to bradycardia. Oral meds were held but now some NG AST/ALT elevated related to shock liver. Levels trending down AST normal 03/30. Related to code blue. Lipitor has been resumed CXR showing left 4th rib fracture but whole chest wall remains sore. Treat symptomatically. (3) Acute respiratory failure: Qualifiers: Respiratory failure complication: hypoxia and hypercapnia Qualified Code(s): J96.01 - Acute respiratory failure with hypoxia; J96.02 - Acute respiratory failure with hypercapnia Code(s): J96.00 - Acute respiratory failure, unspecified whether with hypoxia or hypercapnia Status: Acute Assessment and Plan: ABG showed hypoxia and hypercapnia but normal pH. Patient able to be extubated 03/21/20. Patient improving and now down to 3L O2. Consider aspiration as complicating her respiratory failure(failed swallow test again). Home 02 2-3 L. Stopped Solu-Medrol (which thought contributed to elevated WBC). 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 ILD could also be related to Amio or chronic aspiration. Appreciate pulmonary input. (4) Anemia: Qualifiers: Anemia type: unspecified type Qualified Code(s): D64.9 - Anemia, unspecified Code(s): D64.9 - Anemia, unspecified Status: Chronic Assessment and Plan: Chronic anemia. Iron studies consistent with iron deficiency anemia. No evidence of acute bleeding. Stool occult blood is negative. Dr March gave IV venofer(received 3734-8548 mg total so stopped). Hemoglobin 6.9 on 03/20 and transfused. Hgb in the 8-9 range but has been slowly trending down to 7.4 today. Continue to monitor. (5) Recurrent pleural effusion on left: Code(s): J90 - Pleural effusion, not elsewhere classified Status: Acute Assessment and Plan: Recently admitted 02/28 - 03/03 for same; thoracentesis 03/01 and another 03/13 and 03/25, each yielding 1000mL clear yellow fluid. Analysis of pleural fluid last admission with negative cultures and no findings of malignancy on cytology. [place] effusions related to CHF. Echo showing EF 60% with diastolic dysfunction and severe pulmonary hypertension with a PASP of 82. Suspect effusion has returned. Dr Bland in the room as well and explained to patient and family that this will most likely reaccumulate if we perform another thoracentesis. (6) Atrial fibrillation: Qualifiers: Atrial fibrillation type: unspecified Qualified Code(s): I48.91 - Unspecified atrial fibrillation Code(s): I48.91 - Unspecified atrial fibrillation Status: Chronic Assessment and Plan: History of paroxysmal a fib. She was maintained on her home amiodarone. Toprol was added but now held due to bradycardia. She is not on long-term anticoagulation due to history of hematuria. Intermittent episode of AFib/RVR treated with bolus of Amio. She is currently off al
[2020-04-03 17:37] LABS: Glucose Point of Care 91 (65-105)
[2020-04-03] MEDS: ENOXAPARIN 30 MG/0.3 ML SYRINGE SUB-Q (21:18)
[2020-04-03] MEDS: INSULIN GLARGINE (*BKC) 100 UNITS/ML 15 UNITS SUB-Q (21:32)
[2020-04-04] VITALS (11 sets, daily range): BP systolic 101–129; BP diastolic 36–82; PULSE 30–89; RESP 18–100; TEMP 36.1–36.5; O2SAT 72–100
[2020-04-04] MEDS: IPRATROPIUM BR 0.02% INH SOLN 0.5 MG/2.5 ML VIAL INHALATION ×3 (02:22→19:10)
[2020-04-04 04:09] LABS: Glucose Point of Care 123 (65-105)
[2020-04-04 04:12] LABS: Glucose Point of Care 123 (65-105)
[2020-04-04 05:21] LABS: Hemoglobin 7.4 g/dL (12.0-15.0); Mean Corpuscular HGB Conc 28.5 g/dl (32-36); Mean Corpuscular Hemoglobin 28.5 pg (26-34); Mean Platelet Volume 10.5 fl (7.4-10.4); Platelet Count Result 209 k/mm3 (150-375); Red Cell Distribution Width 19.2 % (11.5-14.5); White Blood Count 18.4 K/mm3 (4.5-10.0)
[2020-04-04 05:32] LABS: Albumin Level 2.7 g/dL (3.5-5.1); Blood Urea Nitrogen 38 mg/dL (7-17); Calcium 8.7 mg/dL (8.4-10.2); Carbon Dioxide 35 mmol/L (22-30); Chloride 104 mmol/L (98-107); Estimated CRCL calculation 29 ml/min; Estimated Glomerular Filt Rate 44; Glucose 69 mg/dL (65-105); Magnesium 1.5 mg/dL (1.6-2.3); Phosphorus 3.5 mg/dL (2.5-4.5); Potassium 4.5 mmol/L (3.4-5.0); Sodium 140 mmol/L (137-145)
[2020-04-04] MEDS: DEXTROSE 50% 25 GM/50 ML SYRINGE IV PUSH ×2 (06:22→11:45)
[2020-04-04] MEDS: CENTRAL LINE FLUSH 10 ML IV PUSH ×3 (06:44→21:23)
--- NOTE | 2020-04-04 07:14 | WPDGIPROGNO ---
Progress Note: A&P Additional Plan Patient now agrees to PEG tube. Physical exam reveals her to be alert. NG tube in place. Supplemental oxygen by nasal cannula. Lungs reveal occasional rhonchi. Heart without murmur. Abdomen is soft and nontender. Colostomy noted in left lower quadrant. Impression 1. Dysphagia. Plan is for PEG tube for nutritional support. Continue oral pharyngeal speech therapy for dysphagia therapy. 2. Pleural effusion. [place] to be from congestive heart failure. Pulmonary service following. Paracentesis intermittently anticipated. 3. COPD. 4. Atrial fibrillation. 5. History of colon cancer. Colostomy in left lower quadrant potentially could limit placement of PEG tube. Hopefully this can be worked around. Subjective Date/time seen: 04/04/20 07:14 Objective Data Vital Signs Vital Signs: Vital Signs - 24 hr 04/03/20 09:37 04/03/20 09:44 04/03/20 14:00 Temperature 98 F Pulse Rate 72 81 75 Respiratory Rate 16 18 20 Blood Pressure 130/39 L Pulse Oximetry 98 100 04/03/20 14:50 04/03/20 14:58 04/03/20 19:47 Temperature Pulse Rate 76 89 92 Respiratory Rate 16 18 Blood Pressure Pulse Oximetry 04/03/20 19:55 04/03/20 22:00 04/04/20 02:22 Temperature 97 F L Pulse Rate 78 89 Respiratory Rate 22 H 18 Blood Pressure 126/46 L Pulse Oximetry 98 98 04/04/20 02:29 04/04/20 06:00 Temperature 97.7 F Pulse Rate 88 70 Respiratory Rate 18 18 Blood Pressure 125/52 L Pulse Oximetry 100 Intake/Output Intake/Output: Intake & Output 04/01/20 04/02/20 04/03/20 04/04/20 23:59 23:59 23:59 23:59 Intake Total 2119 1555 838 0 Output Total 150 429 7915 500 Balance 4105 982 -162 500 Meds/Results Medications: Active Medications Generic Name Dose Route Start Last Admin Trade Name Freq PRN Reason Stop Dose Admin Acetaminophen 500 mg 03/28/20 12:35 04/01/20 06:24 Tylenol Tablet PO 500 mg Q6H PRN Administration Mild Pain (1-3) Acetaminophen 1,000 mg 03/28/20 12:33 04/03/20 22:28 Tylenol Tablet PO 1,000 mg Q6H PRN Administration Moderate Pain (4-6) Albuterol 1 puff 03/13/20 19:19 Proventil Hfa INHALATION Q4H PRN shortness of breath or wheezing Aspirin 81 mg 03/29/20 09:00 04/03/20 09:44 Aspirin Ec PO 81 mg QAM PEGGY Administration Atorvastatin Calcium 10 mg 03/29/20 09:00 04/03/20 09:44 Lipitor PO 10 mg DAILY PEGGY Administration Dextrose 12.5 gm 03/25/20 17:51 04/04/20 06:22 Dextrose 50% Syringe IV PUSH 12.5 gm PRN PRN Administration Hypoglycemia Protocol Enoxaparin Sodium 30 mg 03/25/20 23:50 04/03/20 21:18 Lovenox SUB-Q 30 mg HS PEGGY Administration Glucagon 1 mg 03/25/20 17:51 Glucagon For Inj IM PRN PRN Hypoglycemia Protocol Glucose 15 gm 03/25/20 17:51 Glutose 15 PO PRN PRN Hypoglycemia Protocol Dextrose 1,000 mls @ 50 mls/hr 03/25/20 17:42 Dextrose 10% IV CONT .Q20H PRN if PN is interrupted Dextrose 1,000 mls @ 100 mls/hr 03/25/20 17:51 Dextrose 5% 1,000 Ml IVPB PRN PRN Hypoglycemia Protocol Insulin Aspart 4 - 8 units 03/29/20 12:00 04/04/20 06:43 Novolog SUB-Q Not Given Q6HR PEGGY Protocol Insulin Glargine 15 units 03/28/20 21:00 04/03/20 21:32 Lantus SUB-Q 15 units HS PEGGY Administration Ipratropium [place] 0.5 mg 03/23/20 14:00 04/04/20 02:22 Atrovent Neb INHALATION 0.5 mg Q6HRT PEGGY Administration Lidocaine 2 patch 04/02/20 09:00 04/03/20 09:44 Lidoderm TRANSDERM 2 patch DAILY PEGGY Administration Methimazole 5 mg 03/14/20 09:00 04/03/20 09:44 Tapazole PO 5 mg DAILY PEGGY Administration Multivitamins/Calcium 1 tablet 03/14/20 09:00 04/03/20 09:44 Therapeutic Multivitamins/Minerals PO 1 tablet DAILY PEGGY Administration Pantoprazole Sodium 40 mg 03/20/20 21:00 04/03/20 21:26 Protonix Iv
--- NOTE | 2020-04-04 07:29 | PM.IMPN ---
Progress Note: A&P Assessment and Plan (1) Dysphagia: Code(s): R13.10 - Dysphagia, unspecified Status: Acute Assessment and Plan: MBS 03/23 and again on 03/31 showing aspiration. Multiple long discussion with patient and family. It has been explained that she is high risk for post-procedure complications given her hx and recent Code Blue. She and her dtr voice understanding. Patient has decided to proceed with PEG tube. Dr Mahoney is aware and has placed her on the schedule today. Repeat thoracentesis planned prior to the PEG procedure. (2) Cardiopulmonary arrest: Code(s): I46.9 - Cardiac arrest, cause unspecified Status: Acute Assessment and Plan: Patient became bradycardic and then developed cardiac arrest. Had a recent abnormal stress test. Beta-lisa started recently and had 3 doses prior to code. EKG at the time showing junctional rhythm with T wave inversion in high lateral leads. Trop climbed to 1.597. Elevated trop prob from CPR. No beta-lisa due to bradycardia. Oral meds were held but now some NG AST/ALT elevated related to shock liver. Levels trending down AST normal 03/30. Related to code blue. Lipitor has been resumed CXR showing left 4th rib fracture but whole chest wall remains sore. Treat symptomatically. (3) Acute respiratory failure: Qualifiers: Respiratory failure complication: hypoxia and hypercapnia Qualified Code(s): J96.01 - Acute respiratory failure with hypoxia; J96.02 - Acute respiratory failure with hypercapnia Code(s): J96.00 - Acute respiratory failure, unspecified whether with hypoxia or hypercapnia Status: Acute Assessment and Plan: ABG showed hypoxia and hypercapnia but normal pH. Patient able to be extubated 03/21/20. Patient improving and now down to 3L O2. Consider aspiration as complicating her respiratory failure(failed swallow test again). Home 02 2-3 L. Stopped Solu-Medrol (which thought contributed to elevated WBC). 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 ILD could also be related to Amio or chronic aspiration. Appreciate pulmonary input. (4) Anemia: Qualifiers: Anemia type: unspecified type Qualified Code(s): D64.9 - Anemia, unspecified Code(s): D64.9 - Anemia, unspecified Status: Chronic Assessment and Plan: Chronic anemia. Iron studies consistent with iron deficiency anemia. No evidence of acute bleeding. Stool occult blood is negative. Dr March gave IV venofer(received 5270-5666 mg total so stopped). Hemoglobin 6.9 on 03/20 and transfused. Hgb in the 8-9 range but has been slowly trending down to 7.4 again today. Continue to monitor. (5) Recurrent pleural effusion on left: Code(s): J90 - Pleural effusion, not elsewhere classified Status: Acute Assessment and Plan: Recently admitted 02/28 - 03/03 for same; thoracentesis 03/01 and another 03/13 and 03/25, each yielding 1000mL clear yellow fluid. Analysis of pleural fluid last admission with negative cultures and no findings of malignancy on cytology. [place] effusions related to CHF. Echo showing EF 60% with diastolic dysfunction and severe pulmonary hypertension with a PASP of 82. CXR 04/03 showing effusion has returned. Discussed with Dr Bland who recommended repeat thoracentesis. Arranged with US to have US guided thoracentesis performed prior to her PEG placement. Patient has trouble lying flat and it is hoped that the thoracentesis will help her toelrate the PEG procedure better. (6) Atrial fibrillation: Qualifiers: Atrial fibrillation type: unspecified Qualified Code(s): I48.91 - Unspecified atrial fibrillation Code(s): I48.91 - Unspecified atrial fibrillation Status: Chronic Assessment and Plan: History of paroxysmal a fib. She was maintained on her home amiodarone. Toprol was added but now held due to bradycardia. She is not on long-te
[2020-04-04 07:34] LABS: Glucose Point of Care 59 (65-105)
[2020-04-04 07:34] LABS: Glucose Point of Care 110 (65-105)
[2020-04-04] MEDS: MAGNESIUM SULF 2 GM/WATER 50ML 2 GM/50 ML BAG IVPB (07:42)
[2020-04-04] MEDS: PANTOPRAZOLE SODIUM IV 40 MG VIAL IV PUSH ×2 (07:46→21:16)
[2020-04-04] MEDS: LIDOCAINE 5% PATCH 2 PATCH TRANSDERM (07:46)
[2020-04-04] MEDS: SILVERGEL (ELTA) 45 ML 1 APPLIC TOPICAL (07:47)
[2020-04-04 08:32] LABS: INR 1.2; Prothrombin Time 15.1 Seconds (11.1-14.7)
[2020-04-04 08:33] LABS: Partial Thromboplastin Time 39.3 SECONDS (22.3-36.8)
--- NOTE | 2020-04-04 09:02 | PCOTNOTE ---
Attempted to see patient this am, however patient off floor for procedure/testing at this time.
--- NOTE | 2020-04-04 09:24 | PC.NURSE ---
Patient return from ultrasound.
--- NOTE | 2020-04-04 09:32 | PC.NURSE ---
Updated daughter, Jailene, on PEG placement tomorrow.
--- NOTE | 2020-04-04 11:03 | PCDIET ---
Nutrition Follow-Up Complete: Inadequate oral intake related to oral intubation as evidenced by NPO status. Patient to meet estimated nutritional needs. Goal: Goal not met. Continue with current goal. Pt current nutrition is Glucerna 1.2 at 50lml/hr. Nutrition recommendation: Agree Last recorded weight is 61.8 kg (steady from assessed wt of 61kg) Bowel Motility:BM today (colostomy) Labs Reviewed:Mg 1.5, Cr 1.20, BUN 38, GFR 44 Meds Noted: Lantus, MTV, lipitor Additional Notes: Pt was supposed to have PEG placed today but went down for thoracentisis today. Glucerna 1.2 at 50ml/hr will restart shortly via NG tube to provide 1320 kcals overs 22hrs. Plans for PEG placement tomorrow. Speech therapy to continue. We will follow every T/F.
[2020-04-04] MEDS: methiMAzole 5 MG TAB PO (11:38)
[2020-04-04] MEDS: THERAPEUTIC MULTIVITAMINS/MINERALS TAB (*BKC) 1 TABLET PO (11:38)
[2020-04-04] MEDS: ATORVASTATIN 10 MG TABLET PO (11:38)
[2020-04-04] MEDS: ASPIRIN 81 MG ENTERIC TABLET PO (11:38)
[2020-04-04 12:29] LABS: Glucose Point of Care 124 (65-105)
[2020-04-04 12:36] LABS: Glucose Point of Care 68 (65-105)
[2020-04-04 18:02] LABS: Glucose Point of Care 102 (65-105)
--- NOTE | 2020-04-04 20:37 | PM.PNPUL ---
Progress Note: A&P Assessment and Plan (1) CHF (congestive heart failure): Code(s): I50.9 - Heart failure, unspecified Status: Acute Assessment and Plan: Stable, appears euvolemic (2) Recurrent pleural effusion on left: Code(s): J90 - Pleural effusion, not elsewhere classified Status: Acute Assessment and Plan: intermittent thoracentesis. Would only recommend further thoracentesis if becomes symptomatic or hypoxic. Pleurodosis by Thoracic Surgery or interventional radiology at [facility] once more stable (3) Chronic obstructive pulmonary disease: Qualifiers: COPD type: unspecified COPD Qualified Code(s): J44.9 - Chronic obstructive pulmonary disease, unspecified Code(s): J44.9 - Chronic obstructive pulmonary disease, unspecified Status: Acute Assessment and Plan: Stable Subjective Date/time seen: 04/04/20 20:37 Interval history: Pt doing well, no pulmonary complaints. Going for PEG tube for nutritional support. Getting intermittent thoracentesis for left pleural effusion Review of Systems Review of Systems: All systems reviewed & are unremarkable except as noted in HPI and below Exam Narrative: Exam Narrative: Const: General: no acute distress Neck: Neck: supple Resp: Auscultation: diminished lung sounds on the left and localized (base) Cardio: Rate: regular rate Rhythm: regular rhythm Heart sounds: Murmur heart sound present GI: Inspection: other (colostomy LLQ, brown output) Skin: General skin exam: no rashes or lesions noted Neuro: Speech: normal speech Extrem: General: normal to inspection, no edema and no pedal edema Objective Data Vital Signs Vital Signs: Vital Signs - 24 hr 04/03/20 22:00 04/04/20 02:22 04/04/20 02:29 Temperature 36.1 C L Pulse Rate 78 89 88 Respiratory Rate 22 H 18 18 Blood Pressure 126/46 L Pulse Oximetry 98 04/04/20 06:00 04/04/20 10:00 04/04/20 11:07 Temperature 36.5 C 36.3 C L Pulse Rate 70 76 30 L Respiratory Rate 18 18 100 H Blood Pressure 125/52 L 101/82 129/52 L Pulse Oximetry 100 100 72 L 04/04/20 11:08 04/04/20 14:00 04/04/20 14:46 Temperature 36.4 C Pulse Rate 76 80 73 Respiratory Rate 30 H 19 18 Blood Pressure 114/36 L 122/40 L Pulse Oximetry 100 93 98 04/04/20 19:10 04/04/20 19:19 Temperature Pulse Rate 77 75 Respiratory Rate 18 18 Blood Pressure Pulse Oximetry 97 Intake/Output Intake/Output: Intake & Output 04/01/20 04/02/20 04/03/20 04/04/20 23:59 23:59 23:59 23:59 Intake Total 2119 1555 838 961 Output Total 658 302 4630 2200 Balance 0179 648 -417 -4901 Meds/Results Medications: Active Medications Generic Name Dose Route Start Last Admin Trade Name Freq PRN Reason Stop Dose Admin Acetaminophen 500 mg 03/28/20 12:35 04/01/20 06:24 Tylenol Tablet PO 500 mg Q6H PRN Administration Mild Pain (1-3) Acetaminophen 1,000 mg 03/28/20 12:33 04/03/20 22:28 Tylenol Tablet PO 1,000 mg Q6H PRN Administration Moderate Pain (4-6) Albuterol 1 puff 03/13/20 19:19 Proventil Hfa INHALATION Q4H PRN shortness of breath or wheezing Aspirin 81 mg 03/29/20 09:00 04/04/20 11:38 Aspirin Ec PO 81 mg QAM PEGGY Administration Atorvastatin Calcium 10 mg 03/29/20 09:00 04/04/20 11:38 Lipitor PO 10 mg DAILY PEGGY Administration Dextrose 12.5 gm 03/25/20 17:51 04/04/20 11:45 Dextrose 50% Syringe IV PUSH 12.5 gm PRN PRN Administration Hypoglycemia Protocol Enoxaparin Sodium 30 mg 03/25/20 23:50 04/03/20 21:18 Lovenox SUB-Q 30 mg HS PEGGY Administration Glucagon 1 mg 03/25/20 17:51 Glucagon For Inj IM PRN PRN Hypoglycemia Protocol Glucose 15 gm 03/25/20 17:51 Glutose 15 PO PRN PRN Hypoglycemia Protocol Dextrose 1,000 mls @ 50 mls/hr 03/25/20 17:42 Dextrose 10% IV CONT .Q20H PRN if PN is interrupted
[2020-04-04] MEDS: ACETAMINOPHEN 500 MG TABLET 1000 MG PO (21:40)
--- NOTE | 2020-04-04 21:57 | PC.NURSE ---
patients blood sugar checked at 21:25, results were 110. Patient will be going NPO at 00:00. Per Dr. Cast- Insulin was held to avoid dropping levels overnight.
[2020-04-04 22:40] LABS: Glucose Point of Care 110 (65-105)
[2020-04-04 23:58] LABS: Glucose Point of Care 127 (65-105)
[2020-04-05] VITALS (21 sets, daily range): BP systolic 104–152; BP diastolic 38–61; PULSE 70–88; RESP 17–21; TEMP 36.1–37.3; O2SAT 94–100
[2020-04-05] MEDS: IPRATROPIUM BR 0.02% INH SOLN 0.5 MG/2.5 ML VIAL INHALATION ×4 (02:07→20:27)
[2020-04-05 05:51] LABS: Hematocrit 25.3 % (37.0-47.0); Hemoglobin 7.2 g/dL (12.0-15.0); Mean Corpuscular HGB Conc 28.5 g/dl (32-36); Mean Corpuscular Volume 98.4 fl (80-100); Mean Platelet Volume 10.2 fl (7.4-10.4); Platelet Count Result 218 k/mm3 (150-375); Red Blood Count 2.57 M/mm3 (4.2-5.4); Red Cell Distribution Width 19.9 % (11.5-14.5)
[2020-04-05 06:05] LABS: Albumin Level 2.6 g/dL (3.5-5.1); Blood Urea Nitrogen 34 mg/dL (7-17); Calcium 8.7 mg/dL (8.4-10.2); Carbon Dioxide 33 mmol/L (22-30); Chloride 103 mmol/L (98-107); Estimated CRCL calculation 29 ml/min; Estimated Glomerular Filt Rate 44; Glucose 127 mg/dL (65-105); Magnesium 2.6 mg/dL (1.6-2.3); Phosphorus 3.5 mg/dL (2.5-4.5); Potassium 4.6 mmol/L (3.4-5.0); Sodium 137 mmol/L (137-145)
[2020-04-05] MEDS: CENTRAL LINE FLUSH 10 ML IV PUSH ×3 (06:22→21:47)
[2020-04-05 06:43] LABS: Glucose Point of Care 117 (65-105)
[2020-04-05] MEDS: LIDOCAINE 5% PATCH 2 PATCH TRANSDERM (09:04)
--- NOTE | 2020-04-05 09:17 | SUR.PREOP ---
Spoke directly with Dr Mahoney- does not want to order antibiotics prior to PEG tube placement.
--- NOTE | 2020-04-05 09:17 | WPDANESEPPF ---
Anes - Initial Pre Proc Eval Procedure: Operation Date: 04/05/20 10:00 Proposed Procedures p Percutaneous Endoscopic Gastrostomy - Rocky Mahoney MD Date/Time: 04/05/20 09:17 Surgeon: Anthony Quintero MD Pre Op Diagnosis: Recurrent pleural effusion. Patient Data Age: 74 Gender: F Height: 5 ft 1 in Weight: 58.4 kg Last Vital Signs Temp 36.1 C L 04/05/20 06:00 Pulse 74 04/05/20 07:59 Resp 20 04/05/20 07:59 BP 138/44 L 04/05/20 06:00 Pulse Ox 94 04/05/20 07:45 Allergies Allergy/AdvReac Type Severity Reaction Status Date / Time Penicillins Allergy Severe Anaphylactic Verified 03/13/20 10:08 Shock metoprolol AdvReac Severe Other Verified 03/23/20 07:14 Home Medications Medication Instructions Recorded Confirmed Type aspirin 81 mg tablet,delayed 81 mg PO DAILY 08/08/19 03/13/20 History release atorvastatin 10 mg tablet 10 mg PO DAILY #90 tablet 08/08/19 03/13/20 Rx gabapentin 100 mg capsule 100 mg PO TID 08/08/19 03/13/20 History melatonin 5 mg tablet 10 mg PO HS tablet 08/08/19 03/13/20 History methimazole 5 mg tablet 5 mg PO DAILY #90 tablet 08/08/19 03/13/20 Rx tamsulosin 0.4 mg capsule 0.4 mg PO DAILY 08/08/19 03/13/20 History multivitamin with minerals 1 cap PO DAILY 12/01/19 03/13/20 History amiodarone 200 mg tablet 200 mg PO DAILY #30 tablet 12/18/19 03/13/20 Rx furosemide 40 mg tablet 40 mg PO PRN PRN tablet 01/05/20 03/13/20 History meclizine 12.5 mg tablet 12.5 mg PO BID PRN tablet 01/05/20 03/13/20 History potassium chloride 10 mEq 10 meq PO DAILY PRN 01/05/20 03/13/20 History tablet,extended release L. gasseri-B. bifidum-B longum 1.5 1 cap PO DAILY 01/25/20 03/13/20 History billion cell capsule albuterol sulfate 90 mcg/actuation 1 inhalation INHALATION Q4H PRN 05/19/20 06/17/20 Rx aerosol inhaler #18 gm ipratropium bromide 17 2 puff INHALATION QID #12.9 gm 02/27/20 03/13/20 Rx mcg/actuation HFA aerosol inhaler sertraline 50 mg tablet 50 mg PO DAILY #90 tablet 03/04/20 03/13/20 Rx acetaminophen 500 mg tablet 500 mg PO Q6H PRN 03/08/20 03/13/20 History diphenhydramine HCl 50 mg/30 mL 50 mg PO Q8H PRN 03/08/20 03/13/20 History oral liquid lidocaine HCl 4 % topical cream 1 applic TOPICAL TID 03/08/20 03/13/20 History oxygen-air delivery systems #1 03/08/20 03/13/20 History magnesium hydroxide 400 mg/5 mL 15 ml PO DAILY PRN ml 03/12/20 03/13/20 History oral suspension lorazepam See Rx Instructions .ROUTE .COMPLEX 03/13/20 03/13/20 History Laboratory Tests 04/04/20 04/04/20 04/04/20 11:41 12:20 18:00 WBC RBC Hgb Hct MCV MCH MCHC RDW Plt Count MPV Sodium Potassium Chloride Carbon Dioxide BUN Creatinine Estim Creat Clear Calc Estimated GFR Glucose POC Capillary Glucose 68 mg/dl mg/dl 124 mg/dl H mg/dl 102 mg/dl mg/dl (65-105) (65-105) (65-105) Calcium Phosphorus Magnesium Albumin 04/04/20 04/04/20 04/05/20 21:25 23:50 05:43 WBC 18.0 K/mm3 H K/mm3 (4.5-10.0) RBC 2.57 M/mm3 L M/mm3 (4.2-5.4) Hgb 7.2 g/dL L g/dL (12.0-15.0) Hct 25.3 % L % (37.0-47.0) MCV 98.4 fl fl (80-100) MCH 28.0 pg pg (26-34) MCHC 28.5 g/dl L g/dl (32-36) RDW 19.9 % H % (11.5-14.5) Plt Count 218 k/mm3 k/mm3 (150-375) MPV 10.2 fl fl (7.4-10.4) Sodium Potassium Chloride Carbon Dioxide BUN Creatinine Estim Creat Clear Calc Estimated GFR Glucose POC Capillary Glucose 110 mg/dl mg/dl 127 mg/dl H mg/dl (65-105) (65-105) Calcium Phosph
--- NOTE | 2020-04-05 09:23 | PCSTNOTE ---
Patient on hold today due to undergoing PEG tube procedure.
[2020-04-05] MEDS: LACTATED RINGERS 1,000 ML 150 ML IV CONT (09:37)
--- NOTE | 2020-04-05 09:38 | SUR.PREOP ---
APPROX 09 WENT TO BRING PATIENT TO GI LAB FOR PROCEDURE. DAUGHTER JOYCE UPDATED ON TIMES FOR PROCEDURE.
--- NOTE | 2020-04-05 12:23 | PCNFU ---
Nutrition Follow-Up Complete: Inadequate oral intake related to oral intubation as evidenced by NPO status. Goal: Patient to meet estimated nutritional needs. Progressing towards goal. We will continue current goal. Pt current nutrition is Glucerna 1.2 at 30ml/hr. Nutrition recommendation: advance to 50 ml/hr per MD orders Last recorded weight is 58.4 kg. Bowel Motility:+BM reported 04/04 Labs Reviewed:Cr 1.2,BUN 24,GFR 44,Hct 2.6 Meds Noted:Protonix, Novolog, Lantus,Lipitor, MVI Additional Notes:Patient had PEG placed today. Tube feedings to start with Glucerna 1.2 at 30 ml/hr recommending goal rate at 50 ml/hr which will provide 1320 kcals/66 gms protein meeting 100% of caloric needs. Agree with tube feedings. Monitoring: Follow up every Wednesday and Wednesday.
[2020-04-05 12:41] LABS: Glucose Point of Care 95 (65-105)
--- NOTE | 2020-04-05 15:15 | PM.IMPN ---
Progress Note: A&P Assessment and Plan (1) Dysphagia: Code(s): R13.10 - Dysphagia, unspecified Status: Acute Assessment and Plan: MBS 03/23 and again on 03/31 showing aspiration. Multiple long discussion with patient and family. It was explained that she is high risk for complications given her hx and recent Code Blue. She and her dtr voice understanding but wish to proceed. PEG tube placed today and patient appears to have tolerated the procedure well. Change medications to oral route. Okay to remove central line. . (2) Cardiopulmonary arrest: Code(s): I46.9 - Cardiac arrest, cause unspecified Status: Acute Assessment and Plan: Patient became bradycardic and then developed cardiac arrest tongue stitcher hours on 03/20. Had a recent abnormal stress test. Beta-lisa started recently and had 3 doses prior to code. EKG at the time showing junctional rhythm with T wave inversion in high lateral leads. Trop climbed to 1.597. Elevated trop prob from CPR. Beta-lisa stopped due to bradycardia. Cardiology following AST/ALT elevated related to shock liver. Levels trending down AST normal 03/30. Related to code blue. Lipitor has been resumed CXR showing left 4th rib fracture but whole chest wall remains sore. Treat symptomatically. (3) Acute respiratory failure: Qualifiers: Respiratory failure complication: hypoxia and hypercapnia Qualified Code(s): J96.01 - Acute respiratory failure with hypoxia; J96.02 - Acute respiratory failure with hypercapnia Code(s): J96.00 - Acute respiratory failure, unspecified whether with hypoxia or hypercapnia Status: Acute Assessment and Plan: Patient had code blue called as mentioned above. ABG showing hypoxia and hypercapnia. Patient able to be extubated 03/21/20. Patient improving and now down to 3L O2. Consider aspiration as complicating her respiratory failure (failed swallow test again). Home 02 2-3 L. Stopped Solu-Medrol (which thought contributed to elevated WBC). 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 ILD could also be related to Amio or chronic aspiration. Appreciate pulmonary input. (4) Anemia: Qualifiers: Anemia type: unspecified type Qualified Code(s): D64.9 - Anemia, unspecified Code(s): D64.9 - Anemia, unspecified Status: Chronic Assessment and Plan: Chronic anemia. Iron studies consistent with iron deficiency anemia. No evidence of acute bleeding. Stool occult blood is negative. Dr March gave IV venofer(received 8391-3801 mg total so stopped). Hemoglobin 6.9 on 03/20 and transfused. Hgb in the 8-9 range but has been slowly trending down to 7.2 today. EGD was normal. Continue to monitor. (5) Recurrent pleural effusion on left: Code(s): J90 - Pleural effusion, not elsewhere classified Status: Acute Assessment and Plan: Recently admitted 02/28 - 03/03 for same; thoracentesis 03/01 and another 03/13 and 03/25, each yielding 1000mL clear yellow fluid. Analysis of pleural fluid last admission with negative cultures and no findings of malignancy on cytology. [place] effusions related to CHF. Echo showing EF 60% with diastolic dysfunction and severe pulmonary hypertension with a PASP of 82. CXR 04/03 showing effusion has returned. Recommended repeat US guided thoracentesis performed prior to her PEG placement which was performed 04/04 with removal of 1000mL fluid. Patient tolerated the procedure well. (6) Atrial fibrillation: Qualifiers: Atrial fibrillation type: unspecified Qualified Code(s): I48.91 - Unspecified atrial fibrillation Code(s): I48.91 - Unspecified atrial fibrillation Status: Chronic Assessment and Plan: History of paroxysmal a fib. She was maintained on her home amiodarone. Toprol was added but now held due to bradycardia. She is not on long-term anticoagulation due to history of hematuria.
[2020-04-05] MEDS: SERTRALINE HCL 25 MG TABLET FEED TUBE (16:48)
[2020-04-05] MEDS: ACETAMINOPHEN 500 MG TABLET FEED TUBE (16:48)
[2020-04-05] MEDS: SILVERGEL (ELTA) 45 ML 1 APPLIC TOPICAL (16:50)
[2020-04-05 18:55] LABS: Glucose Point of Care 90 (65-105)
[2020-04-05] MEDS: ENOXAPARIN 30 MG/0.3 ML SYRINGE SUB-Q (21:47)
[2020-04-05 22:02] LABS: Glucose Point of Care 94 (65-105)
[2020-04-06] VITALS (12 sets, daily range): BP systolic 98–127; BP diastolic 40–59; PULSE 76–111; RESP 18–22; TEMP 36.1–37.2; O2SAT 94–100
[2020-04-06 00:36] LABS: Glucose Point of Care 108 (65-105)
[2020-04-06] MEDS: IPRATROPIUM BR 0.02% INH SOLN 0.5 MG/2.5 ML VIAL INHALATION ×4 (01:49→20:03)
[2020-04-06] MEDS: ACETAMINOPHEN 500 MG TABLET FEED TUBE ×3 (04:32→20:19)
[2020-04-06] MEDS: LANSOPRAZOLE ORAL SUSP 30 MG/10 ML ORAL.SUSP FEED TUBE (06:11)
[2020-04-06] MEDS: CENTRAL LINE FLUSH 10 ML IV PUSH ×3 (06:11→20:19)
[2020-04-06 06:27] LABS: Hematocrit 26.1 % (37.0-47.0); Hemoglobin 7.5 g/dL (12.0-15.0); Mean Corpuscular HGB Conc 28.7 g/dl (32-36); Mean Corpuscular Hemoglobin 28.6 pg (26-34); Mean Corpuscular Volume 99.6 fl (80-100); Mean Platelet Volume 10.2 fl (7.4-10.4); Platelet Count Result 243 k/mm3 (150-375); Red Blood Count 2.62 M/mm3 (4.2-5.4); White Blood Count 18.7 K/mm3 (4.5-10.0)
[2020-04-06 06:38] LABS: Blood Urea Nitrogen 32 mg/dL (7-17); Calcium 8.6 mg/dL (8.4-10.2); Carbon Dioxide 32 mmol/L (22-30); Chloride 106 mmol/L (98-107); Estimated CRCL calculation 26 ml/min; Estimated Glomerular Filt Rate 40; Glucose 133 mg/dL (65-105); Potassium 4.3 mmol/L (3.4-5.0); Sodium 140 mmol/L (137-145)
[2020-04-06 06:59] LABS: Glucose Point of Care 131 (65-105)
--- NOTE | 2020-04-06 08:24 | PM.IMPN ---
Progress Note: A&P Assessment and Plan (1) Dysphagia: Code(s): R13.10 - Dysphagia, unspecified Status: Acute Assessment and Plan: MBS 03/23 and again on 03/31 showing aspiration. Multiple long discussion with patient and family. It was explained that she is high risk for complications given her hx and recent Code Blue. She and her dtr voice understanding but wish to proceed. PEG tube placed 04/05/20 and patient appears to have tolerated the procedure well. Tolerating tube feedings. Advance to goal as tolerated. Discharge planning in progress. Patient has been refusing to wear the BiPAP. (2) Cardiopulmonary arrest: Code(s): I46.9 - Cardiac arrest, cause unspecified Status: Acute Assessment and Plan: Patient became bradycardic and then developed cardiac arrest oncology nurse navigator hours on 03/20. Had a recent abnormal stress test. Beta-lisa started recently and had 3 doses prior to code. EKG at the time showing junctional rhythm with T wave inversion in high lateral leads. Trop climbed to 1.597. Elevated trop prob from CPR. Beta-lisa stopped due to bradycardia. Cardiology following AST/ALT elevated related to shock liver. Levels trending down AST normal 03/30. Related to code blue. Lipitor has been resumed CXR showing left 4th rib fracture but whole chest wall remains sore. Treat symptomatically. (3) Acute respiratory failure: Qualifiers: Respiratory failure complication: hypoxia and hypercapnia Qualified Code(s): J96.01 - Acute respiratory failure with hypoxia; J96.02 - Acute respiratory failure with hypercapnia Code(s): J96.00 - Acute respiratory failure, unspecified whether with hypoxia or hypercapnia Status: Acute Assessment and Plan: Patient had code blue called as mentioned above. ABG showing hypoxia and hypercapnia. Patient able to be extubated 03/21/20. Patient improving and now down to 2L O2. Consider aspiration as complicating her respiratory failure (failed swallow test again). Home 02 2-3 L. Stopped Solu-Medrol (which thought contributed to elevated WBC). 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 ILD could also be related to Amio or chronic aspiration. Appreciate pulmonary input. (4) Anemia: Qualifiers: Anemia type: unspecified type Qualified Code(s): D64.9 - Anemia, unspecified Code(s): D64.9 - Anemia, unspecified Status: Chronic Assessment and Plan: Chronic anemia. Iron studies consistent with iron deficiency anemia. No evidence of acute bleeding. Stool occult blood is negative. Dr March gave IV venofer(received 3367-8084 mg total so stopped). Hemoglobin 6.9 on 03/20 and transfused. Hgb was in the 8-9 range but has been mostly in the 7 range past many days. EGD was normal. Currently on Prevacid. Continue to monitor. (5) Recurrent pleural effusion on left: Code(s): J90 - Pleural effusion, not elsewhere classified Status: Acute Assessment and Plan: Recently admitted 02/28 - 03/03 for same; thoracentesis 03/01 and another 03/13 and 03/25, each yielding 1000mL clear yellow fluid. Analysis of pleural fluid last admission with negative cultures and no findings of malignancy on cytology. [place] effusions related to CHF. Echo showing EF 60% with diastolic dysfunction and severe pulmonary hypertension with a PASP of 82. CXR 04/03 showing effusion has returned. Repeat US guided thoracentesis performed with removal of 1000mL fluid. Patient tolerated the procedure well. (6) Atrial fibrillation: Qualifiers: Atrial fibrillation type: unspecified Qualified Code(s): I48.91 - Unspecified atrial fibrillation Code(s): I48.91 - Unspecified atrial fibrillation Status: Chronic Assessment and Plan: History of paroxysmal a fib. She was maintained on her home amiodarone. Toprol was added but now held due to bradycardia. She is not on long-term anti
--- NOTE | 2020-04-06 08:24 | WPDANESPN ---
Anes - Prog Note Post-Op Date/Time: 04/06/20 08:24 Cardiovascular status: normal Respiratory status: normal Airway patency: baseline Mental status: baseline Post-Op hydration status: normal Vital Signs: Last Vital Signs Temp 97 F L 04/06/20 04:00 Pulse 111 H 04/06/20 04:00 Resp 22 H 04/06/20 04:00 BP 98/59 L 04/06/20 04:00 Pulse Ox 100 04/06/20 04:00 I/O: Intake & Output 04/05/20 04/06/20 04/06/20 23:59 07:59 15:59 Intake Total 50 Output Total 750 400 Balance -750 -350 Laboratory Tests 04/06/20 06:04 04/06/20 06:04 04/05/20 04/05/20 04/05/20 11:59 18:49 21:46 WBC RBC Hgb Hct MCV MCH MCHC RDW Plt Count MPV Sodium Potassium Chloride Carbon Dioxide BUN Creatinine Estim Creat Clear Calc Estimated GFR Glucose POC Capillary Glucose 95 90 94 Calcium 04/06/20 04/06/20 04/06/20 00:31 06:04 06:04 WBC 18.7 H RBC 2.62 L Hgb 7.5 L Hct 26.1 L MCV 99.6 MCH 28.6 MCHC 28.7 L RDW 20.0 H Plt Count 243 MPV 10.2 Sodium 140 Potassium 4.3 Chloride 106 Carbon Dioxide 32 H BUN 32 H Creatinine 1.30 H Estim Creat Clear Calc 26 Estimated GFR 40 L Glucose 133 H POC Capillary Glucose 108 Calcium 8.6 04/06/20 06:10 WBC RBC Hgb Hct MCV MCH MCHC RDW Plt Count MPV Sodium Potassium Chloride Carbon Dioxide BUN Creatinine Estim Creat Clear Calc Estimated GFR Glucose POC Capillary Glucose 131 H Calcium Post-procedural complaints: none Patient Feedback: Patient satisfied with anesthetic care.
--- NOTE | 2020-04-06 08:27 | WPDGIPROGNO ---
Progress Note: A&P Assessment and Plan (1) Dysphagia: Code(s): R13.10 - Dysphagia, unspecified Status: Acute Assessment and Plan: Dr Mahoney placed G tube yesterday, working ok and she is tolerating feeding (2) Chronic kidney disease, stage 4, severely decreased GFR: Code(s): N18.4 - Chronic kidney disease, stage 4 (severe) Status: Acute (3) Cardiopulmonary arrest: Code(s): I46.9 - Cardiac arrest, cause unspecified Status: Acute (4) Respiratory failure with hypoxia and hypercapnia: Code(s): J96.91 - Respiratory failure, unspecified with hypoxia; J96.92 - Respiratory failure, unspecified with hypercapnia Status: Acute Assessment and Plan: no new changes (5) Chronic obstructive pulmonary disease: Qualifiers: COPD type: unspecified COPD Qualified Code(s): J44.9 - Chronic obstructive pulmonary disease, unspecified Code(s): J44.9 - Chronic obstructive pulmonary disease, unspecified Status: Acute (6) G tube feedings: Code(s): Z93.1 - Gastrostomy status Status: Acute Assessment and Plan: advance rate as tolerated Subjective Date/time seen: 04/06/20 08:27 Interval history: covering for Dr Mahoney this weekend she is tolerating TF at 30 ml/h, no new issues per plush finisher of Systems Review of Systems: All systems reviewed & are unremarkable except as noted in HPI and below Exam Const: General: comfortable Other: elderly frail female lying in bed HENMT: General nose exam: Normal nares present Eyes: General: appearance normal, both eyes and all related structures Neck: Neck: no JVD Resp: Auscultation: no crackles Cardio: Rate: regular rate Rhythm: regular rhythm GI: Inspection: non-distended GI Palp: Yes Soft to palpation Auscultation: normal bowel sounds Other: colostomy bag with brown stool. G-tube looks ok, no tenderness Urinary Catheter: Urinary Catheter: patent and draining Skin: General skin exam: normal color Neuro: Other: awake, alert Extrem: General: normal to inspection Objective Data Vital Signs Vital Signs: Vital Signs - 24 hr 04/05/20 09:32 04/05/20 10:24 04/05/20 10:34 Temperature 98.2 F Pulse Rate 81 70 72 Respiratory Rate 18 20 19 Blood Pressure 150/49 H 109/49 L 123/53 L Pulse Oximetry 100 100 99 04/05/20 10:44 04/05/20 11:05 04/05/20 11:20 Temperature 97.1 F L 97.7 F Pulse Rate 73 73 73 Respiratory Rate 21 H 19 18 Blood Pressure 144/57 H 135/61 141/50 H Pulse Oximetry 99 100 100 04/05/20 11:50 04/05/20 12:50 04/05/20 14:00 Temperature 97.8 F 98.4 F 98.2 F Pulse Rate 77 77 82 Respiratory Rate 18 17 17 Blood Pressure 152/48 H 118/44 L 134/48 L Pulse Oximetry 98 98 95 04/05/20 15:08 04/05/20 15:21 04/05/20 18:00 Temperature 99.2 F Pulse Rate 88 80 82 Respiratory Rate 20 20 18 Blood Pressure Pulse Oximetry 100 04/05/20 18:53 04/05/20 20:29 04/05/20 20:34 Temperature Pulse Rate 78 83 Respiratory Rate 20 20 Blood Pressure 112/38 L Pulse Oximetry 98 04/05/20 22:04 04/06/20 01:50 04/06/20 01:55 Temperature 97.6 F Pulse Rate 79 79 77 Respiratory Rate 20 20 18 Blood Pressure 104/40 L Pulse Oximetry 100 04/06/20 04:00 Temperature 97 F L Pulse Rate 111 H Respiratory Rate 22 H Blood Pressure 98/59 L Pulse Oximetry 100 Intake/Output Intake/Output: Intake & Output 04/03/20 04/04/20 04/05/20 04/06/20 23:59 23:59 23:59 23:59 Intake Total 838 961 450 50 Output Total 1000 2200 1350 400 Balance -162 -1239 -900 -350 Meds/Results Medications: Active Medications Generic Name Dose Route Start Last Admin Trade Name Freq PRN Reason Stop Dose Admin Acetaminophen 500 mg 04/05/20 15:22 04/06/20 04:32 Tylenol Tablet FEED TUBE 500 mg Q6H PRN Administration Mild Pain (1-3) Albuterol 1 puff 03/13/20 19:19 Proventil Hfa INHALATION Q4H PRN shortness of breath or wheezing Atorva
[2020-04-06] MEDS: ASPIRIN 81 MG CHEWABLE TABLET FEED TUBE (09:42)
[2020-04-06] MEDS: LIDOCAINE 5% PATCH 2 PATCH TRANSDERM (09:43)
[2020-04-06] MEDS: methiMAzole 5 MG TAB FEED TUBE (09:44)
[2020-04-06] MEDS: ATORVASTATIN 10 MG TABLET FEED TUBE (09:45)
[2020-04-06] MEDS: SILVERGEL (ELTA) 45 ML 1 APPLIC TOPICAL (09:45)
[2020-04-06] MEDS: SERTRALINE HCL 25 MG TABLET FEED TUBE (09:45)
[2020-04-06] MEDS: MULTIVIT W/ IRON, MINERALS 15 ML LIQUID (*BKC) FEED TUBE (11:05)
[2020-04-06 11:59] LABS: Glucose Point of Care 133 (65-105)
--- NOTE | 2020-04-06 12:30 | PC.NURSE ---
spoke with Dr. Hayward to clarify patient's tube feeding rate and order. Physician to nurse communication states to increase rate starting 7-11 and tube feeding order states goal rate is 50ml/hr but no advancement instructions. Rate was increased this AM from 30ml/hr to 40ml/hr with a residual of 80ml. Hospitalist, Dr. Quintero, hoping to possibly d/c patient today. Per Dr. Hayward rate can be increased to 50ml/hr and 50ml/hr is the goal.
[2020-04-06 18:15] LABS: Glucose Point of Care 148 (65-105)
[2020-04-06] MEDS: ENOXAPARIN 30 MG/0.3 ML SYRINGE SUB-Q (20:20)
[2020-04-06] MEDS: INSULIN GLARGINE (*BKC) 100 UNITS/ML 15 UNITS SUB-Q (20:31)
[2020-04-06 21:17] LABS: Glucose Point of Care 136 (65-105)
[2020-04-06 23:31] LABS: Glucose Point of Care 121 (65-105)
[2020-04-07] VITALS (15 sets, daily range): BP systolic 113–152; BP diastolic 36–65; PULSE 55–81; RESP 18–24; TEMP 36.3–36.9; O2SAT 93–100
[2020-04-07] MEDS: LORazepam 0.5 MG TABLET PO (00:25)
[2020-04-07] MEDS: ACETAMINOPHEN 500 MG TABLET FEED TUBE ×3 (02:23→20:35)
[2020-04-07] MEDS: LANSOPRAZOLE ORAL SUSP 30 MG/10 ML ORAL.SUSP FEED TUBE (05:44)
[2020-04-07] MEDS: CENTRAL LINE FLUSH 10 ML IV PUSH (05:44)
[2020-04-07 06:02] LABS: Hematocrit 23.5 % (37.0-47.0); Mean Corpuscular HGB Conc 28.5 g/dl (32-36); Mean Corpuscular Hemoglobin 28.2 pg (26-34); Mean Corpuscular Volume 98.7 fl (80-100); Mean Platelet Volume 9.9 fl (7.4-10.4); Platelet Count Result 209 k/mm3 (150-375); Red Blood Count 2.38 M/mm3 (4.2-5.4); Red Cell Distribution Width 19.9 % (11.5-14.5); White Blood Count 16.6 K/mm3 (4.5-10.0)
[2020-04-07 06:10] LABS: Hemoglobin 6.7 g/dL (12.0-15.0)
[2020-04-07] MEDS: IPRATROPIUM BR 0.02% INH SOLN 0.5 MG/2.5 ML VIAL INHALATION ×4 (06:10→20:15)
[2020-04-07 06:20] LABS: Blood Urea Nitrogen 31 mg/dL (7-17); Calcium 8.5 mg/dL (8.4-10.2); Carbon Dioxide 32 mmol/L (22-30); Chloride 103 mmol/L (98-107); Estimated CRCL calculation 29 ml/min; Estimated Glomerular Filt Rate 44; Glucose 123 mg/dL (65-105); Potassium 4.2 mmol/L (3.4-5.0); Sodium 137 mmol/L (137-145)
[2020-04-07 06:33] LABS: Glucose Point of Care 117 (65-105)
[2020-04-07 07:29] LABS: Hematocrit 24.4 % (37.0-47.0)
[2020-04-07] MEDS: CENTRAL LINE FLUSH 20 ML IV PUSH (08:35)
--- NOTE | 2020-04-07 08:53 | PM.IMPN ---
Progress Note: A&P Assessment and Plan (1) Dysphagia: Code(s): R13.10 - Dysphagia, unspecified Status: Acute Assessment and Plan: MBS 03/23 and again on 03/31 showing aspiration. Multiple long discussion with patient and family. It was explained that she is high risk for complications given her hx and recent Code Blue. She and her dtr voice understanding but wish to proceed. PEG tube placed 04/05/20 and patient appears to have tolerated the procedure well. Was tolerating tube feedings but now having abd pain and high residuals. Will check KUB. Hold TF until residual inproves. Reglan x 1. 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 Had a recent abnormal stress test. Beta-lisa started recently and had 3 doses prior to code blue. EKG at the time showing junctional rhythm with T wave inversion in high lateral leads. Trop climbed to 1.597. Elevated trop probably from CPR. Beta-lisa stopped due to bradycardia. Cardiology following. Continue aspirin and Lipitor. AST/ALT elevated related to shock liver. Levels trending down AST normal 04/03. Related to code blue. Lipitor has been resumed CXR showing left 4th rib fracture but whole chest wall remains sore. Symptoms slowly improving. Treat symptomatically. (3) Acute respiratory failure: Qualifiers: Respiratory failure complication: hypoxia and hypercapnia Qualified Code(s): J96.01 - Acute respiratory failure with hypoxia; J96.02 - Acute respiratory failure with hypercapnia Code(s): J96.00 - Acute respiratory failure, unspecified whether with hypoxia or hypercapnia Status: Acute Assessment and Plan: Patient had code blue called as mentioned above. ABG showing hypoxia and hypercapnia. Patient able to be extubated 03/21/20. Patient improving and now down to 2L O2. Consider aspiration as complicating her respiratory failure (failed swallow test again). Home 02 2-3 L. Stopped Solu-Medrol (which thought contributed to elevated WBC). 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 ILD could also be related to Amio or chronic aspiration. Patient refusing BiPAP at night. Appreciate pulmonary input. (4) Anemia: Qualifiers: Anemia type: unspecified type Qualified Code(s): D64.9 - Anemia, unspecified Code(s): D64.9 - Anemia, unspecified Status: Chronic Assessment and Plan: Chronic anemia. Iron studies consistent with iron deficiency anemia. No evidence of acute bleeding. Stool occult blood is negative. Dr March gave IV venofer(received 6193-7829 mg total so stopped). Hemoglobin 6.9 on 03/20 and transfused. Hgb was in the 8-9 range but has been mostly in the 7 range past many days. EGD was normal. Currently on Prevacid. Hemoglobin 6.7 this morning may have been erroneously if drawn the lining correctly. Repeat hemoglobin 7 which is more in line recent blood work. Will transfuse 1 unit. No evidence of acute blood loss. Continue Prevacid. Continue to monitor. (5) Recurrent pleural effusion on left: Code(s): J90 - Pleural effusion, not elsewhere classified Status: Acute Assessment and Plan: Recently admitted 02/28 - 03/03 for same; thoracentesis 03/01 and another 03/13 and 03/25, each yielding 1000mL clear yellow fluid. Analysis of pleural fluid last admission with negative cultures and no findings of malignancy on cytology. [place] effusions related to CHF. Echo showing EF 60% with diastolic dysfunction and severe pulmonary hypertension with a PASP of 82. CXR 04/03 showing effusion has returned. Repeat US guided thoracentesis performed on 04/04 with removal of 1000mL fluid. Patient tolerated the procedure well. (6) Atrial fibrillation: Qualifiers: Atrial fibrillation type
[2020-04-07] MEDS: SODIUM CHLORIDE 0.9% IV 250 ML 30 ML IV CONT (08:54)
[2020-04-07] MEDS: methiMAzole 5 MG TAB FEED TUBE (08:56)
[2020-04-07] MEDS: SERTRALINE HCL 25 MG TABLET FEED TUBE (08:56)
[2020-04-07] MEDS: ATORVASTATIN 10 MG TABLET FEED TUBE (08:56)
[2020-04-07] MEDS: ASPIRIN 81 MG CHEWABLE TABLET FEED TUBE (08:56)
[2020-04-07] MEDS: MULTIVIT W/ IRON, MINERALS 15 ML LIQUID (*BKC) FEED TUBE (08:57)
[2020-04-07] MEDS: LIDOCAINE 5% PATCH 2 PATCH TRANSDERM (08:57)
[2020-04-07] MEDS: SILVERGEL (ELTA) 45 ML 1 APPLIC TOPICAL (08:58)
--- NOTE | 2020-04-07 09:30 | PCPTNOTE ---
Pt declined PT stating Honey I have no energy today. PT will continue to follow per plan of care.
[2020-04-07] MEDS: METOCLOPRAMIDE HCL INJ 10 MG/2 ML VIAL 5 MG IV PUSH (11:10)
--- NOTE | 2020-04-07 13:04 | WPDGIPROGNO ---
Progress Note: A&P Assessment and Plan (1) Dysphagia: Code(s): R13.10 - Dysphagia, unspecified Status: Acute Assessment and Plan: now she is tolerating rate of tube feeding, earlier received one dose of reglan kub unremarkable (2) Anemia: Qualifiers: Anemia type: unspecified type Qualified Code(s): D64.9 - Anemia, unspecified Code(s): D64.9 - Anemia, unspecified Status: Chronic Assessment and Plan: acute on chronic anemia, received one more unit today continue to monitor brown stools in ostomy bag (3) Chronic kidney disease, stage 4, severely decreased GFR: Code(s): N18.4 - Chronic kidney disease, stage 4 (severe) Status: Acute (4) Cardiopulmonary arrest: Code(s): I46.9 - Cardiac arrest, cause unspecified Status: Acute (5) Respiratory failure with hypoxia and hypercapnia: Code(s): J96.91 - Respiratory failure, unspecified with hypoxia; J96.92 - Respiratory failure, unspecified with hypercapnia Status: Acute Assessment and Plan: no new changes (6) Chronic obstructive pulmonary disease: Qualifiers: COPD type: unspecified COPD Qualified Code(s): J44.9 - Chronic obstructive pulmonary disease, unspecified Code(s): J44.9 - Chronic obstructive pulmonary disease, unspecified Status: Acute (7) G tube feedings: Code(s): Z93.1 - Gastrostomy status Status: Acute Assessment and Plan: now she is tolerating Subjective Date/time seen: 04/07/20 13:04 Interval history: noted gastric residual ~ 150ml- primary team held feeding for one hour and used reglan x1, now back on 50 ml/h with low residuals. She complained of abdominal discomfort, KUB did not show ileus or acute findings. Also getting 1 unit prbc because drop hb, no signs of gib. Review of Systems Review of Systems: All systems reviewed & are unremarkable except as noted in HPI and below Exam Const: General: comfortable Other: elderly frail female lying in bed HENMT: General nose exam: Normal nares present Eyes: General: appearance normal, both eyes and all related structures Neck: Neck: no JVD Resp: Auscultation: no crackles Cardio: Rate: regular rate Rhythm: regular rhythm GI: Inspection: non-distended GI Palp: Yes Soft to palpation Auscultation: normal bowel sounds Other: colostomy bag with brown stool, no signs of blood. G-tube looks ok, minimal discomfort to palpation but no rebound or guarding Urinary Catheter: Urinary Catheter: patent and draining Skin: General skin exam: normal color Neuro: Other: awake, alert Extrem: General: normal to inspection Objective Data Vital Signs Vital Signs: Vital Signs - 24 hr 04/06/20 14:00 04/06/20 14:05 04/06/20 14:15 Temperature 99.0 F Pulse Rate 81 81 82 Respiratory Rate 20 18 18 Blood Pressure 127/47 L Pulse Oximetry 100 04/06/20 20:00 04/06/20 20:04 04/06/20 20:06 Temperature 98 F Pulse Rate 76 76 76 Respiratory Rate 22 H 20 20 Blood Pressure 116/40 L Pulse Oximetry 99 94 04/06/20 20:09 04/07/20 04:00 04/07/20 09:39 Temperature 98.2 F Pulse Rate 79 77 72 Respiratory Rate 20 22 H 18 Blood Pressure 116/36 L Pulse Oximetry 100 98 04/07/20 09:52 04/07/20 10:29 04/07/20 10:30 Temperature 98.1 F 98.1 F Pulse Rate 80 55 L 55 L Respiratory Rate 18 20 20 Blood Pressure 132/49 L 132/49 L Pulse Oximetry 100 100 04/07/20 10:45 04/07/20 11:45 04/07/20 12:45 Temperature 97.6 F 97.6 F 97.4 F L Pulse Rate 70 71 73 Respiratory Rate 20 18 20 Blood Pressure 121/44 L 126/45 L 149/49 H Pulse Oximetry 100 100 100 Intake/Output Intake/Output: Intake & Output 04/04/20 04/05/20 04/06/20 04/07/20 23:59 23:59 23:59 23:59 Intake Total 148 439 0782 1525 Output Total 2200 1350 575 750 Balance -1231 -716 413 777 Meds/Results Medications: Active Medications Generic Name Dose Route Start Last Admin Trade Name Freq PRN
--- NOTE | 2020-04-07 13:21 | PCOTNOTE ---
Patient attempted to be seen this AM at 10:15 and patient refused due to abdominal pain. Patient again attempted this PM and declined. Will continue plan of care tomorrow 04/08/2020.
[2020-04-07 14:41] LABS: Hematocrit 26.7 % (37.0-47.0); Hemoglobin 7.9 g/dL (12.0-15.0)
[2020-04-07] MEDS: NEOMYCIN/POLYMYXIN/BACITRACIN OINTMENT PACKET 1 PACKET (14:54)
[2020-04-07] MEDS: WATER FOR IRRIGATION, STERILE 1,000 ML BOTTLE 1000 ML (15:00)
[2020-04-07 17:19] LABS: Glucose Point of Care 118 (65-105)
[2020-04-07 17:19] LABS: Glucose Point of Care 107 (65-105)
[2020-04-07 18:51] LABS: Hematocrit 28.4 % (37.0-47.0); Hemoglobin 8.5 g/dL (12.0-15.0)
[2020-04-07] MEDS: ENOXAPARIN 30 MG/0.3 ML SYRINGE SUB-Q (20:38)
[2020-04-07] MEDS: SALINE LOCK FLUSH 10 ML IV PUSH (22:48)
[2020-04-07] MEDS: INSULIN GLARGINE (*BKC) 100 UNITS/ML 15 UNITS SUB-Q (22:48)
[2020-04-07 22:56] LABS: Glucose Point of Care 125 (65-105)
[2020-04-08 01:30] LABS: Hematocrit 27.2 % (37.0-47.0); Hemoglobin 8.1 g/dL (12.0-15.0)
[2020-04-08 03:50] VITALS: PULSE 74; RESP 18
[2020-04-08] MEDS: IPRATROPIUM BR 0.02% INH SOLN 0.5 MG/2.5 ML VIAL INHALATION ×3 (03:50→13:42)
[2020-04-08 04:00] VITALS: BP 134/44; PULSE 75; RESP 18; RESP 22; TEMP 36; O2SAT 100
[2020-04-08] MEDS: LANSOPRAZOLE ORAL SUSP 30 MG/10 ML ORAL.SUSP FEED TUBE (05:54)
[2020-04-08] MEDS: SALINE LOCK FLUSH 20 ML IV PUSH (05:54)
[2020-04-08] MEDS: SALINE LOCK FLUSH 10 ML IV PUSH (05:54)
[2020-04-08 06:13] LABS: Hematocrit 27.4 % (37.0-47.0); Hemoglobin 8.1 g/dL (12.0-15.0); Mean Corpuscular HGB Conc 29.6 g/dl (32-36); Mean Corpuscular Hemoglobin 28.4 pg (26-34); Mean Corpuscular Volume 96.1 fl (80-100); Mean Platelet Volume 9.8 fl (7.4-10.4); Platelet Count Result 210 k/mm3 (150-375); Red Blood Count 2.85 M/mm3 (4.2-5.4); Red Cell Distribution Width 19.2 % (11.5-14.5)
[2020-04-08] MEDS: ACETAMINOPHEN 500 MG TABLET FEED TUBE (07:55)
[2020-04-08] MEDS: ATORVASTATIN 10 MG TABLET FEED TUBE (07:55)
[2020-04-08] MEDS: SERTRALINE HCL 25 MG TABLET FEED TUBE (07:55)
[2020-04-08] MEDS: LIDOCAINE 5% PATCH 2 PATCH TRANSDERM (07:55)
[2020-04-08] MEDS: MULTIVIT W/ IRON, MINERALS 15 ML LIQUID (*BKC) FEED TUBE (07:55)
[2020-04-08] MEDS: ASPIRIN 81 MG CHEWABLE TABLET FEED TUBE (07:55)
[2020-04-08] MEDS: methiMAzole 5 MG TAB FEED TUBE (07:55)
[2020-04-08] MEDS: SILVERGEL (ELTA) 45 ML 1 APPLIC TOPICAL (07:56)
[2020-04-08 08:18] LABS: Blood Urea Nitrogen 30 mg/dL (7-17); Calcium 8.4 mg/dL (8.4-10.2); Carbon Dioxide 33 mmol/L (22-30); Chloride 104 mmol/L (98-107); Estimated CRCL calculation 31 ml/min; Estimated Glomerular Filt Rate 49; Glucose 91 mg/dL (65-105); Potassium 4.6 mmol/L (3.4-5.0); Sodium 138 mmol/L (137-145)
[2020-04-08 09:21] VITALS: PULSE 76; RESP 20; O2SAT 98
[2020-04-08] MEDS: PREGABALIN 25 MG CAPSULE FEED TUBE (09:23)
[2020-04-08 09:29] VITALS: PULSE 75; RESP 20
--- NOTE | 2020-04-08 09:33 | WPDGIPROGNO ---
Progress Note: A&P Additional Plan Patient alert and comfortable this morning. Tolerating tube feedings with no problems. Physical exam reveals patient to be alert. Abdomen is soft. Bowel sounds are present. Peg tube site in left upper quadrant appears to be healing well. Impression 1. Oropharyngeal dysphagia. Status post PEG tube placement. Plan is for tube feedings as per primary care service and nutritional consultation. Local care to PEG tube site advised. Disposition per primary care service. Subjective Date/time seen: 04/08/20 09:33 Objective Data Vital Signs Vital Signs: Vital Signs - 24 hr 04/07/20 09:39 04/07/20 09:52 04/07/20 10:29 Temperature 98.1 F Pulse Rate 72 80 55 L Respiratory Rate 18 18 20 Blood Pressure 132/49 L Pulse Oximetry 98 100 04/07/20 10:30 04/07/20 10:45 04/07/20 11:45 Temperature 98.1 F 97.6 F 97.6 F Pulse Rate 55 L 70 71 Respiratory Rate 20 20 18 Blood Pressure 132/49 L 121/44 L 126/45 L Pulse Oximetry 100 100 100 04/07/20 12:45 04/07/20 13:55 04/07/20 14:35 Temperature 97.4 F L 98.3 F Pulse Rate 73 68 76 Respiratory Rate 20 20 18 Blood Pressure 149/49 H 113/50 L Pulse Oximetry 100 100 04/07/20 14:46 04/07/20 20:00 04/07/20 20:15 Temperature 98.5 F Pulse Rate 72 81 80 Respiratory Rate 18 24 H 18 Blood Pressure 152/65 H Pulse Oximetry 96 04/07/20 20:18 04/07/20 20:21 04/08/20 03:50 Temperature Pulse Rate 80 78 74 Respiratory Rate 18 18 Blood Pressure Pulse Oximetry 93 04/08/20 04:00 04/08/20 09:21 04/08/20 09:29 Temperature 96.8 F L Pulse Rate 75 76 75 Respiratory Rate 22 H 20 20 Blood Pressure 134/44 L Pulse Oximetry 100 98 Intake/Output Intake/Output: Intake & Output 04/05/20 04/06/20 04/07/20 04/08/20 23:59 23:59 23:59 23:59 Intake Total 450 1210 1925 745 Output Total 8440 729 3454 300 Balance -900 635 725 445 Meds/Results Medications: Active Medications Generic Name Dose Route Start Last Admin Trade Name Freq PRN Reason Stop Dose Admin Acetaminophen 500 mg 04/05/20 15:22 04/08/20 07:55 Tylenol Tablet FEED TUBE 500 mg Q6H PRN Administration Mild Pain (1-3) Albuterol 1 puff 03/13/20 19:19 Proventil Hfa INHALATION Q4H PRN shortness of breath or wheezing Aspirin 81 mg 04/06/20 08:35 04/08/20 07:55 Aspirin Chewable FEED TUBE 81 mg DAILY@0800 PEGGY Administration Atorvastatin Calcium 10 mg 04/06/20 09:00 04/08/20 07:55 Lipitor FEED TUBE 10 mg DAILY PEGGY Administration Dextrose 12.5 gm 03/25/20 17:51 04/04/20 11:45 Dextrose 50% Syringe IV PUSH 12.5 gm PRN PRN Administration Hypoglycemia Protocol Enoxaparin Sodium 30 mg 03/25/20 23:50 04/07/20 20:38 Lovenox SUB-Q 30 mg HS PEGGY Administration Glucagon 1 mg 03/25/20 17:51 Glucagon For Inj IM PRN PRN Hypoglycemia Protocol Glucose 15 gm 03/25/20 17:51 Glutose 15 PO PRN PRN Hypoglycemia Protocol Dextrose 1,000 mls @ 50 mls/hr 03/25/20 17:42 Dextrose 10% IV CONT .Q20H PRN if PN is interrupted Dextrose 1,000 mls @ 100 mls/hr 03/25/20 17:51 Dextrose 5% 1,000 Ml IVPB PRN PRN Hypoglycemia Protocol Insulin Glargine 15 units 03/28/20 21:00 04/07/20 22:48 Lantus SUB-Q 15 units HS PEGGY Administration Ipratropium [place] 0.5 mg 03/23/20 14:00 04/08/20 09:20 Atrovent Neb INHALATION 0.5 mg Q6HRT PEGGY Administration Lansoprazole 30 mg 04/06/20 06:30 04/08/20 05:54 Prevacid Susp FEED TUBE 30 mg DAILY@0630 PEGGY Administration Lidocaine 2 patch 04/02/20 09:00 04/08/20 07:55 Lidoderm TRANSDERM 2 patch DAILY PEGGY Administration Methimazole 5 mg 04/06/20 09:00 04/08/20 07:55 Tapazole FEED TUBE 5 mg DAILY PEGGY Administration Multivitamins/Minerals 15 ml 04/06/20 09:00 04/08/20 07:55 Centrum Liquid FEED TUBE 15 ml DAILY PEGGY Administra
--- NOTE | 2020-04-08 12:00 | PM.DS ---
DS: Admitting Diagnosis Admitting Diagnosis Admitting Diagnosis: Pleural effusion, not elsewhere classified DS: Discharge Diagnosis Discharge Diagnosis (1) Dysphagia: Code(s): R13.10 - Dysphagia, unspecified Status: Acute Assessment and Plan: MBS 03/23/20 and again on 03/31 showing aspiration. Multiple long discussion with patient and family. It was explained that she is high risk for complications given her hx and recent Code Blue. She and her dtr voice understanding but wish to proceed. PEG tube placed 04/05/20 and patient appears to have tolerated the procedure well. Initially had difficulty tolerating TF but improved. 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 Had a recent abnormal stress test. Beta-lisa started recently and had 3 doses prior to code blue. CPR performed and she had ROSC. EKG at the time showing junctional rhythm with T wave inversion in high lateral leads. Trop climbed to 1.597. Elevated trop probably from CPR. Beta-lisa stopped due to bradycardia. Cardiology was following. We continued aspirin and Lipitor when able. AST/ALT elevated related to shock liver. Levels trending down with AST normal 04/03. Related to code blue. Lipitor able to be resumed CXR showing left 4th rib fracture but whole chest wall remains sore. Symptoms slowly improving. Treat symptomatically. (3) Acute respiratory failure: Qualifiers: Respiratory failure complication: hypoxia and hypercapnia Qualified Code(s): J96.01 - Acute respiratory failure with hypoxia; J96.02 - Acute respiratory failure with hypercapnia Code(s): J96.00 - Acute respiratory failure, unspecified whether with hypoxia or hypercapnia Status: Acute Assessment and Plan: Patient had code blue called as mentioned above. ABG showing hypoxia and hypercapnia. Patient able to be extubated 03/21/20. Patient improving and now down to 2L O2. Consider aspiration as complicating her respiratory failure (failed swallow test again). Home 02 2-3 L. Stopped Solu-Medrol (which thought contributed to elevated WBC). 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 ILD could also be related to Amio or chronic aspiration. Patient refusing BiPAP at night. Appreciate pulmonary input. (4) Anemia: Qualifiers: Anemia type: unspecified type Qualified Code(s): D64.9 - Anemia, unspecified Code(s): D64.9 - Anemia, unspecified Status: Chronic Assessment and Plan: Chronic anemia. Iron studies consistent with iron deficiency anemia. No evidence of acute bleeding. Stool occult blood is negative. Dr March gave IV venofer(received 3769-1140 mg total so stopped). Hemoglobin 6.9 on 03/20 and transfused. Hgb was in the 8-9 range but has been mostly in the 7 range past many days. EGD was normal. Currently on Prevacid. Hemoglobin 6.7 on 04/07 but may have been erroneously if drawn the lining correctly. Repeat hemoglobin 7 which is more in line recent blood work. She received 1 unit PRBC. No evidence of acute blood loss. Continue Prevacid. Repeat Hgb 8.1. (5) Recurrent pleural effusion on left: Code(s): J90 - Pleural effusion, not elsewhere classified Status: Acute Assessment and Plan: Recently admitted 02/28 - 03/03 for same; thoracentesis 03/01 and another 03/13 and 03/25, each yielding 1000mL clear yellow fluid. Analysis of pleural fluid last admission with negative cultures and no findings of malignancy on cytology. [place] effusions related to CHF. Echo showing EF 60% with diastolic dysfunction and severe pulmonary hypertension with a PASP of 82. CXR 04/03 showing effusion has returned. Repeat US guided thoracentesis performed on 04/04 with removal of 1000mL fluid. Patient tolerated the proce
[2020-04-08 13:14] LABS: Glucose Point of Care 96 (65-105)
[2020-04-08 13:43] VITALS: PULSE 87; RESP 20
[2020-04-08 13:52] VITALS: PULSE 79; RESP 20
--- NOTE | 2020-04-08 14:12 | PC.NURSE ---
Patient had midline to left upper arm. Per orders from Dr. Quintero, discontinue midline. Midline was discontinued at 1400, dressing was applied/dated/timed. Patient had other previous site to R neck. Gauze/tegaderm from R neck discontinued, washed with warm soapy water and bandaid applied. No sites of infection present. Jenifer at [facility] was notified of sites and care.
== END 2020-04-08 14:54 | DRG 291 ==
LOC: ANHED 11:48 → ANH2MED 13:32 → ANHICU 03-21 10:47 → ANHIMU 03-29 12:38 → ANH2MED 04-03 16:53 → ANHICU 04-09 10:11 → ANHIMU 04-09 10:11
PROVIDERS: Family Medicine; Internal Medicine; Internal Medicine Cardiovascular Disease; Internal Medicine Critical Care Medicine; Internal Medicine Gastroenterology; Physician Assistant; Admitting Provider Internal Medicine; Emergency Provider Emergency Medicine; PCP Internal Medicine; Visit Provider Internal Medicine
PROC: 0DH63UZ Insertion of Feeding Device into Stomach, Percutaneous Approach (ICD-10-PCS; CPT 43246; principal; 2020-04-05 10:00)
DX: I13.0 Hypertensive heart and chronic kidney disease with heart failure and stage 1 through stage 4 chronic kidney disease, or unspecified chronic kidney disease (principal); I50.33 Acute on chronic diastolic (congestive) heart failure; I46.9 Cardiac arrest, cause unspecified; J96.21 Acute and chronic respiratory failure with hypoxia; N17.0 Acute kidney failure with tubular necrosis; K72.00 Acute and subacute hepatic failure without coma; J69.0 Pneumonitis due to inhalation of food and vomit; J96.02 Acute respiratory failure with hypercapnia; N18.4 Chronic kidney disease, stage 4 (severe); J44.1 Chronic obstructive pulmonary disease with (acute) exacerbation; C18.9 Malignant neoplasm of colon, unspecified; I27.20 Pulmonary hypertension, unspecified; Z87.891 Personal history of nicotine dependence; I48.0 Paroxysmal atrial fibrillation; I35.0 Nonrheumatic aortic (valve) stenosis; Z99.81 Dependence on supplemental oxygen; D49.4 Neoplasm of unspecified behavior of bladder; E87.6 Hypokalemia; D50.9 Iron deficiency anemia, unspecified; R13.10 Dysphagia, unspecified; R94.39 Abnormal result of other cardiovascular function study; D72.829 Elevated white blood cell count, unspecified; E05.90 Thyrotoxicosis, unspecified without thyrotoxic crisis or storm; Z11.59 Encounter for screening for other viral diseases
CPT/HCPCS: 31500; 32555; 36415; 36430; 36569; 36600; 43246; 71045; 71046; 71250; 74019; 80048; 80053; 80069; 80076; 81001; 82042; 82150; 82274; 82375; 82728; 82805; 82945; 83050; 83540; 83550; 83605; 83615; 83735; 83880; 83986; 84100; 84157; 84311; 84439; 84443; 84466; 84478; 84484; 85014; 85018; 85025; 85027; 85046; 85610; 85730; 86850; 86900; 86901; 86923; 87040; 87070; 87075; 87077; 87086; 87088; 87186; 87205; 87635; 88104; 88108; 88305; 88313; 88342; 89051; 92526; 92610; 92611; 92950; 93005; 93306; 93970; 94002; 94003; 94640; 97110; 97116; 97162; 97165; 97530; 97535; 99285; A9270; C1751; C9113; C9803; G0378; J0131; J0171; J0282; J1650; J1756; J1815; J1940; J1956; J2060; J2250; J2405; J2704; J2765; J2930; J3010; J3475; J3480; J7030; J7040; J7050; J7120; P9016; U0003